=== PATIENT | female | born 1960 | race Caucasian/White ===

== ENCOUNTER → 2017-09-12 09:01 | Outpatient (CLI) | payer BC, SELFPAY ==
[2017-09-12 12:02] LABS: Absolute Lymphocyte Count 1.54 X10^3/ul (0.83-4.51); Absolute Neutrophil Count 4.2 X10^3/uL (2.0-7.7); Basophil# 0.03 X10^3/uL; Basophil% 0.5 % (0-1); Eosinophil# 0.15 X10^3/uL; Eosinophils% 2.3 % (0-5); Hematocrit 45.3 % (37-47); Hemoglobin 15.3 g/dl (12.0-15.0); Lymphocyte # 1.54 X10^3/ul (4.0); Mean Corp Hgb Conc 33.8 g/gl (32-36); Mean Corpuscular Hgb 32.8 pg (27.0-32.0); Mean Corpuscular Volume 97.2 fL (81-99); Mean Platelet Vol. 11.9 fl (6.2-12.0); Monocyte# 0.52 X10^3/uL; Monocyte% 8.1 % (0-10); Neutrophil # 4.17 X10^3/uL (2.7-7.7); Neutrophil % 64.8 % (47-70); Platelet Count 281 K/mm3 (150-450); RBC Distribution Width CV 12.7 % (11.6-14.6); RBC Distribution Width SD 44.4 fl (35.1-43.9); Red Blood Count 4.66 M/mm3 (4.2-5.4); White Blood Count 6.4 K/mm3 (4.4-11.0)
[2017-09-12 12:04] LABS: POSITIVE COUNT NO; POSITIVE DIFFERENTIAL NO; POSITIVE MORPHOLOGY NO
[2017-09-12 12:15] LABS: Color, Urine Yellow (Yellow); Glucose, Dipstick Normal (Normal); Ketone-Dipstick Negative (Negative); Leukocyte Esterase-Dipstick Negative /ul (Negative); Nitrite-Dipstick Negative (Negative); Occult Blood-Urine Negative /ul (Negative); Protein-Dipstick Negative (Negative); Urine Bilirubin Dipstick Negative (Negative); Urine Clarity Clear (Clear); Urine Urobilinogen Normal (Normal)
[2017-09-12 12:23] LABS: ALB/GLOB Ratio 0.8 RATIO (0.9-2.4); AST(SGOT) 33 U/L (15-37); Alanine Aminotransfer ALT/SGPT 41 U/L (13-56); Albumin, Serum 3.5 g/dL (3.2-5.0); Alkaline Phosphatase 117 U/L (45-117); Anion Gap 8 (5-15); BUN 10 mg/dL (7-18); BUN/Creat Ratio 13.5 RATIO (10-20); Calcium,Total 9.5 mg/dL (8.5-10.1); Chloride 105 mmol/L (98-107); Cholesterol 202 mg/dL (200); Creatinine, Serum 0.74 mg/dL (0.55-1.02); EST Glomerular Filtration Rate 86 mL/min (>60); Est Glom Filt Rate - Afr Amer 105 mL/min (>60); Globulin 4.3 g/dL (2.2-4.2); Glucose 97 mg/dL (74-106); High Density Lipoprotein 74 mg/dL; Potassium 3.9 mmol/L (3.5-5.1); Protein, Total 7.8 g/dL (6.4-8.2); Sodium Level 141 mmol/L (136-145); Triglycerides 101 mg/dL; Very Low Density Lipoprotein 20 mg/dL (5-40)
[2017-09-14 09:06] LABS: Insulin Like Growth Factor 78 ng/mL (53-190)
== END ==
PROVIDERS: Family Provider Family Medicine; PCP Family Medicine; Visit Provider Family Medicine
DX: Z00.00 Encounter for general adult medical examination without abnormal findings (principal); E16.2 Hypoglycemia, unspecified
CPT/HCPCS: 36415; 80053; 80061; 81002; 84305; 85025

== ENCOUNTER → 2017-09-26 14:54 | Outpatient (CLI) | payer BC, SELFPAY ==
--- NOTE | 2017-09-26 14:56 | BI_ITS ---
MAMMOGRAPHY - BILATERAL SCREENING REASON FOR EXAM: Female, 57 years old. Routine annual screening examination. PERTINENT HISTORY: Sister with breast cancer. TECHNIQUE: Digital bilateral breast joey (3D mammographic acquisition) in the CC and MLO projections. 2-D mediolateral oblique (MLO) and craniocaudad (CC) views of both breasts were obtained. CAD: Full Field Digital Mammography with Computer Added Detection was performed. COMPARISON: Comparison is made with prior study dated August 09, 2016 and August 05, 2015. FINDINGS: Breast Composition: The breasts are almost entirely fatty. There are no dominant masses or suspicious calcifications. No other significant abnormalities are identified. There has been no significant change since the prior study. BI/SCREENING MAMM (CAD), BILAT IMPRESSION: Stable bilateral screening mammogram. Yearly follow-up mammogram recommended. (A) ASSESSMENT CATEGORY: BIRADS Category 1: Negative. A letter regarding these results will be sent to the patient by the facility within 30 days. Approximately 10% of breast cancers are not detected by mammography. A normal mammogram should not delay biopsy of a clinically suspicious abnormality. [id number] Electronically Signed: Vidal Ruff MD at 16:04 EDT Tel [phone], Service support ,
== END ==
PROVIDERS: Family Provider Family Medicine; PCP Family Medicine; Visit Provider Family Medicine
DX: Z12.31 Encounter for screening mammogram for malignant neoplasm of breast (principal)
CPT/HCPCS: 77063; 77067

== ENCOUNTER → 2018-06-07 12:40 | Outpatient (CLI) | payer OTHER, SELFPAY ==
--- NOTE | 2018-06-07 12:45 | RAD_ITS ---
STUDY: X-RAY - RIGHT KNEE REASON FOR EXAM: Female, 58 years old. Pt. states she was dancing and then woke up the next morning with medial pain and swelling TECHNIQUE: 3 view(s) of the knee. COMPARISON: None. FINDINGS: Normal visualized distal femur. Normal visualized proximal tibia and fibula. Normal proximal tibiofibular articulation. There is moderate degenerative arthrosis of the medial femorotibial compartment with moderate joint space narrowing. There is mild degenerative arthrosis of the lateral femorotibial compartment. There is severe degenerative arthrosis of the patellofemoral articulation. There is a moderate volume joint effusion. The soft tissue structures are unremarkable. RAD/Knee 3 Views IMPRESSION: Degenerative arthrosis. Electronically Signed: Genny Joseph, at 13:02 EDT Tel , Service support ,
== END ==
PROVIDERS: Family Provider Family Medicine; PCP Family Medicine; Referring Provider Nurse Practitioner Family; Visit Provider Nurse Practitioner Family
DX: M25.561 Pain in right knee (principal)
CPT/HCPCS: 73562

== ENCOUNTER → 2018-07-22 07:14 | Outpatient (CLI) | payer OTHER, SELFPAY ==
[2018-06-07 12:41] VITALS: BMI 29.1
--- NOTE | 2018-07-22 14:13 | EEG ---
- Electroencephalogram Date of service 07/22/2018 History EEG is being done in this 58 yr F to rule out seizures EEG Description: This is an 18 channel EEG with 10-20 lead placement system. Bipolar montages, and Referential montages were reviewed. Photic stimulation and Hyperventilation were performed. The posterior dominant rhythm is 10 HZ synchronous, symmetric, reacting to eye opening and closing. Photo stimulation elicited normal driving response but no abnormal photoparoxysmal response, Hyperventilation did not elicit any abnormal photoparoxysmal response. Sleep was identified. There is no abnormal background slowing noted. EKG artefact noted during the record. There was no epileptiform discharges or electrographic seizures noted during this recording. EEG Interpretation This is a normal awake and asleep EEG. There is no epileptiform discharges or electrographic seizures noted during the record.
== END ==
PROVIDERS: Family Provider Family Medicine; PCP Family Medicine; Referring Provider Family Medicine; Visit Provider Family Medicine
DX: R55 Syncope and collapse (principal)
CPT/HCPCS: 95819

== ENCOUNTER → 2018-08-08 07:54 | Outpatient (CLI) | payer OTHER, SELFPAY ==
[2018-06-07 12:41] VITALS: BMI 29.1
--- NOTE | 2018-08-08 08:00 | CT_ITS ---
STUDY: CT BRAIN WITHOUT CONTRAST REASON FOR EXAM: Female, 58 years old. Confusion. RADIATION DOSAGE (If Supplied By Facility): CTDIvol = ( 44.99 ) mGy, DLP = ( 745.49 ) mGycm TECHNIQUE: Transaxial CT imaging of the brain was performed without administration of intravenous contrast material. Individualized dose optimization techniques were used for this CT. COMPARISON: No relevant priors. FINDINGS: Normal soft tissue structures. Normal calvarium. Normal size ventricles and extra-axial spaces for the patient's age. Normal white matter tracts of the cerebral hemispheres. Normal basal ganglia and thalami. Normal brainstem. Normal cerebellum. There is no intracranial hemorrhage. There are no findings of an acute ischemic infarction. Normal visualized paranasal sinuses. CT/Brain/Head without Contrast IMPRESSION: Normal unenhanced CT scan of the brain. Electronically Signed: Vidal Ruff, at 13:31 EDT , Service support ,
== END ==
PROVIDERS: Family Provider Family Medicine; PCP Family Medicine; Referring Provider Family Medicine; Visit Provider Family Medicine
DX: R55 Syncope and collapse (principal)
CPT/HCPCS: 70450

== ENCOUNTER → 2018-10-16 07:36 | Outpatient (CLI) | payer OTHER, SELFPAY ==
[2018-06-07 12:41] VITALS: BMI 29.1
[2018-10-16 08:32] LABS: Erythrocyte Sedimentation Rate 20 mm/hr (0-30)
[2018-10-16 09:06] LABS: Glucose GTT- Fasting 91 mg/dL (74-106)
[2018-10-16 09:10] LABS: Glucose GTT-30 minutes 110 mg/dL (110-170)
[2018-10-16 09:22] LABS: Vitamin B12 614 pg/mL (211-911)
[2018-10-16 10:08] LABS: Glucose GTT- 1 Hour 98 mg/dL (120-170)
[2018-10-16 10:18] LABS: ALB/GLOB Ratio 0.8 RATIO (0.9-2.4); AST(SGOT) 22 U/L (15-37); Alanine Aminotransfer ALT/SGPT 33 U/L (13-56); Albumin, Serum 3.4 g/dL (3.2-5.0); Alkaline Phosphatase 126 U/L (45-117); Anion Gap 4 (5-15); BUN 9 mg/dL (7-18); BUN/Creat Ratio 13.4 RATIO (10-20); Calcium,Total 8.9 mg/dL (8.5-10.1); Chloride 108 mmol/L (98-107); Creatinine, Serum 0.67 mg/dL (0.55-1.02); Globulin 4.1 g/dL (2.2-4.2); Glucose 89 mg/dL (74-106); Potassium 4.1 mmol/L (3.5-5.1); Protein, Total 7.5 g/dL (6.4-8.2); Sodium Level 140 mmol/L (136-145)
[2018-10-16 10:19] LABS: Thyroid Stim Hormone (TSH) 3.63 uIU/mL (0.358-3.74)
[2018-10-16 10:20] LABS: T4 Free Direct 0.93 ng/dL (0.76-1.46); T4 Total, Thyroxin 8.7 ug/dL (4.8-13.9)
[2018-10-16 10:44] LABS: EST Glomerular Filtration Rate 96 mL/min (>60); Est Glom Filt Rate - Afr Amer 116 mL/min (>60); T3 Uptake 34 % (30-39)
[2018-10-16 10:58] LABS: Glucose GTT- 2 Hour 76 mg/dL (70-120)
[2018-10-16 12:44] LABS: Glucose GTT- 4 Hour 84 mg/dL (74-106)
[2018-10-16 12:44] LABS: Glucose GTT- 3 Hour 53 mg/dL (74-106)
[2018-10-17 15:48] LABS: ANTINUCLEAR ANTIBODIES DIRECT Negative (Negative)
[2018-10-17 16:07] LABS: PROEL- Albumin 3.4 g/dL (2.9-4.4); PROEL- Alpha-1 Globulin 0.2 g/dL (0.0-0.4); PROEL- Alpha-2 Globulin 0.8 g/dL (0.4-1.0); PROEL- Beta Globulin 1.1 g/dL (0.7-1.3); PROEL- Gamma Globulin 1.1 g/dL (0.4-1.8); PROEL- Globulin, Total 3.3 g/dL (2.2-3.9); PROEL- TOTAL PROTEIN 6.7 g/dL (6.0-8.5)
== END ==
PROVIDERS: Family Provider Family Medicine; PCP Family Medicine; Referring Provider Psychiatry & Neurology Neurology; Visit Provider Psychiatry & Neurology Neurology
DX: E16.2 Hypoglycemia, unspecified (principal); R41.0 Disorientation, unspecified; R55 Syncope and collapse
CPT/HCPCS: 36415; 80053; 82607; 82746; 82951; 82952; 84165; 84436; 84439; 84443; 84479; 85652; 86038

== ENCOUNTER → 2018-11-22 07:43 | Outpatient (CLI) | payer OTHER, SELFPAY ==
[2018-06-07 12:41] VITALS: BMI 29.1
[2018-11-26 09:53] LABS: KEPPRA (LEVETIRACETAM) 9.4 ug/mL (10.0-40.0)
== END ==
PROVIDERS: Family Provider Family Medicine; PCP Family Medicine; Referring Provider Psychiatry & Neurology Neurology; Visit Provider Psychiatry & Neurology Neurology
DX: G40.209 Localization-related (focal) (partial) symptomatic epilepsy and epileptic syndromes with complex partial seizures, not intractable, without status epilepticus (principal)
CPT/HCPCS: 36415; 80177

== ENCOUNTER → 2019-01-13 07:45 | Outpatient (CLI) | payer OTHER, SELFPAY ==
[2019-01-04 12:34] VITALS: BMI 29.1
[2019-01-15 12:23] LABS: KEPPRA (LEVETIRACETAM) 32.2 ug/mL (10.0-40.0)
== END ==
PROVIDERS: Family Provider Family Medicine; PCP Family Medicine; Referring Provider Psychiatry & Neurology Neurology; Visit Provider Psychiatry & Neurology Neurology
DX: G40.209 Localization-related (focal) (partial) symptomatic epilepsy and epileptic syndromes with complex partial seizures, not intractable, without status epilepticus (principal)
CPT/HCPCS: 36415; 80177

== ENCOUNTER → 2019-02-22 09:10 | Outpatient (CLI) | payer OTHER, SELFPAY ==
[2019-01-04 12:34] VITALS: BMI 29.1
[2019-02-22 10:09] LABS: Absolute Lymphocyte Count 1.88 X10^3/uL (0.83-4.51); Basophil# 0.04 X10^3/uL; Basophil% 0.6 % (0-1); Eosinophil# 0.19 X10^3/uL; Eosinophils% 2.9 % (0-5); Hemoglobin 14.3 g/dL (12.0-15.0); Lymphocyte # 1.88 X10^3/ul (4.0); Lymphocyte % 28.2 % (19-41); Mean Corp Hgb Conc 33.3 g/dL (32-36); Mean Corpuscular Hgb 32.5 pg (27.0-32.0); Mean Corpuscular Volume 97.7 fL (81-99); Mean Platelet Vol. 11.3 fl (6.2-12.0); Monocyte# 0.57 X10^3/uL; Monocyte% 8.6 % (0-10); NRBC Flagged by Analyzer 0 % (0-5); Neutrophil # 3.96 X10^3/uL (2.7-7.7); Neutrophil % 59.4 % (47-70); Platelet Count 268 K/mm3 (150-450); RBC Distribution Width CV 12.2 % (11.6-14.6); RBC Distribution Width SD 44.1 fl (35.1-43.9); White Blood Count 6.7 K/mm3 (4.4-11.0)
[2019-02-22 10:13] LABS: Color, Urine Straw (Yellow); Glucose, Dipstick Normal (Normal); Ketone-Dipstick Negative (Negative); Leukocyte Esterase-Dipstick Negative /ul (Negative); Nitrite-Dipstick Negative (Negative); Occult Blood-Urine Negative /ul (Negative); Protein-Dipstick Negative (Negative); Urine Bilirubin Dipstick Negative (Negative); Urine Clarity Sl. Cloudy (Clear); Urine Urobilinogen Normal (Normal)
[2019-02-22 10:35] LABS: BUN 12 mg/dL (7-18); Creatinine, Serum 0.71 mg/dL (0.55-1.02); Glucose 81 mg/dL (74-106)
[2019-02-22 10:36] LABS: ALB/GLOB Ratio 0.9 RATIO (0.9-2.4); AST(SGOT) 29 U/L (15-37); Alanine Aminotransfer ALT/SGPT 39 U/L (13-56); Albumin, Serum 3.6 g/dL (3.2-5.0); Alkaline Phosphatase 130 U/L (45-117); Anion Gap 5 (5-15); BUN/Creat Ratio 16.8 RATIO (10-20); Calcium,Total 9.2 mg/dL (8.5-10.1); Chloride 106 mmol/L (98-107); Cholesterol 193 mg/dL (200); EST Glomerular Filtration Rate 90 mL/min (>60); Est Glom Filt Rate - Afr Amer 109 mL/min (>60); High Density Lipoprotein 75 mg/dL; Potassium 4.3 mmol/L (3.5-5.1); Protein, Total 7.6 g/dL (6.4-8.2); Sodium Level 140 mmol/L (136-145); Triglycerides 221 mg/dL; Very Low Density Lipoprotein 44 mg/dL (5-40)
== END ==
PROVIDERS: Family Provider Family Medicine; PCP Family Medicine; Referring Provider Family Medicine; Visit Provider Family Medicine
DX: Z00.00 Encounter for general adult medical examination without abnormal findings (principal); Z12.31 Encounter for screening mammogram for malignant neoplasm of breast
CPT/HCPCS: 36415; 80053; 80061; 81002; 85025

== ENCOUNTER → 2019-03-11 07:46 | Outpatient (CLI) | payer OTHER, SELFPAY ==
[2019-01-04 12:34] VITALS: BMI 29.1
--- NOTE | 2019-03-11 07:48 | BI_ITS ---
MAMMOGRAPHY - BILATERAL SCREENING 3-D TOMOSYNTHESIS REASON FOR EXAM: Female, 58 years old. FAM HX SISTER AGE 30 -- NO SX PERTINENT HISTORY: Positive family history as described above. TECHNIQUE: 2-D mammograms and 3-D Tomosynthesis of the breast (s) were performed. CAD was performed. COMPARISON: 09/26/2017, 08/09/2016 FINDINGS: The breast composition is almost entirely fat. A focal prominence is visualized on the right along the upper-outer quadrant. Further evaluation of this focus with spot compression mammogram and if persistent with sonography is recommended as follow-up. Scattered benign calcifications are seen. No dense spiculated masses or suspicious microcalcifications are identified. No architectural distortion is identified. There is no skin thickening or retraction. There has been no other focus of significant change since the prior study. BI/SCREEN MAMM (CAD) W/TEA BILAT IMPRESSION: A focal prominence is visualized on the right along the upper-outer quadrant. Further evaluation of this focus with spot compression mammogram and if persistent with sonography is recommended as follow-up. ASSESSMENT CATEGORY: BIRADS Category 0: Incomplete. Need additional imaging evaluation as above. A letter regarding these results will be sent to the patient by the facility within 30 days. FOLLOW UP RECOMMENDATION: Additional imaging recommended as above. (E) Approximately 10% of breast cancers are not detected by mammography. A normal mammogram should not delay biopsy of a clinically suspicious abnormality. Electronically Signed: Stuart Siddiqi MD at 14:55 EST Tel [phone], Service support ,
== END ==
PROVIDERS: Family Provider Family Medicine; PCP Family Medicine; Referring Provider Family Medicine; Visit Provider Family Medicine
DX: Z12.31 Encounter for screening mammogram for malignant neoplasm of breast (principal)
CPT/HCPCS: 77063; 77067

== ENCOUNTER → 2019-03-20 09:19 | Outpatient (CLI) | payer BC, SELFPAY ==
[2019-01-04 12:34] VITALS: BMI 29.1
--- NOTE | 2019-03-20 09:23 | BI_ITS ---
MAMMOGRAPHY - UNILATERAL DIAGNOSTIC: RIGHT BREAST REASON FOR EXAM: Female, 58 years old. FAM HX SISTER AGE 30 -- RT AVS FOR DENSITY UPPER OUTER RT BREAST -- NO SX PERTINENT HISTORY: Non-contributory. TECHNIQUE: Digital examination. Right lateral view and focal compression of the right upper outer breast. CAD: CAD was performed on this study. COMPARISON: March 11, 2019. FINDINGS: Breast Composition: The breasts are almost entirely fatty. There is no border-forming nodule or mass. The previously identified density is felt to have represented superimposition of fibroglandular tissues. There are no suspicious clustered calcifications. No other significant abnormalities are identified. BI/DIAG MAMM W/CAD, UNILAT IMPRESSION: Stable unilateral diagnostic mammogram. ASSESSMENT CATEGORY: BIRADS Category 1: Negative. A letter regarding these results will be sent to the patient by the facility within 30 days. FOLLOW-UP RECOMMENDATION: Yearly follow-up mammogram recommended. (A) Approximately 10% of breast cancers are not detected by mammography. A normal mammogram should not delay biopsy of a clinically suspicious abnormality. Electronically Signed: Alen Kothari MD at 10:38 EST , Service support ,
== END ==
PROVIDERS: Family Provider Family Medicine; PCP Family Medicine; Referring Provider Family Medicine; Visit Provider Family Medicine
DX: R92.8 Other abnormal and inconclusive findings on diagnostic imaging of breast (principal)
CPT/HCPCS: 77065

== ENCOUNTER → 2019-04-17 07:30 | Outpatient (CLI) | payer BC, SELFPAY ==
[2019-01-04 12:34] VITALS: BMI 29.1
[2019-04-17 09:10] LABS: AST(SGOT) 22 U/L (15-37); Alanine Aminotransfer ALT/SGPT 29 U/L (13-56); Albumin, Serum 3.6 g/dL (3.2-5.0); Alkaline Phosphatase 130 U/L (45-117); Bilirubin, Direct 0.13 mg/dL (0.00-0.30); Globulin 4.2 g/dL (2.2-4.2); Protein, Total 7.8 g/dL (6.4-8.2)
[2019-04-21 16:40] LABS: KEPPRA (LEVETIRACETAM) 11.6 ug/mL (10.0-40.0); Lamotrigine (Lamictal) Level 4.1 ug/mL (2.0-20.0)
== END ==
PROVIDERS: PCP Family Medicine; Referring Provider Psychiatry & Neurology Neurology; Visit Provider Psychiatry & Neurology Neurology
DX: G40.209 Localization-related (focal) (partial) symptomatic epilepsy and epileptic syndromes with complex partial seizures, not intractable, without status epilepticus (principal)
CPT/HCPCS: 36415; 80076; 80177; 82542

== ENCOUNTER → 2020-10-18 08:13 | Outpatient (CLI) | payer BC, SELFPAY ==
[2019-01-04 12:34] VITALS: BMI 29.1
--- NOTE | 2020-10-18 08:16 | BI_ITS ---
MAMMOGRAPHY - BILATERAL SCREENING REASON FOR EXAM: Female, 60 years old. Routine annual screening examination. PERTINENT HISTORY: Screening TECHNIQUE: Digital bilateral breast tea (3D mammographic acquisition) in the CC and MLO projections. 2-D mediolateral oblique (MLO) and craniocaudad (CC) views of both breasts were obtained. CAD: Full Field Digital Mammography with Computer Added Detection was performed. COMPARISON: Previous mammogram obtained on 03/11/2019 FINDINGS: Breast Composition: Fatty There are no dominant masses or suspicious calcifications. No other significant abnormalities are identified. BI/SCRN MAMM (CAD)W/TEA BILAT IMPRESSION: Stable bilateral screening mammogram. Yearly follow-up mammogram recommended. (A) ASSESSMENT CATEGORY: BIRADS Category 1: Negative. A letter regarding these results will be sent to the patient by the facility within 30 days. Approximately 10% of breast cancers are not detected by mammography. A normal mammogram should not delay biopsy of a clinically suspicious abnormality. [id number] Electronically Signed: Flavio Jerez DO at 11:58 EDT Tel , Service support ,
[2020-10-18 08:51] LABS: Absolute Lymphocyte Count 1.31 X10^3/uL (0.83-4.51); Absolute Neutrophil Count 3.4 X10^3/uL (2.0-7.7); Basophil# 0.04 X10^3/uL; Basophil% 0.7 % (0-1); Eosinophil# 0.29 X10^3/uL; Eosinophils% 5.3 % (0-5); Hematocrit 45.4 % (37-47); Lymphocyte # 1.31 X10^3/ul (0.83-4.51); Lymphocyte % 23.9 % (19-41); Mean Corpuscular Hgb 32.5 pg (27.0-32.0); Mean Corpuscular Volume 98.3 fL (81-99); Monocyte# 0.43 X10^3/uL; Monocyte% 7.9 % (0-10); NRBC Flagged by Analyzer 0 % (0-5); Neutrophil # 3.38 X10^3/uL (2.7-7.7); Neutrophil % 61.8 % (47-70); Platelet Count 264 K/mm3 (150-450); RBC Distribution Width CV 12.1 % (11.6-14.6); RBC Distribution Width SD 44.1 fl (35.1-43.9); Red Blood Count 4.62 M/mm3 (4.2-5.4); White Blood Count 5.5 K/mm3 (4.4-11.0)
[2020-10-18 09:19] LABS: ALB/GLOB Ratio 0.9 RATIO (0.9-2.4); AST(SGOT) 49 U/L (15-37); Alanine Aminotransfer ALT/SGPT 74 U/L (13-56); Albumin, Serum 3.6 g/dL (3.2-5.0); Alkaline Phosphatase 142 U/L (45-117); Anion Gap 3 (5-15); BUN 11 mg/dL (7-18); BUN/Creat Ratio 14.7 RATIO (10-20); Calcium,Total 9.1 mg/dL (8.5-10.1); Chloride 106 mmol/L (98-107); Cholesterol 193 mg/dL (200); Creatinine, Serum 0.75 mg/dL (0.55-1.02); EST Glomerular Filtration Rate 85 mL/min (>60); Est Glom Filt Rate - Afr Amer 102 mL/min (>60); Globulin 4.2 g/dL (2.2-4.2); Glucose 106 mg/dL (74-106); High Density Lipoprotein 69 mg/dL; Potassium 4.1 mmol/L (3.5-5.1); Protein, Total 7.8 g/dL (6.4-8.2); Sodium Level 137 mmol/L (136-145); Triglycerides 103 mg/dL; Very Low Density Lipoprotein 21 mg/dL (5-40)
== END ==
PROVIDERS: PCP Family Medicine; Referring Provider Family Medicine; Visit Provider Family Medicine
DX: Z12.31 Encounter for screening mammogram for malignant neoplasm of breast (principal); Z13.6 Encounter for screening for cardiovascular disorders
CPT/HCPCS: 36415; 77063; 77067; 80053; 80061; 85025

== ENCOUNTER 2020-12-02 10:08 | Emergency (ER) | payer BC, SELFPAY ==
[2020-12-02 10:08] VITALS: BP 203/117; PULSE 83; RESP 17; TEMP 36.1; O2SAT 97; BMI 31.1
--- NOTE | 2020-12-02 10:17 | EKG12_ITS ---
Test Reason : LUMBAR Blood Pressure : / mmHG Vent. Rate : 083 BPM Atrial Rate : 083 BPM P-R Int : 148 ms QRS Dur : 072 ms QT Int : 366 ms P-R-T Axes : 024 000 019 degrees QTc Int : 430 ms Normal sinus rhythm Normal ECG Confirmed by ALAN MADRID, LISHA ([id number]), map editor JOSE MARTIN BARRAGAN ([id number]) on 12/03/2020 1:07:22 PM Referred By: SHARI/JOHN Confirmed By:LISHA PHILLIPS MD
--- NOTE | 2020-12-02 10:18 | EDS_ITS ---
HPI History of Present Illness Chief Complaint: Upper Extremity Injury Informant: patient Narrative Narrative: [id number] female presents with sudden pain left elbow radiating up and down ulnar aspect half hour prior to arrival. No chest pains. 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 Denies trauma. Denies history of similar. Presents with concerns for potential heart attack. History of seizures on medications. Patient did have an elevated blood pressure in triage, denies history of hypertension. Denies headaches nausea vomiting. States increasing stress due to payroll at this time. Prior similar symptoms: No PFSH PFSH Medical History (Updated 12/02/20 @ 10:[address] Yaron Aranda DO) GERD (gastroesophageal reflux disease) History of seizures Knee pain Home Medications acetaminophen 325 mg capsule 325 mg PO Q6H 01/04/19 [History Last Taken Unknown] azithromycin 250 mg tablet See Rx Instructions PO .COMPLEX #6 tab 01/04/19 [Rx Last Taken Unknown] levetiracetam 500 mg tablet 500 mg PO TID tab 01/04/19 [History Last Taken Unknown] prednisone 10 mg tablet 10 mg PO .COMPLEX #30 tab 01/04/19 [Rx Last Taken Unknown] Allergy/AdvReac Type Severity Reaction Status Date / Time No Known Allergies Allergy Unverified 12/02/20 10:10 Family History Other CVA (cerebral vascular accident) Cancer Myocardial infarction Social History Smoking Status: Current every day smoker tobacco type: cigarettes alcohol intake: current alcohol intake frequency: 0-2 drinks per day Alcohol type: wine ROS ROS ED Constitutional Constitutional ED: Denies chills, fever(s) or sweats Eyes Eyes: Denies change in vision ENT ENT ED: Denies dysphagia or sore throat Cardiovascular Cardiovascular: Denies chest pain, leg edema, palpitations or racing heartbeat Respiratory/Chest Respiratory/Chest: Denies cough, dyspnea or dyspnea on exertion Gastrointestinal Gastrointestinal: Denies abdominal pain, diarrhea, nausea or vomiting Genitourinary Genitourinary ED: Denies dysuria, hematuria or urinary frequency Musculoskeletal Musculoskeletal: Reports other Details: Left elbow pain with radiation ; Denies back pain, extremity pain or neck pain Integumentary Denies rash or wounds Neurologic Neurologic: Denies headache(s), paresthesias or weakness EXAM Physical Exam Const Vital Signs: 12/02/20 10:08 Temperature 97 F L Temperature Source Temporal Pulse Rate 83 Respiratory Rate 17 Blood Pressure 203/117 H Blood Pressure Mean 145 Pulse Ox 97 Oxygen Delivery Method Room Air Positive well nourished and well developed General Appearance ED: well developed and NAD HEENT Reports moist mucous membranes normocephalic and atraumatic Eyes PERRL, EOMs intact bilaterally and conjunctivae normal General Eye ED: Yes normal appearance of both eyes Neck no lymphadenopathy and supple General: Negative for tenderness Chest Wall Chest: Negative for tenderness Resp normal respiratory effort and normal air movement Effort and Inspection: symmetric chest movement; Negative for respiratory distress Cardio regular rate, regular rhythm and no murmurs Peripheral Pulses: pulses 2+ throughout GI normal to inspection, nondistended, normoactive bowel sounds and non-tender Palpation: Negative for guarding or rebound tenderness present Back/Spine no CVA tenderness and no thoracic nor lumbar tenderness Extremity Extremity Narrative: Left upper extremity: No shoulder tenderness. Full range of motion of the elbow positive Tinel's at the cubital tunnel with radicular symptoms down the ulnar aspect. Positive pain with pronation against resistance at the elbow also. Skin intact. Neurovascular intact. General Extremety ED: Negative for edema or tenderness General Extremity: Negative for edema Neuro oriented x3 and no sensory deficits noted Sensorium / Orientation: awake and alert Skin no rashes or lesions noted and no wounds MDM MDM MDM Narrative Medical decision making narrative: Patient exam concerns for cubital tunnel syndrome along with golfers elbow. She leans on her elbows at work. She is concerns for cardiac in nature, EKG showed nonspecific changes. She has no chest pains. Elevated blood pressure on arrival rechecked 185/102. No history of hypertension she is asymptomatic. Discussed picking up blood pressure cuff checking it daily with follow-up with her PCP. She will be continued on Tylenol due to blood pressure and NSAIDs will be avoided at this time. Is given orthopedics as an outpatient for reevaluation of symptoms. Signs and symptoms discussed return. All questions were answered. Patient is being discharged under pandemic conditions under declared global, national and state disaster activation, with limited medical resources. Patient and community understands this. Results discussed in layman's terms to the patient satisfaction. All questions answered in layman's terms. Patient understands importance of follow-up care as directed. Patient has been instructed to return to the ED immediately if new symptoms, problems, or questions occur. We mutually agree with the plan of disposition. The patient understand that they may call or return with any questions or concerns at any time. Radiography Diagnostic Testing: Three-view left elbow x-ray: No fracture or dislocation. EKG Initial EKG: Attestation: I personally reviewed and interpreted this EKG as follows: Comments: Sinus rate of 83, no ST changes, isolated T wave inversion in leads III. Nonspecific. Discharge Plan Triage Chief Complaint: Upper Extremity Injury ED Provider: Yaron Aranda Dx/Rx/DC Orders Clinical Impression: Cubital tunnel syndrome on left, Golfers elbow of left upper extremity, Elevated blood pressure reading Instructions: What is Cubital Tunnel Syndrome?, Understanding Medial Epicondylitis Prescriptions: No Action acetaminophen [Tylenol] 325 mg capsule 325 mg PO Q6H RF: 0 azithromycin [Zithromax Z-Bhargav] 250 mg tablet See Rx Instructions PO .COMPLEX Qty: 6 RF: 0 prednisone 10 mg tablet 10 mg PO .COMPLEX Qty: 30 RF: 0 levetiracetam [Keppra] 500 mg tablet 500 mg PO TID RF: 0 Primary Care Provider: Wero Garvey Referrals: Chad Toledo DO [STAFF PHYSICIAN] - 1 Week Wero Garvey MD [Primary Care Provider] - 1 Week Activity Restrictions/Additional Instructions: Elevated blood pressure on arrival. 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 Maintain Fady wrap f or your elbow. Continue Tylenol 1 g every 6 hours as needed. Follow-up with orthopedics as needed. Disposition Disposition: Home, Self Care Discharge Date/Time: 12/02/20 11:20
[2020-12-02] MEDS: Acetaminophen 500 MG Tablet 1000 MG PO (10:21)
--- NOTE | 2020-12-02 10:30 | RAD_ITS ---
STUDY: X-RAY - LEFT ELBOW REASON FOR EXAM: Female, 60 years old. Left elbow pain. No history of injury. TECHNIQUE: 3 view(s) of the elbow. COMPARISON: None. FINDINGS: Normal visualized humerus, radius and ulna. Normal radiocapitellar and ulnotrochlear articulations. The soft tissue structures are unremarkable. RAD/Elbow min 3 Views IMPRESSION: Normal x-ray examination of the elbow. Electronically Signed: Vidal Ruff MD at 10:49 EDT , Service support ,
== END 2020-12-02 11:20 | disposition home or self-care (01) ==
LOC: ED 11:19
PROVIDERS: Emergency Provider Emergency Medicine; PCP Family Medicine
DX: G56.02 Carpal tunnel syndrome, left upper limb (principal); M77.02 Medial epicondylitis, left elbow; R03.0 Elevated blood-pressure reading, without diagnosis of hypertension; F17.210 Nicotine dependence, cigarettes, uncomplicated
CPT/HCPCS: 73080; 93005; 99282

== ENCOUNTER → 2020-12-06 07:40 | Outpatient (CLI) | payer BC, SELFPAY ==
[2020-12-08 20:41] LABS: KEPPRA (LEVETIRACETAM) 9.9 ug/mL (10.0-40.0); Lamotrigine (Lamictal) Level 2.8 ug/mL (2.0-20.0)
== END ==
PROVIDERS: PCP Family Medicine; Referring Provider Psychiatry & Neurology Neurology; Visit Provider Psychiatry & Neurology Neurology
DX: G40.009 Localization-related (focal) (partial) idiopathic epilepsy and epileptic syndromes with seizures of localized onset, not intractable, without status epilepticus (principal)
CPT/HCPCS: 36415; 80177; 82542

== ENCOUNTER → 2021-07-08 | Outpatient (CLI) | payer BC, SELFPAY ==
[2021-07-08 08:15] LABS: Absolute Neutrophil Count 3.5 X10^3/uL (2.0-7.7); Basophil# 0.05 X10^3/uL; Basophil% 0.8 % (0-1); Eosinophil# 0.23 X10^3/uL; Eosinophils% 3.9 % (0-5); Hematocrit 45.4 % (37-47); Hemoglobin 15.3 g/dL (12.0-15.0); Lymphocyte % 28.7 % (19-41); Mean Corp Hgb Conc 33.7 g/dL (32-36); Mean Corpuscular Hgb 32.9 pg (27.0-32.0); Mean Corpuscular Volume 97.6 fL (81-99); Monocyte# 0.42 X10^3/uL; Monocyte% 7.1 % (0-10); NRBC Flagged by Analyzer 0 % (0-5); Neutrophil % 59.2 % (47-70); Platelet Count 253 K/mm3 (150-450); RBC Distribution Width CV 12.1 % (11.6-14.6); RBC Distribution Width SD 43.4 fl (35.1-43.9); Red Blood Count 4.65 M/mm3 (4.2-5.4); White Blood Count 5.9 K/mm3 (4.4-11.0)
[2021-07-08 08:45] LABS: ALB/GLOB Ratio 0.8 RATIO (0.9-2.4); AST(SGOT) 67 U/L (15-37); Alanine Aminotransfer ALT/SGPT 93 U/L (13-56); Albumin, Serum 3.4 g/dL (3.2-5.0); Alkaline Phosphatase 139 U/L (45-117); Anion Gap 3 (5-15); BUN 13 mg/dL (7-18); BUN/Creat Ratio 14.7 RATIO (10-20); Calcium,Total 9.1 mg/dL (8.5-10.1); Chloride 108 mmol/L (98-107); Cholesterol 191 mg/dL (200); Creatinine, Serum 0.88 mg/dL (0.55-1.02); EST Glomerular Filtration Rate 70 mL/min (>60); Est Glom Filt Rate - Afr Amer 84 mL/min (>60); Globulin 4.2 g/dL (2.2-4.2); Glucose 104 mg/dL (74-106); High Density Lipoprotein 79 mg/dL; Potassium 4.5 mmol/L (3.5-5.1); Protein, Total 7.6 g/dL (6.4-8.2); Sodium Level 139 mmol/L (136-145); Triglycerides 88 mg/dL; Very Low Density Lipoprotein 18 mg/dL (5-40)
== END | disposition home or self-care (01) ==
PROVIDERS: PCP Family Medicine; Referring Provider Family Medicine; Visit Provider Family Medicine
DX: Z00.00 Encounter for general adult medical examination without abnormal findings (principal); Z13.9 Encounter for screening, unspecified
CPT/HCPCS: 36415; 80053; 80061; 85025

== ENCOUNTER → 2021-10-26 | Outpatient (CLI) | payer OTHER, SELFPAY ==
--- NOTE | 2021-10-26 08:15 | BI_ITS ---
MAMMOGRAPHY - BILATERAL SCREENING REASON FOR EXAM: Female, 61 years old. Routine annual screening examination. PERTINENT HISTORY: Non-contributory. TECHNIQUE: Digital bilateral breast tea (3D mammographic acquisition) in the CC and MLO projections. 2-D mediolateral oblique (MLO) and craniocaudad (CC) views of both breasts were obtained. CAD: Full Field Digital Mammography with Computer Added Detection was performed. COMPARISON: Comparison is made with prior study dated 10/18/2020 and 03/20/2019. FINDINGS: Breast Composition: The breasts are almost entirely fatty. There are no dominant masses or suspicious calcifications. Stable benign-appearing bilateral axillary lymph nodes. No other significant abnormalities are identified. There has been no significant change since the prior study. BI/SCRN MAMM (CAD)W/TEA BILAT IMPRESSION: Stable bilateral screening mammogram. Yearly follow-up mammogram recommended. (A) ASSESSMENT CATEGORY: BIRADS Category 2: Benign. A letter regarding these results will be sent to the patient by the facility within 30 days. Approximately 10% of breast cancers are not detected by mammography. A normal mammogram should not delay biopsy of a clinically suspicious abnormality. [id number] Electronically Signed: Vidal Ruff MD at 9:18 EDT ,
== END | disposition home or self-care (01) ==
LOC: OPBI 08:14
PROVIDERS: PCP Family Medicine; Referring Provider Family Medicine; Visit Provider Family Medicine
DX: Z12.31 Encounter for screening mammogram for malignant neoplasm of breast (principal)
CPT/HCPCS: 77063; 77067

== ENCOUNTER → 2022-03-07 | Outpatient (CLI) | payer OTHER, SELFPAY ==
[2022-03-09 17:13] LABS: KEPPRA (LEVETIRACETAM) 26.6 ug/mL (10.0-40.0)
== END | disposition home or self-care (01) ==
LOC: PAVLAB 08:06
PROVIDERS: PCP Family Medicine; Referring Provider Physician Assistant; Visit Provider Physician Assistant
DX: G40.009 Localization-related (focal) (partial) idiopathic epilepsy and epileptic syndromes with seizures of localized onset, not intractable, without status epilepticus (principal)
CPT/HCPCS: 36415; 80177

== ENCOUNTER → 2022-08-23 | Outpatient (CLI) | payer OTHER, SELFPAY ==
[2022-08-26 14:08] LABS: KEPPRA (LEVETIRACETAM) 12.7 ug/mL (10.0-40.0); Lamotrigine (Lamictal) Level 7.8 ug/mL (2.0-20.0)
== END | disposition home or self-care (01) ==
LOC: PAVLAB 08:14
PROVIDERS: Psychiatry & Neurology Neurology; PCP Family Medicine; Referring Provider Physician Assistant; Visit Provider Physician Assistant
DX: G40.009 Localization-related (focal) (partial) idiopathic epilepsy and epileptic syndromes with seizures of localized onset, not intractable, without status epilepticus (principal)
CPT/HCPCS: 36415; 80177; 82542

== ENCOUNTER 2023-02-11 11:23 | Emergency (ER) | payer OTHER, SELFPAY ==
[2023-02-11 11:24] VITALS: BP 209/102; PULSE 86; RESP 16; TEMP 36.3; O2SAT 98; BMI 26.8
--- NOTE | 2023-02-11 11:56 | CT_ITS ---
HISTORY: head injury. TECHNIQUE: Multiple axial images were obtained of the head without intravenous contrast. A radiation dose optimization technique was used for this scan. 235 images. COMPARISON: 08/08/2018. FINDINGS: BRAIN PARENCHYMA: Multiple foci and zones of low attenuation in the bilateral cerebral white matter compatible with chronic small vessel ischemic gliosis. No acute intra-axial hemorrhage identified. CSF SPACES: Generalized volume loss. No midline shift or other significant mass effect. No acute extra-axial hemorrhage seen. OTHER: Intact calvarium. No significant air fluid levels in the paranasal sinuses or mastoid air cells. Unremarkable orbits. CT/Brain/Head without Contrast IMPRESSION: No acute intracranial process identified. Mild chronic involutional and white matter changes. Electronically Signed: Aissatou Plascencia MD at 12:41 EST ,
--- NOTE | 2023-02-11 11:57 | EDS_ITS ---
HPI <RODOLFO Shelton - Last Filed: 02/11/23 14:49> HPI - Fall History of Present Illness Chief Complaint: Fall Narrative Narrative: 62-year-old female tripped when getting up from a stool in her kitchen last night landing on the carpet. She struck her forehead on the ground and her left shoulder and ribs. No loss of consciousness. No blood thinners. She states she feels dizzy but denies headache, visual changes, nausea or vomiting. She has left shoulder pain and left anterior rib cage pain. No difficulty breathing. No abdominal pain. Denies pain in her back or lower extremities. PFSH <RODOLFO Shelton - Last Filed: 02/11/23 14:49> PFS Medical History (Updated 02/11/23 @ 13:08 by RODLOFO Shelton) GERD (gastroesophageal reflux disease) History of seizures Knee pain Home Medications acetaminophen 325 mg capsule (Tylenol) 325 mg PO Q6H 01/04/19 [History Last Taken Unknown] azithromycin 250 mg tablet (Zithromax Z-Bhargav) See Rx Instructions PO .COMPLEX #6 tabs 01/04/19 [Rx Last Taken Unknown] levetiracetam 500 mg tablet (Keppra) 500 mg PO TID 01/04/19 [History Last Taken Unknown] prednisone 10 mg tablet 10 mg PO .COMPLEX #30 tabs 01/04/19 [Rx Last Taken Unknown] Allergy/AdvReac Type Severity Reaction Status Date / Time No Known Allergies Allergy Verified 02/11/23 11:27 Family History Other CVA (cerebral vascular accident) Cancer Myocardial infarction Social History Smoking Status: Current every day smoker tobacco type: cigarettes alcohol intake: current alcohol intake frequency: 0-2 drinks per day Alcohol type: wine ROS <RODOLFO Shelton - Last Filed: 02/11/23 14:49> ROS ED ROS Narrative Eyes: Negative for visual change. CVS: Negative for chest pain. Respiratory: Negative for shortness of breath. GI: Negative for abdominal pain, nausea, vomiting. Neuro: Negative for headache, motor/sensory dysfunction. Skin: Negative for wound. EXAM <RODOLFO Shelton Last Filed: 02/11/23 14:49> Physical Exam Narrative Exam Narrative: CONST: Patient sitting in no acute distress. EYES: Normal inspection. PERRL, EOMI. ENT: No external evidence of trauma, no raccoon eyes or Hsieh sign, no nasal septal hematoma or hemotympanum, no CSF otorrhea or rhinorrhea. Normal inspection of neck. No midline spinal tenderness, no step off or crepitus. RESP: No respiratory distress, CTAB. Tender to palpation left anterior lower rib cage in the midclavicular line, no deformity or crepitus, no bruising. CVS: Regular rate and rhythm, no murmur, no gallop. ABD: Soft and nontender, no guarding or rebound, nondistended. Back: Normal inspection. SKIN: Color normal, no rash, warm, dry, intact. EXTREMITIES: Normal appearance, full ROM of all extremities. Slight tenderness left proximal humerus but full range of motion of the shoulder. Normal strength and sensation, 2+ radial and PT pulses. NEURO: Oriented x4. PSYCH: Normal affect. Const Vital Signs: 02/11/23 11:24 02/11/23 12:31 02/11/23 12:33 Temperature 97.4 F L Temperature Source Temporal Pulse Rate 86 Respiratory Rate 16 Respiratory Effort Normal Non-Labored Respiratory Depth Normal Respiratory Pattern Normal Blood Pressure 209/102 H 186/88 H Blood Pressure Mean 137 120 Pulse Ox 98 Oxygen Delivery Method Room Air Room Air <Dr. Jb Delaney DO - Last Filed: 02/11/23 15:18> Physical Exam Const Vital Signs: 02/11/23 11:24 02/11/23 12:31 02/11/23 12:33 Temperature 97.4 F L Temperature Source Temporal Pulse Rate 86 Respiratory Rate 16 Respiratory Effort Normal Non-Labored Respiratory Depth Normal Respiratory Pattern Normal Blood Pressure 209/102 H 186/88 H Blood Pressure Mean 137 120 Pulse Ox 98 Oxygen Delivery Method Room Air Room Air MDM <RODOLFO Shelton - Last Filed: 02/11/23 14:49> MDM MDM Narrative Medical decision making narrative: Patient had a mechanical fall with head injury and injured her left shoulder and rib cage last night. She states she feels foggy and complains of rib cage pain. She is not on blood thinners. She is awake alert with stable vital signs. GCS 15. No evidence of head injury and she is neurologically intact. She has mild left proximal humerus tenderness and more tenderness over the left anterior ribs. No deformity or crepitus. Normal heart and lung sounds. No abdominal tenderness. CT brain is negative. X-rays of the left shoulder and left ribs show no acute findings. She had already taken Aleve and Tylenol prior to arrival so I medicated with a lidocaine patch. I recommended [id number] pain relievers for contusions and she was discharged in stable condition. Differential: Rib contusion, rib fracture, pneumothorax Radiography Diagnostic Testing: Clinical Impression(s) from Imaging Studies Brain CT 02/11/23 11:56 IMPRESSION: No acute intracranial process identified. Mild chronic involutional and white matter changes. Electronically Signed: Aissatou Plascencia MD at 12:41 EST , Ribs w/Chest X-Ray 02/11/23 12:10 IMPRESSION: No acute abnormality identified. Electronically Signed: Aissatou Plascencia MD at 12:39 EST , Shoulder X-Ray 02/11/23 12:10 IMPRESSION: No acute fracture or dislocation identified in the left shoulder. Electronically Signed: Aissatou Plascencia MD at 12:38 EST , ED attending interpretation of left shoulder shows no fracture dislocation. ED attending interpretation of left rib series shows normal heart size, no pneumothorax, no evidence of displaced rib fracture. <Dr. Jb Delaney, DO - Last Filed: 02/11/23 15:18> [facility] Narrative Medical decision making narrative: Patient had a mechanical fall with head injury and injured her left shoulder and rib cage last night. She states she feels foggy and complains of rib cage pain. She is not on blood thinners. She is awake alert with stable vital signs. GCS 15. No evidence of head injury and she is neurologically intact. She has mild left proximal humerus tenderness and more tenderness over the left anterior ribs. No deformity or crepitus. Normal heart and lung sounds. No abdominal tenderness. CT brain is negative. X-rays of the left shoulder and left ribs show no acute findings. She had already taken Aleve and Tylenol prior to arrival so I medicated with a lidocaine patch. I recommended [id number] pain relievers for contusions and she was discharged in stable condition. Differential: Rib contusion, rib fracture, pneumothorax Insert ED attestation. Patient presenting after mechanical fall with head injury and left shoulder pain with left rib pain. Physical exam significant for mild tenderness of the left proximal humerus. There is also tenderness over the left anterior ribs. No evidence of pneumothorax, bruising, crepitance. X-rays of the left ribs and left shoulder were obtained on my interpretation negative for acute fracture subluxation. No evidence of pneumothorax or pneumonia. CT brain is negative. Patient states she is ready for her discharge paperwork. She is feeling better. Lidoderm patch helped her rib pain. Continues to continue Tylenol and ibuprofen at home. Impression: 1. Mechanical fall 2. Left shoulder contusion 3. Left rib cage Lab Data Attestation: I reviewed the patient's lab results. Radiography Diagnostic Testing: Clinical Impression(s) from Imaging Studies Brain CT 02/11/23 11:56 IMPRESSION: No acute intracranial process identified. Mild chronic involutional and white matter changes. Electronically Signed: Aissatou Plascencia MD at 12:41 EST , Ribs w/Chest X-Ray 02/11/23 12:10 IMPRESSION: No acute abnormality identified. Electronically Signed: Aissatou Plascencia MD at 12:39 EST , Shoulder X-Ray 02/11/23 12:10 IMPRESSION: No acute fracture or dislocation identified in the left shoulder. Electronically Signed: Aissatou Plascencia MD at 12:38 EST Reading Location ID and State: [facility] / [place] Tel , Service support , Discharge Plan Triage Chief Complaint: Fall ED Midlevel Provider: Kim Sheldon ED Provider: Jb Delaney Dx/Rx/DC Orders Clinical Impression: Closed head injury, Contusion of rib on left side, Contusion of left shoulder Instructions: Bruises (Contusions) Prescriptions: No Action acetaminophen [Tylenol] 325 mg capsule 325 mg PO Q6H azithromycin [Zithromax Z-Bhargav] 250 mg tablet See Rx Instructions PO .COMPLEX Qty: 6 0RF Rx Instructions: take 500 mg today (day 1), then 250 mg for 4 days (days 2-5) PO prednisone 10 mg tablet 10 mg PO .COMPLEX Qty: 30 0RF Rx Instructions: 10 mg PO 4 pills for 3 days, 3 pills for 3 days, 2 pillsfor 3 days, 1 pills for 3 days; levetiracetam [Keppra] 500 mg tablet 500 mg PO TID Primary Care Provider: Wero Garvey Referrals: Wero Garvey MD [Primary Care Provider] - Activity Restrictions/Additional Instructions: Ice and take Tylenol or Motrin as needed. Disposition Disposition: Home, Self Care Discharge Date/Time: 02/11/23 14:53
--- NOTE | 2023-02-11 12:10 | RAD_ITS ---
HISTORY: pain. TECHNIQUE: XR Ribs Unilateral W/ PA Chest Min 3 Views. COMPARISON: None. FINDINGS: CARDIOMEDIASTINAL BORDERS: Cardiac silhouette within normal limits in size. Mediastinal contour unremarkable. LUNGS: Mild linear atelectasis or scarring in the lung bases. PLEURA: No pleural effusion or pneumothorax seen. OSSEOUS STRUCTURES: No acute displaced rib fracture identified. RAD/Ribs Uni Min 3V w/PA Chest IMPRESSION: No acute abnormality identified. Electronically Signed: Aissatou Plascencia MD at 12:39 EST ,
--- NOTE | 2023-02-11 12:10 | RAD_ITS ---
HISTORY: pain. TECHNIQUE: XR Shoulder Min 2 Views. COMPARISON: None. FINDINGS: BONES : No acute fracture identified. Mineralization unremarkable. JOINTS: No dislocation. Mild degenerative change. SOFT TISSUES: Left lung apex clear. RAD/Shoulder min 2 Views IMPRESSION: No acute fracture or dislocation identified in the left shoulder. Electronically Signed: Aissatou Plascencia MD at 12:38 EST ,
[2023-02-11 12:31] VITALS: BP 186/88
[2023-02-11] MEDS: Lidocaine 5% Patch 1 PATCH TOPICAL (13:13)
== END 2023-02-11 14:53 | disposition home or self-care (01) ==
PROVIDERS: Emergency Provider Student in an Organized Health Care Education/Training Program; PCP Family Medicine; Visit Provider Student in an Organized Health Care Education/Training Program
DX: S09.90XA Unspecified injury of head, initial encounter (principal); S40.012A Contusion of left shoulder, initial encounter; S20.212A Contusion of left front wall of thorax, initial encounter; F17.210 Nicotine dependence, cigarettes, uncomplicated; X58.XXXA Exposure to other specified factors, initial encounter
CPT/HCPCS: 70450; 71101; 73030; 99282

== ENCOUNTER → 2024-02-05 | Outpatient (CLI) | payer OTHER, SELFPAY ==
[2024-02-08 00:07] LABS: HCV Quant. RNA PCR HCV Not Detected IU/mL (.)
== END | disposition home or self-care (01) ==
LOC: LAB 16:29
PROVIDERS: PCP Family Medicine
DX: B18.2 Chronic viral hepatitis C (principal)
CPT/HCPCS: 36415; 87522

== ENCOUNTER 2024-07-08 08:29 | Inpatient (IN) | payer OTHER, SELFPAY ==
[2024-07-08] VITALS (10 sets, daily range): BP systolic 111–173; BP diastolic 56–88; PULSE 64–103; RESP 16–18; TEMP 36.1–37.2; O2SAT 94–99; BMI 27.5; BMI 28.0
--- NOTE | 2024-07-08 08:45 | EDS_ITS ---
HPI History of Present Illness Chief Complaint: Chest Pain Informant: patient Narrative Narrative: Presents ED persistent worsening chest pain since last evening 9:30 PM. States at dinner mild throat symptoms she had a large dinner. She went to bed and lay down symptoms worsen go tonight. No dyspnea. Pain does not go to her back denies nausea or vomiting. Denies pain down the arms. No history of similar. Tobacco and alcohol history. mother with [place] at age of 60. No stress test. Denies hypertension diabetes hyperlipidemia. She is on reflux medications along with seizure medicine for absence seizure's. No history of similar. No recent travel or surgeries. No history of PE or DVT. Prior Similar Symptoms: No CVD Risk Factors: Positive for Smoking; Negative for Hypertension, Diabetes, Hypercholesterolemia or Family History 1' </=55 PE Risk Factors: Negative for Recent Travel/Surgery, Recent Immobilization or Prior DVT or PE [facility] Medical History Seizures GERD (gastroesophageal reflux disease) History of seizures Knee pain Home Medications ?Medication ?Instructions ?Recorded ?Last Taken ?Type acyclovir 400 mg tablet 400 mg PO DAILY 04/18/23 History lamotrigine 300 mg tablet,extended 300 mg PO DAILY 07/08/24 History release 24 hr omeprazole 20 mg capsule,delayed 20 mg PO DAILY 07/08/24 History release levetiracetam 500 mg 1,500 mg PO DAILY 07/08/24 0 07/08/24 History tablet,extended release 24 hr Allergy/AdvReac Type Severity Reaction Status Date / Time No Known Allergies Allergy Verified 07/08/24 08:30 Family History Mother Arthritis Cancer Sister Arthritis Father Arthritis CVA (cerebral vascular accident) Other Myocardial infarction Surgical History No history of previous surgery Social History Smoking Status: Current every day smoker tobacco type: cigarettes how long ago did patient quit smoking: pack a day alcohol intake: current alcohol intake frequency: 0-2 drinks per day Alcohol type: wine details: daily substance use type: does not use additional social history: pt denies vaping, denies marijuana use, denies edibles, denies aspirin use Uses ibuprofen as needed smokes a pack a day, daily consumption alcohol ROS ROS ED Constitutional Constitutional ED: Denies chills, fever(s) or sweats ENT ENT ED: Denies sore throat Cardiovascular Cardiovascular: Reports chest pain; Denies leg edema, palpitations or racing heartbeat Respiratory/Chest Respiratory/Chest: Denies cough, dyspnea or dyspnea on exertion Gastrointestinal Gastrointestinal: Denies abdominal pain, diarrhea, nausea or vomiting Genitourinary Genitourinary ED: Denies dysuria, hematuria or urinary frequency Musculoskeletal Musculoskeletal: Denies back pain, extremity pain or neck pain Integumentary Denies rash or wounds Neurologic Neurologic: Denies headache(s), paresthesias or weakness EXAM Physical Exam Const Vital Signs: 07/08/24 08:29 07/08/24 08:30 07/08/24 08:46 Temperature 97.9 F Temperature Source Oral Pulse Rate 88 Respiratory Rate 18 Respiratory Effort Short of Breath Blood Pressure 173/88 H Blood Pressure Mean 116 Pulse Ox 99 Oxygen Delivery Method Room Air Room Air Oxygen Flow Rate (L/min) 07/08/24 09:29 07/08/24 10:00 07/08/24 11:00 Temperature 98.9 F Temperature Source Oral Pulse Rate 78 79 91 Respiratory Rate 16 18 16 Respiratory Effort Blood Pressure 144/82 H 111/79 149/82 H Blood Pressure Mean 102 89 104 Pulse Ox 98 98 95 Oxygen Delivery Method Room Air Room Air Room Air Oxygen Flow Rate (L/min) 07/08/24 12:00 Temperature Temperature Source Pulse Rate 87 Respiratory Rate 16 Respiratory Effort Blood Pressure 156/87 H Blood Pressure Mean 110 Pulse Ox 96 Oxygen Delivery Method Nasal Cannula Oxygen Flow Rate (L/min) 2 Positive well nourished and well developed Constitutional Narrative: Uncomfortable nontoxic General Appearance ED: well developed HEENT Reports moist mucous membranes normocephalic and atraumatic Eyes General Eye ED: Yes normal appearance of both eyes Neck full ROM Chest Wall Chest: Negative for tenderness Resp normal respiratory effort and normal air movement Resp Narrative: Symmetric breath sounds. Effort and Inspection: symmetric chest movement; Negative for respiratory distress Cardio regular rate, regular rhythm and no murmurs Peripheral Pulses: pulses 2+ throughout GI normal to inspection, nondistended, normoactive bowel sounds and non-tender Palpation: Negative for guarding or rebound tenderness present Extremity normal to inspection General Extremety ED: Negative for edema or tenderness General Extremity: Negative for edema Neuro oriented x3 and no sensory deficits noted Sensorium / Orientation: awake and alert Skin no rashes or lesions noted and no wounds Heart Score History: Slightly/Non-Suspicious ECG: Normal Age: >45 - <65 years Risk Factors: 1 or 2 Risk Factors Troponin: </= Normal Limit Score: 2 MDM MDM MDM Narrative Medical decision making narrative: Interventions / MDM: Differential diagnosis: Chest pain Diagnosis considered but do not suspect: pulmonary embolism, pneumothorax, however CT imaging negative. My EKG interpretation: Sinus rhythm 91, no ST changes. EKG #2 at 1043: Sinus rhythm rate of 69, no ST or T wave changes. EKG #3 at 1151: Sinus rate of 85, no ST changes. QTc 432. Imaging independently reviewed and interpreted by myself: 1 view chest x-ray no acute process also read by radiology. CTA chest: No pulmonary embolism, no dissection also read by radiology. External documents reviewed: N/A Test considered but not ordered:N/A ED course: Patient worsening chest discomfort since yesterday evening. EKG sinus rhythm [address] changes. Cardiac workup initiated added lipase and liver enzymes as she ate prior to symptoms occurring. Zofran morphine Pepcid ordered. 0955: Abdominal labs normal lipase normal. Initial troponin negative. 1 view chest x-ray negative. Reevaluation. More comfortable she states she still feels some discomfort. Discussed with negative troponin with symptoms throughout the night less likely cardiac in nature. However will repeat troponin at 2 hours from the first draw. I will try GI cocktail and will reevaluate. 1040: Sober nurse patient's pain returning requesting pain medicines. Evaluate the patient states transiently for the GI cocktail pain on left side goes to her back. Delta troponins in the lab. Will dose with morphine again, recheck EKG, will send over for CT of the chest for further evaluation. Repeat EKG no acute findings. 1138: Reportedly pain is returning. Reevaluate the patient patient had transient relief with morphine. Will repeat EKG additional morphine. I reviewed her chest CT did not appreciate any gross abnormalities. Will await final read. Delta troponin did return negative. 1155: EKG unchanged sinus rhythm. CT chest negative for aortic pathology and no central PE no lung disease noted. Per nursing after morphine is became hypoxic 86% she is put on oxygen. 0008: Patient oxygen stable, however symptoms only controlled transiently. No aortic pathology cardiac workup negative thus far. She did have more changes relief with GI cocktail. I will order for IV Protonix, with her continued symptoms, I will speak with hospitalist for admission. 0025: I spoke with Dr. Davenport discussed patient's workup. Will admit to PCU. Agrees with holding aspirin at this time. She does have risk factors. Re-evaluation: stable Disposition discussed with patient/family/significant other: Patient Case discussed with consulting clinician: Hospitalist This note was generated with [email or web address] dictation software. It may contain incorrect words, spelling, and punctuation that were not noted in checking the note before signing. Lab Data Attestation: I reviewed the patient's lab results. Labs: Laboratory Results - last 24 hr 07/08/24 07/08/24 08:34 10:36 WBC 11.0 RBC 4.51 Hgb 15.3 H Hct 43.7 MCV 96.9 MCH 33.9 H MCHC 35.0 RDW Std Deviation 42.4 RDW Coeff of [place] 11.9 Plt Count 281 MPV 11.0 Immature Gran % (Auto) 0.400 Neut % (Auto) 71.9 H Lymph % (Auto) 17.0 L [place] % (Auto) 7.9 Eos % (Auto) 2.4 Baso % (Auto) 0.4 Absolute Neuts (auto) 7.9 H Absolute Lymphs (auto) 1.86 Nucleated RBC % 0 Sodium 138 Potassium 3.6 Chloride 100 Carbon Dioxide 26.3 Anion Gap 12 BUN 13 Creatinine 0.77 Estim Creat Clear Calc 74.07 Est GFR (MDRD) Non-Af 87 BUN/Creatinine Ratio 17.4 Glucose 118 H Calcium 9.6 Total Bilirubin 0.64 Direct Bilirubin 0.29 AST 24 ALT 13 Alkaline Phosphatase 111 H Troponin T High Sens < 6 Troponin T Hi Sens 2 Hr < 6 Total Protein 7.7 Albumin 4.4 Globulin 3.3 Lipase 22 Radiography Diagnostic Testing: Clinical Impression(s) from Imaging Studies Chest X-Ray 07/08/24 09:00 IMPRESSION: No acute cardiopulmonary process. Reading Location: [facility] Chest CTA 07/08/24 11:05 IMPRESSION: 1. No pulmonary embolism is identified. Some of the distal pulmonary arteries cannot be evaluated due to suboptimal opacification. 2. Lung emphysema/COPD with dependent atelectasis/scarring. Reading Location: [facility] Discharge Plan Dx/Rx/DC Orders Clinical Impression: Chest pain, Tobacco dependence, Family history of coronary artery disease Disposition Disposition: Acute Care Hospital [facility] Discharge Date/Time: 07/08/24 12:40
[2024-07-08] MEDS: Morphine 4 MG/ML Syringe IV ×3 (08:50→11:51)
[2024-07-08] MEDS: Ondansetron 4 MG/2 ML Vial IV (08:50)
[2024-07-08] MEDS: Famotidine 200 MG/20 ML MDV 20 MG in 0.9% Normal Saline (Pres. free 8 ML 300 MG IV (08:52)
[2024-07-08 08:58] LABS: Absolute Lymphocyte Count 1.86 X10^3/uL (0.83-4.51); Absolute Neutrophil Count 7.9 X10^3/uL (2.0-7.7); Basophil# 0.04 X10^3/uL; Basophil% 0.4 % (0-1); Eosinophil# 0.26 X10^3/uL; Eosinophils% 2.4 % (0-5); Hematocrit 43.7 % (37-47); Hemoglobin 15.3 g/dL (12.0-15.0); Lymphocyte # 1.86 X10^3/ul (0.83-4.51); Mean Corpuscular Hgb 33.9 pg (27.0-32.0); Mean Corpuscular Volume 96.9 fL (81-99); Monocyte# 0.87 X10^3/uL; Monocyte% 7.9 % (0-10); NRBC Flagged by Analyzer 0 % (0-5); Neutrophil # 7.88 X10^3/uL (2.7-7.7); Neutrophil % 71.9 % (47-70); Platelet Count 281 K/mm3 (150-450); RBC Distribution Width CV 11.9 % (11.6-14.6); RBC Distribution Width SD 42.4 fl (35.1-43.9); Red Blood Count 4.51 M/mm3 (4.2-5.4)
--- NOTE | 2024-07-08 09:00 | RAD_ITS ---
EXAM: XR Chest, 1 View CLINICAL INDICATION: CHEST PAIN TECHNIQUE: Frontal view of the chest. COMPARISON: No relevant prior studies available. FINDINGS: LUNGS AND PLEURAL SPACES: Unremarkable. No consolidation. No pneumothorax. HEART: Unremarkable. No cardiomegaly. MEDIASTINUM: Unremarkable. Normal mediastinal contour. BONES/JOINTS: Unremarkable. No acute fracture. RAD/Chest 1 View (Portable) IMPRESSION: No acute cardiopulmonary process. Reading [facility]
[2024-07-08 09:19] LABS: AST(SGOT) 24 U/L (<=31); Alanine Aminotransfer ALT/SGPT 13 U/L (<=34); Albumin, Serum 4.4 g/dL (3.4-4.8); Alkaline Phosphatase 111 U/L (35-104); Anion Gap 12 (5-15); BUN 13 mg/dL (4-19); BUN/Creat Ratio 17.4 RATIO (10-20); Bilirubin, Direct 0.29 mg/dL (0.00-0.30); Calcium,Total 9.6 mg/dL (7.6-11.0); Carbon Dioxide 26.3 mmol/L (21.0-32.0); Chloride 100 mmol/L (98-108); Creatinine, Serum 0.77 mg/dL (0.70-1.20); EST Glomerular Filtration Rate 87 (>60); Estimated Creatinine Clearance 74.07 ml/min (50-250); Globulin 3.3 g/dL (2.2-4.2); Glucose 118 mg/dL (70-99); Lipase 22 U/L (13-75); Potassium 3.6 mmol/L (3.3-5.1); Protein, Total 7.7 g/dL (5.9-8.4); Sodium Level 138 mmol/L (133-145); Total Bilirubin 0.64 mg/dL (0.00-1.30)
[2024-07-08 09:41] LABS: Troponin T High Sensitivity < 6 ng/L (<=14)
[2024-07-08] MEDS: Lidocaine 2% Viscous15 ML UDC 15 ML PO (09:57)
[2024-07-08] MEDS: Mag Hydrox/Al Hydrox/Simeth 30 ML UDC PO (09:57)
--- NOTE | 2024-07-08 11:05 | CT_ITS ---
EXAM: CT Angiography Chest Without and With Intravenous Contrast CLINICAL INDICATION: PAIN TECHNIQUE: Axial computed tomographic angiography images of the chest without and with intravenous contrast. This CT exam was performed using one or more of the following dose reduction techniques: automated exposure control, adjustment of the mA and/or kV according to patient size, and/or use of iterative reconstruction technique. MIP reconstructed images were created and reviewed. COMPARISON: No relevant prior studies available. FINDINGS: LIMITATIONS: Suboptimal opacification of the pulmonary arteries. PULMONARY ARTERIES: No pulmonary embolism is identified. Some of the distal pulmonary arteries cannot be evaluated due to suboptimal opacification. AORTA: No acute findings. No thoracic aortic aneurysm. LUNGS AND PLEURAL SPACES: Lung emphysema/COPD with dependent atelectasis/scarring. No mass. No significant effusion. No pneumothorax. HEART: Unremarkable. No cardiomegaly. No significant pericardial effusion. No evidence of RV dysfunction. BONES/JOINTS: No acute fracture. No dislocation. SOFT TISSUES: Unremarkable. LYMPH NODES: Unremarkable. No enlarged lymph nodes. CT/CTA Chest W/WO Contrast IMPRESSION: 1. No pulmonary embolism is identified. Some of the distal pulmonary arteries cannot be evaluated due to suboptimal opacification. 2. Lung emphysema/COPD with dependent atelectasis/scarring. Reading Location[facility]
[2024-07-08 11:20] LABS: Troponin T High Sens 2 HR < 6 ng/L (<=14)
--- NOTE | 2024-07-08 11:59 | ED.RN ---
PT PLACED ON 2 LITERS OF O2 D/T PULSE OX OF 86
[2024-07-08] MEDS: Pantoprazole Sodium 40 MG in 0.9% Normal Saline (100mL MB+) 100 ML 330 MG IV (12:19)
--- NOTE | 2024-07-08 12:33 | ECHOD_ITS ---
Reason For Study Reason For Study: CHEST PAIN Procedure This was a 2D Doppler, Color Flow transthoracic echocardiogram. Exam performed portable in patient room. Left Ventricle Normal LV size. Mild concentric left ventricular hypertrophy. Left ventricular systolic function is normal. The left ventricular ejection fraction is 60 %. No regional wall motion abnormalities noted. Right Ventricle Normal RV size. Normal systolic function. Atria Normal left atrium. Normal right atrium. Mitral Valve Normal mitral valve. Tricuspid Valve Normal tricuspid valve. Mild to moderate (1-2+) tricuspid valve insufficiency. Pulmonary artery systolic pressure is 51 mmHg. Aortic Valve Trisinus/trileaflet aortic valve. Pulmonic Valve Normal pulmonic valve. Great Vessels Normal aortic root. The pulmonary artery is normal size. Inferior vena cava collapse with respiration. Pericardium/Pleural No pericardial effusion. MMode/2D Measurements & Calculations LVIDd: 4.1 cm IVSd: 1.2 cm Ao root diam: 3.0 cm LVIDs: 2.7 cm LVPWd: 1.3 cm RVDd: 3.1 cm FS: 34.2 % LAV(MOD-bp): 43.1 ml LVAd ap4: 21.1 cm2 SV(MOD-sp4): 33.3 ml LAV(MOD-bp) Indexed: 24.2 ml/m2 LVLd ap4: 6.6 cm SI(MOD-sp4): 18.7 ml/m2 LAV(MOD-sp2): 43.8 ml EDV(MOD-sp4): 56.2 ml LAV(MOD-sp4): 41.7 ml EDV(sp4-el): 57.4 ml LVAs ap4: 12.4 cm2 LVLs ap4: 5.7 cm ESV(MOD-sp4): 22.9 ml ESV(sp4-el): 22.9 ml EF(MOD-sp4): 59.3 % EF(sp4-el): 60.1 % SV(sp4-el): 34.5 ml LA A4 area: 16.5 cm2 LA dimension(2D): 3.6 cm RA A4 area: 12.9 cm2 TAPSE: 2.1 cm Time Measurements MV dec time: 0.20 sec Doppler Measurements & Calculations MV E max erasmo: 94.3 cm/sec Lat Peak E' Erasmo: 9.8 cm/sec Med Peak E' Erasmo: 9.4 cm/sec MV A max erasmo: 89.6 cm/sec E/E' lat: 9.7 E/E' med: 10.0 MV E/A: 1.1 Ao V2 max: 131.2 cm/sec LV V1 max: 115.5 cm/sec PA V2 max: 84.0 cm/sec Ao max P.9 mmHg LV V1 max P.3 mmHg TR max erasmo: 348.0 cm/sec TR max P.4 mmHg ECHO/Echo Complete Interpretation Summary Normal LV size. Mild concentric left ventricular hypertrophy. Left ventricular systolic function is normal. The left ventricular ejection fraction is 60 %. Pulmonary artery systolic pressure is 51 mmHg. Ordering Physician: Nilesh Davenport Referring Physician: CHITRA MCKEE Performed By: Caryl Siegel RDCS
--- NOTE | 2024-07-08 13:16 | EKG12_ITS ---
Test Reason : PCI Blood Pressure : */* mmHG Vent. Rate : 88 BPM Atrial Rate : 88 BPM P-R Int : 154 ms QRS Dur : 76 ms QT Int : 380 ms P-R-T Axes : 36 7 52 degrees QTcB Int : 459 ms Normal sinus rhythm Normal ECG When compared with ECG of 08-Jul-2024 11:51, MANUAL COMPARISON REQUIRED DATA IS UNCONFIRMED Confirmed by SILVER MADRID, JIM ([id number]), editor in chief newspaper JOSE MARTIN BARRAGAN ([id number]) on 07/09/2024 8:59:17 AM Referred By: SILVER Confirmed By: JIM SHEPPARD MD
[2024-07-08] MEDS: oxyCODONE 5 MG Tablet 10 MG PO ×2 (14:00→19:52)
[2024-07-08] MEDS: CLARIFY ORDER NOTE (17:37)
[2024-07-08 18:10] LABS: Troponin T High Sensitivity < 6 ng/L (<=14)
--- NOTE | 2024-07-08 18:32 | HP.PCM.HOS_ITS ---
HPI - General General Date of Admission: 07/08/24 Date of Service: 07/08/24 Chief Complaint: Chest pain HPI Narrative FAROOQ FUENTES, is a 64 F who presents to the emergency room at [facility] with complaints of pain on the right side of her neck near her jaw radiating into her upper chest and across her entire chest. She also had complained to nursing that she had left shoulder pain with this. Patient was at rest at approximately 9:30 PM on 07/07/24 when the discomfort began. She is only able to tell me that her chest hurt and was not able to describe the type of pain she was having. Patient denied any cough, fever, chills, or shortness of breath. Patient has no history of coronary disease and takes seizure medications and medicine for GERD. Her father had a heart attack at age 60-he was a smoker. Patient's risk factors include smoking and family history at this time Workup in the emergency room included EKGs which showed normal sinus rhythm without evidence of ischemia, CBC was unremarkable, and 2 sets of troponins were less than 6. Chest x-ray was unremarkable, CTA of the chest revealed no pulmonary embolism, there is evidence of emphysema with dependent atelectasis and scarring. Patient was not hypoxic on room air. Patient was placed in observation status on PCU, echocardiogram will be obtained and patient will undergo an exercise nuclear stress test on 07/09/2024. [facility] Medical History Seizures GERD (gastroesophageal reflux disease) History of seizures Knee pain Home Medications ?Medication ?Instructions ?Recorded ?Last Taken ?Type acyclovir 400 mg tablet 400 mg PO DAILY 04/18/23 History lamotrigine 300 mg tablet,extended 300 mg PO DAILY 07/08/24 History release 24 hr omeprazole 20 mg capsule,delayed 20 mg PO DAILY 07/08/24 History release levetiracetam 500 mg 1,500 mg PO DAILY 07/08/24 0 07/08/24 History tablet,extended release 24 hr Allergy/AdvReac Type Severity Reaction Status Date / Time No Known Allergies Allergy Verified 07/08/24 08:30 Family History Mother Arthritis Cancer Sister Arthritis Father Arthritis CVA (cerebral vascular accident) Other Myocardial infarction Surgical History No history of previous surgery Social History Smoking Status: Current every day smoker tobacco type: cigarettes how long ago did patient quit smoking: pack a day alcohol intake: current alcohol intake frequency: 0-2 drinks per day Alcohol type: wine details: daily substance use type: does not use additional social history: pt denies vaping, denies marijuana use, denies edibles, denies aspirin use Uses ibuprofen as needed smokes a pack a day, daily consumption alcohol ROS Constitutional Constitutional: Denies anorexia, change in weight, chills, fatigue, fever(s), night sweats or weakness Eyes Eyes: Denies blurry vision, change in vision, discharge from eye(s) or eye pain Cardiovascular Cardiovascular: Reports chest pain; Denies claudication, edema, palpitations or rapid heart rate Respiratory/Chest Respiratory/Chest: Denies cough, dyspnea, hemoptysis, shortness of breath at rest or shortness of breath with exertion Gastrointestinal Gastrointestinal: Denies abdominal pain, constipation, diarrhea, hematemesis, hematochezia, melena, nausea or vomiting Genitourinary Genitourinary: Denies dysuria, hematuria, urinary frequency, urinary hesitancy, urinary incontinence or urinary urgency Musculoskeletal Musculoskeletal: Denies back pain, joint pain, joint stiffness, joint swelling, myalgias or neck pain Neurologic Neurologic: Denies abnormal gait, abnormal speech, dizziness, focal weakness, headache(s), loss of vision, numbness, other visual disturbances, paresthesias, syncope or tingling Psychiatric Psychiatric: Denies anxiety, cognitive impairment, depression, irritability, mood swings or suicidal ideation Endocrine Endocrinology: Denies change in body appearance, cold intolerance, excessive sweating, heat intolerance, polydipsia or polyuria Hematologic/Lymphatic Hematologic/Lymphatic: Denies none, anemia, easy bleeding, easy bruising or lymphadenopathy Allergic/Immunologic Allergic/Immunologic: Denies rhinitis, urticaria, eczemia or asthma Vital Signs Vital Signs Vital Signs: 07/08/24 08:29 07/08/24 08:30 07/08/24 08:46 Temperature 97.9 F Temperature Source Oral Pulse Rate 88 Pulse Strength Respiratory Rate 18 Respiratory Effort Short of Breath Respiratory Depth Respiratory Pattern Blood Pressure 173/88 H Blood Pressure Mean 116 Blood Pressure Source Blood Pressure Position Blood Pressure Location Pulse Ox 99 Oxygen Delivery Method Room Air Room Air Oxygen Flow Rate (L/min) 07/08/24 09:29 07/08/24 10:00 07/08/24 11:00 Temperature 98.9 F Temperature Source Oral Pulse Rate 78 79 91 Pulse Strength Respiratory Rate 16 18 16 Respiratory Effort Respiratory Depth Respiratory Pattern Blood Pressure 144/82 H 111/79 149/82 H Blood Pressure Mean 102 89 104 Blood Pressure Source Blood Pressure Position Blood Pressure Location Pulse Ox 98 98 95 Oxygen Delivery Method Room Air Room Air Room Air Oxygen Flow Rate (L/min) 07/08/24 12:00 07/08/24 12:39 07/08/24 13:02 Temperature 97 F L Temperature Source Pulse Rate 87 64 Pulse Strength Respiratory Rate 16 18 Respiratory Effort Respiratory Depth Respiratory Pattern Blood Pressure 156/87 H 147/56 H Blood Pressure Mean 110 86 Blood Pressure Source Blood Pressure Position Blood Pressure Location Pulse Ox 96 99 96 Oxygen Delivery Method Nasal Cannula Room Air Oxygen Flow Rate (L/min) 2 07/08/24 13:30 07/08/24 13:50 07/08/24 14:00 Temperature 98.0 F Temperature Source Oral Pulse Rate 89 Pulse Strength Normal (2+) Respiratory Rate 16 Respiratory Effort Normal Non-Labored Respiratory Depth Normal Respiratory Pattern Normal Blood Pressure 156/86 H Blood Pressure Mean 109 Blood Pressure Source Monitor Blood Pressure Position Semi-Fowlers Blood Pressure Location Left Arm Pulse Ox 94 Oxygen Delivery Method Room Air Room Air Oxygen Flow Rate (L/min) Weight Weight: 74.049 kg Body Mass Index (BMI) 28.0 Physical Exam Const alert, oriented x3, no apparent distress, average body habitus and healthy appearing General Appearance: cooperative, well kempt and well developed Orientation / Consciousness: awake, oriented to person, oriented to place and oriented to time HEENT normocephalic, head/scalp atraumatic, hearing grossly normal bilaterally and moist oral mucous membranes Eyes PERRL, EOMs intact bilaterally and conjunctivae normal Neck supple, no JVD, thyroid normal and no carotid bruits General: trachea midline Resp normal respiratory effort, no retractions, no use of accessory muscles and clear to auscultation bilaterally Auscultation: Negative for rales, rhonchi or wheezes Cardio regular rate, regular rhythm, S1 normal heart sound, S2 normal heart sound, no murmurs, no rub and no gallops GI normal to inspection, nondistended, normoactive bowel sounds, soft to palpation, non-tender and non-distended Extremity no clubbing, cyanosis or edema Skin no rashes or lesions noted General Skin Exam: no breakdown Neuro oriented x3, CN's II-XII intact bilaterally, moves all extremities, no focal motor deficits and no sensory deficits noted Sensorium / Orientation: awake and alert Speech: speech normal Psych affect normal Results Lab / Micro Data 07/08/24 08:34 07/08/24 08:34 Labs: Laboratory Results - last 24 hr 07/08/24 08:34: WBC 11.0, RBC 4.51, Hgb 15.3 H, Hct 43.7, MCV 96.9, MCH 33.9 H, MCHC 35.0, RDW Std Deviation 42.4, RDW Coeff of [place] 11.9, Plt Count 281, MPV 11.0, Immature Gran % (Auto) 0.400, Neut % (Auto) 71.9 H, Lymph % (Auto) 17.0 L, [place] % (Auto) 7.9, Eos % (Auto) 2.4, Baso % (Auto) 0.4, Absolute Neuts (auto) 7.9 H, Absolute Lymphs (auto) 1.86, Nucleated RBC % 0, Sodium 138, Potassium 3.6, Chloride 100, Carbon Dioxide 26.3, Anion Gap 12, BUN 13, Creatinine 0.77, Estim Creat Clear Calc 74.07, Est GFR (MDRD) Non-Af 87, BUN/Creatinine Ratio 17.4, Glucose 118 H, Calcium 9.6, Total Bilirubin 0.64, Direct Bilirubin 0.29, AST 24, ALT 13, Alkaline Phosphatase 111 H, Troponin T High Sens < 6, Total Protein 7.7, Albumin 4.4, Globulin 3.3, Lipase 22 07/08/24 10:36: Troponin T Hi Sens 2 Hr < 6 07/08/24 17:10: Troponin T High Sens < 6 Imaging Radiology Impression Chest X-Ray 07/08/24 09:00 IMPRESSION: No acute cardiopulmonary process. Reading [facility] Chest CTA 07/08/24 11:05 IMPRESSION: 1. No pulmonary embolism is identified. Some of the distal pulmonary arteries cannot be evaluated due to suboptimal opacification. 2. Lung emphysema/COPD with dependent atelectasis/scarring. Reading Location: [facility]-- Echocardiogram 07/08/24 12:33 Interpretation Summary Normal LV size. Mild concentric left ventricular hypertrophy. Left ventricular systolic function is normal. The left ventricular ejection fraction is 60 %. Pulmonary artery systolic pressure is 51 mmHg. Ordering Physician: Nilesh Davenport Referring Physician: CHITRA MCKEE Performed By: Caryl Siegel RDCS Assessment & Plan Assessment/Plan (1) Chest pain: PLAN: Plan 1. Chest pain-etiology unclear, again risk factors include family history of heart disease and smoking-patient will be placed in observation status on PCU, echocardiogram will be obtained and the patient will have a lipid profile ordered. Patient will undergo a treadmill nuclear exercise stress test tomorrow. She will be monitored on telemetry in the meantime. #2 seizure disorder-patient will remain on her home medications for seizures #3 GERD-patient will remain on a PPI Total clinical time spent by myself addressing the patient's medical issues, reviewing all of her data, and collaborating with patient's care team: 55 minutes Charges/Coding Visit Charges Inpatient E&M: 54075 Init Hosp L2
[2024-07-08 20:36] LABS: Cholesterol 185 mg/dL (<=200); High Density Lipoprotein 79 mg/dL; Low Density Lipoprotein Calc. 85 mg/dL; Triglycerides 103 mg/dL; Very Low Density Lipoprotein 21 mg/dL (5-40); cholesterol:hdl ratio screen 2.33
--- NOTE | 2024-07-08 22:35 | NURSING ---
This RN taking over care at this time.
[2024-07-09] VITALS (36 sets, daily range): BP systolic 114–227; BP diastolic 64–124; PULSE 71–99; RESP 15–25; TEMP 36.3–37.2; O2SAT 93–100; BMI 28.0
[2024-07-09] MEDS: Acetaminophen 325 MG Tablet 650 MG PO (05:26)
--- NOTE | 2024-07-09 05:55 | EKG12_ITS ---
Test Reason : AM EKG Blood Pressure : */* mmHG Vent. Rate : 83 BPM Atrial Rate : 83 BPM P-R Int : 146 ms QRS Dur : 88 ms QT Int : 364 ms P-R-T Axes : 34 -5 30 degrees QTcB Int : 427 ms Normal sinus rhythm Moderate voltage criteria for LVH, may be normal variant ( R in aVL , Meridian product ) Borderline ECG When compared with ECG of 08-Jul-2024 13:04, MANUAL COMPARISON REQUIRED DATA IS UNCONFIRMED Confirmed by SILVER MADRID, JIM ([id number]), multimedia editor MARJAN JOHNSON ([id number]) on 07/09/2024 2:06:48 PM Referred By: Confirmed By: JIM SHEPPARD MD
[2024-07-09 06:16] LABS: Absolute Lymphocyte Count 1.42 X10^3/uL (0.83-4.51); Absolute Neutrophil Count 8.4 X10^3/uL (2.0-7.7); Basophil# 0.03 X10^3/uL; Basophil% 0.3 % (0-1); Eosinophil# 0.06 X10^3/uL; Eosinophils% 0.6 % (0-5); Hematocrit 38.6 % (37-47); Lymphocyte # 1.42 X10^3/ul (0.83-4.51); Lymphocyte % 13.1 % (19-41); Mean Corp Hgb Conc 33.7 g/dL (32-36); Mean Corpuscular Hgb 33.3 pg (27.0-32.0); Mean Platelet Vol. 11.5 fl (6.2-12.0); Monocyte# 0.89 X10^3/uL; Monocyte% 8.2 % (0-10); NRBC Flagged by Analyzer 0 % (0-5); Neutrophil # 8.35 X10^3/uL (2.7-7.7); Neutrophil % 77.3 % (47-70); Platelet Count 232 K/mm3 (150-450); RBC Distribution Width CV 12.1 % (11.6-14.6); RBC Distribution Width SD 43.8 fl (35.1-43.9); White Blood Count 10.8 K/mm3 (4.4-11.0)
[2024-07-09 06:47] LABS: Anion Gap 11 (5-15); BUN 9 mg/dL (4-19); BUN/Creat Ratio 13.4 RATIO (10-20); Calcium,Total 9.3 mg/dL (7.6-11.0); Carbon Dioxide 25.5 mmol/L (21.0-32.0); Chloride 102 mmol/L (98-108); Creatinine, Serum 0.65 mg/dL (0.70-1.20); EST Glomerular Filtration Rate 100 (>60); Estimated Creatinine Clearance 88.46 ml/min (50-250); Glucose 110 mg/dL (70-99); Potassium 3.5 mmol/L (3.3-5.1); Sodium Level 138 mmol/L (133-145)
[2024-07-09] MEDS: LEVETIRACETAM 500 MG 1500 MG PO (09:57)
[2024-07-09] MEDS: Pantoprazole Sodium 20 MG Tablet PO (09:58)
[2024-07-09] MEDS: Acyclovir 200 MG Capsule 400 MG PO (09:58)
[2024-07-09] MEDS: oxyCODONE 5 MG Tablet 10 MG PO (10:59)
--- NOTE | 2024-07-09 14:02 | CT_ITS ---
PROCEDURE: STROKE CTA HEAD AND NECK W/CON 07/09/2024 REASON FOR EXAM: NEURO SYMPTOMSS TECHNIQUE: CTA imaging of the head and neck from the aortic arch to the skull vertex with out constrast and with intravenous contrast. Coronal and Sagittal reconstruction series were provided. 3D post processing with reformations, Maximum intensity projection (MIPs) Volume rendering and Shaded surface rendering was provided. CONTRAST: Isovue 3 7 VOLUME: 100 mL One or more dose reduction techniques were used (e.g., Automated exposure control, adjustment of the mA and/or kV according to patient size, use of iterative reconstruction technique). RADIATION DOSE SUMMARY: CTDlvol: 19 mGy DLP: 648 mGycm COMPARISON: Prior CT scan of the brain done earlier in the day. FINDINGS: Aortic Arch: Normal size and branching pattern. Mild atherosclerotic plaque. Brachiocephalic and Subclavians: Unremarkable RIGHT Carotid: Right CCA: Unremarkable. Right ICA: Unremarkable. Right ECA: Unremarkable. LEFT Carotid: Left CCA: Unremarkable. Left ICA: Unremarkable. Left ECA: Unremarkable. Vertebrals: Codominant. Arise from the subclavians. Both vertebrals form the basilar. RIGHT Vertebral: Unremarkable. LEFT Vertebral: Unremarkable. Anatomy: [place] anatomy is normal. Aneurysm or avm: No intracranial aneurysms or large vascular malformations are identified. Anterior cerebral arteries: Unremarkable: Middle cerebral arteries: Unremarkable. Basilar artery: Unremarkable. Posterior cerebral arteries: Unremarkable. Other major branches of the posterior circulation: Unremarkable. Major venous structures: Unremarkable. Other findings: Neck: No lymphadenopathy. Lungs: Bones: CT/STROKE CTA Head AND Neck W/Con IMPRESSION: Unremarkable examination. Reading Location: [facility]
--- NOTE | 2024-07-09 14:02 | CT_ITS ---
PROCEDURE: STROKE BRAIN/HEAD WITHOUT CONT 07/09/2024 REASON FOR EXAM: NEURO SYMPTOMS TECHNIQUE: Head CT without intravenous contrast. Coronal and Sagittal reconstruction series were provided. One or more dose reduction techniques were used (e.g., Automated exposure control, adjustment of the mA and/or kV according to patient size, use of iterative reconstruction technique. RADIATION DOSE SUMMARY: CTDlvol: 44.99 mGy DLP: 745.49 mGycm COMPARISON: No prior study. FINDINGS: Brain: Within normal limits for age CSF Spaces: Mild generalized cerebral atrophy Sinuses/Mastoids: Clear at visualized levels Bones: Unremarkable CT/STROKE Brain/Head without Cont IMPRESSION: NO ACUTE INTRACRANIAL HEMORRHAGE Red Alert: No Bleed The critical information above was relayed directly by me by telephone to Nilesh Toscano on 07/09/2024 at 2:22 pm with readback verification. Reading Location: [place] [address]
[2024-07-09 14:13] LABS: Bedside Glucose 154 mg/dL (74-106)
[2024-07-09] MEDS: 0.9% Saline Lock 10 ML Syringe IV ×4 (14:15→15:25)
[2024-07-09] MEDS: Nicardipine HCl-0.9% Sod Chlor 20 MG/200 ML IV.SOLN 50 MG CONT INF (14:50)
[2024-07-09] MEDS: TENECTEPLASE 2664 MG IV (15:01)
--- NOTE | 2024-07-09 15:20 | PCM.PN.HOSP ---
Reason for Visit Reason for Visit: Diagnoses Chest pain, unspecified (07/08/24) Subjective Subjective Patient was seen and examined today, she underwent a treadmill stress test which was negative for reversible ischemia, patient's echocardiogram showed a normal EF with mild pulmonary hypertension. Approximately 12:30 PM this afternoon, patient started having visual disturbances in her right eye-her lateral field of vision declined but she did not tell nursing right away. Patient's blood pressure elevated to a systolic reading of 190, I elected not to give her any blood pressure medications-I had nursing confirm that in the past she was diagnosed with essential hypertension but she was not put on any medication. My plan was to place the patient on oral blood pressure medications at the time of discharge, the patient at approximately 138 this afternoon, the patient told nursing that she had the visual disturbance and NIH scores were obtained which were 1, a stroke team was called by nursing and the patient was taken down for a CT of the head and neck and a CT of the brain. These imaging studies were unremarkable, she was seen by teleneurology and after obtaining a history and doing an exam recommended the patient received tenecteplase, patient agreed to this and was aware of the risks of this medication. Patient was given labetalol to lower her blood pressure which delayed the administration of the tenecteplase, patient was transferred to ICU and received tenecteplase and there were no untoward events. Objective Data Objective Data Vital Signs: Vital Signs Temp Pulse Resp BP Pulse Ox O2 Del Method O2 Flow Rate 98.7 F 92 25 H 162/89 H 95 Nasal Cannula 2 07/09/24 13:43 07/09/24 14:50 07/09/24 14:50 07/09/24 15:01 07/09/24 14:50 07/09/24 14:50 07/09/24 14:50 Oxygen Flow Rate (L/min) 2 Oxygen Delivery Method Nasal Cannula Weight: 74.049 kg Body Mass Index (BMI) 28.0 Intake & Output: Intake and Output for Last 24 Hours 07/07/24 07/08/24 07/09/24 23:59 23:59 23:59 Intake Total 120 / 120 Balance 120 / 120 Lab / Micro Data 07/09/24 05:10 07/09/24 05:10 Labs: Laboratory Results - last 24 hr 07/08/24 08:34: Triglycerides 103, Cholesterol 185, LDL Cholesterol, Calc 85, VLDL Cholesterol 21, HDL Cholesterol 79, Cholesterol/HDL Ratio 2.33 07/08/24 17:10: Troponin T High Sens < 6 07/09/24 05:10: WBC 10.8, RBC 3.90 L, Hgb 13.0, Hct 38.6, MCV 99.0, MCH 33.3 H, MCHC 33.7, RDW Std Deviation 43.8, RDW Coeff of [place] 12.1, Plt Count 232, MPV 11.5, Immature Gran % (Auto) 0.500, Neut % (Auto) 77.3 H, Lymph % (Auto) 13.1 L, [place] % (Auto) 8.2, Eos % (Auto) 0.6, Baso % (Auto) 0.3, Absolute Neuts (auto) 8.4 H, Absolute Lymphs (auto) 1.42, Nucleated RBC % 0, Sodium 138, Potassium 3.5, Chloride 102, Carbon Dioxide 25.5, Anion Gap 11, BUN 9, Creatinine 0.65 L, Estim Creat Clear Calc 88.46, Est GFR (MDRD) Non-Af 100, BUN/Creatinine Ratio 13.4, Glucose 110 H, Calcium 9.3 07/09/24 13:54: POC Glucose 154 H Radiography Diagnostic Testing: Radiology Impression Echocardiogram 07/08/24 12:33 Interpretation Summary Normal LV size. Mild concentric left ventricular hypertrophy. Left ventricular systolic function is normal. The left ventricular ejection fraction is 60 %. Pulmonary artery systolic pressure is 51 mmHg. Ordering Physician: Nilesh Davenport Referring Physician: CHITRA MCKEE Performed By: Caryl Siegel RDCS Brain CT 07/09/24 14:02 IMPRESSION: NO ACUTE INTRACRANIAL HEMORRHAGE Red Alert: No Bleed The critical information above was relayed directly by me by telephone to Nilesh Davenport on 07/09/2024 at 2:22 pm with readback verification. Reading Location: [facility] Head/Neck CTA 07/09/24 14:02 IMPRESSION: Unremarkable examination. Reading Location: [facility] Physical Exam Const alert, oriented x3 and no apparent distress General Appearance: cooperative, well kempt and well developed Orientation / Consciousness: awake, oriented to person, oriented to place and oriented to time HEENT normocephalic, head/scalp atraumatic and moist oral mucous membranes Eyes PERRL, EOMs intact bilaterally and conjunctivae normal Neck supple, no JVD, thyroid normal and no carotid bruits General: trachea midline Resp normal respiratory effort, no retractions, no use of accessory muscles and clear to auscultation bilaterally Auscultation: Negative for rales, rhonchi or wheezes Cardio regular rate, regular rhythm, no murmurs, no rub and no gallops GI normal to inspection, nondistended, normoactive bowel sounds, soft to palpation, non-tender and non-distended Extremity no clubbing, cyanosis or edema Skin no rashes or lesions noted General Skin Exam: no breakdown Neuro oriented x3, CN's II-XII intact bilaterally, no focal motor deficits and no sensory deficits noted Neuro Narrative: Patient's visual field exam is abnormal with deficits in the lateral visual field of both eyes. Sensorium / Orientation: awake and alert Speech: speech normal Psych affect normal Assessment & Plan Assessment/Plan (1) Chest pain: PLAN: Plan 1. Presumed acute ischemic stroke probably in the occipital area-again patient received tenecteplase, she will be observed in the ICU and undergo an MRI tomorrow, she was placed on a statin #2 musculoskeletal chest pain-again the patient's stress test was unremarkable #3 mild pulmonary hypertension-patient will need follow-up concerning this as an outpatient. #4 seizure disorder-patient will remain on her home medications #5 GERD-patient will remain on a PPI Total clinical time spent by myself addressing the patient's medical issues, reviewing all of her data, and collaborating with patient's care team: 50 minutes Charges/Coding Visit Charges Inpatient E&M: 00866 Subs Hosp L3
[2024-07-09] MEDS: Morphine 2 MG/ML Syringe IV (15:24)
[2024-07-09] MEDS: oxyCODONE 5 MG Tablet PO ×2 (16:23→21:40)
--- NOTE | 2024-07-09 17:17 | STRESSREP_ITS ---
Stress Test Report Exercise myocardial perfusion stress test. 64-year-old lady with a history of chest pain Stress protocol: Resting EKG demonstrates normal sinus rhythm with a rate of 78 bpm resting blood pressure is 128/90 mmHg. The patient exercised according to the regular Leonard protocol for a total duration of 4 minutes 40 seconds attaining a maximum heart rate of 141 bpm which was 89% of maximum predicted heart rate; the maximum workload was 7 METS metabolic equivalents. At rest there were no ST or T wave changes noted to suggest ischemia and at peak exercise upsloping ST changes only were noted which did not meet the criteria for ischemia. No clinical angina was noted the test was terminated due to the target heart rate being achieved/fatigu e. The peak blood pressure was 220/94 mmHg. Rate-pressure product was 31,000. Myocardial perfusion protocol. 11.7 mCi of technetium 99m sestamibi was injected at rest. The patient exercised according to regular Leonard protocol for total duration of 4 minutes and 40 and at peak exercise 33.4 mCi of technetium 99m sestamibi was injected stress images were obtained stress and rest images were reconstructed in comparing the short axis vertical long and horizontal long axis. Gated images were also obtained. Perfusion SPECT analysis: Review of the stress images demonstrate normal uptake of tracer noted in all areas of the myocardium. The resting images similarly demonstrate normal uptake of tracer noted in all areas of the myocardium. No areas of reversibility are noted to suggest ischemia no previous infarct was noted. Gated SPECT analysis: The gated ejection fraction is 65%. Conclusion: Normal exercise myocardial perfusion stress test at a moderate workload Preserved ejection fraction.
[2024-07-09] MEDS: MENTHOL 226.8 GM JAR 1 APPLIC TOPICAL ×2 (18:59→21:41)
[2024-07-09] MEDS: Atorvastatin Calcium 80 MG Tablet PO (21:37)
[2024-07-09] MEDS: Pantoprazole Sodium 40 MG Tablet PO (21:37)
[2024-07-10] VITALS (40 sets, daily range): BP systolic 112–188; BP diastolic 60–102; PULSE 72–101; RESP 15–25; TEMP 36.6–37; O2SAT 93–98; BMI 28.0
[2024-07-10 03:47] LABS: Cholesterol 151 mg/dL (<=200); High Density Lipoprotein 75 mg/dL; Low Density Lipoprotein Calc. 62 mg/dL; Triglycerides 69 mg/dL; Very Low Density Lipoprotein 14 mg/dL (5-40); cholesterol:hdl ratio screen 2.01
[2024-07-10] MEDS: oxyCODONE 5 MG Tablet PO (05:38)
[2024-07-10] MEDS: Morphine 2 MG/ML Syringe IV (07:00)
[2024-07-10] MEDS: 0.9% Saline Lock 10 ML Syringe IV (07:02)
--- NOTE | 2024-07-10 07:14 | ECHOL_ITS ---
Reason For Study Reason For Study: TIA/CVA Procedure This was a limited 2D transthoracic echocardiogram. Exam performed portable in patient room. Full echocardiogram performed 07/08/2024 for chest pain. Bubble study only 07/10/24. Left Ventricle Normal LV size. Left ventricular systolic function is normal. The left ventricular ejection fraction is 55 %. Right Ventricle Normal RV size. Normal systolic function. Atria Normal left atrium. Normal right atrium. Bubble contrast study negative for right to left interatrial shunt. Pericardium/Pleural No pericardial effusion. Medication Performed a rapid injection of agitated mix of 9 cc saline and 1cc air to assess for atrial septal defect. ECHO/Echo, Limited Study Interpretation Summary Normal LV size. Bubble contrast study negative for right to left interatrial shunt. Left ventricular systolic function is normal. The left ventricular ejection fraction is 55 %. Ordering Physician: Nilesh Davenport Referring Physician: Alysa Staples Performed By: Esther Mendoza, ADAMA, RVT
[2024-07-10] MEDS: oxyCODONE 5 MG Tablet 10 MG PO ×4 (09:20→22:00)
[2024-07-10] MEDS: Pantoprazole Sodium 40 MG Tablet PO ×2 (09:21→22:00)
[2024-07-10] MEDS: levETIRAcetam 750 MG Tablet PO ×2 (09:42→22:00)
--- NOTE | 2024-07-10 10:07 | CASEMGMT ---
DORI SALMON Assessment Face to Face with patient for initial transition planning/care coordination assessment. DORI SALMON introduced self and role at [facility], pt voices understanding. Pt is A&Ox4 and is resting comfortably in bed and is calm. Care providers, pharmacy, and demographics verified. Admitting dx: Chest Pain. Pt was initially on PCU and a stroke alert was called due to new onset vision changes. LACE Strata: 1 PCP: Alysa Staples Specialists: Dr. Barnes (Neuro) Preferred Pharmacy: [facility] Insurance: [facility] Prescription Benefit: Yes LNOK: Douglas Chaparro (H) Living Arrangements: Pt lives with her in a single story home with 2 steps to enter ADLs/IADLs: Ind Transportation: Self, . DME: Shower grab bar. Pt is currently on additional oxygen and may qualify for home oxygen use. However, at this time, the pt states that she would refuse additional oxygen, even if she were to qualify. CM to follow. HHC/SNF: Denies hx Pt?s goal: Return to PLOF Plan: Anticipate eventual DC home with pt once medically ready, follow for OP Tx or HHC. Pt states that it is too early to tell what she will need or want at the time of DC. Pt has an MRI scheduled for around 1500 today and PT to evaluate subsequently. ST also consulted. Pt denies further questions or concerns at this time. CM to follow. Kishore Blue RN, CM
--- NOTE | 2024-07-10 14:16 | CASEMGMT ---
Social Work- SW met with pt to complete PHQ9. Pt reports that she had babysat her grandkids (ages 10 & 15) for two weeks prior to admittance. Pt reports that she is independent and active at baseline. Pt scored 0/9 on PHQ-9. Pt having knee pain; bedside nurse aware and actively assisting pt with pain management. Pt denies any needs or concerns at this time. BROOKE Pearson
[2024-07-10] MEDS: Lisinopril 20 MG Tablet PO (14:25)
--- NOTE | 2024-07-10 14:55 | MRI_ITS ---
PROCEDURE: BRAIN WITHOUT CONTRAST 07/10/2024 REASON FOR EXAM: CVA TECHNIQUE: Noncontrast brain MRI. Multiplanar and multisequence images were obtained. COMPARISON: Yesterday FINDINGS: Confluent area of diffusion restriction in the medial left occipital lobe consistent with acute/subacute ischemia measuring 4.2 x 2.1 x 2.8 cm (AP, TV and CC dimensions). No other diffusion restriction. No evidence of acute intracranial hemorrhage, midline shift or mass effect. No hydrocephalus. Cerebral volume is maintained. Mild scattered periventricular, subcortical, pontine and deep white matter hyperintense FLAIR signal foci most likely related to chronic small-vessel ischemic disease. Globes are intact. Paranasal sinuses and mastoid air cells are clear. MRI/Brain without Contrast IMPRESSION: Acute/subacute ischemia involving the medial left occipital lobe. Reading Location: [facility]
--- NOTE | 2024-07-10 15:52 | CON.PCM.NE_ITS ---
Assessment and Plan: Stroke Assessment/Plan FAROOQ FUENTES is a 64 F with a history of HTN, tobacco use, seizure disorder, who presented at the time of admission for chest pain. During her admission, her hospital course was complicated by acute onset R visual field cut for which she was emergently telestroked and given TNK. She continues to have visual field deficit and imaging reveals acute L occipital lobe stroke. Neurological examination shows NIHSS 2 for R complete hemianopia. Neuroimaging shows MRI with acute diffusion restriction in L occipital lobe consistent with acute ischemia. No microhemorrhages appreciated on SWI sequence. CTA Brain and neck without high grade flow limiting critical stenosis or proximal large vessel occlusion. LDL 94. A1C Pending. TTE on arrival initially with LVH, EF 60%. Bubble study added today without PFO. Stroke Etiology: Cryptogenic ? MRI brain, vessel imaging (CTA head/neck),Transthoracic echocardiogram,fasting lipid panel have been complete. Follow up A1C. Recommend color television console monitor at discharge. ? Occupational/Physical therapy consult. Additionally would recommend outpatient ophthalmology follow up and driving restrictions until follow up given concern for ongoing visual field deficit. ? Post TNK checks and protocol to complete this afternoon, then okay for q4h NIHSS. SBP Goal to remain < 180, with goal normotension. ? Anti-platelet medication: Given no hemorrhage on this afternoons MRI, OK to start Aspirin 81mg daily starting tomorrow am (07/11/24), and continue ASA 81 mg daily at discharge ? Stroke education ? Vascular risk factor modification: ? Hyperlipidemia: LDL Goal < 70 mg/dL, start high intensity statin ? Smoking Cessation counseling ? Diabetes management if A1C within diabetic range Follow up with Neurology in 4-6 weeks, Ophthalmology in 1-2 weeks, PCP in 1-2 weeks of discharge. HPI Consult Data Date of Consult: 07/10/24 HPI Narrative HPI Narrative: FAROOQ FUENTES is a 64 F with a history of HTN, tobacco use, seizure disorder, who presented at the time of admission for chest pain. During her admission, her hospital course was complicated by acute onset R visual field cut for which she was emergently telestroked and given TNK. She continues to have visual field deficit and imaging reveals acute L occipital lobe stroke. Neurological examination shows NIHSS 2 for R complete hemianopia. Neuroimaging shows MRI with acute diffusion restriction in L occipital lobe consistent with acute ischemia. No microhemorrhages appreciated on SWI sequence. CTA Brain and neck without high grade flow limiting critical stenosis or proximal large vessel occlusion. LDL 94. A1C Pending. TTE on arrival initially with LVH, EF 60%. Bubble study added today without PFO. [facility] Medical History Seizures GERD (gastroesophageal reflux disease) History of seizures Knee pain Home Medications ?Medication ?Instructions ?Recorded ?Last Taken ?Type acyclovir 400 mg tablet 400 mg PO DAILY 04/18/23 History lamotrigine 300 mg tablet,extended 300 mg PO DAILY 07/08/24 History release 24 hr omeprazole 20 mg capsule,delayed 20 mg PO DAILY 07/08/24 History release levetiracetam 500 mg 1,500 mg PO DAILY 07/08/24 0 07/08/24 History tablet,extended release 24 hr Allergy/AdvReac Type Severity Reaction Status Date / Time No Known Allergies Allergy Verified 07/08/24 08:30 Family History Mother Arthritis Cancer Sister Arthritis Father Arthritis CVA (cerebral vascular accident) Other Myocardial infarction Surgical History No history of previous surgery Social History Smoking Status: Current every day smoker tobacco type: cigarettes how long ago did patient quit smoking: pack a day alcohol intake: current alcohol intake frequency: 0-2 drinks per day Alcohol type: wine details: daily substance use type: does not use additional social history: pt denies vaping, denies marijuana use, denies edibles, denies aspirin use Uses ibuprofen as needed smokes a pack a day, daily consumption alcohol Vital Signs Vital Signs Vital Signs: 07/09/24 16:00 07/09/24 16:00 07/09/24 16:15 Temperature Temperature Source Pulse Rate 71 71 73 Pulse Strength Respiratory Rate 16 18 Respiratory Effort Respiratory Depth Respiratory Pattern Blood Pressure 122/83 H 122/83 H 131/70 H Blood Pressure Mean 96 96 90 Blood Pressure Source Monitor Monitor Monitor Blood Pressure Position Semi-Fowlers Semi-Fowlers Blood Pressure Location Left Arm Left Arm Pulse Ox 94 95 Oxygen Delivery Method Nasal Cannula Nasal Cannula Oxygen Flow Rate (L/min) 6 6 07/09/24 16:30 07/09/24 16:30 07/09/24 16:45 Temperature Temperature Source Pulse Rate 72 72 74 Pulse Strength Respiratory Rate 24 H 15 Respiratory Effort Respiratory Depth Respiratory Pattern Blood Pressure 144/73 H 144/73 H 114/68 Blood Pressure Mean 96 96 83 Blood Pressure Source Monitor Monitor Monitor Blood Pressure Position Semi-Fowlers Semi-Fowlers Blood Pressure Location Left Arm Left Arm Pulse Ox 98 96 Oxygen Delivery Method Nasal Cannula Nasal Cannula Oxygen Flow Rate (L/min) 6 4 07/09/24 16:46 07/09/24 17:00 07/09/24 17:00 Temperature Temperature Source Pulse Rate 84 84 Pulse Strength Respiratory Rate 21 H Respiratory Effort Respiratory Depth Respiratory Pattern Blood Pressure 128/79 H 128/79 H Blood Pressure Mean 95 95 Blood Pressure Source Monitor Monitor Blood Pressure Position Semi-Fowlers Blood Pressure Location Left Arm Pulse Ox 94 96 Oxygen Delivery Method Nasal Cannula Nasal Cannula Oxygen Flow Rate (L/min) 4 4 07/09/24 17:30 07/09/24 17:30 07/09/24 17:45 Temperature Temperature Source Pulse Rate 80 80 84 Pulse Strength Respiratory Rate 15 Respiratory Effort Respiratory Depth Respiratory Pattern Blood Pressure 135/75 H 135/75 H 125/72 H Blood Pressure Mean 95 95 89 Blood Pressure Source Monitor Monitor Monitor Blood Pressure Position Semi-Fowlers Blood Pressure Location Left Arm Pulse Ox 96 Oxygen Delivery Method Nasal Cannula Oxygen Flow Rate (L/min) 4 07/09/24 18:00 07/09/24 18:00 07/09/24 18:00 Temperature Temperature Source Pulse Rate 78 74 Pulse Strength Respiratory Rate 16 Respiratory Effort Normal Respiratory Depth Normal Respiratory Pattern Normal Blood Pressure 122/73 H 122/73 H Blood Pressure Mean 89 89 Blood Pressure Source Monitor Monitor Blood Pressure Position Semi-Fowlers Blood Pressure Location Left Arm Pulse Ox 97 Oxygen Delivery Method Nasal Cannula Nasal Cannula Oxygen Flow Rate (L/min) 4 07/09/24 18:30 07/09/24 19:00 07/09/24 19:00 Temperature Temperature Source Pulse Rate 88 79 80 Pulse Strength Respiratory Rate 18 21 H Respiratory Effort Respiratory Depth Respiratory Pattern Blood Pressure 133/78 H 159/87 H Blood Pressure Mean 96 111 Blood Pressure Source Monitor Monitor Blood Pressure Position Semi-Fowlers Semi-Fowlers Blood Pressure Location Left Arm Left Arm Pulse Ox 100 97 Oxygen Delivery Method Nasal Cannula Nasal Cannula Oxygen Flow Rate (L/min) 4 4 07/09/24 19:30 07/09/24 20:00 07/09/24 20:00 Temperature Temperature Source Pulse Rate 75 78 Pulse Strength Respiratory Rate 19 H 18 Respiratory Effort Normal Respiratory Depth Normal Respiratory Pattern Normal Blood Pressure 149/64 H 128/93 H Blood Pressure Mean 92 104 Blood Pressure Source Monitor Monitor Blood Pressure Position Semi-Fowlers Semi-Fowlers Blood Pressure Location Left Arm Left Arm Pulse Ox 97 98 Oxygen Delivery Method Nasal Cannula Nasal Cannula Nasal Cannula Oxygen Flow Rate (L/min) 4 4 4 07/09/24 20:00 07/09/24 20:30 07/09/24 21:00 Temperature 99.0 F Temperature Source Temporal Pulse Rate 88 83 Pulse Strength Respiratory Rate 20 H 18 Respiratory Effort Normal Respiratory Depth Normal Respiratory Pattern Normal Blood Pressure 139/93 H 146/80 H Blood Pressure Mean 108 102 Blood Pressure Source Monitor Monitor Blood Pressure Position Semi-Fowlers Semi-Fowlers Blood Pressure Location Left Arm Left Arm Pulse Ox 97 98 96 Oxygen Delivery Method Nasal Cannula Nasal Cannula Nasal Cannula Oxygen Flow Rate (L/min) 4 2 2 07/09/24 21:30 07/09/24 22:00 07/09/24 22:00 Temperature 97.5 F L Temperature Source Oral Pulse Rate 75 74 Pulse Strength Normal (2+) Respiratory Rate 16 17 Respiratory Effort Respiratory Depth Respiratory Pattern Blood Pressure 150/74 H 148/79 H Blood Pressure Mean 99 102 Blood Pressure Source Monitor Monitor Blood Pressure Position Semi-Fowlers Semi-Fowlers Blood Pressure Location Left Arm Left Arm Pulse Ox 96 97 Oxygen Delivery Method Nasal Cannula Nasal Cannula Oxygen Flow Rate (L/min) 2 2 07/09/24 22:30 07/09/24 23:00 07/09/24 23:00 Temperature Temperature Source Pulse Rate 74 78 73 Pulse Strength Respiratory Rate 16 17 Respiratory Effort Respiratory Depth Respiratory Pattern Blood Pressure 140/76 H 140/75 H Blood Pressure Mean 97 96 Blood Pressure Source Monitor Monitor Blood Pressure Position Semi-Fowlers Semi-Fowlers Blood Pressure Location Left Arm Left Arm Pulse Ox 97 97 Oxygen Delivery Method Nasal Cannula Nasal Cannula Oxygen Flow Rate (L/min) 2 2 07/10/24 00:00 07/10/24 00:00 07/10/24 00:00 Temperature 97.9 F Temperature Source Oral Pulse Rate 78 Pulse Strength Respiratory Rate 16 Respiratory Effort Normal Normal Respiratory Depth Normal Normal Respiratory Pattern Normal Normal Blood Pressure 148/79 H Blood Pressure Mean 102 Blood Pressure Source Monitor Blood Pressure Position Semi-Fowlers Blood Pressure Location Left Arm Pulse Ox 95 Oxygen Delivery Method Nasal Cannula Nasal Cannula Nasal Cannula Oxygen Flow Rate (L/min) 1 1 1 07/10/24 01:00 07/10/24 02:00 07/10/24 03:00 Temperature Temperature Source Pulse Rate 91 82 85 Pulse Strength Respiratory Rate 17 21 H 17 Respiratory Effort Respiratory Depth Respiratory Pattern Blood Pressure 127/67 H 129/69 H 139/74 H Blood Pressure Mean 87 89 95 Blood Pressure Source Monitor Monitor Monitor Blood Pressure Position Semi-Fowlers Semi-Fowlers Semi-Fowlers Blood Pressure Location Left Arm Left Arm Left Arm Pulse Ox 97 97 97 Oxygen Delivery Method Nasal Cannula Nasal Cannula Nasal Cannula Oxygen Flow Rate (L/min) 2 2 2 07/10/24 03:00 07/10/24 04:00 07/10/24 04:00 Temperature Temperature Source Pulse Rate 72 84 Pulse Strength Respiratory Rate 16 Respiratory Effort Normal Respiratory Depth Normal Respiratory Pattern Normal Blood Pressure 132/75 H Blood Pressure Mean 94 Blood Pressure Source Monitor Blood Pressure Position Semi-Fowlers Blood Pressure Location Left Arm Pulse Ox 97 Oxygen Delivery Method Nasal Cannula Nasal Cannula Oxygen Flow Rate (L/min) 2 2 07/10/24 04:00 07/10/24 05:00 07/10/24 06:00 Temperature Temperature Source Pulse Rate 79 77 Pulse Strength Respiratory Rate 20 H 18 Respiratory Effort Normal Respiratory Depth Normal Respiratory Pattern Normal Blood Pressure 153/99 H 161/78 H Blood Pressure Mean 117 105 Blood Pressure Source Monitor Monitor Blood Pressure Position Semi-Fowlers Semi-Fowlers Blood Pressure Location Left Arm Left Arm Pulse Ox 97 96 Oxygen Delivery Method Nasal Cannula Nasal Cannula Nasal Cannula Oxygen Flow Rate (L/min) 2 2 2 07/10/24 07:00 07/10/24 07:12 07/10/24 08:00 Temperature Temperature Source Pulse Rate 76 72 Pulse Strength Respiratory Rate 16 15 Respiratory Effort Respiratory Depth Respiratory Pattern Blood Pressure 175/93 H 177/95 H Blood Pressure Mean 120 122 Blood Pressure Source Monitor Monitor Blood Pressure Position Semi-Fowlers Semi-Fowlers Blood Pressure Location Left Arm Left Arm Pulse Ox 95 95 97 Oxygen Delivery Method Nasal Cannula Nasal Cannula Nasal Cannula Oxygen Flow Rate (L/min) 2 2 2 07/10/24 09:00 07/10/24 09:36 07/10/24 10:00 Temperature 98.4 F Temperature Source Temporal Pulse Rate 75 82 Pulse Strength Normal (2+) Respiratory Rate 16 15 Respiratory Effort Respiratory Depth Respiratory Pattern Blood Pressure 168/84 H 174/81 H Blood Pressure Mean 112 112 Blood Pressure Source Monitor Monitor Blood Pressure Position Semi-Fowlers Semi-Fowlers Blood Pressure Location Left Arm Left Arm Pulse Ox 96 98 Oxygen Delivery Method Nasal Cannula Nasal Cannula Oxygen Flow Rate (L/min) 2 2 07/10/24 11:00 07/10/24 12:00 07/10/24 12:30 Temperature Temperature Source Pulse Rate 82 88 87 Pulse Strength Respiratory Rate 16 15 Respiratory Effort Respiratory Depth Respiratory Pattern Blood Pressure 170/81 H 188/87 H 172/87 H Blood Pressure Mean 110 120 115 Blood Pressure Source Monitor Monitor Blood Pressure Position Semi-Fowlers Semi-Fowlers Blood Pressure Location Left Arm Left Arm Pulse Ox 97 97 Oxygen Delivery Method Nasal Cannula Nasal Cannula Oxygen Flow Rate (L/min) 2 2 07/10/24 13:00 07/10/24 14:08 07/10/24 14:15 Temperature Temperature Source Pulse Rate 83 82 77 Pulse Strength Respiratory Rate 16 20 H Respiratory Effort Respiratory Depth Respiratory Pattern Blood Pressure 179/85 H 185/102 H 177/89 H Blood Pressure Mean 116 129 118 Blood Pressure Source Monitor Monitor Monitor Blood Pressure Position Semi-Fowlers Semi-Fowlers Blood Pressure Location Left Arm Left Arm Pulse Ox 98 97 Oxygen Delivery Method Nasal Cannula Nasal Cannula Oxygen Flow Rate (L/min) 2 2 07/10/24 14:30 07/10/24 14:45 07/10/24 15:04 Temperature Temperature Source Pulse Rate 91 88 79 Pulse Strength Respiratory Rate 16 Respiratory Effort Respiratory Depth Respiratory Pattern Blood Pressure 167/88 H 178/96 H 171/82 H Blood Pressure Mean 114 123 111 Blood Pressure Source Monitor Monitor Monitor Blood Pressure Position Supine Blood Pressure Location Left Arm Pulse Ox 94 Oxygen Delivery Method Nasal Cannula Oxygen Flow Rate (L/min) 3 07/10/24 15:14 07/10/24 15:24 Temperature Temperature Source Pulse Rate 82 84 Pulse Strength Respiratory Rate 16 16 Respiratory Effort Respiratory Depth Respiratory Pattern Blood Pressure 171/80 H 185/87 H Blood Pressure Mean 110 119 Blood Pressure Source Monitor Monitor Blood Pressure Position Supine Supine Blood Pressure Location Left Arm Left Arm Pulse Ox 95 96 Oxygen Delivery Method Nasal Cannula Room Air Oxygen Flow Rate (L/min) 3 Weight Weight: 74.1 kg Body Mass Index (BMI) 28.0 EEG Results Procedure Details EEG Procedure Details: FAROOQ FUENTES is a 64 year old F with a past medical history of , who presents for evaluation of Electroencephalogram on DATE at TIME Lab / Micro Data 07/09/24 05:10 07/09/24 05:10 Labs: Laboratory Results - last 24 hr 07/10/24 03:25: Triglycerides 69, Cholesterol 151, LDL Cholesterol, Calc 62, VLDL Cholesterol 14, HDL Cholesterol 75, Cholesterol/HDL Ratio 2.01 Imaging Radiology Impression Echocardiogram 07/10/24 07:14 Interpretation Summary Normal LV size. Bubble contrast study negative for right to left interatrial shunt. Left ventricular systolic function is normal. The left ventricular ejection fraction is 55 %. Ordering Physician: Nilesh Davenport Referring Physician: Alysa Staples Performed By: Esther Mendoza, ADAMA, RVT Active Medications Active Medications Active Medications: Current Medications Generic Name Dose Route Start Last Admin Trade Name Freq PRN Reason Stop Dose Admin Atorvastatin Calcium 80 mg 07/09/24 22:00 07/09/24 21:37 Atorvastatin Calcium 80 Mg Tablet PO 80 mg QHS OXANA Administration Diphenhydramine HCl 50 mg 07/09/24 14:55 Diphenhydramine 50 Mg/Ml Syringe IV X1 PRN Allergic Reaction Sodium Chloride 100 mls @ 15 mls/hr 07/08/24 14:10 IV .Q6H40M PRN Saline Flush Sodium Chloride 100 mls @ 15 mls/hr 07/08/24 14:10 IV .Q6H40M PRN Additional IVPB Infusion Nicardipine/Sodium Chloride 20 mg in 200 mls @ 50 mls/hr 07/09/24 14:55 07/10/24 14:45 Cardene-Eddie 20 Mg/200 Ml Soln CONT INF 0 mg/hr Q4H PRN 0 mls/hr See Instructions Titration Protocol 5 MG/HR Famotidine 20 mg/ Sodium 10 mls @ 300 mls/hr 07/09/24 14:55 Chloride IV X1 PRN Allergic Reaction Lamotrigine 150 mg 07/10/24 11:30 07/10/24 12:11 Lamotrigine 150 Mg Tablet PO Not Given BID OXANA Levetiracetam 750 mg 07/10/24 10:00 07/10/24 09:42 Levetiracetam 750 Mg Tablet PO 750 mg BID OXANA Administration Menthol 1 applic 07/09/24 16:04 07/09/24 21:41 Menthol 226.8 Gm Jar TOPICAL 1 applic 4X/DAY PRN PRN Administration Pain/Inflammation Methylprednisolone 125 mg 07/09/24 14:55 Methylprednisolone 125 Mg/2 Ml Vial IV X1 PRN Allergic Reaction Morphine Sulfate 2 - 4 mg 07/08/24 13:12 07/10/24 07:00 Morphine 2 Mg/Ml Syringe IV 4 mg Q3H PRN PRN Administration Pain Score 6-10 Oxycodone HCl 5 mg 07/09/24 16:04 07/10/24 05:38 Oxycodone 5 Mg Tablet PO 5 mg Q4H PRN PRN Administration Pain Score 6-10 Oxycodone HCl 10 mg 07/10/24 08:44 07/10/24 13:21 Oxycodone 5 Mg Tablet PO 10 mg Q4H PRN PRN Administration Pain Score 1-10 Pantoprazole Sodium 40 mg 07/09/24 22:00 07/10/24 09:21 Pantoprazole Sodium 40 Mg Tablet PO 40 mg BID OXANA Administration Sodium Chloride 10 - 40 ml 07/08/24 14:10 07/10/24 07:02 0.9% Saline Lock 10 Ml Syringe IV 20 ml UD PRN Administration SALINE FLUSH Sodium Chloride 10 ml 07/09/24 14:55 0.9% Saline Lock 10 Ml Syringe IV UD PRN Before/After Tenecteplase Administration NIHSS NIHSS Nursing Documentation NIHSS Nursing Documentation: NIHSS: Ischemic Stroke/TIA Start: 07/09/24 13:45 Freq: Q15M Status: Complete Protocol: Activity Type Activity Date Activity User E-sign Co-sign Detail Recorded Client Recorded Date Recorded By Document 07/09/24 14:47 AMW [id number] 07/09/24 16:08 AMW 07/09/24 14:47 NIH Stroke Scale [NIHSS] A score of 0 is normal or asymptomatic . Total possible score is 42. Inpatient: RN or Physician to activate a stroke alert for onset of new stroke symptoms or with NIHSS increase >/= 3 points. Following change in neurological status, NIHSS will be performed per physician order or more frequently PRN. -1a. Level of Consciousness 0 - Alert; keenly responsive -1b. LOC Questions 0 - Answers BOTH questions correctly -1c. LOC Commands 0 - Performs BOTH tasks correctly -2. Best Gaze 0 - Normal -3. Visual 3 - Bilateral hemianopia ( blind, including cortical blindness) -4. Facial Palsy 0 - Normal symmetrical movements -5a. Left Arm 0 - No drift; arm holds 90 ( or 45) degrees for full 10 seconds -5b. Right Arm 0 - No drift; arm holds 90 ( or 45) degrees for full 10 seconds -6a. Left Leg 0 - No drift; leg holds 30- degree position for full 5 seconds -6b. Right Leg 0 - No drift; leg holds 30- degree position for full 5 seconds -7. Limb Ataxia 0 - Absent -8. Sensory 0 - Normal; no sensory loss -9. Best Language 0 - No aphasia; normal -10. Dysarthria 0 - Normal -11. Extinction and Inattention 0 - No abnormality -Total 3 Query Text:A score of 0 is normal or asymptomatic. Total possible score is 42 . ED: Notify Physician for NIHSS increase by > / = 3 points. Inpatient: RN or Physician to activate a stroke alert for NIHSS increase of > / = 3 points. Thrombolytic: Vital Signs & NIHSS Start: 07/09/24 14:55 Text: Assess and document vital signs and NIHSS Status: Active within 15 minutes prior to Tenecteplase administration Freq: [id number] Protocol: Activity Type Activity Date Activity User E-sign Co-sign Detail Recorded Client Recorded Date Recorded By Document 07/10/24 14:08 [facility] [id number] 07/10/24 14:10 [facility] 07/10/24 14:08 Vital Signs [Pulse] -Pulse Rate (60-100) 82 -Pulse Location Monitor [Respirations] -Respiratory Rate (12-18) 20 H -Respiratory rate source Monitor -Pulse Oximetry 97 -Oxygen Delivery Method Nasal Cannula -O2 L/MIN 2 [Blood Pressure] -Blood Pressure (90/60-120/80) 185/102 H -Blood Pressure Mean 129 -Source Monitor -Position Semi-Fowlers -Blood Pressure Location Left Arm -Is the SBP > or = 180 Yes -Is the DBP > or = 105 No [Comments] -Comment Dr. Davenport notified of bp NIH Stroke Scale [NIHSS] A score of 0 is normal or asymptomatic . Total possible score is 42. Inpatient: RN or Physician to activate a stroke alert for onset of new stroke symptoms or with NIHSS increase >/= 3 points. Following change in neurological status, NIHSS will be performed per physician order or more frequently PRN. -1a. Level of Consciousness 0 - Alert; keenly responsive -1b. LOC Questions 0 - Answers BOTH questions correctly -1c. LOC Commands 0 - Performs BOTH tasks correctly -2. Best Gaze 0 - Normal -3. Visual 3 - Bilateral hemianopia ( blind, including cortical blindness) -4. Facial Palsy 0 - Normal symmetrical movements -5a. Left Arm 0 - No drift; arm holds 90 ( or 45) degrees for full 10 seconds -5b. Right Arm 0 - No drift; arm holds 90 ( or 45) degrees for full 10 seconds -6a. Left Leg 0 - No drift; leg holds 30- degree position for full 5 seconds -6b. Right Leg 0 - No drift; leg holds 30- degree position for full 5 seconds -7. Limb Ataxia 0 - Absent -8. Sensory 0 - Normal; no sensory loss -9. Best Language 0 - No aphasia; normal -10. Dysarthria 0 - Normal -11. Extinction and Inattention 0 - No abnormality -Total 3 Query Text:A score of 0 is normal or asymptomatic. Total possible score is 42 . ED: Notify Physician for NIHSS increase by > / = 3 points. Inpatient: RN or Physician to activate a stroke alert for NIHSS increase of > / = 3 points. NIHSS 1a. Level of Consciousness: 0 - Alert; keenly responsive 1b. LOC Questions: 0 - Answers BOTH questions correctly 2. Best Gaze: 0 - Normal 3. Visual: 2 - Complete hemianopia 4. Facial Palsy: 0 - Normal symmetrical movements 5a. Left Arm: 0 - No drift; arm holds 90 (or 45) degrees for full 10 seconds 5b. Right Arm: 0 - No drift; arm holds 90 (or 45) degrees for full 10 seconds 6a. Left Le - No drift; leg holds 30-degree position for full 5 seconds 6b. Right Le - No drift; leg holds 30-degree position for full 5 seconds 7. Limb Ataxia: 0 - Absent 8. Sensory: 0 - Normal; no sensory loss 9. Best Language: 0 - No aphasia; normal 10. Dysarthria: 0 - Normal 11. Extinction and Inattention: 0 - No abnormality Total: 2
[2024-07-10] MEDS: MENTHOL 226.8 GM JAR 1 APPLIC TOPICAL ×2 (15:59→18:49)
--- NOTE | 2024-07-10 16:34 | NURSING ---
1500 [facility] late d/t patient in MRI- NIH completed at 1600 when patient back in room
[2024-07-10] MEDS: Nicardipine HCl-0.9% Sod Chlor 20 MG/200 ML IV.SOLN 50 MG CONT INF (16:36)
--- NOTE | 2024-07-10 17:06 | PN.HOSP_ITS ---
Reason for Visit Reason for Visit: Diagnoses Chest pain, unspecified (07/09/24) Subjective Subjective Patient was seen and examined today, she has been complaining of knee pain due to osteoarthritis. Patient had an MRI of the brain today which showed a left medial occipital infarct. I talked with teleneurology about her care and they recommended placing the patient on aspirin starting tomorrow and placing the patient on a statin. Patient's echocardiogram showed no evidence of [id number] interatrial shunt. There is also no evidence of any thrombus. Objective Data Objective Data Vital Signs: Vital Signs Temp Pulse Resp BP Pulse Ox O2 Del Method O2 Flow Rate 98.3 F 94 17 164/66 H 97 Nasal Cannula 2 07/10/24 16:00 07/10/24 16:45 07/10/24 16:00 07/10/24 16:45 07/10/24 16:00 07/10/24 16:00 07/10/24 16:00 Oxygen Flow Rate (L/min) 2 Oxygen Delivery Method Nasal Cannula Weight: 74.1 kg Body Mass Index (BMI) 28.0 Intake & Output: Intake and Output for Last 24 Hours 07/08/24 07/09/24 07/10/24 23:59 23:59 23:59 Intake Total 120 / 120 145.83 / 145.83 301.67 / 301.67 Output Total 1650 / 1650 Balance 120 / 120 145.83 / -304.17 -1348.33 / -1348.33 Lab / Micro Data 07/09/24 05:10 07/09/24 05:10 Labs: Laboratory Results - last 24 hr 07/10/24 03:25: Triglycerides 69, Cholesterol 151, LDL Cholesterol, Calc 62, VLDL Cholesterol 14, HDL Cholesterol 75, Cholesterol/HDL Ratio 2.01 Radiography Diagnostic Testing: Radiology Impression Echocardiogram 07/10/24 07:14 Interpretation Summary Normal LV size. Bubble contrast study negative for right to left interatrial shunt. Left ventricular systolic function is normal. The left ventricular ejection fraction is 55 %. Ordering Physician: Nilesh Davenport Referring Physician: Alysa Staples Performed By: Esther Mendoza, RDCS, RVT Brain MRI 07/10/24 14:55 IMPRESSION: Acute/subacute ischemia involving the medial left occipital lobe. Reading Location: [facility] Physical Exam Const alert, oriented x3 and no apparent distress General Appearance: cooperative, well kempt and well developed Orientation / Consciousness: awake, oriented to person, oriented to place and oriented to time HEENT normocephalic, head/scalp atraumatic and moist oral mucous membranes Eyes PERRL, EOMs intact bilaterally and conjunctivae normal Eyes Narrative: Patient has a visual field defect on the lateral aspect of the right eye and the medial aspect of the left eye. Neck supple, no JVD, thyroid normal and no carotid bruits General: trachea midline Resp normal respiratory effort, no retractions, no use of accessory muscles and clear to auscultation bilaterally Auscultation: Negative for rales, rhonchi or wheezes Cardio regular rate, regular rhythm, S1 normal heart sound, S2 normal heart sound, no murmurs, no rub and no gallops GI normal to inspection, nondistended, normoactive bowel sounds, soft to palpation, non-tender and non-distended Extremity no clubbing, cyanosis or edema Skin no rashes or lesions noted General Skin Exam: no breakdown Neuro oriented x3, CN's II-XII intact bilaterally, no focal motor deficits and no sensory deficits noted Neuro Narrative: Patient has a visual defect over the lateral aspect of the right eye in the medial aspect of the left eye Sensorium / Orientation: awake and alert Speech: speech normal Psych affect normal Assessment & Plan Assessment/Plan (1) Occipital stroke: PLAN: Plan 1. Acute occipital stroke-patient will continue on a statin, she will be placed on 81 mg aspirin daily starting tomorrow. Patient will be seen by PT OT and speech therapy. #2 uncontrolled hypertension-I placed the patient on an LARS inhibitor and Norvasc today, she remains on a Cardene drip at this time which can probably be weaned off if her blood pressure response to oral meds. #3 seizure disorder-patient will remain on her present medications #4 right knee pain secondary to osteoarthritis-patient is receiving Oxy IR for pain Total clinical time spent by myself addressing the patient's medical issues, reviewing all of her data, and collaborating with patient's care team: 35 minutes Charges/Coding Visit Charges Inpatient E&M: 18254 Subs Hosp L2 NIHSS NIHSS Nursing Documentation NIHSS Nursing Documentation: NIHSS: Ischemic Stroke/TIA Start: 07/09/24 13:45 Freq: Q15M Status: Complete Protocol: Activity Type Activity Date Activity User E-sign Co-sign Detail Recorded Client Recorded Date Recorded By Document 07/09/24 14:47 AMW [id number] 07/09/24 16:08 AMW 07/09/24 14:47 NIH Stroke Scale [NIHSS] A score of 0 is normal or asymptomatic . Total possible score is 42. Inpatient: RN or Physician to activate a stroke alert for onset of new stroke symptoms or with NIHSS increase >/= 3 points. Following change in neurological status, NIHSS will be performed per physician order or more frequently PRN. -1a. Level of Consciousness 0 - Alert; keenly responsive -1b. LOC Questions 0 - Answers BOTH questions correctly -1c. LOC Commands 0 - Performs BOTH tasks correctly -2. Best Gaze 0 - Normal -3. Visual 3 - Bilateral hemianopia ( blind, including cortical blindness) -4. Facial Palsy 0 - Normal symmetrical movements -5a. Left Arm 0 - No drift; arm holds 90 ( or 45) degrees for full 10 seconds -5b. Right Arm 0 - No drift; arm holds 90 ( or 45) degrees for full 10 seconds -6a. Left Leg 0 - No drift; leg holds 30- degree position for full 5 seconds -6b. Right Leg 0 - No drift; leg holds 30- degree position for full 5 seconds -7. Limb Ataxia 0 - Absent -8. Sensory 0 - Normal; no sensory loss -9. Best Language 0 - No aphasia; normal -10. Dysarthria 0 - Normal -11. Extinction and Inattention 0 - No abnormality -Total 3 Query Text:A score of 0 is normal or asymptomatic. Total possible score is 42 . ED: Notify Physician for NIHSS increase by > / = 3 points. Inpatient: RN or Physician to activate a stroke alert for NIHSS increase of > / = 3 points. Thrombolytic: Vital Signs & NIHSS Start: 07/09/24 14:55 Text: Assess and document vital signs and NIHSS Status: Active within 15 minutes prior to Tenecteplase administration Freq: [id number],Q1HX16,Q2H Protocol: Activity Type Activity Date Activity User E-sign Co-sign Detail Recorded Client Recorded Date Recorded By Document 07/10/24 16:00 [email or web address] [id number] 07/10/24 16:35 [facility] 07/10/24 16:00 Vital Signs [Blood Pressure] -Is the SBP > or = 180 Yes -Is the DBP > or = 105 No [Comments] -Comment see jeronimo tuttle NIH Stroke Scale [NIHSS] A score of 0 is normal or asymptomatic . Total possible score is 42. Inpatient: RN or Physician to activate a stroke alert for onset of new stroke symptoms or with NIHSS increase >/= 3 points. Following change in neurological status, NIHSS will be performed per physician order or more frequently PRN. -1a. Level of Consciousness 0 - Alert; keenly responsive -1b. LOC Questions 0 - Answers BOTH questions correctly -1c. LOC Commands 0 - Performs BOTH tasks correctly -2. Best Gaze 0 - Normal -3. Visual 2 - Complete hemianopia -4. Facial Palsy 0 - Normal symmetrical movements -5a. Left Arm 0 - No drift; arm holds 90 ( or 45) degrees for full 10 seconds -5b. Right Arm 0 - No drift; arm holds 90 ( or 45) degrees for full 10 seconds -6a. Left Leg 0 - No drift; leg holds 30- degree position for full 5 seconds -6b. Right Leg UN - Amputation or joint fusion, explain : -'UN' explanation very painful knee-does not want to move leg -7. Limb Ataxia 0 - Absent -9. Best Language 0 - No aphasia; normal -10. Dysarthria 0 - Normal -11. Extinction and Inattention 0 - No abnormality -Total 2 Query Text:A score of 0 is normal or asymptomatic. Total possible score is 42 . ED: Notify Physician for NIHSS increase by > / = 3 points. Inpatient: RN or Physician to activate a stroke alert for NIHSS increase of > / = 3 points. 07/10/24 16:34 Nursing Note by Karley Fraser [address] [facility] late d/t patient in MRI- NIH completed at 1600 when patient back in room Initialized on 07/10/24 16:34 - END OF NOTE
[2024-07-10] MEDS: amLODIPine 5 MG Tablet PO (17:12)
[2024-07-10] MEDS: Atorvastatin Calcium 40 MG Tablet PO (22:00)
[2024-07-10] MEDS: lamoTRIgine 150 MG Tablet PO (22:01)
[2024-07-11] VITALS (20 sets, daily range): BP systolic 107–151; BP diastolic 62–92; PULSE 81–108; RESP 13–22; TEMP 36.8–36.9; O2SAT 88–97; BMI 31.1
[2024-07-11] MEDS: oxyCODONE 5 MG Tablet 10 MG PO (06:01)
--- NOTE | 2024-07-11 07:00 | RAD_ITS ---
PROCEDURE: KNEE 3 VIEWS N/A REASON FOR EXAM: PAIN AND SWELLING TO RT KNEE TECHNIQUE: 3 view(s) of the left knee COMPARISON: None. FINDINGS: Moderate tricompartmental changes of degenerative joint disease. No fracture or dislocation is seen. No lytic or blastic aggressive bone lesion is identified. RAD/Knee 3 Views IMPRESSION: 1. Degenerative joint disease. 2. No radiographic evidence of an acute bone abnormality. Reading [facility]
--- NOTE | 2024-07-11 07:00 | RAD_ITS ---
PROCEDURE: KNEE 3 VIEWS 07/11/2024 REASON FOR EXAM: PAIN AND SWELLING TO RIGHT KNEE TECHNIQUE: 3 view(s) of the right knee COMPARISON: Left knee x-ray performed on 07/11/2024. FINDINGS: There is moderate narrowing within the medial, lateral and patellofemoral compartments of the right knee. This is worse on the right when compared to the left side. There is calcification seen within the medial and lateral meniscus. No fracture or dislocation. No suprapatellar joint effusion is seen. RAD/Knee 3 Views IMPRESSION: Moderate to advanced right knee osteoarthritis, somewhat advanced for patient's age. Reading Location: [id number]
[2024-07-11] MEDS: Aspirin E.C. 81 MG Tablet PO (08:16)
--- NOTE | 2024-07-11 09:59 | CASEMGMT ---
Addendum entered by aitainment Blue 07/11/24 15:47: Another TC to [employer] who states that the pt has a copay for the DME. Shower chair is 28$ and the FWW is 45$ after insurance. Requested that [employer] deliver the DME KO as the pt has an order for DC. The [employer] company states that they should be able to deliver the equipment within an hour to ICU04. DORI SALMON to pt room at this time. Pt and pt SO are agreeable and deny further DC needs. Pt RN updated. Finalized Plan: Home with FWW, Shower chair, OP PT/OT, and to f/u with the Dental Floss Packer. Addendum entered by aitainment Blue 07/11/24 12:19: [email or web address] that [facility] the [facility] and are processing the order now. Addendum entered by aitainment Blue 07/11/24 12:05: Per the pt RN and Dr. Rebollar, pt does not require home oxygen as she does not qualify. Rx for OP PT and OT signed by Dr. Dinh. Copy and placed in the chart and physical Rx given to the pt at this time. The pt and the pt SO are requesting a shower chair now. Rx for a FWW and shower chair signed by Dr. Dinh and [email or web address] [employer]. [email or web address] who states that they will deliver the FWW to the bedside as well as the shower chair, unless they do not have it in stock. If not, the DME company will ship the shower chair to the pt's home. Pt states that she is agreeable. Dr. Dinh states that the pt can benefit from OP Vision Therapy. TC to and the OT and PT at state that they do not offer this service. TC to [facility] who state that they also do not offer this service. Collaborated with the pt and Dr. Dinh and the pt states that she sees an Dental Floss Packer. Dr. Dinh has contacted the pts eye specialists and the pt now has a f/u appt on July 21 for this. Pt states that she is agreeable to this plan and denies further questions, concerns, or DC needs. Pt RN updated. Original Note: PT/OT is recommending a FWW for the pt. DORI SALMON to pt room at this time to discuss DC planning. Pt SO at bedside. Pt is currently requiring additional oxygen. During the initial RN CM assessment, pt was refusing oxygen home needs even if she were to qualify. Pt was encouraged at this time to attempt using the home oxygen if she were to qualify. Pt states that she is agreeable but does not want to go through [employer] d/t her SO's poor history with the DME company. This RN CM provided the pt with a list of other local in-network DME companies. Pt prefers [employer] for the FWW and potential new oxygen equipment. Moving forward, the pt states that she would like to DC home with her SO once she medically ready. Pt states that she feels good today after working with therapy. Pt states that she would be interested in attending OP therapy and denies transportation issues. Pt states that she plans to attend [facility] as that is her preference. Pt denies wanting this RN CM to set up the appt for her as she plans to do this herself. Dr. Dinh notified and reports that the pt will likely DC today. Pt RN updated and to test the pt for home oxygen needs. CM to follow.
--- NOTE | 2024-07-11 10:45 | RAD_ITS ---
PROCEDURE: CHEST 1 VIEW (PORTABLE) 07/11/2024 REASON FOR EXAM: HYPOXIA TECHNIQUE: Frontal view of the chest. COMPARISON: 07/08/2024. FINDINGS: Lungs: Lungs clear of pneumonia and congestion. Elevation of the left hemidiaphragm. Old healed granulomatous changes. Pleura: Can not exclude a small amount of pleural fluid at the left lung base. Heart: Normal in size and configuration. Mediastinum/[place]: Unremarkable. Great vessels: Unremarkable. Bones/soft tissues: Unremarkable. RAD/Chest 1 View (Portable) IMPRESSION: Interval development of elevation of the left hemidiaphragm. Reading Location: [facility]
[2024-07-11] MEDS: lamoTRIgine 150 MG Tablet PO (10:49)
[2024-07-11] MEDS: Lisinopril 20 MG Tablet PO (10:49)
[2024-07-11] MEDS: levETIRAcetam 750 MG Tablet PO (10:49)
[2024-07-11] MEDS: amLODIPine 5 MG Tablet PO (10:49)
[2024-07-11] MEDS: Pantoprazole Sodium 40 MG Tablet PO (10:49)
[2024-07-11] MEDS: oxyCODONE 5 MG Tablet PO (11:12)
--- NOTE | 2024-07-11 15:15 | DCINST_ITS ---
Discharge Instructions Diet Discharge Diet: No restrictions DC O2, CPAP, BIPAP needs Home O2 Discharge instructions: No Dressing / Incision Discharge Activity: Return to Normal Activity and May Not Drive (Until cleared by your bullion weigher) Return to work on:: 07/21/24 Weight Bearing Status: Full weight bearing Follow Up Care Test Results: Test results from this visit will be discussed in further detail at your follow- up appointment, if applicable. Discharge Plan Admission Admit Date/Time: 07/09/24 16:11 Primary Reason for Your Visit: Left-sided occipital stroke Attending Provider: Nilesh Davenport Primary Care Provider: Alysa Staples Consulting Providers: Jaswinder Osorio; Cony Silva; Shannon Jhaveir; Jocelyne Flores; Pamella La; Jonah Abbott; Debbie Carlin; Maximino Beckman; Hal Zapien; Antonino Pfeiffer; Mari Cartagena; Henry Pan; Suri Aburto; Eden Pedro; Sanford Jeter; Tutu Mayberry; Edilberto Hannah; Sander Hendrix; Josee Hernandez; Atif Scales Instructions Additional Instructions / Restrictions: Do not smoke Discharge Orders/Prescriptions Prescriptions: New atorvastatin 40 mg Tablet 40 mg PO QHS Qty: 30 0RF lisinopril 20 mg Tablet 20 mg PO DAILY Qty: 30 0RF amlodipine 5 mg Tablet 5 mg PO DAILY Qty: 30 0RF aspirin 81 mg Tablet,Delayed Release (Dr/Ec) 81 mg PO BREAKFAST Qty: 0 0RF prednisone 20 mg tablet 40 mg PO DAILY Qty: 13 0RF Rx Instructions: 1 twice a day for 3 days, then 1 daily for 7 days Continued acyclovir 400 mg tablet 400 mg PO DAILY omeprazole 20 mg capsule,delayed release(DR/EC) 20 mg PO DAILY lamotrigine 300 mg tablet extended release 24hr 300 mg PO DAILY levetiracetam 500 mg tablet extended release 24 hr 1,500 mg PO DAILY Other Ambulatory Orders: 30 Day Event Recorder [employer]i (Urgent) Timeframe: 1 Day Facility: [facility] - Location: Cardiovascular Services Ordered By: Dr. Nilesh Davenport Referrals / Follow Up: Isidro Richter MD [Med Staff - Active Staff] - See Referral Note (On July 21 at 2:10 PM) Alysa Staples MD [Primary Care Provider] - In 1 Week (You will need follow-up con cerning your blood pressure) Disposition Disposition (needs filled in before D/C Order can be placed): Home, Self Care
--- NOTE | 2024-07-11 15:25 | PCM.DC.SUM ---
Providers Date of Admission: 07/09/24 Date of Discharge: 07/11/24 Primary Care Physician: Alysa Staples MD Consultations 07/09/24 14:55 Consult: Metalsmith / Pulmonary Medicine Routine Consulting Provider: [facility] Reason for Consult: Acute Ischemic Stroke/TIA EMERGENT Consult: Yes Notified: Yes Date Notified: 07/09/24 Time Notified: 14:35 Method of Notification: Verbal Consult: Tele-Neurology Routine Consulting Provider: [facility] Reason for Consult: Acute Ischemic Stroke/TIA EMERGENT Consult: Yes Notified: Yes Date Notified: 07/09/24 Time Notified: 14:35 Method of Notification: Verbal Nursing Unit Staff Notify [facility] of Tele-Neurology Consult: Yes Reason For Visit: CHEST PAIN Diagnosis Discharge Diagnosis (1) Occipital stroke: Status: Acute Code(s): I63.9 - Cerebral infarction, unspecified Plan 1. Acute occipital stroke-patient will continue on a statin, she will be placed on 81 mg aspirin daily starting tomorrow. Patient will be seen by PT OT and speech therapy. #2 uncontrolled hypertension-I placed the patient on an LARS inhibitor and Norvasc today, she remains on a Cardene drip at this time which can probably be weaned off if her blood pressure response to oral meds. #3 seizure disorder-patient will remain on her present medications #4 right knee pain secondary to osteoarthritis-patient is receiving Oxy IR for pain #5 musculoskeletal chest pain Total clinical time spent by myself addressing the patient's medical issues, reviewing all of her data, and collaborating with patient's care team: 35 minutes Medications at Discharge Home Medications acyclovir 400 mg tablet 400 mg PO DAILY 04/18/23 lamotrigine 300 mg tablet,extended release 24 hr 300 mg PO DAILY 04/18/23 omeprazole 20 mg capsule,delayed release 20 mg PO DAILY 04/18/23 levetiracetam 500 mg tablet,extended release 24 hr 1,500 mg PO DAILY 07/08/24 amlodipine 5 mg tablet 5 mg PO DAILY #30 tabs 07/11/24 aspirin 81 mg tablet,delayed release 81 mg PO BREAKFAST #0 tabs 07/11/24 atorvastatin 40 mg tablet 40 mg PO QHS #30 tabs 07/11/24 lisinopril 20 mg tablet 20 mg PO DAILY #30 tabs 07/11/24 prednisone 20 mg tablet 40 mg (2 x 20 mg) PO DAILY #13 tabs 07/11/24 Hospital Course Operations None Procedures 2-D Echocardiogram and Stress test Summary of Care Provided Minutes Spent on Discharge: 32 Hospital Course: This 64-year-old white female was seen in the emergency room at [facility] with complaints of pain which started in the right neck area and radiated to the upper chest and across the upper chest. Patient denied any shortness of breath. Workup in the emergency room including an EKG and cardiac enzymes were unremarkable. Chest x-ray did not show any abnormality. Patient had a CTA of the chest that showed no pulmonary embolism, there was evidence of lung emphysema with dependent atelectasis and scarring. Patient was admitted to PCU, she underwent an echocardiogram which showed normal EF and no significant valvular heart disease, she also underwent a nuclear stress test that did not show any evidence of reversible ischemia. At approximately 12:30 PM on 07/09/2024, patient started to have problems with her vision in her right eye, she stated she could not see laterally from her right eye. A stroke team was called and teleneurology examined the patient and tenecteplase was given to the patient and she was transferred to ICU. Patient's blood pressure elevated and this was a problem, she was given as needed labetalol. MRI was obtained that showed an acute/subacute infarct to the left medial occipital area. Patient was placed on blood pressure medication and her pressure improved. On 07/11/2024, patient was seen and examined: On examination she appeared in good health and spirits, she does not appear to be in any distress. Vital signs as documented. Skin warm and dry and without overt rashes. Neck without JVD, thyroid appears normal, trachea is midline, neck is supple. Lungs clear, normal air movement was noted. Heart exam notable for regular rhythm, normal sounds and absence of murmurs, rubs or gallops. Abdomen unremarkable and without evidence of organomegaly, masses, or abdominal aortic enlargement, bowel sounds are present in all 4 quadrants, no abdominal tenderness was noted. Extremities nonedematous, no cyanosis was noted, no clubbing was noted. Neuro: Cranial nerves II through XII are grossly intact, no focal motor deficits were noted, sensation to light touch and pinprick is intact, motor exam 5/5 throughout. Psych: Patient is alert and oriented x3, she does not appear anxious or depressed, she does not appear agitated. I had a discussion with her print production coordinator office by phone, there was no type of physical therapy or occupational therapy for visual loss, patient's visual loss consisted of visual loss in the medial aspect of the left eye and the lateral aspect of the right eye. An appointment was made for follow-up with her print production coordinator. Patient was discharged home in stable condition on 07/11/2024. Weight / BMI Weight Weight: 82.2 kg Body Mass Index (BMI) 31.1 ABG / Lab / Microbiology Data 07/09/24 05:10 07/09/24 05:10 Radiography Diagnostic Testing: Radiology Impression Brain MRI 07/10/24 14:55 IMPRESSION: Acute/subacute ischemia involving the medial left occipital lobe. Reading [facility] Knee X-Ray 07/11/24 07:00 IMPRESSION: Moderate to advanced right knee osteoarthritis, somewhat advanced for patient's age. Reading Location: [id number] Knee X-Ray 07/11/24 07:00 IMPRESSION: 1. Degenerative joint disease. 2. No radiographic evidence of an acute bone abnormality. Reading [facility] Chest X-Ray 07/11/24 10:45 IMPRESSION: Interval development of elevation of the left hemidiaphragm. Reading Location[facility] D/C Instructions Discharge Diet: No restrictions Return to work on: 07/21/24 Weight Bearing Status: Full weight bearing DC O2, CPAP, BIPAP Needs Home O2 Discharge instructions: No Meaningful Use Info Meaningful Use Meaningful Use Diagnoses (Choose all that apply): Ischemic CVA CVA Therapy Assessed for PT,OT and/or ST?: Yes Ischemic Stroke Antithrombotic order at d/c?: Yes Dx of Atrial fib/flutter?: No Anticoagulant at discharge?: No Reason anticoagulant not ordered: Treatment not Indicated Statin Dosing Therapy Reference: STATIN DOSE THERAPY REFERENCE: * Patients > 75 years receive moderate or high dose statin therapy. * Patients 75 years or YOUNGER should receive HIGH intensity statin dose unless contraindicated. You will be required to document reason for non-treatment if statin daily dose does not meet guidelines. HIGH DOSE STATIN THERAPY DAILY Atorvastatin > than or = to 40 mg Rosuvastatin > than or = to 20 mg Amlodipine + Atorvastatin > than or = to 2.5/40 mg Ezetimibe + Simvastatin 10/80 mg Simvastatin 80mg Statins at discharge?: Yes If patient is 75 or younger, pt will be discharged on HIGH intensity statin.: Yes Primary Dx Acute Ischemic CVA?: Yes IV thrombolytic ordered during stay?: Yes Discharge Plan Admission Admit Date/Time: 07/09/24 16:11 Primary Reason for Your Visit: Left-sided occipital stroke Attending Provider: Nilesh Davenport Primary Care Provider: Alysa Staples Consulting Providers: Jaswinder Osorio; Cony Silva; Shannon Jhaveri; Jcoelyne Flores; Pamella La; Jonah Abbott; Debbie Carlin; Maximino Beckman; Hal Zapien; Antonino Pfeiffer; Mari Cartagena; Henry Pan; Suri Aburto; Eden Pedro; Sanford Jeter; Tutu Mayberry; Edilberto Hannah; Sander Hendrix; Josee Hernandez; Atif Scales Instructions Additional Instructions / Restrictions: Do not smoke Discharge Orders/Prescriptions Prescriptions: New atorvastatin 40 mg Tablet 40 mg PO QHS Qty: 30 0RF lisinopril 20 mg Tablet 20 mg PO DAILY Qty: 30 0RF amlodipine 5 mg Tablet 5 mg PO DAILY Qty: 30 0RF aspirin 81 mg Tablet,Delayed Release (Dr/Ec) 81 mg PO BREAKFAST Qty: 0 0RF prednisone 20 mg tablet 40 mg PO DAILY Qty: 13 0RF Rx Instructions: 1 twice a day for 3 days, then 1 daily for 7 days Continued acyclovir 400 mg tablet 400 mg PO DAILY omeprazole 20 mg capsule,delayed release(DR/EC) 20 mg PO DAILY lamotrigine 300 mg tablet extended release 24hr 300 mg PO DAILY levetiracetam 500 mg tablet extended release 24 hr 1,500 mg PO DAILY Other Ambulatory Orders: 30 Day Event Recorder Preventi (Urgent) Timeframe: 1 Day Facility: [facility] - Location: Cardiovascular Services Ordered By: Dr. Nilesh Davenport Referrals / Follow Up: Isidro Richter MD [Med Staff - Active Staff] - See Referral Note (On July 21 at 2:10 PM) Alysa Staples MD [Primary Care Provider] - In 1 Week (You will need follow-up concerning your blood pressure) Disposition Disposition (needs filled in before D/C Order can be placed): Home, Self Care Charges/Coding Visit Charges Inpatient E&M: 25998 Disch Hosp >30min
== END 2024-07-11 17:15 | disposition home or self-care (01) | DRG 62 ==
LOC: ED 12:26 → PCU 12:39 → ICU 07-09 14:57
PROVIDERS: Internal Medicine; Admitting Provider Internal Medicine; Emergency Provider Emergency Medicine; PCP Family Medicine; Visit Provider Internal Medicine
DX: I63.89 Other cerebral infarction (principal); J98.11 Atelectasis; I27.20 Pulmonary hypertension, unspecified; G40.909 Epilepsy, unspecified, not intractable, without status epilepticus; E11.9 Type 2 diabetes mellitus without complications; J43.9 Emphysema, unspecified; I10 Essential (primary) hypertension; F17.210 Nicotine dependence, cigarettes, uncomplicated; K21.9 Gastro-esophageal reflux disease without esophagitis; M17.11 Unilateral primary osteoarthritis, right knee; E78.5 Hyperlipidemia, unspecified; H53.461 Homonymous bilateral field defects, right side; Z82.49 Family history of ischemic heart disease and other diseases of the circulatory system; R07.9 Chest pain, unspecified; Z79.82 Long term (current) use of aspirin; R29.702 NIHSS score 2; Z79.899 Other long term (current) drug therapy; Z79.02 Long term (current) use of antithrombotics/antiplatelets; Z79.52 Long term (current) use of systemic steroids
CPT/HCPCS: 36415; 70450; 70496; 70498; 70551; 71045; 71275; 73562; 78452; 80048; 80061; 80076; 82962; 83690; 84484; 85025; 92610; 93005; 93017; 93306; 93308; 94762; 97162; 97166; 97802; 99285; A9500; J3101; Q9967; A4216; J2405

== ENCOUNTER → 2024-08-06 | Outpatient (CLI) | payer OTHER, SELFPAY ==
[2024-08-06 11:13] LABS: Magnesium 1.9 mg/dL (1.5-2.2); Vitamin D,25 Hydroxy 31.2 ng/mL (30-100)
[2024-08-06 11:55] LABS: Hemoglobin A1c 5.3 % (<=5.6)
== END | disposition home or self-care (01) ==
LOC: MFPLAB 08:17
PROVIDERS: PCP Family Medicine; Referring Provider Family Medicine; Visit Provider Family Medicine
DX: Z13.1 Encounter for screening for diabetes mellitus (principal); R53.83 Other fatigue
CPT/HCPCS: 36415; 82306; 83036; 83735; 84443

== ENCOUNTER → 2024-08-13 | Outpatient (CLI) | payer OTHER, SELFPAY ==
[2024-08-18 10:08] LABS: HPV APTIMA, High Risk Negative (Negative)
== END | disposition home or self-care (01) ==
PROVIDERS: PCP Family Medicine
DX: Z12.4 Encounter for screening for malignant neoplasm of cervix (principal)
CPT/HCPCS: 88175; G0145

== ENCOUNTER → 2024-08-20 | Outpatient (CLI) | payer OTHER, SELFPAY ==
--- NOTE | 2024-08-20 15:43 | BI_ITS ---
EXAM: SCRN MAMM (CAD)W/TEA BILAT DATE: 08/20/2024 CLINICAL HISTORY: F, Age 64 y/o , SCREENING BREAST CANCER RISK ASSESSMENT: Na TECHNIQUE: Bilateral screening digital breast tomosynthesis with 2D and 3D images. Computer aided detection. COMPARISON: Prior exam(s) were compared FINDINGS: TISSUE DENSITY: The breast tissue is almost entirely fatty. Bilateral Breast Mammographic Findings: No suspicious masses, calcifications or other abnormalities are identified. BI/SCRN MAMM (CAD)W/TEA BILAT IMPRESSION: OVERALL FINAL ASSESSMENT: BIRADS 1 NEGATIVE RECOMMENDATION: Routine annual follow-up in 1 Year A letter with findings and recommendations will be mailed to the patient. Reading Location: [id number]
== END | disposition home or self-care (01) ==
LOC: OPBI 15:42
PROVIDERS: PCP Family Medicine; Referring Provider Family Medicine; Visit Provider Family Medicine
DX: Z12.31 Encounter for screening mammogram for malignant neoplasm of breast (principal)
CPT/HCPCS: 77063; 77067

== ENCOUNTER → 2024-09-03 | Outpatient (CLI) | payer OTHER, SELFPAY ==
[2024-09-06 02:08] LABS: Protein C, Functional 127 % (73-180); Protein S, Funtional 105 % (63-140)
== END | disposition home or self-care (01) ==
PROVIDERS: PCP Family Medicine; Referring Provider Physician Assistant; Visit Provider Physician Assistant
DX: I69.30 Unspecified sequelae of cerebral infarction (principal)
CPT/HCPCS: 36415; 85303; 85306

== ENCOUNTER 2024-11-12 06:18 | Day surgery (SDC) | payer OTHER, SELFPAY ==
--- NOTE | 2024-11-10 14:24 | PAT.ANE_ITS ---
Pre-Assessment Diagnosis/Proposed Procedure Planned Operative Procedure(s): COLONOSCOPY, EGD Anesthesia History Anesthesia History - cytogenetic technician: Anesthesia History - cytogenetic technician Hx Hospitalization Yes: 07-09-24 STROKE 11/10/24 14:00 Any Problems With Anesthesia No 11/10/24 14:00 Cholinesterase deficiency No 11/10/24 14:00 You/Your Family Experience No 11/10/24 14:00 fever (hyperthermia) with Relationship Recent Exposure to Contagious Disease Does patient have nerve No 11/10/24 14:00 stimulator Patient instructed to have device shut off --Does patient have Pacemaker or ICD? When Was Last Pacemaker Check QUESTION #4 FULL TEXT: You/Your Family Experience fever (hyperthermia) with Anesthesia Last Oral Intake Last Oral intake: Last Oral Intake NPO since Meds taken in AM with sips of water? Meds patient instructed to take am of surgery PONV PONV - cytogenetic technician: PONV - cytogenetic technician Female Yes 11/10/24 14:00 HX of Motion Sickness No 11/10/24 14:00 HX of N/V After Surgery No 11/10/24 14:00 Non-Smoker No 11/10/24 14:00 Duration of Surgery greater No 11/10/24 14:00 than 60 minutes Number of Risk Factors 1 11/10/24 14:00 PONV Score Low Risk 11/10/24 14:00 Height & Weight Height & Weight: Anesthesia: Height & Weight Height 5 ft 4 in 09/03/24 14:20 Respiratory Assessment Respiratory Assessment - cytogenetic technician: Respiratory Tract Infection Hx - cytogenetic technician Hx Respiratory Tract Infection No 11/10/24 14:00 STOP Sleep Apnea STOP Sleep Apnea - cytogenetic technician: STOP Sleep Apnea - cytogenetic technician Hx Hypertension Yes: ON MEDS 11/10/24 14:00 Hx Sleep Apnea No 11/10/24 14:00 CPAP BIPAP Do you snore loudly (louder No 11/10/24 14:00 than talking or can be heard Do you often feel tired/ No 11/10/24 14:00 fatigued/ sleepy during daytime? Has anyone observed you stop No 11/10/24 14:00 breathing during sleep? STOP Results Negative 11/10/24 14:00 QUESTION #5 FULL TEXT : Do you snore loudly (louder than talking or can be heard through closed doors)? Tobacco Use History Tobacco Use History - cytogenetic technician: Tobacco Use History - cytogenetic technician Tobacco Use Smoking Status Current every day smoker 11/10/24 14:00 Hx Tobacco Use Yes 11/10/24 14:00 Years Smoking 40 11/10/24 14:00 Packs Smoked per Day 1 11/10/24 14:00 Smoking Cessation Date was within the last 15 years Hx Smoking Cessation Date Hx Smoking Cessation Yes 11/10/24 14:00 Counseling Hematologic Medial History Hematologic Hx - cytogenetic technician: Hematologic Medical Hx - rn clinical documentation Hx of Blood Transfusion No 11/10/24 14:00 Hx of Transfusion in last 3 No 11/10/24 14:00 Months Date of Last Transfusion (if within last 3 months) Ever experience any problems No 11/10/24 14:00 with transfusion(s)? Specify any problems Hx of Preganancy in last 3 No 11/10/24 14:00 Months Nurse Filling Out Transfusion JZOLLINGE 11/10/24 14:00 & Questions: Date: 11/10/24 11/10/24 14:00 Time: 14:02 11/10/24 14:00 Patient unable to answer at this time (ie. confused, unrespo /Reproduction History /Reproductive History - cytogenetic technician: /Reproductive Hx- cytogenetic technician Hx Now Gestational Age (in weeks): EDC: Hx Hx Para Hx Section SAB No 11/10/24 14:00 [facility] Medical History (Updated 11/10/24 @ 14:00 by Michelle Medina) Wears glasses Alcohol use Smoker HTN (hypertension) Occipital stroke Family history of coronary artery disease Tobacco dependence Chest pain Seizures GERD (gastroesophageal reflux disease) History of seizures Knee pain Home Medications ?Medication ?Instructions ?Recorded ?Last Taken ?Type acyclovir 400 mg tablet 400 mg PO DAILY 04/18/23 History lamotrigine 300 mg tablet,extended 300 mg PO DAILY 07/08/24 History release 24 hr omeprazole 20 mg capsule,delayed 20 mg PO DAILY 07/08/24 History release levetiracetam 500 mg 1,500 mg PO DAILY 07/08/24 0 07/08/24 History tablet,extended release 24 hr amlodipine 5 mg tablet 5 mg PO DAILY #30 tabs 07/11 Unknown Rx aspirin 81 mg tablet,delayed 81 mg PO BREAKFAST #0 tab s 07/11/24 Unknown Rx release atorvastatin 40 mg tablet 40 mg PO QHS #30 tabs Unknown Rx lisinopril 20 mg tablet 20 mg PO DAILY #30 tabs 06/18 08/10 Unknown Rx multivitamin with minerals (Daily 1 tab PO QDAY Unknown History Multivitamin-Minerals tablet) Allergy/AdvReac Type Severity Reaction Status Date / Time No Known Allergies Allergy Verified 11/10/24 13:49 Family History (Updated 09/03/24 @ 14:19 by Darcy Marshall) Mother Arthritis Cancer Hypertension Sister Arthritis Diabetes Breast cancer Father Arthritis CVA (cerebral vascular accident) Hypertension Surgical History No history of previous surgery Social History (Updated 09/03/24 @ 14:19 by Darcy Marshall) Smoking Status: Current every day smoker tobacco type: cigarettes how long ago did patient quit smoking: pack a day quit status: considering quitting alcohol intake: current alcohol intake frequency: 0-2 drinks per day Alcohol type: wine details: daily substance use type: does not use additional social history: pt denies vaping, denies marijuana use, denies edibles, denies aspirin use Uses ibuprofen as needed smokes a pack a day, daily consumption alcohol Audit: Pertinent Findings Pertinent Findings EKG Perinent findings: EKG dated 07/09/2024. Normal sinus rhythm minimal voltage criteria for LVH, may be normal variant, borderline EKG. Recommendation Anesthesia Recommendation Anesthesia recommendation: OPTIMIZED for anesthesia (Low risk procedure. EKG normal. Patient has had other testing which appears within normal limits.)
[2024-11-12] VITALS (8 sets, daily range): BP systolic 118–135; BP diastolic 72–82; PULSE 63–80; RESP 16; TEMP 36.4–36.9; O2SAT 97–100; BMI 26.1
--- OUTSIDE RECORDS SUMMARY | 2024-11-12 06:22 | XMS RPT_ITS | CCD ---
Author Organization [facility] ion Partnership [facility] Care Team Providers Care Chief Chemist Name Role Phone Fabiana Reed LPN Unavailable Unavailable Guru MADRID, Jose Medel Primary Care Provider Guru MADRID, Jose Medel Primary Care Provider Guru MADRID, Jose Medel Primary Care Provider Enrique Barnes MD Unavailable Jose Michael MD Primary Care Provider Unavailable Primary Care Provider Unavailabl Jose Pineda MD Primary Care Provider SIGNS, DUSTIN Attending Unavailable SIGNS, DUSTIN Attending Unavailable JOSE MICHAEL Referring Unavailab vannessa MICHAEL, JOSE MEDEL Primary Care Unavailab JOSE Street Referring Unavailab JOSE Street Primary Care Unavailab Alysa Navas MD Primary Care Provider Alysa Mckee MD Referring Provider Sage Brown Attending Provider Dr. Yaron Aranda DO Emergency Provider [phone] Dr. Nilesh Davenport DO Admit Provider Dr. Nilesh Davenport DO Attending Provider Dr. Fan Bains MD Attending Provider Dr. Yaron Aranda DO Emergency Provider Issac BAJWA, Dr. Galloway Admit Provider Dr. Nilesh Davenport DO Attending Provider Dr. Nilesh Davenport DO Other Provider Devon MADRID, Jaswinder Other Provider Unavailable Shira MADRID, Dr. Donnelly Other Provider Shannon Jhaveri MD Other Provider Unavailable Dr. Jocelyne Flores DO Other Provider Abhinav MADRID, Dr. Can Other Provider Scar MADRID, Dr. Mckenzie Other Provider Raegan MADRID, Dr. Lewis Other Provider Karuna MADRID, Dr. Stanton Other Provider Curry MADRID, Dr. Hong Other Provider Kentrell MADRID, Dr. Muñiz Other Provider Mitzi MADRID, Mari Other Provider Maxim MADRID, Dr. Figueroa Other Provider Lamonte MADRID, Dr. Mccord Other Provider Mayela MADRID, Dr. Harmon Other Provider Corona MADRID, Dr. Sanford Pantoja Other Provider Jefe MADRID, Dr. Cam Other Provider Camden MADRID, Dr. Casanova Other Provider Simeon MADRID, Dr. Boucher Other Provider David MADRID, Dr. Tripp Other Provider Unavailable Loyda MADRID, Atif Other Provider Unavailable Aisha MADRID, Dr. Leary Other Provider Cesia MADRID, Dr. Peters Other Provider Dr. Leonard Dickerson MD Other Provider Dr. Derik Ruiz DO Other Provider Radha MADRID, Dr. Eduar Da Silva Other Provider Ginny MADRID, Dr. Garrido Other Provider Isaura MADRID, Dr. Lopez Other Provider Trevor MADRID, Dr. Tolentino Other Provider Mariella MADRID, Dr. Dick Other Provider Brad MADRID, Dr. Cole Other Provider Rambo MADRID, Dr. Mcconnell Other Provider Karey MADRID, Dr. Nguyễn Other Provider Charlie MADRID, Dr. Wilson Other Provider [facility] emma Griffin MD, Dr. Lewis Other Provider [phone] Bg MADRID, Dr. Samano Other Provider Jeanna MADRID, Dr. Mercado Other Provider [phone] Annie MADRID, Dr. Pérez Other Provider Jennifer BAJWA, Dr. Hernandez Other Provider [phone] Josefina MADRID, Dr. Mcclain Other Provider [phone] Norberto MADRID, Dr. Bhandari Other Provider [phone] Rah BAJWA, Dr. Garcia Other Provider Kuldeep MADRID, Dr. Yanez Other Provider Roberta Palma MD, Dr. Bedolla Other Provider Murphy MADRID, Dr. Godinez Other Provider Vicki PILE DRIVER-C, Shruthi Other Provider Le BRAVO-CDiana Other Provider Dr. Nilesh Davenport DO Referring Provider Alysa Mckee MD Attending Provider McMorrow PILE DRIVER-CAdolfo Attending Provider Sammorrow PILE DRIVER-CAdolfo Referring Provider Dr. Aristides Morrell MD Attending Provider Dr. Nilesh Davenport DO Referring Provider Gómez MADRID, Dr. Mora Attending Provider McMorrow PILE DRIVER, Adolfo Attending Unavailable Bel, Chalon Primary Care Unavailable McMorrow PILE DRIVER, Adolfo Referring Unavailable Bel, Chalon Primary Care Unavailable Herson, Fan Attending Unavailable Herson, Fan Attending Unavailable Bel, Chalon Primary Care Unavailable Bel, Chalon Referring Unavailable Bel, Chalon Primary Care Unavailable Sage Brown Attending Unavailable Bel, Chalon Referring Unavailable Bel, Chalon Primary Care Unavailable Abby Magaña Attending Unavailable Nilesh Davenport Consulting Unavailable Issac, Nilesh Admitting Unavailable Tereletsky, Nilesh Attending Unavailable Bel, Chalon Primary Care Unavailable Tereletsky, Nilesh Admitting Unavailable Herson, [place] Attending Unavailable Bel, Chalon Primary Care Unavailable Gibran Leonard Consulting Unavailable Fran Callaway Consulting Unavailable Leonard Dickerson Consulting Unavailable Derik Ruiz Consulting Unavailable Eduar Garcia Consulting Unavailable Hema Gross Consulting Unavailable John Delarosa Consulting Unavailable Randa Murray Consulting UnavailKapil Jiang Consulting Unavailable Douglas Salinas Consulting Unavailable Jayesh Ricks Consulting Unavailable Delma Eden Consulting Unavailable Steve Guerra Consulting Unavailable Debbie Griffin Consulting Unavailable Selwyn Pederson Consulting Unavailable Rogelio Meeks Consulting Unavailable Beto Valencia Consulting Unavailable David Rodriguez Consulting Unavailable Johny Rocha Consulting Unavailable Thony Thornton Consulting Unavailable Jose Monreal Consulting Unavailable Beau Light Consulting Unavailable Graeme Palma Consulting Unavailable Herbert Arrington Consulting Unavailable Vicki BRAVO, Shruthi Consulting Unavailable Diana Lujan Consulting Unavailable Jaswinder Osorio Consulting Unavailable Cony Silva Consulting Unavailable Shakila Shannon Consulting Unavailable Jocelyne Flores Consulting Unavailable Pamella La Consulting Unavailable Jonah Abbott Consulting Unavailable Debbie Carlin Consulting Unavailable Maximino Beckman Consulting Unavailable Hal Zapien Consulting Unavailable Antonino Pfeiffer Consulting Unavailable Mari Cartagena Consulting Unavailable Henry Pan Consulting Unavailable Suri Aburto Consulting Unavailable Eden Pedro Consulting Unavailable Sanford Jeter Consulting UnavailTutu Wallcae Consulting Unavailable Edilberto Hannah Consulting Unavailable Sander Hendrix Consulting Unavailable Jsoee Hernandez Consulting Unavailable Atif Scales Consulting Unavailable Nilesh Davenport Consulting Unavailable Issac, Nilesh Attending Unavailable Tereletsky, Nilesh Referring Unavailable Bel, Chalon Primary Care Unavailable Aristides Morrell Attending Unavailable Bel, Chalon Primary Care Unavailable RJ VERONICA Attending Unavailable Bel, Chalon Attending Unavailable Bel, Chalon Referring Unavailable Bel, Chalon Primary Care Unavailable Waight, Minerva Referring Unavailable Bel, Chalon Primary Care Unavailable WaightTaliMinerva Attending Unavailable Abby Magaña Attending Unavailable Bel, Chalon Referring Unavailable Bel, Chalon Primary Care Unavailable Tereletsky, Nilesh Admitting Unavailable Tereletsky, Nilesh Attending Unavailable Bel, Chalon Primary Care Unavailable Jaswinder Osorio Consulting Unavailable Cony Silva Consulting Unavailable Hindnubia, Shannon Consulting Unavailable Mark, Jocelyne Consulting Unavailable Pamella La Consulting Unavailable Scar, Jonah Consulting Unavailable RaeganDebbie barney Consulting Unavailable Maximino Beckman Consulting Unavailable Hal Zapien Consulting Unavailable Antonino Pfeiffer Consulting Unavailable Mari Cartagena Consulting Unavailable Henry Pan Consulting Unavailable Suri Aburto Consulting Unavailable RidEden garcia Consulting Unavailable Corona, Sanford Pantoja Consulting UnavailTutu Wallace Consulting Unavailable Hannah, Ramcortez Consulting Unavailable Sander Hendrix Consulting Unavailable Josee Hernandez Consulting Unavailable Atif Scales Consulting Unavailable Nilesh Davenport Attending Unavailable EmieletsNilesh westbrook Referring Unavailable Bel, Chalon Primary Care Unavailable Bel, Chalon Attending Unavailable Bel, Chalon Referring Unavailable Bel, Chalon Primary Care Unavailable Medications Current Medications Medication Drug Class(es) Dates Sig (Normalized) Sig (Original) acyclovir 400 mg oral tablet (20 sources) Herpesvirus Nucleoside Analog DNA Polymerase Inhibitor, Herpes Simplex Virus Nucleoside Analog DNA Polymerase Inhibitor, Herpes Zoster Virus Nucleoside Analog DNA Polymerase Inhibitor Start: 10-28-2022 End: 11-21-2023 take 1 tablet by mouth once daily acyclovir (ZOVIRAX) 400 mg tablet take 1 tablet by mouth once daily. 90 tablet 3 11/21/2023 Active Start: 03-16-2019 End: 10-25-2021 take 1 tablet by mouth once daily acyclovir (ZOVIRAX) 400 mg tablet TAKE 1 TABLET BY MOUTH EVERY DAY 90 tablet 3 10/25/2021 Active Start: 06-07-2018 End: 01-04-2019 Acyclovir 400 mg tablet Disc ontinued PO 90 90 June 07, 2018 12:00am January 04, 2019 12:33pm Comment on above: TAKE 1 TABLET BY [place] TH EVERY DAY Take 400 mg by mouth once daily. Take 1 tablet by [place] once daily. amLODIPine 5 mg oral tablet (4 sources) Dihydropyridine Calcium Channel Magan Start: take 1 tablet by mouth once daily Amlodipine 5 mg Tablet Active 5 mg PO DAILY July 11, 2024 12:00am aspirin 81 mg delayed release oral tablet (4 sources) Platelet Aggregation Inhibitor, Nonsteroidal Anti-inflammatory Drug Start: take 1 tablet by mouth at breakfast Aspirin 81 mg Tablet,Delayed Release (Dr/Ec) Active 81 mg PO WITH BREAKFAST 0 July 11, 2024 12:00am atorvastatin 40 mg oral tablet (4 sources) HMG-CoA Reductase Inhibitor Start: take 1 tablet by mouth at bedtime Atorvastatin 40 mg Tablet Active 40 mg PO AT BEDTIME July 11, 2024 12:00am 24 hr lamoTRIgine 300 mg extended release oral tablet (20 sources) Mood Stabilizer, Anti-epileptic Agent Start: take 1 tablet by mouth every hour lamoTRIgine ER (LAMICTAL XR) 300 mg 24 hr tablet Take 1 tablet by mouth every afternoon. 11/27/2022 Active Start: 11-27-2022 take 1 tablet by [place] once daily Lamotrigine 300 mg tablet extended release 24hr Active 300 mg PO DAILY April 18, 2023 1:00am Start: 03-27-2019 take 1 tablet by [place] once daily lamoTRIgine ER (LAMICTAL XR) 200 mg 24 hr tablet Take 1 tablet by mouth once daily. 0 03/27/2019 Active Comment on above: Take 1 tablet by [place] once daily. Take 1 tablet by [place] every afternoon. 24 hr levETIRAcetam 500 mg extended release oral tablet (20 sources) Start: 07-08-2024 Levetiracetam 500 mg tablet extended release 24 hr Active 1500 mg PO DAILY July 08, 2024 12:00am Start: 04-18-2023 End: 07-08-2024 take 1 tablet by mouth once daily Levetiracetam 500 mg tablet Discontinued 500 mg PO DAILY April 18, 2023 1:00am July 08, 2024 10:07am Start: 03-14-2019 take 1 tablet by [place] once daily levETIRAcetam XR (KEPPRA XR) 500 mg 24 hr tablet Take 1,500 mg by mouth once daily. 03/14/2019 Active Start: 01-04-2019 End: 04-18-2023 take 1 tablet by mouth three times daily Levetiracetam (Keppra) 500 mg tablet Discontinued 500 mg PO THREE TIMES A DAY January 04, 2019 12:00am April 18, 2023 3:41pm Comment on above: Take 1,500 mg by [place] once daily. lisinopril 20 mg oral tablet (4 sources) Angiotensin Converting Enzyme Inhibitor Start: 5 take 1 tablet by mouth once daily Lisinopril 20 mg Tablet Active 20 mg PO DAILY July 11, 2024 12:00am Multivitamin With Minerals (Daily Multivitamin-Minerals ) tablet (1 source) Start: 5 Multivitamin With Minerals (Daily Multivitamin-Mineral s) tablet Active 1 {tbl} PO daily September 03, 2024 12:00am nystatin 100 unt/mg topical powder (20 sources) Polyene Antifungal Start: 4 NYAMYC powder Apply 1 Application to affected area two times a day. 05/08/2023 Active Start: 05-08-2023 nystatin (Myco statin) 229716 UNIT/GM powder Apply topically 3 times daily. 05/08/2023 Active Start: 11-27-2022 End: 12-27-2022 nystatin (MYCOSTATIN) powder Apply 1 application to affected area twice daily. 60 g 5 11/27/2022 12/27/2022 Active Comment on above: Apply 1 application to affected area twice daily. Apply 1 Application to affected area two times a day. omeprazole 20 mg delayed release oral capsule (20 sources) Proton Pump Inhibitor Start: 9 End: 4 take 1 capsule by mouth once daily omeprazole (PRILOSEC) 20 mg capsule take 1 capsule by mouth once daily. 90 capsule 3 11/21/2023 Active Start: 06-07-2018 End: 01-04-2019 Omeprazole 20 mg capsule,del ayed release(DR/EC) Discontinued PO 90 90 June 07, 2018 12:00am January 04, 2019 12:33pm Start: 06-07-2018 End: 01-04-2019 Omeprazole Discontinued PO 9 0 90 June 06, 2018 11:00pm January 04, 2019 11:33am OMEPRAZOLE 20 MG TBEC qd OMEPRAZOLE [id number] Fabiana Reed LPN Comment on above: Take 20 mg by mouth once daily. Take 1 capsule by mo [facility] once a day Take 1 capsule by mo [facility] once daily. Completed/Discontinued Medications Medication Drug Class(es) Dates Sig (Normalized) Sig (Original) acetaminophen 325 mg oral capsule (9 sources) Start: 01-04-2019 End: 04-18-2023 take 1 capsule by mouth every six hours Acetaminophen (Tylenol) 325 mg capsule Discontinued 325 mg PO EVERY 6 HOURS January 04, 2019 12:00am April 18, 2023 3:41pm azithromycin 250 mg oral tablet (9 sources) Macrolide Antimicrobial Start: 01-04-2019 End: 04-18-2023 take 2-5 tablets by mouth once daily Azithromycin (Zithromax Z-Bhargav) 250 mg tablet Discontinued 0 PO .COMPLEX 6 January 04, 2019 12:00am April 18, 2023 3:41pm take 500 mg today (day 1), then 250 mg for 4 days (days 2-5) PO cyclobenzaprine hydrochloride 5 mg oral tablet (7 sources) Muscle Relaxant Start: 04-03-2019 End: 11-27-2022 take 1 tablet by mouth three times daily as needed for muscle spasms cyclobenzaprine (FLEXERIL) 5 mg tablet Indications: Cervical paraspinal muscle spasm Take 1 tablet by mouth three times daily as needed for Muscle Spasm. 15 tablet 0 04/03/2019 11/27/2022 Discontinued Comment on above: Take 1 tablet by [facility] three times daily as needed for Muscle Spasm. polymyxin b 16495 unt/ml / trimethoprim 1 mg/ml ophthalmic solution (6 sources) Dihydrofolate Reductase Inhibitor Antibacterial, Polymyxin-class Antibacterial Start: 07-16-2022 End: 07-23-2022 Polymyxin B Sulf-Trimethoprim 10,000 unit- 1 mg/mL drops Discontinued 1 - 2 NMA OPHTHALMIC .Q3-6H 10 7 July 16, 2022 12:00am July 22, 2022 12:00am July 23, 2022 12:04am while awake; do not exceed 6 doses in 24 hours predniSONE 20 mg oral tablet (13 sources) Start: 07-11-2024 End: 09-03-2024 take 1 tablet by mouth twice daily, then take 1 tablet by mouth once daily Prednisone 20 mg tablet Discontinued 40 mg PO DAILY July 11, 2024 12:00am September 03, 2024 2:21pm 1 twice a day for 3 days, then 1 daily for 7 days Start: 01-04-2019 End: 04-18-2023 Prednisone 10 mg tablet Disc ontinued 10 mg PO .COMPLEX January 04, 2019 12:00am April 18, 2023 3:41pm 10 mg PO 4 pills for 3 days, 3 pills for 3 days, 2 pillsfor 3 days, 1 pills for 3 days; sofosbuvir 400 mg / velpatasvir 100 mg oral tablet (1 source) Hepatitis C Virus NS5A Inhibitor, Hepatitis C Virus Nucleotide Analog NS5B Polymerase Inhibitor Start: 08-20-2023 End: 11-15-2023 take 1 tablet by mouth once daily sofosbuvir-velpatasvir (Epclusa) 400-100 MG tablet Take 1 tablet by mouth daily. 08/20/2023 11/15/2023 Discontinued (Therapy completed) Problems Active Problems Problem Classification Problem Date Documented Date Episodic/Chronic Acute cerebrovascular disease (9 sources) Occipital cerebral infarction; Translations: [Cerebral infarction, unspecified] Onset: 07-13-2024 07-16-2024 Chronic Alcohol-related disorders (3 sources) Continuous chronic alcoholism; Translations: [Alcohol dependence, uncomplicated] Onset: 07-26-2023 07-26-2023 Chronic Epilepsy; convulsions (20 sources) Epilepsy; Translations: [Epilepsy, unspecified, not intractable, without status epilepticus] Onset: 02-06-2019 11-27-2022 Chronic Esophageal disorders (20 sources) Gastroesophageal reflux disease; Translations: [Gastro-esophageal reflux disease without esophagitis] Onset: 12-05-2016 11-27-2022 Chronic Hepatitis (7 sources) Chronic hepatitis C; Translations: [Chronic viral hepatitis C] Onset: 07-26-2023 Resolved: 11-15-2023 07-26-2023 Chronic Hepatitis (2 sources) Hepatitis; Translations: [Hepatitis C] Onset: 10-04-2023 Late effects of cerebrovascular disease (1 source) Unspecified sequelae of cerebral infarction; Translations: [Unspecified sequelae of cerebral infarction] Onset: 10-01-2024 Chronic Nutritional deficiencies (3 sources) Vitamin D deficiency; Translations: [Vitamin D deficiency, unspecified] Onset: 05-28-2023 05-28-2023 Chronic Other connective tissue disease (4 sources) Medial epicondylitis; Translations: [Medial epicondylitis, left elbow] 12-10-2020 Episodic Other connective tissue disease (5 sources) Medial epicondylitis of left humerus; Translations: [Medial epicondylitis, left elbow] 12-10-2020 Episodic Other eye disorders (6 sources) Complete obstruction of lacrimal canaliculus ; Translations: [Blocked tear duct] 07-16-2022 Episodic Other hereditary and degenerative nervous system conditions (20 sources) Essential tremor; Translations: [Essential tremor] Onset: 08-29-2022 11-27-2022 Chronic Other inflammatory condition of skin (1 source) Intertrigo; Translations: [Erythema intertrigo] 11-28-2022 Episodic Other injuries and conditions due to external causes (6 sources) Closed injury of head; Translations: [Unspecified injury of head, initial encounter] 02-11-2023 Episodic Other liver diseases (2 sources) Elevated liver enzymes level; Translations: [Abnormal levels of other serum enzymes] 06-10-2023 Episodic Other nervous system disorders (9 sources) Lesion of ulnar nerve, left upper limb; Translations: [Cubital tunnel syndrome on left] 12-10-2020 Chronic Other screening for suspected conditions (not mental disorders or infectious disease) (15 sources) Patient encounter status; Translations: [Encounter for screening for lipoid disorders] Onset: 08-18-2024 05-28-2023 Episodic Residual codes; unclassified (10 sources) Family history of coronary arteriosclerosis; Translations: [Family history of ischemic heart disease and other diseases of the circulatory system] 07-08-2024 Episodic Substance-related disorders (10 sources) Tobacco dependence syndrome; Translations: [Nicotine dependence, unspecified, uncomplicated] 07-08-2024 Chronic Superficial injury; contusion (12 sources) Contusion of rib; Translations: [Contusion of left front wall of thorax, initial encounter] 02-11-2023 Episodic Unclassified (1 source) No current problems or disability 11-13-2016 Unclassified (4 sources) On July 21 at 2:10 PM Unclassified (4 sources) You will need follow-up concerning your blood pressure Past or Other Problems Problem Classification Problem Date Documented Da te Episodic/Chronic Hepatitis (2 sources) Viral hepatitis C; Translations: [Unspecified viral hepatitis C without hepatic coma] Onset: 06-21-2023 06-21-2023 Episodic Nonspecific chest pain (12 sources) Chest pain; Translations: [Chest pain, unspecified] Onset: 07-25-2024 07-08-2024 Episodic Other circulatory disease (20 sources) Elevated blood pressure; Translations: [Elevated blood-pressure reading, without diagnosis of hypertension] Onset: 11-27-2022 11-27-2022 Episodic Other liver diseases (1 source) Abnormal levels of other serum enzymes; Translations: [Elevated liver enzymes] Onset: 06-28-2023 Episodic Other nutritional; endocrine; and metabolic disorders (3 sources) H/O: obesity; Translations: [Personal history of other endocrine, nutritional and metabolic disease] Onset: 07-26-2023 07-26-2023 Episodic Unclassified (1 source) Patient encounter status 07-29-2024 Results Test Name Value Interpretation Reference Range Facility MR/Supriya 11-10-2024 MR/[facility] Medical Records Department [address] [place] [address] PAT - Anesthesia 11/10/24 1424 MR#: [id number] Acct: [id number] Name: CIERRA FUENTES Rep #: [id number] : 1960 64 From: Naresh Robison MD PCP: Dr. 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 When Was Last Pacemaker Check QUESTION #4 FULL TEXT: You/Your Family Experience fever (hyperthermia) with Anesthesia Last Oral Intake Last Oral intake: Last Oral Intake NPO since Meds taken in AM with sips of water? 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 Female Yes 11/10/24 14:00 HX of Motion Sickness No 11/10/24 14:00 HX of N/V After Surgery No 11/10/24 14:00 Non-Smoker No 11/10/24 14:00 Duration of Surgery greater No 11/10/24 14:00 than 60 minutes Number of Risk Factors 1 11/10/24 14:00 PONV Score Low Risk 11/10/24 14:00 Height Weight Height Weight: Anesthesia: Height Weight Height 5 ft 4 in 09/03/24 14:20 Respiratory Assessment Respiratory Assessment - global expansion sales director: Respiratory Tract Infection Hx - 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 Has anyone observed you stop No 11/10/24 14:00 breathing during sleep? STOP Results Negative 11/10/24 14:00 QUESTION #5 FULL TEXT : Do you snore loudly (louder than talking or can be heard through closed doors)? 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 Specify any problems Hx of Preganancy in last 3 No 11/10/24 14:00 Months Nurse Filling Out Transfusion GABRIEL 11/10/24 14:00 Questions: Date: 11/10/24 11/10/24 14:00 Time: 14:02 11/10/24 14:00 Patient unable to answer at this time (ie. confused, unrespo /Reproduction History /Reproductive History - global expansion sales director: /Reproductive Hx- global expansion sales director Hx Now Gestational Age (in weeks): EDC: Hx Hx Para Hx Section SAB No 11/10/24 14:00 [facility] Medical History (Updated 11/10/24 @ 14:00 by Michelle Medina) Wears glasses Alcohol use Smoker HTN (hypertension) Occipital stroke Family history of coronary artery disease Tobacco dependence Chest pain Seizures GERD (gastroesophageal reflux disease) History of seizures Knee pain Home Medications ???Medication ???Instructions ???Recorded ???Last Taken ???Type acyclovir 400 mg tablet 400 mg PO DAILY 04/18/23 07/08/24 History lamotrigine 300 mg tablet,extended 300 mg PO DAILY 04/18/23 5 History release 24 hr omeprazole 20 mg capsule,delayed 20 mg PO DAILY 04/18/23 07/08/24 H istory release levetiracetam 500 mg 1,500 mg PO DAILY 07/08/24 5 History tablet,extended release 24 hr amlodipine 5 mg tablet 5 mg PO DAILY #30 tabs 07/11/24 Un known Rx aspirin 81 mg tablet,delayed 81 mg PO BREAKFAST #0 tabs 5 Unknown Rx release atorvastatin 40 mg ta (more content not included)... Normal [facility] [id number] 09-22-2024 [facility] Misc. COMMENT Normal . [facility] Comment on above: Order Comment: Order Date: 07/28/24 Order Info: 17393-6 - MG Order Info: 3016-3 - TSH Result Comment: Test Ordered: [id number] Venous Thromb. Patients on VKA Homocysteine 12.9 umol/L UY Reference Range: . Homocysteine levels in patients >60 years increase 1-2 umol/L. Reference Range: 5.0 - 15.0 Factor VIII Activity 57 % UY Reference Range: . Reference Range: 57 - 163 Antithrombin Activity, Plasma 111 % UY Reference Range: . Direct oral anticoagulants such as rivaroxaban, apixaban and edoxaban will lead to spuriously elevated antithrombin activity levels possibly masking a deficiency. Reference Range: 7 months and older: 75 - 135 Protein C Antigen 86 % UY Reference Range: . Reference Range: 17 years and older: 60 - 150 Protein S Antigen, Total 94 % UY Reference Range: . Reference Range: 7 months and older: 60 - 150 This test was developed and its performance characteristics determined by [employer]. It has not been cleared or approved by the Food and Drug Administration. Factor VII Antigen 93 % UY Reference Range: . Reference Range: 7 months and older: 60 - 175 Results of this test are for research purposes only per the assay cream dipper. The performance characteristics of this assay have not been established. The result should not be used as a diagnostic procedure without confirmation of the diagnosis by another medically established diagnostic product or procedure. Protein C Ag/FVII Ag Ratio 0.9 ratio UY Reference Range: . Reference Range: 0.5 - 2.2 Results of this test are for research purposes only per the assay cream dipper. The performance characteristics of this assay have not been established. The result should not be used as a diagnostic procedure without confirmation of the diagnosis by another medically established diagnostic product or procedure. Protein S Ag/FVII Ag Ratio 1.0 ratio UY Reference Range: . Reference Range: 0.5 - 2.2 Results of this test are for research purposes only per the assay cream dipper. The performance characteristics of this assay have not been established. The result should not be used as a diagnostic procedure without confirmation of the diagnosis by another medically established diagnostic product or procedure. Act. Prt C Resist w/FV Defic. 1.8 [L ] ratio UY Reference Range: . Verified by repeat analysis. A low activated protein C resistance (APCR) is a risk factor for venous thrombosis and is a screen for the Factor V Leiden mutation. Consider molecular analysis for this mutation. Other causes for abnormal APCR are uncommon and include other rare mutations in the Factor V molecule, and certain drug therapies, including thalidomide therapy, presence of a lupus anticoagulant, increased Factor VIII levels, and autoantibodies against activated protein C. Reference Range: 2.2 - 3.5 APTT 34.5 [H ] sec UY Reference Range: . This test has not been validated for monitoring unfractionated heparin therapy. aPTT-based therapeutic ranges for unfractionated heparin therapy have not been established. Consider ordering Heparin anti-Xa (unfractionated). Reference Range: 18 years and older: 22.9 - 30.2 APTT 1:1 PILE DRIVER 30.0 sec UY Reference Range: . This test was developed and its performance characteristics determined by [employer]. It has not been cleared or approved by the [place] Food and Drug Administration. Reference Range: 18 years and older: 22.9 - 30.2 APTT 1:1 Saline 37.6 Sec UY Reference Range: . This test was developed and its performance characteristics determined by [employer]. It has not been cleared or approved by the [place] Food and Drug Administration. LAC Interpretation Comment UY Reference Range: . The following interpretation for the presence of a lupus anticoagulant (LA) is not valid for patients receiving warfarin, direct Xa inhibitor (e.g., rivaroxaban, apixaban) or direct thrombin inhibitor (e.g., dabigatran) therapy. These drugs may cause false positive lupus anticoagulant (LA) results but will not interfere with aCL and B2GP1 antibody testing. A lupus anticoagulant is detected. This interpretation is made based on ISTH guidelines for LA diagnosis (J Thromb Haemost. 2009; 7: 1737-40). As only persistent LA meet laboratory diagnostic criteria for antiphospholipid syndrome, repeat testing in 12 or more weeks is recommended, ideally in the absence of anticoagulant therapy. All JAYA-based antiphospholipid antibodies evaluated are normal. Please contact [facility] if further clarification is needed. DRVVT Screen Seconds 38.4 sec UY Reference Range: . Reference Range: <= 47.0 DRVVT Confirm Seconds sec UY Reference Range: . Testing Not Indicated DRVVT Ratio ratio UY Reference Range: . Testing Not Indicated Hexagonal Phospholipid Neutral 18 [H ] sec UY Reference Range: . This value is POSITIVE. This is a qualitative assay and is therefore reported as positive for lupus anticoagulant or negative. Testi (more content not included)... Performed By: #### L 501.9520, L501.5200, L501.9985 #### [facility] [address] [place], [address] L3410.9992on 09-08-2024 [facility] Misc. COMMENT Normal . [facility] Comment on above: Order Comment: 3 SYLVIA SMA BLUE FRZ1 SERUM GEL [id number] Syndrome (APS Result Comment: Test Ordered: [id number] Antiphospholipid Syndrome aPTT 34.5 [H ] sec BN Reference Range: 22.9-30.2 aPTT 1:1 Normal Plasma 29.2 sec BN Reference Range: 22.9-30.2 PT 10.7 sec BN Reference Range: 9.1-12.0 INR 1.0 BN Reference Range: 0.9-1.2 Reference interval is for non-anticoagulated patients. Suggested INR therapeutic range for Vitamin K antagonist therapy: Standard Dose (moderate intensity therapeutic range): 2.0 - 3.0 Higher intensity therapeutic range 2.5 - 3.5 Thrombin Time 19.9 sec BN Reference Range: 0.0-23.0 dRVVT 35.3 sec BN Reference Range: 0.0-47.0 Hexagonal Phase Phospholipid 14 [H ] sec BN Reference Range: 0-11 Anticardiolipin Ab,IgG,Qn <9 GPL U/mL CB Reference Range: 0-14 Negative: <15 Indeterminate: 15 - 20 Low-Med Positive: >20 - 80 High Positive: >80 Anticardiolipin Ab,IgM,Qn 10 MPL U/mL CB Reference Range: 0-12 Negative: <13 Indeterminate: 13 - 20 Low-Med Positive: >20 - 80 High Positive: >80 Beta-2 Glycoprotein I Ab, IgG <9 CB Units of Measure: GPI IgG units Reference Range: 0-20 The reference interval reflects a 3SD or 99th percentile interval, which is thought to represent a potentially clinically significant result in accordance with the International Consensus Statement on the classification criteria for definitive antiphospholipid syndrome (APS). J Thromb Haem 2006;4:295-306. Beta-2 Glycoprotein I Ab, IgM <9 Units of Measure: GPI IgM units Reference Range: 0-32 The reference interval reflects a 3SD or 99th percentile interval, which is thought to represent a potentially clinically significant result in accordance with the International Consensus Statement on the classification criteria for definitive antiphospholipid syndrome (APS). J Thromb Haem 2006;4:295-306. APS Panel Interpretation Comment BN Reference Range: . Please refer to the Coag Studies Interp Report. Performed at: [facility] Clinical / Digital [address] [place] [id number] Meeting Manager: Myranda Bowman MD, Phone: [phone] Performed at: [address] [id number] Meeting Manager: Sterling Arguello MD, Phone: [phone] Performed at: [address] [id number] Meeting Manager: Martin Alejandre PhD, Phone: [phone] Performed By: #### L 100.0100, L501.4021 #### [facility] [address] [place], [address] Protein C, Functionalon 08-18 PROTEIN C,FUNC 127 Normal 73-180 [facility] Comment on above: Result Comment: Perf ormed at: [address] [id number] Meeting Manager: Sterling Arguello MD, Phone: [phone] Performed By: #### L 100.0100, L501.4021 #### [facility] [address] [place], [address] Protein S, Functionalon 06-2 PROTEIN S, FUNC 105 Normal 63-140 [facility] Comment on above: Result Comment: Prot ein S activity may be falsely increased (masking an abnormal, low result) in patients receiving direct Xa inhibitor (e.g., rivaroxaban, apixaban, edoxaban) or a direct thrombin inhibitor (e.g., dabigatran) anticoagulant treatment due to assay interference by these drugs. Performed By: #### L 3100.7325, L3410.9992, L3100.7250 #### [facility] [address] [place], [address] Surgery Visit Reporton 09-03 Surgery Visit Report [facility] [address] [place] [address] OFFICE VISIT Date of Service: 09/03/24 MR#: [id number] Acct: [id number] Name: CIERRA FUENTES Rep #: [id number] : 1960 Provider: Dr. Abby salgado MD Age/Sex: 64/F Location: [facility] Status: Signed Intake Vital Signs 07/09/24 16:34 09/03/24 14:20 Height 5 ft 4 in 5 ft 4 in Weight: 156 lb BMI 26.7 BP 138/80 H Blood Pressure Location Rt brachial Position Sitting Respiration 17 Pulse 91 Pulse Source Monitor Temp 97.4 F L Temp Source Temporal Pulse Oximetry (%) 98 Oxygen Delivery Method room air Intake Visit Reasons: COLONOSCOPY Chief Complaint: colonoscopy Is patient in pain?: No Allergies No Known Allergies Allergy (Verified 09/03/24 14:21) Medications ???Medication ???Instructions ???Recorded ???Confirmed ???Type acyclovir 400 mg tablet 400 mg PO DAILY 04/18/23 09/03/24 History lamotrigine 300 mg tablet,extended 300 mg PO DAILY 04/18/23 5 History release 24 hr omeprazole 20 mg capsule,delayed 20 mg PO DAILY 04/18/23 09/03/24 H istory release levetiracetam 500 mg 1,500 mg PO DAILY 07/08/24 5 History tablet,extended release 24 hr amlodipine 5 mg tablet 5 mg PO DAILY #30 tabs 07/11/24 Rx aspirin 81 mg tablet,delayed 81 mg PO BREAKFAST #0 tabs 5 09/03/24 Rx release atorvastatin 40 mg tablet 40 mg PO QHS #30 tabs 07/11/24 Rx lisinopril 20 mg tablet 20 mg PO DAILY #30 tabs 07/11/24 0 09/03/24 Rx multivitamin with minerals (Daily 1 tab PO QDAY 09/03/24 09/03/24 H istory Multivitamin-Minerals tablet) [facility] Medical History (Updated 09/05/24 @ 08:[address] Abby Magaña MD) Occipital stroke HTN (hypertension) Family history of coronary artery disease Tobacco dependence Chest pain Seizures GERD (gastroesophageal reflux disease) History of seizures Knee pain Surgical History No history of previous surgery Family History (Updated 09/03/24 @ 14:19 by Darcy Marshall) Mother Arthritis Cancer Hypertension Sister Arthritis Diabetes Breast cancer Father Arthritis CVA (cerebral vascular accident) Hypertension Social History (Updated 09/03/24 @ 14:19 by Darcy Marshall) Smoking Status: Current every day smoker tobacco type: cigarettes how long ago did patient quit smoking: pack a day quit status: considering quitting alcohol intake: current alcohol intake frequency: 0-2 drinks per day Alcohol type: wine details: daily substance use type: does not use additional social history: pt denies vaping, denies marijuana use, denies edibles, denies aspirin use Uses ibuprofen as needed smokes a pack a day, daily consumption alcohol HPI HPI HPI: 64-year-old female presents for screening colonoscopy. Patient last colonoscopy was greater than 11 years ago in [place] negative per patient. Patient denies any abdominal pain/nausea/vomiting. Patient has bowel movements daily denies any blood. Patient denies any family history of colon cancer. Patient states she has been on omeprazole for greater than 5 years does not have any symptoms of reflux with this. But never had an EGD. 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 Patient is on aspirin 81 mg. Patient does have a history of seizure disorder last seizure was about 2 years ago. Patient does see neurology in [place] Dr. Barnes. GERHARD General General: No weight change, appetite, fatigue, colon cancer or breast cancer HEENT HEENT: No difficulty swallowing, eye injury, eye surgery, swollen glands or hoarseness Endo Endocrine: No thyroid disease, diabetes mellitus, thyroid cancer, Hair loss, heat intolerance or cold intolerance Skin Skin: No rash or changing moles Musc Musculoskeletal: No back problems, arthritis, rheumatoid arthritis, gout or joint pain Cardio Cardiovascular: Yes high blood pressure; No murmur, pacemaker, heart disease, atrial fibrillation, heart attack, heart stent, palpitations, shortness of breath with exertion or chest pain Psych Psychiatric: No depression, anxiety or hearing voices Resp Respiratory: No shortness of breath, No sleep apnea, No cough, No COPD, No asthma, No emphysema and No wheezing Gastro Gastrointestinal: No abdominal pain, No nausea or vomiting, No diarrhea, No constipation, No blood in stool, Yes acid reflux, No hemorrhoids, No ulcers, No gallbladder problem and No black,tarry stools [place] Hematologic: No blood thinners, No blood disorders, No bleeding, No anemia and Yes blood clots Neuro Neurologic: Yes convulsions, No numbness, No tingling and Yes other (CVA in june of (more content not included)... Normal [facility] Breast imaging reportOrdered By: Kitty Coello on 08-20-2024 Study report [facility] Imaging Services [address] [place], [place] [address] SCRN MAMM (CAD)W/TEA BILAT MR#: [id number] Acct: [id number] Name: CIERRA FUENTES Rep #: [id number] : 1960 F 64 From: Joseph Daugherty MD PCP: Dr. Alysa Mckee MD Status: REG CL I Study:SCRN MAMM (CAD)W/TEA BILAT Date of Exa m: 08/20/24 Exam# [id number] Ordering Dr: Leah Mckee MD EXAM: SCRN MAMM (CAD)W/TEA BILAT DATE: 08/20/2024 CLINICAL HISTORY: F, Age 64 y/o , SCREENING BREAST CANCER RISK ASSESSMENT: Na TECHNIQUE: Bilateral screening digital breast tomosynthesis with 2D and 3D images. Computeraided detection. COMPARISON: Prior exam(s) were compared FINDINGS: TISSUE DENSITY: The breast tissue is almost entirely fatty. Bilateral Breast Mammographic Findings: No suspicious masses, calcifications or other abnormalities are identified. BI/SCRN MAMM (CAD)W/TEA BILAT IMPRESSION: OVERALL FINAL ASSESSMENT: BIRADS 1 NEGATIVE RECOMMENDATION: Routine annual follow-up in 1 Year A letter with findings and recommendations will be mailed to the patient. Reading Location: [id number] CC: Dr. Alysa Mckee MD ~ Director Of Hemophilia: Signed [facility] SCRN MAMM (CAD)W/TEA BILATo n 08-20-2024 SCRN MAMM (CAD)W/TEA BILAT [facility] Imaging Services [address] [place], [place] [address] SCRN MAMM (CAD)W/TEA BILAT MR#: [id number] Acct: [id number] Name: CIERRA FUENTES Rep #: [id number] : 1960 F 64 From: Kitty Perez i, MD PCP: Dr. Alysa Mckee MD Status: REG CLI Study: SCRN MAMM (CAD)W/TEA BILAT Date of Exam: 07/11 Exam# [id number] Ordering Dr: Alysa Mckee MD EXAM: SCRN MAMM (CAD)W/TEA BILAT DATE: 08/20/2024 CLINICAL HISTORY: F, Age 64 y/o , SCREENING BREAST CANCER RISK ASSESSMENT: Na TECHNIQUE: Bilateral screening digital breast tomosynthesis with 2D and 3D images. Computer aided detection. COMPARISON: Prior exam(s) were compared FINDINGS: TISSUE DENSITY: The breast tissue is almost entirely fatty. Bilateral Breast Mammographic Findings: No suspicious masses, calcifications or other abnormalities are identified. BI/SCRN MAMM (CAD)W/TEA BILAT IMPRESSION: OVERALL FINAL ASSESSMENT: BIRADS 1 NEGATIVE RECOMMENDATION: Routine annual follow-up in 1 Year A letter with findings and recommendations will be mailed to the patient. Reading Location: [id number] CC: Dr. Alysa Mckee MD Director Of Hemophilia: Signed Normal [facility] PAP IG HPV HR APTIMAon 08-18 ADEQ Comment Normal . [facility] Comment on above: Order Comment: Order Date: 07/28/24 Order Info: [id number] - MG Order Info: 3016-3 - TSH Result Comment: Sati sfactory for evaluation. No endocervical component is identified. Performed By: #### L 501.9520, L501.5200, L501.9985 #### [facility] [address] [place], [address] COMM . Normal . [facility] Comment on above: Order Comment: Order Date: 07/28/24 Order Info: [id number] - MG Order Info: 3016-3 - TSH Performed By: #### L 501.9520, L501.5200, L501.9985 #### [facility] [address] [place], [address] COMMENT Comment Normal . [facility] Comment on above: Order Comment: Order Date: 07/28/24 Order Info: [id number] - MG Order Info: 3016-3 - TSH Result Comment: This liquid based ThinPrep(R) pap test was screened with the use of an image guided system. Performed By: #### L 501.9520, L501.5200, L501.9985 #### [facility] [address] [place], [address] DIAG Comment Normal . [facility] Comment on above: Order Comment: Order Date: 07/28/24 Order Info: [id number] - MG Order Info: 3016-3 - TSH Result Comment: NEGA TIVE FOR INTRAEPITHELIAL LESION OR MALIGNANCY. Performed By: #### L 501.9520, L501.5200, L501.9985 #### [facility] [address] [place], [address] HPV APTIMA, HR Negative Normal Negative [facility] Comment on above: Order Comment: Order Date: 07/28/24 Order Info: [id number] - MG Order Info: 3016-3 - TSH Result Comment: This nucleic acid amplification test detects fourteen high- risk HPV types (16,18,31,33,35,39,45,51,52,56,58,59,66,68) without differentiation. Performed at: [address] [id number] Meeting Manager: Marilyn Hillman MD, Phone: [phone] Performed at: =[facility] [place], [place] [id number] Meeting Manager: Marilyn Hillman MD, Phone: [phone] Performed By: #### L 501.9520, L501.5200, L501.9985 #### [facility] [address] [place], [place], [address] PAPSMR Comment Normal . [facility] Comment on above: Order Comment: Order Date: 07/28/24 Order Info: [id number] - MG Order Info: 3016-3 - TSH Result Comment: The Pap smear is a screening test designed to aid in the detection of premalignant and malignant conditions of the uterine cervix. It is not a diagnostic procedure and should not be used as the sole means of detecting cervical cancer. Both false-positive and false-negative reports do occur. Performed By: #### L 501.9520, L501.5200, L501.9985 #### [facility] [address] [place], [place], [address] PERFORM Comment Normal . [facility] Comment on above: Order Comment: Order Date: 07/28/24 Order Info: [id number] - MG Order Info: 3016-3 - TSH Result Comment: Sneha King, Tar Roofer (ASCP) Performed By: #### L 501.9520, L501.5200, L501.9985 #### [facility] [address] [place], [address] Cervical or vagninal specime n microscopic examination by cytology stain (reported asOrdered By: Adolfo Ojeda on 08-13-2024 Cytology report Cyto stain Doc (Cvx/Vag) Comment . [facility] Comment on above: The Pap smear is a s creening test designed to aid in thedetection of premalignant and malignant conditions of theuterine cervix. It is not a diagnostic procedure andshould not be used as the sole means of detecting cervicalcancer. Both false-positive and false-negative reports dooccur. Detection in cervical specim en of any of human papilloma virus (HPV) 16, 18, 31, 33,Ordered By: Adolfo Ojeda on 08-13-2024 HPV 16+18+31+33+35+39+45+51 +52+56+58+59+66+68 DNA Probe+sig amp Ql (Cvx) Negative Negative [facility] Comment on above: This nucleic acid am plification test detects fourteen high-risk HPV types (16,18,31,33,35,39,45,51,52,56,58,59,66,68)without differentiation.Performed at: - [facility] [id number] Director: Marilyn Hillman MD, Phone: [phone] at: = - [facility] [id number] Director: Marilyn Hillman MD, Phone: [phone] Laboratory - CytologyOrdered By: Adolfo Ojeda on 08-13-2024 Tar Roofer Cyto stain Nom (Cvx/Vag) [ID] Comment . [facility] Comment on above: Donna King, Cytol ogist (ASCP) Laboratory - Miscellaneous t estsOrdered By: Adolfo Ojeda on 08-13-2024 Service comment (Unsp spec) [Interp] . . [facility] No Panel InformationOrdered By: Adolfo Ojeda on 08-13-2024 Pap Smear Specimen Adequacy Comment . [facility] Comment on above: Satisfactory for tutu luation. No endocervical component is identified. Hemoglobin A1con 08-06-2024 HbA1c (Bld) [Mass fraction] 5.3 % Normal <=5.6 [facility] Comment on above: Order Comment: Order Date: 07/28/24 Order Info: [id number] - A1C Result Comment: Norm al < 5.7 % Prediabetic 5.7 - 6.4 % Diabetic >or= 6.5 % Please note range changes. Performed By: #### L 501.9592, L501.5200, L501.9922 #### [facility] [employer] [address], [address] Hemoglobin A1c percentageOrd ered By: Alysa Mckee on 08-06-2024 HbA1c (Bld) [Mass fraction] 5.3 % <5.7 [facility] Comment on above: Normal < 5.7 % Predi abetic 5.7 - 6.4 % Diabetic >or= 6.5 % Please note range changes. Magnesiumon 08-06-2024 Magnesium [Mass/Vol] 1.9 mg/dL Normal 1.5-2.2 [facility] Comment on above: Order Comment: Order Date: 07/28/24 Order Info: [id number] - MG Order Info: 301-3 - TSH Performed By: #### L 501.9520, L501.5200, L501.9999 #### [facility] [address] [place], [place], [id number] Magnesium measurement (mass/ volume)Ordered By: Alsya Mckee on 08-06-2024 Magnesium (Unsp spec) [Mass/Vol] 1.9 mg/dL 1.5-2.2 [facility] TSH DL <= 0.005 mIU/L QnOrde red By: Alysa Mckee on 08-06-2024 TSH Qn 2.330 uIU/mL 0.300-4.200 [facility] Thyroid Stim Hormone (TSH)on 08-06-2024 TSH 2.330 uIU/mL Normal 0.300-4.200 [facility] Comment on above: Order Comment: Order Date: 07/28/24 Order Info: [id number] - MG Order Info: 3015-3 - TSH Performed By: #### L 501.9520, L501.5200, L501.9985 #### [facility] [address] [place], [place], [address] Vitamin D,25 Hydroxyon 08-06 Vitamin D 25-OH 31.2 ng/mL Normal 30-100 [facility] Comment on above: Order Comment: Order Date: 07/28/24Order Info: [id number] - MGOrder Info: 6-3 - TSH Result Comment: Jade min D Status Deficiency: <20 ng/mL (50nmol/L) Insufficiency: 20-30 ng/mL (50-75 nmol/L) Sufficiency: 30-100 ng/mL (75-250 nmol/L) Toxicity: >100 ng/mL (>250 nmol/L) Performed By: #### L 100.0100, L501.4021 #### [facility] [address] [place], [address] Chest 1 View (Portable)on Chest 1 View (Portable) [facility] Imaging Services [address] [place] [address] Chest 1 View (Portable) MR#: [id number] Acct: [id number] Name: CIERRA FUENTES Rep #: [id number] : 1960 F 64 From: Nahun Matute MD PCP: Dr. Alysa Mckee MD Status: ADM IN Study: Chest 1 View (Portable) Date of Exam: 07/11/24 Exam# [id number] Ordering Dr: Nilesh Davenport DO PROCEDURE: CHEST 1 VIEW (PORTABLE) 07/11/2024 REASON FOR EXAM: HYPOXIA TECHNIQUE: Frontal view of the chest. COMPARISON: 07/08/2024. FINDINGS: Lungs: Lungs clear of pneumonia and congestion. Elevation of the left hemidiaphragm. Old healed granulomatous changes. Pleura: Can not exclude a small amount of pleural fluid at the left lung base. Heart: Normal in size and configuration. Mediastinum/[place]: Unremarkable. Great vessels: Unremarkable. Bones/soft tissues: Unremarkable. RAD/Chest 1 View (Portable) IMPRESSION: Interval development of elevation of the left hemidiaphragm. Reading Location: [facility] CC: Dr. Alysa Mckee MD; Dr. Nilesh Davenport DO Director Of Hemophilia: Signed Normal [facility] Discharge Instructionon 06-18 Discharge Instruction [facility] Medical Records Department [address] [place] [address] Instructions for Home/Discharge Instructions 07/11/24 1515 MR#: [id number] Acct: [id number] Name: CIERRA FUENTES Rep #: [id number] : 1960 64 From: Nilesh Davenport DO PCP: Dr. Alysa Mckee MD Status:ADM IN Discharge Instructions Diet Discharge Diet: No restrictions DC O2, CPAP, BIPAP needs Home O2 Discharge instructions: No Dressing / Incision Discharge Activity: Return to Normal Activity and May Not Drive (Until cleared by your project accountant) Return to work on:: 07/21/24 Weight Bearing Status: Full weight bearing Follow Up Care Test Results: Test results from this visit will be discussed in further detail at your follow-up appointment, if applicable. Discharge Plan Admission Admit Date/Time: 07/09/24 16:11 Primary Reason for Your Visit: Left-sided occipital stroke Attending Provider: Nilesh Davenport Primary Care Provider: Alysa Mckee Consulting Providers: Jaswinder Osorio; Cony Silva; Shannon Jhaveri; Jocelyne Flores; Pamella La; Jonah Abbott; Debbie Carlin; Maximino Beckman; Hal Zapien; Antonino Pfeiffer; Mari Cartagena; Henry Pan; Suri Aburto; Eden Pedro; Sanford Jeter; Tutu Mayberry; Edilberto Hannah; Sander Hendrix; Josee Hernandez; Atif Scales Instructions Additional Instructions / Restrictions: Do not smoke Discharge Orders/Prescriptions Prescriptions: New atorvastatin 40 mg Tablet 40 mg PO QHS Qty: 30 0RF lisinopril 20 mg Tablet 20 mg PO DAILY Qty: 30 0RF amlodipine 5 mg Tablet 5 mg PO DAILY Qty: 30 0RF aspirin 81 mg Tablet,Delayed Release (Dr/Ec) 81 mg PO BREAKFAST Qty: 0 0RF prednisone 20 mg tablet 40 mg PO DAILY Qty: 13 0RF Rx Instructions: 1 twice a day for 3 days, then 1 daily for 7 days Continued acyclovir 400 mg tablet 400 mg PO DAILY omeprazole 20 mg capsule,delayed release(DR/EC) 20 mg PO DAILY lamotrigine 300 mg tablet extended release 24hr 300 mg PO DAILY levetiracetam 500 mg tablet extended release 24 hr 1,500 mg PO DAILY Other Ambulatory Orders: 30 Day Event Recorder Preventi (Urgent) Timeframe: 1 Day Facility: [facility] - Location: Cardiovascular Services Ordered By: Dr. Nilesh Davenport Referrals / Follow Up: Isidro Richter MD [Med Staff - Active Staff] - See Referral Note (On July 21 at 2:10 PM) Alysa Mckee MD [Primary Care Provider] - In 1 Week (You will need follow-up concerning your blood pressure) Disposition Disposition (needs filled in before D/C Order can be placed): Home, Self Care 07/11/24 1525 Nilesh Davenport DO CC: Jocelyne Flores; Suri Aburto; Tutu Mayberry; Pamella La MD; Shannon Jhaveri MD; Jaswinder Osorio MD; Dr. Cony Silva MD; Dr. Alysa Mckee MD; Dr. Jonah Abbott MD; Dr. Debbie Carlin MD; Dr. Hal Zapien MD; Dr. Maximino Beckman MD; Dr. Antonino Pfeiffer MD; Dr. Henry Pan DO; Dr. Sanford Jeter MD; Dr. Eden Pedro MD; Dr. Edilberto Hannah MD; Dr. Sander Hendrix MD; Dr. Josee Hernandez MD; Mari Cartagena DO; Atif Scales MD Signed Normal [facility] Knee 3 Viewson 07-11-2024 Knee 3 Views [facility] Imaging Services [address] [place], [place] [address] Knee 3 Views MR#: [id number] Acct: [id number] Name: CIERRA FUENTES Rep #: [id number] : 1960 F 64 From: Royce reyes MD PCP: Dr. Alysa Mckee MD Status: ADM IN Study: Knee 3 Views Date of Exam: 07/11/24 Exam# [id number] Ordering Dr: Nilesh Davenport DO PROCEDURE: KNEE 3 VIEWS N/A REASON FOR EXAM: PAIN AND SWELLING TO RT KNEE TECHNIQUE: 3 view(s) of the left knee COMPARISON: None. FINDINGS: Moderate tricompartmental changes of degenerative joint disease. No fracture or dislocation is seen. No lytic or blastic aggressive bone lesion is identified. RAD/Knee 3 Views IMPRESSION: 1. Degenerative joint disease. 2. No radiographic evidence of an acute bone abnormality. Reading Location: [place] [address] CC: Dr. Alysa Mckee MD; Dr. Nilesh Davenport DO Director Of Hemophilia: Signed Normal [facility] Knee 3 Views [facility] Services [address] [place] [address] Knee 3 Views MR#: [id number] Acct: [id number] Name: CIERRA FUENTES Rep #: [id number] : 1960 F 64 From: Aristides Edwards i, MD PCP: Dr. Alysa Mckee MD Status: ADM IN Study: Knee 3 Views Date of Exam: 07/11/24 Exam# [id number] Ordering Dr: Nilesh Davenport DO PROCEDURE: KNEE 3 VIEWS 07/11/2024 REASON FOR EXAM: PAIN AND SWELLING TO RIGHT KNEE TECHNIQUE: 3 view(s) of the right knee COMPARISON: Left knee x-ray performed on 07/11/2024. FINDINGS: There is moderate narrowing within the medial, lateral and patellofemoral compartments of the right knee. This is worse on the right when compared to the left side. There is calcification seen within the medial and lateral meniscus. No fracture or dislocation. No suprapatellar joint effusion is seen. RAD/Knee 3 Views IMPRESSION: Moderate to advanced right knee osteoarthritis, somewhat advanced for patient's age. Reading Location: [id number] CC: Dr. Alysa Mckee MD; Dr. Nilesh Davenport DO Director Of Hemophilia: Signed Normal [facility] Brain without Contraston Brain without Contrast [facility] Services [address] [place] [address] Brain without Contrast MR#: [id number] Acct: [id number] Name: CIERRA FUENTES Rep #: [id number] : 1960 F 64 From: Fede Spring PCP: Dr. Alysa Mckee MD Status: ADM IN Study: Brain without Contrast Date of Exam: 07/10/24 Exam# [id number] Ordering Dr: Nilesh Davenport DO PROCEDURE: BRAIN WITHOUT CONTRAST 07/10/2024 REASON FOR EXAM: CVA TECHNIQUE: Noncontrast brain MRI. Multiplanar and multisequence images were obtained. COMPARISON: Yesterday FINDINGS: Confluent area of diffusion restriction in the medial left occipital lobe consistent with acute/subacute ischemia measuring 4.2 x 2.1 x 2.8 cm (AP, TV and CC dimensions). No other diffusion restriction. No evidence of acute intracranial hemorrhage, midline shift or mass effect. No hydrocephalus. Cerebral volume is maintained. Mild scattered periventricular, subcortical, pontine and deep white matter hyperintense FLAIR signal foci most likely related to chronic small-vessel ischemic disease. Globes are intact. Paranasal sinuses and mastoid air cells are clear. MRI/Brain without Contrast IMPRESSION: Acute/subacute ischemia involving the medial left occipital lobe. [facility] CC: Dr. Alysa Mckee MD; Dr. Nilesh Davenport DO Director Of Hemophilia: Signed Normal [facility] Calculated very low density lipoprotein (VLDL) cholesterol measurementOrdered By: Nilesh Davenport on 07-10-2024 Calculated very low density lipoprotein (VLDL) cholesterol measurement 14 mg/dL 5-40 [facility] Echo, Limited Studyon 2024 Echo, Limited Study [facility] [address] [place] [address] Echo, Limited Study 07/10/24 0811 MR#: [id number] Acct: [id number] Name: CIERRA FUENTES Rep #: [id number] : 1960 64 From: Fan Bains MD Attending Dr: Dr. Nilesh Davenport DO Status: A DM IN Ordering : Nilesh Davenport DO Date: 07/10/24 Location: ICU Sex: F C Admitted: 07/09/24 Reason For Study Reason For Study: TIA/CVA Procedure This was a limited 2D transthoracic echocardiogram. Exam performed portable in patient room. Full echocardiogram performed 07/08/2024 for chest pain. Bubble study only 07/10/24. Left Ventricle Normal LV size. Left ventricular systolic function is normal. The left ventricular ejection fraction is 55 %. Right Ventricle Normal RV size. Normal systolic function. Atria Normal left atrium. Normal right atrium. Bubble contrast study negative for right to left interatrial shunt. Pericardium/Pleural No pericardial effusion. Medication Performed a rapid injection of agitated mix of 9 cc saline and 1cc air to assess for atrial septal defect. ECHO/Echo, Limited Study Interpretation Summary Normal LV size. Bubble contrast study negative for right to left interatrial shunt. Left ventricular systolic function is normal. The left ventricular ejection fraction is 55 %. Ordering Physician: Nilesh Davenport Referring Physician: Alysa Mckee Performed By: Esther Mendoza, ADAMA, RVT 07/10/24 1336 Date Fan Bains MD CC: Dr. Alysa Mckee MD; Dr. Nilesh Davenport DO Date Dictated: 07/10/24 08 Date Transcribed: 07/10/24 1336 Director Of Hemophilia: Signed Normal [facility] LDL calc ser/plasOrdered By: Nilesh Davenport on 07-10-2024 Cholesterol in LDL [Mass/Vol] 62 mg/dL [facility] Comment on above: Toblahvxij=202-391 m g/dL & Higher Wgrk=834 mg/dL or greater Lipid Profileon 07-10-2024 CHOL:HDL 2.01 Normal [facility] Comment on above: Order Comment: Marielena nts: NPO at [place] for fasting lipid panel Performed By: #### L 100.0100, L501.4021 #### [facility] Laboratory [address] [place], [address] Cholesterol [Mass/Vol] 151 mg/dL Normal <=200 [facility] Comment on above: Order Comment: Comme nts: NPO at [place] for fasting lipid panel Result Comment: Chol esterol level, Desirable <200 mg/dL Borderline high cholesterol 200-239 mg/dL High cholesterol >=240 mg/dL Recommendations of the NCEP Adult Treatment Panel for the following risk-cutoff thresholds for the [place] population. Performed By: #### L 100.0100, L501.4021 #### [facility] [address] [place], [address] Cholesterol in HDL [Mass/Vol] 75 mg/dL Normal [facility] Comment on above: Order Comment: Comme nts: NPO at [place] for fasting lipid panel Result Comment: Colleen onal Cholesterol Education Program (NCEP) guidelines: <40 mg/dL: Low HDL-cholesterol (major risk factor for CHD) >= 60 mg/dL: High HDL-cholesterol (negative risk factor for CHD) HDL-cholesterol is affected by a number of factors, e.g. smoking, exercise, hormones, sex and age. Performed By: #### L 100.0100, L501.4021 #### [facility] Laboratory [address] [facility] [address] Cholesterol in LDL [Mass/Vol] 62 mg/dL Normal [facility] Comment on above: Order Comment: Comme nts: NPO at [place] for fasting lipid panel Result Comment: Bord hqwwie=792-578 mg/dL Higher Vdht=539 mg/dL or greater Performed By: #### L 100.0100, L501.4021 #### [facility] [address] [place], [address] Cholesterol in VLDL [Mass/Vol] 14 mg/dL Normal 5-40 [facility] Comment on above: Order Comment: Comme nts: NPO at [place] for fasting lipid panel Performed By: #### L 100.0100, L501.4021 #### [facility] [address] [place], [address] Triglyceride [Mass/Vol] 69 mg/dL Normal [facility] Comment on above: Order Comment: Comme nts: NPO at [place] for fasting lipid panel Result Comment: The drugs N-Acetylcysteine and Metamizole may falsely depress this assay. Normal range: <150 mg/dL Borderline High: 150-199 mg/dL High: 200-499 mg/dL Very High: >500 mg/dL Performed By: #### L 100.0100, L501.4021 #### [facility] Laboratory [address] [place], [address] MR/CON.PCM.NEon 07-10-2024 MR/CON.PCM.NE [facility] Medical Records Department [address] [place] [address] Consultation - Neurology 07/10/24 1552 MR#: [id number] Acct: [id number] Name: CIERRA FUENTES Rep #: [id number] : 1960 64 From: Debbie Carlin MD PCP: Dr. Alyas Mckee MD Status:ADM IN Location: ICU ICU04-1 Assessment and Plan: Stroke Assessment/Plan CIERRA FUENTES is a 64 F with a history of HTN, tobacco use, seizure disorder, who presented at the time of admission for chest pain. During her admission, her hospital course was complicated by acute onset R visual field cut for which she was emergently telestroked and given TNK. She continues to have visual field deficit and imaging reveals acute L occipital lobe stroke. Neurological examination shows NIHSS 2 for R complete hemianopia. Neuroimaging shows MRI with acute diffusion restriction in L occipital lobe consistent with acute ischemia. No microhemorrhages appreciated on SWI sequence. CTA Brain and neck without high grade flow limiting critical stenosis or proximal large vessel occlusion. LDL 94. A1C Pending. TTE on arrival initially with LVH, EF 60%. Bubble study added today without PFO. Stroke Etiology: Cryptogenic ??? MRI brain, vessel imaging (CTA head/neck),Transthoraci c echocardiogram,fasting lipid panel have been complete. Follow up A1C. Recommend naval architect specialist at discharge. ??? Occupational/Physical therapy consult. Additionally would recommend outpatient ophthalmology follow up and driving restrictions until follow up given concern for ongoing visual field deficit. ??? Post TNK checks and protocol to complete this afternoon, then okay for q4h NIHSS. SBP Goal to remain < 180, with goal normotension. ??? Anti-platelet medication: Given no hemorrhage on this afternoons MRI, OK to start Aspirin 81mg daily starting tomorrow am (07/11/24), and continue ASA 81 mg daily at discharge ??? Stroke education ??? Vascular risk factor modification: ??? Hyperlipidemia: LDL Goal < 70 mg/dL, start high intensity statin ??? Smoking Cessation counseling ??? Diabetes management if A1C within diabetic range Follow up with Neurology in 4-6 weeks, Ophthalmology in 1-2 weeks, PCP in 1-2 weeks of discharge. HPI Consult Data Date of Consult: 07/10/24 HPI Narrative HPI Narrative: CIERRA FUENTES is a 64 F with a history of HTN, tobacco use, seizure disorder, who presented at the time of admission for chest pain. During her admission, her hospital course was complicated by acute onset R visual field cut for which she was emergently telestroked and given TNK. She continues to have visual field deficit and imaging reveals acute L occipital lobe stroke. Neurological examination shows NIHSS 2 for R complete hemianopia. Neuroimaging shows MRI with acute diffusion restriction in L occipital lobe consistent with acute ischemia. No microhemorrhages appreciated on SWI sequence. CTA Brain and neck without high grade flow limiting critical stenosis or proximal large vessel occlusion. LDL 94. A1C Pending. TTE on arrival initially with LVH, EF 60%. Bubble study added today without PFO. [facility] Medical History Seizures GERD (gastroesophageal reflux disease) History of seizures Knee pain Home Medications ???Medication ???Instructions ???Recorded ???Last Taken ???Type acyclovir 400 mg tablet 400 mg PO DAILY 04/18/23 07/08/24 History lamotrigine 300 mg tablet,extended 300 mg PO DAILY 04/18/23 5 History release 24 hr omeprazole 20 mg capsule,delayed 20 mg PO DAILY 04/18/23 07/08/24 H istory release levetiracetam 500 mg 1,500 mg PO DAILY 07/08/24 5 History tablet,extended release 24 hr Allergy/AdvReac Type Severity Reaction Status Date / Time No Known Allergies Allergy Verified 07/08/24 08:30 Family History Mother Arthritis Cancer Sister Arthritis Father Arthritis CVA (cerebral vascular accident) Other Myocardial infarction Surgical History No history of previous surgery Social History Smoking Status: Current every day smoker tobacco type: cigarettes how long ago did patient quit smoking: pack a day alcohol intake: current alcohol intake frequency: 0-2 drinks per day Alcohol type: wine details: daily substance use type: does not use additional social history: pt denies vaping, denies marijuana use, denies edibles, denies aspirin use Uses ibuprofen as needed smokes a pack a day, daily consumption alcohol Vital Signs Vital Signs Vital Signs: 07/09/24 16:00 07/09/24 16:00 07/09/24 16:15 Temperature Temperature Source Pulse Rate 71 71 73 Pulse Strength Respiratory Rate 16 (more content not included)... Normal [facility] Screening total cholesterol/ high density lipoprotein (HDL) cholesterol ratioOrdered By: Nilesh Davenport on 07-10-2024 Cholesterol.total/Yael sterol in HDL [Mass ratio] 2.01 {ratio} [facility] Serum or plasma cholesterol in HDL measurement (mass/volume)Ordered By: Nilesh Davenport on 07-10-2024 Cholesterol in HDL [Mass/Vol] 75 mg/dL >40 [facility] Comment on above: National Cholesterol Education Program (NCEP) guidelines:<40 mg/dL: Low HDL-cholesterol (major risk factor for CHD)>= 60 mg/dL: High HDL-cholesterol (negative risk factor for CHD)HDL-cholesterol is affected by a number of factors, e.g. smoking, exercise, hormones, sex and age. Serum or plasma cholesterol measurement (mass/volume)Ordered By: Nilesh Davenport on 07-10-2024 Cholesterol [Mass/Vol] 151 mg/dL <201 [facility] Comment on above: Cholesterol level, D esirable <200 mg/dLBorderline high cholesterol 200-239 mg/dLHigh cholesterol >=240 mg/dLRecommendations of the NCEP Adult Treatment Panel for the following risk-cutoff thresholds for the [place] population. Triglycerides measurementOrd ered By: Nilesh Davenport on 07-10-2024 Triglyceride [Mass/Vol] 69 mg/dL <199 [facility] Comment on above: The drugs N-Acetylcy steine and Metamizole may falsely depress this assay. Normal range: <150 mg/dLBorderline High: 150-199 mg/dLHigh: 200-499 mg/dLVery High: >500 mg/dL 12 Lead EKGon 07-09-2024 12 Lead EKG [facility] Cardiovascular Services [address] [place] [address] 12 Lead EKG 07/09/24 0558 MR#: [id number] Acct: [id number] Name: CIERRA FUENTES Rep #: [id number] : 1960 64 From: Fan Bains MD Attending Dr: Dr. Nilesh Davenport, Status: A DM JACIEL Ordering Dr: Nilesh Davenport DO Date: 07/09/24 Location: [facility] Sex: F C Admitted: 07/08/24 Test Reason : AM EKG Blood Pressure : */* mmHG Vent. Rate : 83 BPM Atrial Rate : 83 BPM P-R Int : 146 ms QRS Dur : 88 ms QT Int : 364 ms P-R-T Axes : 34 -5 30 degrees QTcB Int : 427 ms Normal sinus rhythm Moderate voltage criteria for LVH, may be normal variant ( R in aVL , [employer] product ) Borderline ECG When compared with ECG of 08-Jul-2024 13:04, MANUAL COMPARISON REQUIRED DATA IS UNCONFIRMED Confirmed by FAN BAINS MD ([id number]), video effects editor MARJAN JOHNSON ([id number]) on 07/09/2024 2:06:48 PM Referred By: Confirmed By: FAN BAINS MD 07/09/24 1406 Date Fan Bains MD CC: Dr. Alysa Mckee MD; Dr. Nilesh Davenport DO Signed Normal [facility] Absolute lymphocyte countOrd ered By: Eduar Lopez on 07-09-2024 Lymphocytes Auto (Unsp spec) [#/Vol] 1.42 10*3/uL 0.83-4.51 [facility] Absolute neutrophil countOrd ered By: Eduar Lopez on 07-09-2024 Neutrophils (Bld) [#/Vol] 8.4 10*3/uL High 2.0-7.7 [facility] Anion gap in Serum or Plasma Ordered By: Eduar Lopez on 07-09-2024 Anion gap [Moles/Vol] 11 mmol/L 5- [facility] Automated lymphocyte count a s percentage of total leukocytesOrdered By: Eduar Lopez on 07-09-2024 Lymphocytes/100 WBC Auto (Unsp spec) 13.1 % Low 19-41 [facility] BUN/creatinine ratioOrdered By: Eduar Lopez on 07-09-2024 Urea nitrogen/Creatinine [Mass ratio] 13.4 mg/mg 10- [facility] Basic Metabolic Profile (BMP )on 07-09-2024 BUN/CRE 13.4 RATIO Normal - [facility] Comment on above: Performed By: #### L 100.0100, L501.4021 #### [facility] Laboratory [address] [place], [address] Calcium [Mass/Vol] 9.3 mg/dL Normal 7.6-11.0 [facility] Comment on above: Performed By: #### L 100.0100, L501.4021 #### [facility] Laboratory [address] [place], [address] Chloride [Moles/Vol] 102 mmol/L Normal 98-108 [facility] Comment on above: Performed By: #### L 100.0100, L501.4021 #### [facility] [address] [place], [address] CO2 [Moles/Vol] 25.5 mmol/L Normal 21.0-32.0 [facility] Comment on above: Performed By: #### L 100.0100, L501.4021 #### [facility] [address] [place], [address] Creatinine [Mass/Vol] 0.65 mg/dL Low 0.70-1.20 [facility] Comment on above: Performed By: #### L 100.0100, L501.4021 #### [facility] [address] [place], [address] ECRCL 88.46 ml/min Normal 50-250 [facility] Comment on above: Performed By: #### L 100.0100, L501.4021 #### [facility] [address] [place], [address] GAP 11 Normal 5-15 [facility] Comment on above: Performed By: #### L 100.0100, L501.4021 #### [facility] [address] [place], [address] GFR/1.73 sq M.predicted among non-blacks MDRD (S/P/Bld) [Vol rate/Area] 100 mL/min/{1.73_m2} Normal >60 [facility] Comment on above: Result Comment: mL/m in/1.73m2 CKD-EPI Creatinine Equation (2020) Performed By: #### L 100.0100, L501.4021 #### [facility] [address] [place], [address] Glucose [Mass/Vol] 110 mg/dL High 70-99 [facility] Comment on above: Performed By: #### L 100.0100, L501.4021 #### [facility] [address] [place], [address] Potassium [Moles/Vol] 3.5 mmol/L Normal 3.3-5.1 [facility] Comment on above: Performed By: #### L 100.0100, L501.4021 #### [facility] [address] [place], [address] Sodium [Moles/Vol] 138 mmol/L Normal 133-145 [facility] Comment on above: Performed By: #### L 100.0100, L501.4021 #### [facility] [address] [place], [address] Urea nitrogen [Mass/Vol] 9 mg/dL Normal 4-19 [facility] Comment on above: Performed By: #### L 100.0100, L501.4021 #### [facility] [address] [place], [address] Basophil percentageOrdered B y: Eduar Lopez on 07-09-2024 Basophils/100 WBC (Bld) 0.3 % 0-1 [facility] Bedside Glucoseon 07-09-2024 FINGERSTICK GLU 154 mg/dL High 74-106 [facility] Comment on above: Result Comment: NETTIE MORROW OF PATIENT CARE PER NURSING PROTOCOL Performed By: #### L 501.080 #### [facility] [address] [place], [address] CBC W/Diff, Automatedon 06-18 Absolute Lymph 1.42 X10 3/uL Normal 0.83-4.51 [facility] Comment on above: Performed By: #### L 100.0100, L501.4021 #### [facility] [address] [place], [address] Absolute Neut 8.4 X10 3/uL High 2.0-7.7 [facility] Comment on above: Performed By: #### L 100.0100, L501.4021 #### [facility] [address] [place], [address] Basophils/100 WBC (Bld) 0.3 % Normal 0-1 [facility] Comment on above: Performed By: #### L 100.0100, L501.4021 #### [facility] [address] [place], [address] Eosinophils/100 WBC (Bld) 0.6 % Normal 0-5 [facility] Comment on above: Performed By: #### L 100.0100, L501.4021 #### [facility] [address] [place], [address] Erythrocyte distribution width (RBC) [Ratio] 12.1 % Normal 11.6-14.6 [facility] Comment on above: Performed By: #### L 100.0100, L501.4021 #### [facility] [address] [place], [address] Hematocrit (Bld) [Volume fraction] 38.6 % Normal 37-47 [facility] Comment on above: Performed By: #### L 100.0100, L501.4021 #### [facility] [address] [place], [address] Hemoglobin (Bld) [Mass/Vol] 13.0 g/dL Normal 12.0-15.0 [facility] Comment on above: Performed By: #### L 100.0100, L501.4021 #### [facility] [address] [place], [address] IG% 0.500 Normal 0.0-0.9 [facility] Comment on above: Result Comment: IG% - Immature Granulocytes (promyelocytes, myelocytes and metamyelocytes) > 1% indicates that a LEFT SHIFT is Present. Performed By: #### L 100.0100, L501.4021 #### [facility] [address] [place], [address] Lymphocytes/100 WBC (Bld) 13.1 % Low 19-41 [facility] Comment on above: Performed By: #### L 100.0100, L501.4021 #### [facility] [address] [place], [address] MCH (RBC) [Entitic mass] 33.3 pg High 27.0-32.0 [facility] Comment on above: Performed By: #### L 100.0100, L501.4021 #### [facility] [address] [place], [address] MCHC (RBC) [Mass/Vol] 33.7 g/dL Normal 32-36 [facility] Comment on above: Performed By: #### L 100.0100, L501.4021 #### [facility] [address] [place], [address] MCV (RBC) [Entitic vol] 99.0 fL Normal 81-99 [facility] Comment on above: Performed By: #### L 100.0100, L501.4021 #### [facility] [address] [place], [address] Monocytes/100 WBC (Bld) 8.2 % Normal 0-10 [facility] Comment on above: Performed By: #### L 100.0100, L501.4021 #### [facility] [address] [place], [address] Neutrophils/100 WBC (Bld) 77.3 % High 47-70 [facility] Comment on above: Performed By: #### L 100.0100, L501.4021 #### [facility] [address] [place], [address] Nucleated RBC (Bld) [#/Vol] 0 10*3/uL Normal 0-5 [facility] Comment on above: Performed By: #### L 100.0100, L501.4021 #### [facility] [address] [place], [address] Platelet mean volume (Bld) [Entitic vol] 11.5 fL Normal 6.2-12.0 [facility] Comment on above: Performed By: #### L 100.0100, L501.4021 #### [facility] [address] [place], [address] Platelets (Bld) [#/Vol] 232 10*3/uL Normal 150-450 [facility] Comment on above: Performed By: #### L 100.0100, L501.4021 #### [facility] [address] [place], [address] RBC (Bld) [#/Vol] 3.90 10*6/uL Low 4.2-5.4 [facility] Comment on above: Performed By: #### L 100.0100, L501.4021 #### [facility] [address] [place], [address] RDW SD 43.8 fl Normal 35.1-43.9 [facility] Comment on above: Performed By: #### L 100.0100, L501.4021 #### [facility] [address] [place], [address] WBC (Bld) [#/Vol] 10.8 10*3/uL Normal 4.4-11.0 [facility] Comment on above: Performed By: #### L 100.0100, L501.4021 #### [facility] [address] [place], [address] Carbon dioxide, total [Moles /volume] in Central venous bloodOrdered By: Eduar Lopze on 07-09-2024 CO2 [Moles/Vol] 25.5 mmol/L 21.0-32.0 [facility] Chloride assayOrdered By: Mike Lopez on 07-09-2024 Chloride [Moles/Vol] 102 mmol/L 98-108 [facility] Eosinophil percentageOrdered By: Eduar Lopez on 07-09-2024 Eosinophils/100 WBC (Bld) 0.6 % 0-5 [facility] Erythrocyte distribution wid th ratioOrdered By: Eduar Lopez on 07-09-2024 Erythrocyte distribution width (RBC) [Ratio] 12.1 % 11.6-14.6 [facility] Erythrocyte distribution wid th standard deviationOrdered By: Eduar Loepz on 07-09-2024 Erythrocyte distribution width (RBC) [Ratio] 43.8 fl 35.1-43.9 [facility] Glomerular filtration rate ( GFR) estimation/1.73 sq m using serum, plasma, or whole bOrdered By: Eduar Lopez on 07-09-2024 GFR/1.73 sq M.predicted among non-blacks MDRD (S/P/Bld) [Vol rate/Area] 100 mL/min/{1.73_m2} >60 [facility] Comment on above: mL/min/1.73m2 CKD-EP I Creatinine Equation (2020) [facility] deOrdered By: Nilesh Davenport on 07-09-2024 Glucose [Mass/Vol] 154 mg/dL High 74-106 [facility] Comment on above: MANAGEMENT OF PATIEN T CARE PER NURSING PROTOCOL Hematocrit Auto (Bld) [Volum e fraction]Ordered By: Eduar Lopez on 07-09-2024 Hematocrit (Bld) [Volume fraction] 38.6 % 37-47 [facility] Hemoglobin measurementOrdere d By: Eduar Lopez on 07-09-2024 Hemoglobin (Bld) [Mass/Vol] 13.0 g/dL 12.0-15.0 [facility] Immature granulocytes/100 WB C Auto (Bld)Ordered By: Eduar Lopez on 07-09-2024 Immature granulocytes/100 WBC (Bld) 0.500 % 0.0-0.9 [facility] Comment on above: IG% - Immature Granu locytes (promyelocytes, myelocytes and metamyelocytes) > 1% indicates that a LEFT SHIFT is Present. MCV (mean corpuscular volume ) determinationOrdered By: Eduar Lopez on 07-09-2024 MCV (RBC) [Entitic vol] 99.0 fL 81-99 [facility] Mean corpuscular hemoglobin (MCH) determinationOrdered By: Eduar Lopez on 07-09-2024 MCH (RBC) [Entitic mass] 33.3 pg High 27.0-32.0 [facility] Mean corpuscular hemoglobin concentration (MCHC) determinationOrdered By: Eduar Lopez on 07-09-2024 MCHC (RBC) [Mass/Vol] 33.7 g/dL 32-36 [facility] Mean platelet volume determi nationOrdered By: Eduar Lopez on 07-09-2024 Platelet mean volume (Bld) [Entitic vol] 11.5 fL 6.2-12.0 [facility] Monocyte percentageOrdered B y: Eduar Lopez on 07-09-2024 Monocytes/100 WBC (Bld) 8.2 % 0-10 [facility] Neutrophil percentageOrdered By: Eduar Lopez on 07-09-2024 Neutrophils/100 WBC (Bld) 77.3 % High 47-70 [facility] Nucleated red blood cell per centageOrdered By: Eduar Lopez on 07-09-2024 Nucleated RBC/100 WBC (Bld) [Ratio] 0 % 0-5 [facility] Platelet countOrdered By: Mike Lopez on 07-09-2024 Platelets (Bld) [#/Vol] 232 10*3/uL 150-450 [facility] Potassium measurement (mass/ volume)Ordered By: Eduar Lopez on 07-09-2024 Potassium (Unsp spec) [Mass/Vol] 3.5 mmol/L 3.3-5.1 [facility] RBC Auto (Bld) [#/Vol]Ordere d By: Eduar Lopez on 07-09-2024 RBC (Bld) [#/Vol] 3.90 10*6/uL Low 4.2-5.4 [facility] STROKE Brain/Head without Co nton 07-09-2024 STROKE Brain/Head without Cont [facility] Imaging Services [address] [address] STROKE Brain/Head without Cont MR#: [id number] Acct: [id number] Name: CIERRA FUENTES Rep #: [id number] : 1960 F 64 From: Vidal moreno MD PCP: Dr. Alysa Mckee MD Status: ADM JACIEL Study: STROKE Brain/Head without Cont Date of Exam: 0 07/09/24 Exam# [id number] Ordering Dr: Nilesh Davenport DO PROCEDURE: STROKE BRAIN/HEAD WITHOUT CONT 07/09/2024 REASON FOR EXAM: NEURO SYMPTOMS TECHNIQUE: Head CT without intravenous contrast. Coronal and Sagittal reconstruction series were provided. One or more dose reduction techniques were used (e.g., Automated exposure control, adjustment of the mA and/or kV according to patient size, use of iterative reconstruction technique. RADIATION DOSE SUMMARY: CTDlvol: 44.99 mGy DLP: 745.49 mGycm COMPARISON: No prior study. FINDINGS: Brain: Within normal limits for age CSF Spaces: Mild generalized cerebral atrophy Sinuses/Mastoids: Clear at visualized levels Bones: Unremarkable CT/STROKE Brain/Head without Cont IMPRESSION: NO ACUTE INTRACRANIAL HEMORRHAGE Red Alert: No Bleed The critical information above was relayed directly by me by telephone to Nilesh Davenport on 07/09/2024 at 2:22 pm with readback verification. Reading Location: [place] [address] CC: Dr. Alysa Mckee MD; Dr. Nilesh Davenport DO Director Of Hemophilia: Signed Normal [facility] STROKE CTA Head AND Neck W/C onon 07-09-2024 STROKE CTA Head AND Neck W/Con [facility] Imaging Services [address] [place] [address] STROKE CTA Head AND Neck W/Con MR#: [id number] Acct: [id number] Name: CIERRA FUENTES Rep #: [id number] : 1960 F 64 From: Vidal moreno MD PCP: Dr. Alysa Mckee MD Status: ADM JACIEL Study: STROKE CTA Head AND Neck W/Con Date of Exam: 0 07/09/24 Exam# [id number] Ordering Dr: Nilesh Davenport DO PROCEDURE: STROKE CTA HEAD AND NECK W/CON 07/09/2024 REASON FOR EXAM: NEURO SYMPTOMSS TECHNIQUE: CTA imaging of the head and neck from the aortic arch to the skull vertex with out constrast and with intravenous contrast. Coronal and Sagittal reconstruction series were provided. 3D post processing with reformations, Maximum intensity projection (MIPs) Volume rendering and Shaded surface rendering was provided. CONTRAST: Isovue 3 7 VOLUME: 100 mL One or more dose reduction techniques were used (e.g., Automated exposure control, adjustment of the mA and/or kV according to patient size, use of iterative reconstruction technique). RADIATION DOSE SUMMARY: CTDlvol: 19 mGy DLP: 648 mGycm COMPARISON: Prior CT scan of the brain done earlier in the day. FINDINGS: Aortic Arch: Normal size and branching pattern. Mild atherosclerotic plaque. Brachiocephalic and Subclavians: Unremarkable RIGHT Carotid: Right CCA: Unremarkable. Right ICA: Unremarkable. Right ECA: Unremarkable. LEFT Carotid: Left CCA: Unremarkable. Left ICA: Unremarkable. Left ECA: Unremarkable. Vertebrals: Codominant. Arise from the subclavians. Both vertebrals form the basilar. RIGHT Vertebral: Unremarkable. LEFT Vertebral: Unremarkable. Anatomy: [place] anatomy is normal. Aneurysm or avm: No intracranial aneurysms or large vascular malformations are identified. Anterior cerebral arteries: Unremarkable: Middle cerebral arteries: Unremarkable. Basilar artery: Unremarkable. Posterior cerebral arteries: Unremarkable. Other major branches of the posterior circulation: Unremarkable. Major venous structures: Unremarkable. Other findings: Neck: No lymphadenopathy. Lungs: Bones: CT/STROKE CTA Head AND Neck W/Con IMPRESSION: Unremarkable examination. Reading Location: [place] [address] CC: Dr. Alysa Mckee MD; Dr. Nilesh Davenport DO Director Of Hemophilia: Signed Normal [facility] Serum creatinine measurement (mass/volume)Ordered By: Eduar Lopez on 07-09-2024 Creatinine [Mass/Vol] 0.65 mg/dL Low 0.70-1.20 [facility] Serum glucose measurement (m ass/volume)Ordered By: Eduar Lopez on 07-09-2024 Glucose [Mass/Vol] 110 mg/dL High 70-99 [facility] Serum or plasma calcium cecy urement (mass/volume)Ordered By: Eduar Lopez on 07-09-2024 Calcium [Mass/Vol] 9.3 mg/dL 7.6-11.0 [facility] Serum or plasma urea nitroge n measurement (mass/volume)Ordered By: Eduar Lopez on 07-09-2024 Urea nitrogen [Mass/Vol] 9 mg/dL 4-19 [facility] Sodium levelOrdered By: eRhan Lopez on 07-09-2024 Sodium [Moles/Vol] 138 mmol/L 133-145 [facility] Stress Reporton 07-09-2024 Stress Report [facility] Cardiovascular Services [address] [place] [address] MR#: [id number] Acct: [id number] Name: CIERRA FUENTES Rep #: [id number] : 1960 64 From: Fan Bains MD Primary Care: Dr. Alysa Mckee MD Status: ADM IN Referring Dr: Sex: F C Stress Test Report Exercise myocardial perfusion stress test. 64-year-old lady with a history of chest pain Stress protocol: Resting EKG demonstrates normal sinus rhythm with a rate of 78 bpm resting blood pressure is 128/90 mmHg. The patient exercised according to the regular Leonard protocol for a total duration of 4 minutes 40 seconds attaining a maximum heart rate of 141 bpm which was 89% of maximum predicted heart rate; the maximum workload was 7 METS metabolic equivalents. At rest there were no ST or T wave changes noted to suggest ischemia and at peak exercise upsloping ST changes only were noted which did not meet the criteria for ischemia. No clinical angina was noted the test was terminated due to the target heart rate being achieved/fatigue. The peak blood pressure was 220/94 mmHg. Rate-pressure product was 31,000. Myocardial perfusion protocol. 11.7 mCi of technetium 99m sestamibi was injected at rest. The patient exercised according to regular Leonard protocol for total duration of 4 minutes and 40 and at peak exercise 33.4 mCi of technetium 99m sestamibi was injected stress images were obtained stress and rest images were reconstructed in comparing the short axis vertical long and horizontal long axis. Gated images were also obtained. Perfusion SPECT analysis: Review of the stress images demonstrate normal uptake of tracer noted in all areas of the myocardium. The resting images similarly demonstrate normal uptake of tracer noted in all areas of the myocardium. No areas of reversibility are noted to suggest ischemia no previous infarct was noted. Gated SPECT analysis: The gated ejection fraction is 65%. Conclusion: Normal exercise myocardial perfusion stress test at a moderate workload Preserved ejection fraction. 07/09/24 1718 Date Fan Bains MD CC: Jocelyne Flores; Suri Aburto; WILLIAM Cohen; Tutu Mayberry; Pamella La MD; Shannon Jhaveri MD; Jaswinder Osorio MD; Dr. Fran Callaway MD; Dr. Cony Silva MD; Dr. Gibran Leonard MD; Dr. Leonard Dickerson MD; Dr. Alysa Mckee MD; Dr. Eduar Garcia MD; Dr. Jonah Abbott MD; Dr. Derik Ruiz DO; Dr. Hema Gross MD; Dr. John Delarosa MD; Dr. Kapil Wolff MD; Dr. Debbie Carlin MD; Dr. Hal Zapien MD; Dr. Maximino Beckman MD; Dr. Antonino Pfeiffer MD; Dr. Douglas Salinas MD; Dr. Jayesh Ricks MD; Dr. Delma Eden MD; Dr. Steve Guerra MD; Dr. Debbie Griffin MD; Dr. Nilesh Davenport DO; Dr. Henry Pan DO; Dr. Sanford Jeter MD; Dr. Eden Pedro MD; Dr. Rogelio Meeks MD; Dr. Selwyn Pederson MD; Dr. Edilberto Hannah MD; Dr. Beto Valencia MD; Dr. Thony Thornton MD; Dr. Johny Rocha MD; Dr. David Rodriguez DO; Dr. Sander Hendrix MD; Dr. Beau Light MD; Dr. Jose Monreal DO; Dr. Yaron Aranda DO; Dr. Graeme Palma MD; Dr. Josee Hernandez MD; Dr. Herbert Arrington MD; Dr. Randa Murray MD; Diana Lujan NP; Mari Cartagena DO; Atif Scales MD Date Dictated: 07/09/241716 Date Transcribed: 07/09/241716 Director Of Hemophilia: [place] Signed Normal [facility] White blood cell (WBC) count Ordered By: Eduar Lopez on 07-09-2024 WBC (Bld) [#/Vol] 10.8 10*3/uL 4.4-11.0 [facility] 12 Lead EKGon 07-08-2024 12 Lead EKG [facility] [address] [place] [address] 12 Lead EKG 07/08/24 1304 MR#: [id number] Acct: [id number] Name: CIERRA FUENTES Rep #: [id number] : 1960 64 From: Fan Bains MD Attending Dr: Dr. Nilesh Davenport DO Status: A DM JACIEL Ordering Dr: Nilesh Davenport DO Date: 07/08/24 Location: U Sex: F C Admitted: 07/08/24 Test Reason : PCI Blood Pressure : */* mmHG Vent. Rate : 88 BPM Atrial Rate : 88 BPM P-R Int : 154 ms QRS Dur : 76 ms QT Int : 380 ms P-R-T Axes : 36 7 52 degrees QTcB Int : 459 ms Normal sinus rhythm Normal ECG When compared with ECG of 08-Jul-2024 11:51, MANUAL COMPARISON REQUIRED DATA IS UNCONFIRMED Confirmed by HERSON MADRID, FAN ([id number]), video effects editor JOSE MARTIN BARRAGAN ([id number]) on 07/09/2024 8:59:17 AM Referred By: HERSON Confirmed By: FAN BAINS MD 07/09/24 0859 Date Fan Bains MD CC: Dr. Alysa Mckee MD; Dr. Nilesh Davenport DO Signed [facility] Absolute neutrophil countOrd ered By: Yaron Aranda on 07-08-2024 Neutrophils (Bld) [#/Vol] 7.9 10*3/uL High 2.0-7.7 [facility] Anion gap in Serum or Plasma Ordered By: Yaron Aranda on 07-08-2024 Anion gap [Moles/Vol] 12 mmol/L - [facility] BUN/creatinine ratioOrdered By: Yaron Aranda on 07-08-2024 Urea nitrogen/Creatinine [Mass ratio] 17.4 mg/mg - [facility] Basic Metabolic Profile (BMP )on 07-08-2024 BUN/CRE 17.4 RATIO Normal - [facility] Comment on above: Performed By: #### L 100.0100, L501.4021 #### [facility] [address] [place], [address] Calcium [Mass/Vol] 9.6 mg/dL Normal 7.6-11.0 [facility] Comment on above: Performed By: #### L 100.0100, L501.4021 #### [facility] [address] [place], [address] Chloride [Moles/Vol] 100 mmol/L Normal 98-108 [facility] Comment on above: Performed By: #### L 100.0100, L501.4021 #### [facility] [address] [place], [address] CO2 [Moles/Vol] 26.3 mmol/L Normal 21.0-32.0 [facility] Comment on above: Performed By: #### L 100.0100, L501.4021 #### [facility] [address] [place], [address] Creatinine [Mass/Vol] 0.77 mg/dL Normal 0.70-1.20 [facility] Comment on above: Performed By: #### L 100.0100, L501.4021 #### [facility] [address] [place], [address] ECRCL 74.07 ml/min Normal 50-250 [facility] Comment on above: Performed By: #### L 100.0100, L501.4021 #### [facility] [address] [place], [address] GAP 12 Normal 5-15 [facility] Comment on above: Performed By: #### L 100.0100, L501.4021 #### [facility] [address] [place], [address] GFR/1.73 sq M.predicted among non-blacks MDRD (S/P/Bld) [Vol rate/Area] 87 mL/min/{1.73_m2} Normal >60 [facility] Comment on above: Result Comment: mL/m in/1.73m2 CKD-EPI Creatinine Equation (2020) Performed By: #### L 100.0100, L501.4021 #### [facility] [address] [place], [address] Glucose [Mass/Vol] 118 mg/dL High 70-99 [facility] Comment on above: Performed By: #### L 100.0100, L501.4021 #### [facility] [address] [place], [address] Potassium [Moles/Vol] 3.6 mmol/L Normal 3.3-5.1 [facility] Comment on above: Performed By: #### L 100.0100, L501.4021 #### [facility] [address] [place], [address] Sodium [Moles/Vol] 138 mmol/L Normal 133-145 [facility] Comment on above: Performed By: #### L 100.0100, L501.4021 #### [facility] [address] [place], [address] Urea nitrogen [Mass/Vol] 13 mg/dL Normal 4-19 [facility] Comment on above: Performed By: #### L 100.0100, L501.4021 #### [facility] [address] [place], [address] Basophil percentageOrdered B y: Yaron Aranda on 07-08-2024 Basophils/100 WBC (Bld) 0.4 % 0-1 [facility] Bilirubin directOrdered By: Yaron Le on 07-08-2024 Bilirubin.direct [Mass/Vol] 0.29 mg/dL 0.00-0.30 [facility] Bilirubin, totalOrdered By: Yaron Le on 07-08-2024 Bilirubin [Mass/Vol] 0.64 mg/dL 0.00-1.30 [facility] CBC W/Diff, Automatedon 06-18 Absolute Lymph 1.86 X10 3/uL Normal 0.83-4.51 [facility] Comment on above: Performed By: #### L 100.0100, L501.4021 #### [facility] [address] [place], [address] Absolute Neut 7.9 X10 3/uL High 2.0-7.7 [facility] Comment on above: Performed By: #### L 100.0100, L501.4021 #### [facility] [address] [place], [address] Basophils/100 WBC (Bld) 0.4 % Normal 0-1 [facility] Comment on above: Performed By: #### L 100.0100, L501.4021 #### [facility] [address] [place], [address] Eosinophils/100 WBC (Bld) 2.4 % Normal 0-5 [facility] Comment on above: Performed By: #### L 100.0100, L501.4021 #### [facility] [address] [place], [address] Erythrocyte distribution width (RBC) [Ratio] 11.9 % Normal 11.6-14.6 [facility] Comment on above: Performed By: #### L 100.0100, L501.4021 #### [facility] [address] [place], [address] Hematocrit (Bld) [Volume fraction] 43.7 % Normal 37-47 [facility] Comment on above: Performed By: #### L 100.0100, L501.4021 #### [facility] [address] [place], [address] Hemoglobin (Bld) [Mass/Vol] 15.3 g/dL High 12.0-15.0 [facility] Comment on above: Performed By: #### L 100.0100, L501.4021 #### [facility] [address] [place], [address] IG% 0.400 Normal 0.0-0.9 [facility] Comment on above: Result Comment: IG% - Immature Granulocytes (promyelocytes, myelocytes and metamyelocytes) > 1% indicates that a LEFT SHIFT is Present. Performed By: #### L 100.0100, L501.4021 #### [facility] [address] [place], [address] Lymphocytes/100 WBC (Bld) 17.0 % Low 19-41 [facility] Comment on above: Performed By: #### L 100.0100, L501.4021 #### [facility] [address] [place], [address] MCH (RBC) [Entitic mass] 33.9 pg High 27.0-32.0 [facility] Comment on above: Performed By: #### L 100.0100, L501.4021 #### [facility] [address] [place], [address] MCHC (RBC) [Mass/Vol] 35.0 g/dL Normal 32-36 [facility] Comment on above: Performed By: #### L 100.0100, L501.4021 #### [facility] [address] [place], [address] MCV (RBC) [Entitic vol] 96.9 fL Normal 81-99 [facility] Comment on above: Performed By: #### L 100.0100, L501.4021 #### [facility] [address] [place], [address] Monocytes/100 WBC (Bld) 7.9 % Normal 0-10 [facility] Comment on above: Performed By: #### L 100.0100, L501.4021 #### [facility] [address] [place], [address] Neutrophils/100 WBC (Bld) 71.9 % High 47-70 [facility] Comment on above: Performed By: #### L 100.0100, L501.4021 #### [facility] [address] [place], [address] Nucleated RBC (Bld) [#/Vol] 0 10*3/uL Normal 0-5 [facility] Comment on above: Performed By: #### L 100.0100, L501.4021 #### [facility] [address] [place], [address] Platelet mean volume (Bld) [Entitic vol] 11.0 fL Normal 6.2-12.0 [facility] Comment on above: Performed By: #### L 100.0100, L501.4021 #### [facility] [address] [place], [address] Platelets (Bld) [#/Vol] 281 10*3/uL Normal 150-450 [facility] Comment on above: Performed By: #### L 100.0100, L501.4021 #### [facility] [address] [place], [address] RBC (Bld) [#/Vol] 4.51 10*6/uL Normal 4.2-5.4 [facility] Comment on above: Performed By: #### L 100.0100, L501.4021 #### [facility] [address] [place], [address] RDW SD 42.4 fl Normal 35.1-43.9 [facility] Comment on above: Performed By: #### L 100.0100, L501.4021 #### [facility] [address] [place], [address] WBC (Bld) [#/Vol] 11.0 10*3/uL Normal 4.4-11.0 [facility] Comment on above: Performed By: #### L 100.0100, L501.4021 #### [facility] [address] [place], [address] CTA Chest W/WO Contraston CTA Chest W/WO Contrast [facility] Imaging Services [address] [address] CTA Chest W/WO Contrast MR#: [id number] Acct: [id number] Name: CIERRA FUENTES Rep #: [id number] : 1960 F 64 From: Nilesh Aranda MD PCP: Dr. Alysa Mckee MD Status: [facility] ER Study: CTA Chest W/WO Contrast Date of Exam: 07/08/24 Exam# [id number] Ordering Dr: Yaron Aranda DO EXAM: CT Angiography Chest Without and With Intravenous Contrast CLINICAL INDICATION: PAIN TECHNIQUE: Axial computed tomographic angiography images of the chest without and with intravenous contrast. This CT exam was performed using one or more of the following dose reduction techniques: automated exposure control, adjustment of the mA and/or kV according to patient size, and/or use of iterative reconstruction technique. MIP reconstructed images were created and reviewed. COMPARISON: No relevant prior studies available. FINDINGS: LIMITATIONS: Suboptimal opacification of the pulmonary arteries. PULMONARY ARTERIES: No pulmonary embolism is identified. Some of the distal pulmonary arteries cannot be evaluated due to suboptimal opacification. AORTA: No acute findings. No thoracic aortic aneurysm. LUNGS AND PLEURAL SPACES: Lung emphysema/COPD with dependent atelectasis/scarring. No mass. No significant effusion. No pneumothorax. HEART: Unremarkable. No cardiomegaly. No significant pericardial effusion. No evidence of RV dysfunction. BONES/JOINTS: No acute fracture. No dislocation. SOFT TISSUES: Unremarkable. LYMPH NODES: Unremarkable. No enlarged lymph nodes. CT/CTA Chest W/WO Contrast IMPRESSION: 1. No pulmonary embolism is identified. Some of the distal pulmonary arteries cannot be evaluated due to suboptimal opacification. 2. Lung emphysema/COPD with dependent atelectasis/scarring. Reading [facility] CC: Dr. Alysa Mckee MD; Dr. Yaron Aranda DO Director Of Hemophilia: Signed Normal [facility] Carbon dioxide, total [Moles /volume] in Central venous bloodOrdered By: Yaron Aranda on 07-08-2024 CO2 [Moles/Vol] 26.3 mmol/L 21.0-32.0 [facility] Chest 1 View (Portable)on Chest 1 View (Portable) [facility] Imaging Services [address] [place] [address] [id number] Chest 1 View (Portable) MR#: [id number] Acct: [id number] Name: CIERRA FUENTES Rep #: [id number] : 1960 F 64 From: Nilesh Aranda MD PCP: Dr. Alysa Mckee MD Status: PRE ER Study: Chest 1 View (Portable) Date of Exam: 07/08/24 Exam# [id number] Ordering Dr: Yaron Aranda DO EXAM: XR Chest, 1 View CLINICAL INDICATION: CHEST PAIN TECHNIQUE: Frontal view of the chest. COMPARISON: No relevant prior studies available. FINDINGS: LUNGS AND PLEURAL SPACES: Unremarkable. No consolidation. No pneumothorax. HEART: Unremarkable. No cardiomegaly. MEDIASTINUM: Unremarkable. Normal mediastinal contour. BONES/JOINTS: Unremarkable. No acute fracture. RAD/Chest 1 View (Portable) IMPRESSION: No acute cardiopulmonary process. Reading Location: [facility] CC: Dr. Alysa Mckee MD; Dr. Yaron Aranda DO Director Of Hemophilia: Signed Normal [facility] Chloride assayOrdered By: Yogesh Aranda on 07-08-2024 Chloride [Moles/Vol] 100 mmol/L 98-108 [facility] Echo Completeon 07-08-2024 Echo Complete [facility] Cardiovascular Services [address] [place] [address] Echo Complete 07/08/24 1507 MR#: [id number] Acct: [id number] Name: CIERRA FUENTES Rep #: [id number] : 1960 64 From: Fan Bains MD Attending Dr: Dr. Nilesh Davenport DO Status: A DM JACIEL Ordering Dr: Nilesh Davenport DO Date: 07/08/24 Location: U Sex: F C Admitted: 07/08/24 Reason For Study Reason For Study: CHEST PAIN Procedure This was a 2D Doppler, Color Flow transthoracic echocardiogram. Exam performed portable in patient room. Left Ventricle Normal LV size. Mild concentric left ventricular hypertrophy. Left ventricular systolic function is normal. The left ventricular ejection fraction is 60 %. No regional wall motion abnormalities noted. Right Ventricle Normal RV size. Normal systolic function. Atria Normal left atrium. Normal right atrium. Mitral Valve Normal mitral valve. Tricuspid Valve Normal tricuspid valve. Mild to moderate (1-2+) tricuspid valve insufficiency. Pulmonary artery systolic pressure is 51 mmHg. Aortic Valve Trisinus/trileaflet aortic valve. Pulmonic Valve Normal pulmonic valve. Great Vessels Normal aortic root. The pulmonary artery is normal size. Inferior vena cava collapse with respiration. Pericardium/Pleural No pericardial effusion. MMode/2D Measurements Calculations LVIDd: 4.1 cm IVSd: 1.2 cm Ao root diam: 3.0 cm LVIDs: 2.7 cm LVPWd: 1.3 cm RVDd: 3.1 cm FS: 34.2 % LAV(MOD-bp): 43.1 ml LVAd ap4: 21.1 cm2 SV(MOD-sp4): 33.3 ml LAV(MOD-bp) Indexed: 24.2 ml/m2 LVLd ap4: 6.6 cm SI(MOD-sp4): 18.7 ml/m2 LAV(MOD-sp2): 43.8 ml EDV(MOD-sp4): 56.2 ml LAV(MOD-sp4): 41.7 ml EDV(sp4-el): 57.4 ml LVAs ap4: 12.4 cm2 LVLs ap4: 5.7 cm ESV(MOD-sp4): 22.9 ml ESV(sp4-el): 22.9 ml EF(MOD-sp4): 59.3 % EF(sp4-el): 60.1 % SV(sp4-el): 34.5 ml LA A4 area: 16.5 cm2 LA dimension(2D): 3.6 cm RA A4 area: 12.9 cm2 TAPSE: 2.1 cm Time Measurements MV dec time: 0.20 sec Doppler Measurements Calculations MV E max yuniel: 94.3 cm/sec Lat Peak E' Yuniel: 9.8 cm/sec Med Peak E' Yuniel: 9.4 cm/sec MV A max yuniel: 89.6 cm/sec E/E' lat: 9.7 E/E' med: 10.0 MV E/A: 1.1 Ao V2 max: 131.2 cm/sec LV V1 max: 115.5 cm/sec PA V2 max: 84.0 cm/sec Ao max P.9 mmHg LV V1 max P.3 mmHg TR max yuniel: 348.0 cm/sec TR max P.4 mmHg ECHO/Echo Complete Interpretation Summary Normal LV size. Mild concentric left ventricular hypertrophy. Left ventricular systolic function is normal. The left ventricular ejection fraction is 60 %. Pulmonary artery systolic pressure is 51 mmHg. Ordering Physician: Nilesh Davenport Referring Physician: ALYSA MCKEE Performed By: Caryl Siegel RDCS 07/08/24 1744 Date Fan Bains MD CC: Dr. Alysa Mckee MD; Dr. Nilesh Davenport DO Date Dictated: 07/08/24 1507 Date Transcribed: 07/08/24 1744 Director Of Hemophilia: Signed Normal [facility] Emergency Department Summary on 07-08-2024 Emergency Department Summary [facility] Medical Records Department [address] [place] [address] Emergency Department Summary 07/08/24 MR#: [id number] Acct: [id number] Name: CIERRA FUENTES Rep #: [id number] : 1960 64 From: Yaron Adam PCP: Dr. Alysa Mckee MD Status:ADM JACIEL Location: [address] History of Present Illness Chief Complaint: Chest Pain Informant: patient Narrative Narrative: Presents ED persistent worsening chest pain since last evening 9:30 PM. States at dinner mild throat symptoms she had a large dinner. She went to bed and lay down symptoms worsen go tonight. No dyspnea. Pain does not go to her back denies nausea or vomiting. Denies pain down the arms. No history of similar. Tobacco and alcohol history. mother with SC at age of 60. No stress test. Denies hypertension diabetes hyperlipidemia. She is on reflux medications along with seizure medicine for absence seizure's. No history of similar. No recent travel or surgeries. No history of PE or DVT. Prior Similar Symptoms: No CVD Risk Factors: Positive for Smoking; Negative for Hypertension, Diabetes, Hypercholesterolemia or Family History 1' PE Risk Factors: Negative for Recent Travel/Surgery, Recent Immobilization or Prior DVT or PE [facility] Medical History Seizures GERD (gastroesophageal reflux disease) History of seizures Knee pain Home Medications ???Medication ???Instructions ???Recorded ???Last Taken ???Type acyclovir 400 mg tablet 400 mg PO DAILY 04/18/23 07/08/24 History lamotrigine 300 mg tablet,extended 300 mg PO DAILY 04/18/23 5 History release 24 hr omeprazole 20 mg capsule,delayed 20 mg PO DAILY 04/18/23 07/08/24 H istory release levetiracetam 500 mg 1,500 mg PO DAILY 07/08/24 5 History tablet,extended release 24 hr Allergy/AdvReac Type Severity Reaction Status Date / Time No Known Allergies Allergy Verified 07/08/24 08:30 Family History Mother Arthritis Cancer Sister Arthritis Father Arthritis CVA (cerebral vascular accident) Other Myocardial infarction Surgical History No history of previous surgery Social History Smoking Status: Current every day smoker tobacco type: cigarettes how long ago did patient quit smoking: pack a day alcohol intake: current alcohol intake frequency: 0-2 drinks per day Alcohol type: wine details: daily substance use type: does not use additional social history: pt denies vaping, denies marijuana use, denies edibles, denies aspirin use Uses ibuprofen as needed smokes a pack a day, daily consumption alcohol ROS ROS ED Constitutional Constitutional ED: Denies chills, fever(s) or sweats ENT ENT ED: Denies sore throat Cardiovascular Cardiovascular: Reports chest pain; Denies leg edema, palpitations or racing heartbeat Respiratory/Chest Respiratory/Chest: Denies cough, dyspnea or dyspnea on exertion Gastrointestinal Gastrointestinal: Denies abdominal pain, diarrhea, nausea or vomiting Genitourinary Genitourinary ED: Denies dysuria, hematuria or urinary frequency Musculoskeletal Musculoskeletal: Denies back pain, extremity pain or neck pain Integumentary Denies rash or wounds Neurologic Neurologic: Denies headache(s), paresthesias or weakness EXAM Physical Exam Const Vital Signs: 07/08/24 08:29 07/08/24 08:30 07/08/24 08:46 Temperature 97.9 F Temperature Source Oral Pulse Rate 88 Respiratory Rate 18 Respiratory Effort Short of Breath Blood Pressure 173/88 H Blood Pressure Mean 116 Pulse Ox 99 Oxygen Delivery Method Room Air Room Air Oxygen Flow Rate (L/min) 07/08/24 09:29 07/08/24 10:00 07/08/24 11:00 Temperature 98.9 F Temperature Source Oral Pulse Rate 78 79 91 Respiratory Rate 16 18 16 Respiratory Effort Blood Pressure 144/82 H 111/79 149/82 H Blood Pressure Mean 102 89 104 Pulse Ox 98 98 95 Oxygen Delivery Method Room Air Room Air Room Air Oxygen Flow Rate (L/min) 07/08/24 12:00 Temperature Temperature Source Pulse Rate 87 Respiratory Rate 16 Respiratory Effort Blood Pressure 156/87 H Blood Pressure Mean 110 Pulse Ox 96 Oxygen Delivery Method Nasal Cannula Oxygen Flow Rate (L/min) 2 Positive well nourished and well developed Constitutional Narrative: Uncomfortable nontoxic General Appearance ED: well developed HEENT Reports moist mucous membranes normocephalic and atraumatic Eyes General Eye ED: Yes normal appearance of both eyes Neck full ROM Chest Wall Chest: Negative for tenderness Resp normal respiratory effort and no (more content not included)... Normal [facility] Eosinophil percentageOrdered By: Yaron Aranda on 07-08-2024 Eosinophils/100 WBC (Bld) 2.4 % 0-5 [facility] Erythrocyte distribution wid th (RBC) [Ratio]Ordered By: Yaron Aranda on 07-08-2024 Erythrocyte distribution width (RBC) [Entitic vol] 42.4 fL 35.1-43.9 [facility] Erythrocyte distribution wid th ratioOrdered By: Yaron Aranda on 07-08-2024 Erythrocyte distribution width (RBC) [Ratio] 11.9 % 11.6-14.6 [facility] Estimation of creatinine concepcion aranceOrdered By: Yaron Aranda on 07-08-2024 Estimated Creatinine Clearance Calc 74.07 ml/min 50-250 [facility] GFR/1.73 sq M.predicted talon g non-blacks MDRD (S/P/Bld) [Vol rate/Area]Ordered By: Yaron Aranda on 07-08-2024 Estimated GFR (MDRD) Non-Af Amer 87 >60 [facility] Comment on above: mL/min/1.73m2 CKD-EP I Creatinine Equation (2020) H AND P Exam - [facility] 07-08-2024 H&P Exam - Hospitalist [facility] Medical Records Department [address] [facility] [place] [address] H P Exam - Hospitalist 07/08/24 1832 MR#: [id number] Acct: [id number] Name: CIERRA FUENTES Rep #: [id number] : 1960 64 From: Nilesh Davenport DO PCP: Dr. Alysa Mckee MD Status:ADM JACIEL Location: [place] [address] HPI - General General Date of Admission: 07/08/24 Date of Service: 07/08/24 Chief Complaint: Chest pain HPI Narrative CIERRA FUENTES, is a 64 F who presents to the emergency room at [facility] with complaints of pain on the right side of her neck near her jaw radiating into her upper chest and across her entire chest. She also had complained to nursing that she had left shoulder pain with this. Patient was at rest at approximately 9:30 PM on 07/07/24 when the discomfort began. She is only able to tell me that her chest hurt and was not able to describe the type of pain she was having. Patient denied any cough, fever, chills, or shortness of breath. Patient has no history of coronary disease and takes seizure medications and medicine for GERD. Her father had a heart attack at age 60-he was a smoker. Patient's risk factors include smoking and family history at this time Workup in the emergency room included EKGs which showed normal sinus rhythm without evidence of ischemia, CBC was unremarkable, and 2 sets of troponins were less than 6. Chest x-ray was unremarkable, CTA of the chest revealed no pulmonary embolism, there is evidence of emphysema with dependent atelectasis and scarring. Patient was not hypoxic on room air. Patient was placed in observation status on PCU, echocardiogram will be obtained and patient will undergo an exercise nuclear stress test on 07/09/2024. [facility] Medical History Seizures GERD (gastroesophageal reflux disease) History of seizures Knee pain Home Medications ???Medication ???Instructions ???Recorded ???Last Taken ???Type acyclovir 400 mg tablet 400 mg PO DAILY 04/18/23 07/08/24 History lamotrigine 300 mg tablet,extended 300 mg PO DAILY 04/18/23 5 History release 24 hr omeprazole 20 mg capsule,delayed 20 mg PO DAILY 04/18/23 07/08/24 H istory release levetiracetam 500 mg 1,500 mg PO DAILY 07/08/24 5 History tablet,extended release 24 hr Allergy/AdvReac Type Severity Reaction Status Date / Time No Known Allergies Allergy Verified 07/08/24 08:30 Family History Mother Arthritis Cancer Sister Arthritis Father Arthritis CVA (cerebral vascular accident) Other Myocardial infarction Surgical History No history of previous surgery Social History Smoking Status: Current every day smoker tobacco type: cigarettes how long ago did patient quit smoking: pack a day alcohol intake: current alcohol intake frequency: 0-2 drinks per day Alcohol type: wine details: daily substance use type: does not use additional social history: pt denies vaping, denies marijuana use, denies edibles, denies aspirin use Uses ibuprofen as needed smokes a pack a day, daily consumption alcohol ROS Constitutional Constitutional: Denies anorexia, change in weight, chills, fatigue, fever(s), night sweats or weakness Eyes Eyes: Denies blurry vision, change in vision, discharge from eye(s) or eye pain Cardiovascular Cardiovascular: Reports chest pain; Denies claudication, edema, palpitations or rapid heart rate Respiratory/Chest Respiratory/Chest: Denies cough, dyspnea, hemoptysis, shortness of breath at rest or shortness of breath with exertion Gastrointestinal Gastrointestinal: Denies abdominal pain, constipation, diarrhea, hematemesis, hematochezia, melena, nausea or vomiting Genitourinary Genitourinary: Denies dysuria, hematuria, urinary frequency, urinary hesitancy, urinary incontinence or urinary urgency Musculoskeletal Musculoskeletal: Denies back pain, joint pain, joint stiffness, joint swelling, myalgias or neck pain Neurologic Neurologic: Denies abnormal gait, abnormal speech, dizziness, focal weakness, headache(s), loss of vision, numbness, other visual disturbances, paresthesias, syncope or tingling Psychiatric Psychiatric: Denies anxiety, cognitive impairment, depression, irritability, mood swings or suicidal ideation Endocrine Endocrinology: Denies change in body appearance, cold intolerance, excessive sweating, heat intolerance, polydipsia or polyuria Hematologic/Lymphatic Hematologic/Lymphatic: Denies none, anemia, easy bleeding, easy bruising or lymphadenopathy Allergic/Immunologic Allergic/Immunologic: Denies rhinitis, urticaria, eczemia or asthma Vital Signs Vital Signs Vital Signs: (more content not included)... Normal [facility] Hematocrit Auto (Bld) [Volum e fraction]Ordered By: Yaron Aranda on 07-08-2024 Hematocrit (Bld) [Volume fraction] 43.7 % 37-47 [facility] Hemoglobin measurementOrdere d By: Yaron Aranda on 07-08-2024 Hemoglobin (Bld) [Mass/Vol] 15.3 g/dL High 12.0-15.0 [facility] Immature granulocytes/100 WB C Auto (Bld)Ordered By: Yaron Aranda on 07-08-2024 Immature granulocytes/100 WBC (Bld) 0.400 % 0.0-0.9 [facility] Comment on above: IG% - Immature Granu locytes (promyelocytes, myelocytes and metamyelocytes) > 1% indicates that a LEFT SHIFT is Present. L499.0042on 07-08-2024 Trop T High Sen < 6 Normal <=14 [facility] Comment on above: Performed By: #### L 501.9520, L501.5200, L501.9985 #### [facility] Laboratory [address] [place], [address] L499.0043on 07-08-2024 Trop T High Sen Normal <=14 [facility] Comment on above: Order Comment: ER SC SSED THE 4 HR. TROP Result Comment: reordered test because of missed 4 hr. trop that er didn't collect Performed By: #### L 499.0043 #### [facility] Laboratory [address] [place], [address] L501.4021on 07-08-2024 Trop T High Sen < 6 Normal <=14 [facility] Comment on above: Performed By: #### L 501.4021 #### [facility] Laboratory [address] [place], [address] Trop T High Sen < 6 Normal <=14 [facility] Comment on above: Performed By: #### L 100.0100, L501.4021 #### [facility] Laboratory [address] [place], [address] Laboratory - Chemistry and C hemistry - challengeOrdered By: Yaron Aranda on 07-08-2024 AST [Catalytic activity/Vol] 24 U/L <32 [facility] Lipaseon 07-08-2024 Lipase [Catalytic activity/Vol] 22 U/L Normal 13-75 [facility] Comment on above: Result Comment: Plea note: LIPASE revised reference range effective 22. New Lipase methodology. Expected to produce lower values than the previous assay method. NEW Reference Range: 13 - 75 U/L Performed By: #### L 7000.7000 #### [facility] Laboratory [address] [place], [address] Lipase measurementOrdered By : Yaron Aranda on 07-08-2024 Lipase [Catalytic activity/Vol] 22 U/L 13-75 [facility] Comment on above: Please note:LIPASE r evised reference range effective 22. New Lipase methodology. Expected to produce lower values than the previous assay method. NEW Reference Range: 13 - 75 U/L Lipid Profileon 07-08-2024 CHOL:HDL 2.33 Normal [facility] Comment on above: Performed By: #### L 100.0100, L501.4021 #### [facility] Laboratory [address] [place], [address] Cholesterol [Mass/Vol] 185 mg/dL Normal <=200 [facility] Comment on above: Result Comment: Chol esterol level, Desirable <200 mg/dL Borderline high cholesterol 200-239 mg/dL High cholesterol >=240 mg/dL Recommendations of the NCEP Adult Treatment Panel for the following risk-cutoff thresholds for the [place] population. Performed By: #### L 100.0100, L501.4021 #### [facility] Laboratory [address] [place], [address] Cholesterol in HDL [Mass/Vol] 79 mg/dL Normal [facility] Comment on above: Result Comment: Colleen onal Cholesterol Education Program (NCEP) guidelines: <40 mg/dL: Low HDL-cholesterol (major risk factor for CHD) >= 60 mg/dL: High HDL-cholesterol (negative risk factor for CHD) HDL-cholesterol is affected by a number of factors, e.g. smoking, exercise, hormones, sex and age. Performed By: #### L 100.0100, L501.4021 #### [facility] Laboratory [address] [place], [address] Cholesterol in LDL [Mass/Vol] 85 mg/dL Normal [facility] Comment on above: Result Comment: Bord tgfwgg=064-346 mg/dL Higher Upqw=687 mg/dL or greater Performed By: #### L 100.0100, L501.4021 #### [facility] Laboratory [address] [place], [address] Cholesterol in VLDL [Mass/Vol] 21 mg/dL Normal 5-40 [facility] Comment on above: Performed By: #### L 100.0100, L501.4021 #### [facility] Laboratory [address] [place], [address] Triglyceride [Mass/Vol] 103 mg/dL Normal [facility] Comment on above: Result Comment: The drugs N-Acetylcysteine and Metamizole may falsely depress this assay. Normal range: <150 mg/dL Borderline High: 150-199 mg/dL High: 200-499 mg/dL Very High: >500 mg/dL Performed By: #### L 100.0100, L501.4021 #### [facility] Laboratory [address] [place], [address] Liver Profileon 07-08-2024 Albumin [Mass/Vol] 4.4 g/dL Normal 3.4-4.8 [facility] Comment on above: Performed By: #### L 7000.7000 #### [facility] Laboratory [address] [place], [address] ALK PHOS 111 U/L High 35-104 [facility] Comment on above: Performed By: #### L 6999.700 #### [facility] Laboratory [address] [place], [address] ALT [Catalytic activity/Vol] 13 U/L Normal <=34 [facility] Comment on above: Performed By: #### L 6999.700 #### [facility] Laboratory [address] [place], [address] AST [Catalytic activity/Vol] 24 U/L Normal <=31 [facility] Comment on above: Performed By: #### L 6999.6999 #### [facility] Laboratory [address] [place], [address] Bilirubin [Mass/Vol] 0.64 mg/dL Normal 0.00-1.30 [facility] Comment on above: Performed By: #### L 6999.6999 #### [facility] Laboratory [address] [place], [address] Bilirubin.direct [Mass/Vol] 0.29 mg/dL Normal 0.00-0.30 [facility] Comment on above: Performed By: #### L 6999.6999 #### [facility] Laboratory [address] [place], [address] Globulin (S) [Mass/Vol] 3.3 g/dL Normal 2.2-4.2 [facility] Comment on above: Performed By: #### L 6999.700 #### [facility] Laboratory [address] [place], [address] T PROT 7.7 g/dL Normal 5.9-8.4 [facility] Comment on above: Performed By: #### L 6999.700 #### [facility] Laboratory [address] [place], [address] Lymphocytes Auto (Unsp spec) [#/Vol]Ordered By: Yaron Aranda on 07-08-2024 Lymphocytes (Bld) [#/Vol] 1.86 10*3/uL 0.83-4.51 [facility] Lymphocytes/100 WBC Auto (Un sp spec)Ordered By: Yaron Aranda on 07-08-2024 Lymphocytes/100 WBC (Bld) 17.0 % Low 19-41 [facility] MCV (mean corpuscular volume ) determinationOrdered By: Yaron Aranda on 07-08-2024 MCV (RBC) [Entitic vol] 96.9 fL 81-99 [facility] Mean corpuscular hemoglobin (MCH) determinationOrdered By: Yaron Aranda on 07-08-2024 MCH (RBC) [Entitic mass] 33.9 pg High 27.0-32.0 [facility] Mean corpuscular hemoglobin concentration (MCHC) determinationOrdered By: Yaron Aranda on 07-08-2024 MCHC (RBC) [Mass/Vol] 35.0 g/dL 32-36 [facility] Mean platelet volume determi nationOrdered By: Yaron Aranda on 07-08-2024 Platelet mean volume (Bld) [Entitic vol] 11.0 fL 6.2-12.0 [facility] Monocyte percentageOrdered B y: Yaron Aranda on 07-08-2024 Monocytes/100 WBC (Bld) 7.9 % 0-10 [facility] Neutrophil percentageOrdered By: Yaron Aranda on 07-08-2024 Neutrophils/100 WBC (Bld) 71.9 % High 47-70 [facility] Nucleated red blood cell per centageOrdered By: Yaron Aranda on 07-08-2024 Nucleated RBC/100 WBC (Bld) [Ratio] 0 % 0-5 [facility] Platelet countOrdered By: Yogesh Aranda on 07-08-2024 Platelets (Bld) [#/Vol] 281 10*3/uL 150-450 [facility] Potassium (Unsp spec) [Mass/ Vol]Ordered By: Yaron Aranda on 07-08-2024 Potassium [Moles/Vol] 3.6 mmol/L 3.3-5.1 [facility] RBC Auto (Bld) [#/Vol]Ordere d By: Yaron Aranda on 07-08-2024 RBC (Bld) [#/Vol] 4.51 10*6/uL 4.2-5.4 [facility] Serum creatinine measurement (mass/volume)Ordered By: Yaron Aranda on 07-08-2024 Creatinine [Mass/Vol] 0.77 mg/dL 0.70-1.20 [facility] Serum globulin measurementOr dered By: Yaron Aranda on 07-08-2024 Globulin (S) [Mass/Vol] 3.3 g/dL 2.2-4.2 [facility] Serum glucose measurement (m ass/volume)Ordered By: Yaron Aranda on 07-08-2024 Glucose [Mass/Vol] 118 mg/dL High 70-99 [facility] Serum or plasma alanine blackburn otransferase (ALT) measurementOrdered By: Yaron Aranda on 07-08-2024 ALT [Catalytic activity/Vol] 13 U/L <35 [facility] Serum or plasma albumin cecy urement (mass/volume)Ordered By: Yaron Aranda on 07-08-2024 Albumin [Mass/Vol] 4.4 g/dL 3.4-4.8 [facility] Serum or plasma alkaline yakelin sphatase measurementOrdered By: Yaron Aranda on 07-08-2024 ALP [Catalytic activity/Vol] 111 U/L High 35-104 [facility] Serum or plasma calcium cecy urement (mass/volume)Ordered By: Yaron Aranda on 07-08-2024 Calcium [Mass/Vol] 9.6 mg/dL 7.6-11.0 [facility] Serum or plasma urea nitroge n measurement (mass/volume)Ordered By: Yaron Aranda on 07-08-2024 Urea nitrogen [Mass/Vol] 13 mg/dL 4-19 [facility] Sodium levelOrdered By: Yaron Aranda on 07-08-2024 Sodium [Moles/Vol] 138 mmol/L 133-145 [facility] Total proteinOrdered By: Eric Aranda on 07-08-2024 Protein [Mass/Vol] 7.7 g/dL 5.9-8.4 [facility] Troponin T.cardiac High sens itivity method [Mass/Vol]Ordered By: Yaron Aranda on 07-08-2024 Troponin T High Sensitivity 2 Hour < 6 ng/L <14 [facility] Troponin T High Sensitivity < 6 ng/L <14 [facility] Troponin T.cardiac [Mass/vol ume] in Serum or Plasma by High sensitivity methodOrdered By: Nilesh Davenport on 07-08-2024 Troponin T.cardiac High sensitivity method [Mass/Vol] < 6 ng/L <14 [facility] Troponin T.cardiac [Mass/vol ume] in Serum or Plasma by High sensitivity methodOrdered By: Yaron Aranda on 07-08-2024 Troponin T.cardiac High sensitivity method [Mass/Vol] < 6 ng/L <14 [facility] Urgent Care Visit Reporton 0 07-08-2024 Urgent Care Visit Report [facility] [address], [address] [place] [address] OFFICE VISIT Date of Service: 07/08/24 MR#: [id number] Acct: [id number] Name: CIERRA FUENTES Rep #: [id number] : 1960 Provider: RODOLFO Collins Age/Sex: 64/F Location: [facility] Status: Signed Intake Vital Signs 04/18/23 14:39 07/08/24 08:30 Height 5 ft 4 in 5 ft 4 in Intake Visit Reasons: CHEST CONGESTION Chief Complaint: consult breast lift, chin area, arms Allergies No Known Allergies Allergy (Verified 07/08/24 08:30) [facility] Medical History Seizures GERD (gastroesophageal reflux disease) History of seizures Knee pain Surgical History No history of previous surgery Family History Mother Arthritis Cancer Sister Arthritis Father Arthritis CVA (cerebral vascular accident) Other Myocardial infarction Social History Smoking Status: Current every day smoker tobacco type: cigarettes how long ago did patient quit smoking: pack a day alcohol intake: current alcohol intake frequency: 0-2 drinks per day Alcohol type: wine details: daily substance use type: does not use additional social history: pt denies vaping, denies marijuana use, denies edibles, denies aspirin use Uses ibuprofen as needed smokes a pack a day, daily consumption alcohol HPI HPI Chief Complaint: consult breast lift, chin area, arms Details: CIERRA FUENTES, is a 64 F who presents to the office today for NO SHOW Coding Level of Care Code No Charge 07/08/24 1010 Date Sage Hernandez Signature: Date (if applicable) CC: Normal [facility] White blood cell (WBC) count Ordered By: Yaron Aranda on 07-08-2024 WBC (Bld) [#/Vol] 11.0 10*3/uL 4.4-11.0 [facility] 36on 02-13-2024 36 Call to pt, informed Post Treatment VL remained Not Detected, therefore has achieved SVR and is CURED! Results mailed to home as discussed. Verbalized understanding and gratitude [facility] 36 Call back to [facility], spoke with Julianna, confirmed VL was drawn 02/05/2024 and resulted, will fax today [facility] 36on 02-12-2024 36 Call from pt, asking about post treatment VL results. Informed have not yet receive. Stated she had drawn last week at [facility] Main Lab Call to [facility], spoke with Tiffany, requested results, will fax to office [facility] Hepatitis C,RNA PCR Viral Lo hand wood sander 02-08-2024 HCV log 10 TNP Normal . [facility] Comment on above: Performed By: #### L 7000.7000 #### [facility] [address] [place], [place], [address] HCV QT RNA PCR Not detected Normal . [facility] Comment on above: Performed By: #### L 7000.7000 #### [facility] [address] [place], [place], [id number] TEST INFO: Comment Normal . [facility] Comment on above: Result Comment: The quantitative range of this assay is 15 IU/mL to 100 million IU/mL. Performed at: [address] [id number] Meeting Manager: Sterling Arguello MD, Phone: [phone] Performed By: #### L 7000.7000 #### [facility] [address] [place], [place], [address] 36on 01-25-2024 36 Call to pt, informed it is time for the Post Treatment VL since completing HCV treatment about 12 weeks ago. Had agreed to mail order so she can have drawn at lab closer to home. Verbalized understanding and agreement, order placed and mailed [facility] 36on 11-21-2023 36 Call to pt, victoriano newsome, john VM regarding 12 week lab results. Requested call back with questions [facility] CBC W Auto Differential pane l (Bld)on 11-15-2023 Basophils (Bld) [#/Vol] 0.1 10*3/uL 0.0 - 0.2 10*3/uL [facility] Basophils/100 WBC (Bld) 0.7 % 0.0 - 2.0 % [facility] Eosinophils (Bld) [#/Vol] 0.2 10*3/uL 0.0 - 0.5 10*3/uL [facility] Eosinophils/100 WBC (Bld) 2.7 % 0.0 - 6.0 % [facility] Erythrocyte distribution width (RBC) [Ratio] 11.5 % 11.5 - 15.0 % [facility] Hematocrit (Bld) [Volume fraction] 41.4 % 35.0 - 47.0 % [facility] Hemoglobin (Bld) [Mass/Vol] 14.3 g/dL 11.7 - 16.0 g/dL [facility] Immature granulocytes (Bld) [#/Vol] 0.0 10*3/uL NINF - 0.1 10*3/uL [facility] Immature granulocytes/100 WBC (Bld) 0.1 % 0.0 - 2.0 % [facility] Interpretation and review of laboratory results Abnormal [facility] Lymphocytes (Bld) [#/Vol] 2.6 10*3/uL 1.0 - 4.3 10*3/uL [facility] Lymphocytes/100 WBC (Bld) 31.3 % 15.0 - 45.0 % [facility] MCH (RBC) [Entitic mass] 32.9 pg 26.0 - 34.0 pg [facility] MCHC (RBC) [Mass/Vol] 34.5 % 30.5 - 36.0 % [facility] MCV (RBC) [Entitic vol] 95.2 fL 77.0 - 99.0 fL [facility] Monocytes (Bld) [#/Vol] 0.4 10*3/uL 0.0 - 0.9 10*3/uL [facility] Monocytes/100 WBC (Bld) 4.7 % Low 5.0 - 13.0 % [facility] Neutrophils (Bld) [#/Vol] 5.1 10*3/uL 1.8 - 7.5 10*3/uL [facility] Neutrophils/100 WBC (Bld) 60.5 % 38.0 - 82.0 % [facility] Nucleated RBC/100 WBC (Bld) [Ratio] 0.0 % [facility] Platelet mean volume (Bld) [Entitic vol] 11.8 fL 9.0 - 12.7 fL [facility] Platelets (Bld) [#/Vol] 310 10*3/uL 140 - 440 10*3/uL [facility] RBC (Bld) [#/Vol] 4.35 10*6/uL 3.80 - 5.2 0 10*6/uL [facility] WBC (Bld) [#/Vol] 8.4 10*3/uL 3.6 - 10.7 10*3/uL [facility] CBC WITH AUTO DIFFERENTIALon 11-15-2023 Basophils (Bld) [#/Vol] 0.1 10*3/uL Normal 0.0-0.2 [facility] Comment on above: Performed By: #### L [id number] #### Commodities Requirements Analyst: AMBER BAEZA ([id number]) [facility] ([facility]) [address] [place] [address] Basophils/100 WBC (Bld) 0.7 % Normal 0.0-2.0 [facility] Comment on above: Performed By: #### L [id number] #### Commodities Requirements Analyst: AMBER BAEZA ([id number]) [facility] ([facility]) [address] [place] [address] Eosinophils (Bld) [#/Vol] 0.2 10*3/uL Normal 0.0-0.5 [facility] Comment on above: Performed By: #### L [id number] #### Commodities Requirements Analyst: AMBER BAEZA ([id number]) [facility] ([facility]) [address] [place] [address] Eosinophils/100 WBC (Bld) 2.7 % Normal 0.0-6.0 [facility] Comment on above: Performed By: #### L [id number] #### Commodities Requirements Analyst: AMBER BAEZA ([id number]) [facility] ([facility]) [address] [place] [address] Erythrocyte distribution width (RBC) [Ratio] 11.5 % Normal 11.5-15.0 [facility] Comment on above: Performed By: #### L [id number] #### Commodities Requirements Analyst: AMBER BAEZA ([id number]) [facility]) [address] [place] [address] Hematocrit (Bld) [Volume fraction] 41.4 % Normal 35.0-47.0 [facility] Comment on above: Performed By: #### L [id number] #### Commodities Requirements Analyst: AMBER BAEZA ([id number]) [facility]) [address] [place] [address] Hemoglobin (Bld) [Mass/Vol] 14.3 g/dL Normal 11.7-16.0 [facility] Comment on above: Performed By: #### L [id number] #### Commodities Requirements Analyst: AMBER [id number]) [facility] ([facility]) [address] [place] [address] IMMATURE GRANS % 0.1 % Normal 0.0-2.0 [facility] Comment on above: Performed By: #### L [id number] #### Commodities Requirements Analyst: AMBER BAEZA ([id number]) [facility] ([facility]) [address] [place] [address] IMMATURE GRANS ABSOLUTE 0.0 10*3/uL Normal <0.1 [facility] Comment on above: Performed By: #### L [id number] #### Commodities Requirements Analyst: AMBER BAEZA ([id number]) [facility] ([facility]) [address] [place] [address] Lymphocytes (Bld) [#/Vol] 2.6 10*3/uL Normal 1.0-4.3 [facility] Comment on above: Performed By: #### L [id number] #### Commodities Requirements Analyst: AMBER BAEZA ([id number]) [facility] ([facility]) [address] [place] [address] Lymphocytes/100 WBC (Bld) 31.3 % Normal 15.0-45.0 [facility] Comment on above: Performed By: #### L [id number] #### Commodities Requirements Analyst: AMBER BAEZA ([id number]) [facility] ([facility]) [address] [place] [address] MCH (RBC) [Entitic mass] 32.9 pg Normal 26.0-34.0 [facility] Comment on above: Performed By: #### L [id number] #### Commodities Requirements Analyst: AMBER BAEZA ([id number]) [facility]) [address] [place] [address] MCHC 34.5 % Normal 30.5-36.0 [facility] Comment on above: Performed By: #### L [id number] #### Commodities Requirements Analyst: AMBER BAEZA ([id number]) [facility] ([facility]) [address] [place] [address] MCV (RBC) [Entitic vol] 95.2 fL Normal 77.0-99.0 [facility] Comment on above: Performed By: #### L [id number] #### Commodities Requirements Analyst: AMBER BAEZA ([id number]) [facility] ([facility]) [address] [place] [address] Monocytes (Bld) [#/Vol] 0.4 10*3/uL Normal 0.0-0.9 [facility] Comment on above: Performed By: #### L [id number] #### Commodities Requirements Analyst: AMBER BAEZA ([id number]) [facility] ([facility]) [address] [place] [address] Monocytes/100 WBC (Bld) 4.7 % Low 5.0-13.0 [facility] Comment on above: Performed By: #### L [id number] #### Commodities Requirements Analyst: AMBER BAEZA ([id number]) [facility] ([facility]) [address] [place] [address] NEUTROPHILS ABSOLUTE 5.1 10*3/uL Normal 1.8-7.5 [facility] Comment on above: Performed By: #### L [id number] #### Commodities Requirements Analyst: AMBER BAEZA ([id number]) [facility] ([facility]) [address] [place] [address] Neutrophils/100 WBC (Bld) 60.5 % Normal 38.0-82.0 [facility] Comment on above: Performed By: #### L [id number] #### Commodities Requirements Analyst: AMBER BAEZA ([id number]) [facility] ([facility]) [address] [place] [address] NRBC 0.0 /100 WBCs Normal 0.0-2.0 [facility] Comment on above: Performed By: #### L [id number] #### Commodities Requirements Analyst: AMBER BAEZA ([id number]) [facility] ([facility]) [address] [place] [address] Platelet mean volume (Bld) [Entitic vol] 11.8 fL Normal 9.0-12.7 [facility] Comment on above: Performed By: #### L [id number] #### Commodities Requirements Analyst: AMBER BAEZA ([id number]) [facility] ([facility]) [address] [place] [address] Platelets (Bld) [#/Vol] 310 10*3/uL Normal 140-440 [facility] Comment on above: Performed By: #### L [id number] #### Commodities Requirements Analyst: AMBER BAEZA ([id number]) [facility] ([facility]) [address] [place] [address] RBC (Bld) [#/Vol] 4.35 10*6/uL Normal 3.80-5.20 [facility] Comment on above: Performed By: #### L [id number] #### Commodities Requirements Analyst: AMBER BAEZA ([id number]) [facility] ([facility]) [address] [place] [address] WBC (Bld) [#/Vol] 8.4 10*3/uL Normal 3.6-10.7 [facility] Comment on above: Performed By: #### L [id number] #### Commodities Requirements Analyst: AMBER BAEZA ([id number]) [facility] ([facility]) [address] [place] [address] COMPREHENSIVE METABOLIC PANE Manuel 11-15-2023 Albumin [Mass/Vol] 4.1 g/dL Normal 3.5-5.0 [facility] Comment on above: Performed By: #### L [id number] ####Commodities Requirements Analyst: AMBER BAEZA ([id number])[facility] ([facility])[address] [place] [address] ALP [Catalytic activity/Vol] 113 U/L Normal 38-126 [facility] Comment on above: Performed By: #### L [id number] ####Commodities Requirements Analyst: AMBER BAEZA ([id number])[facility])[address] [place] [address] ALT [Catalytic activity/Vol] 14 U/L Normal 0-34 [facility] Comment on above: Performed By: #### L [id number] ####Commodities Requirements Analyst: AMBER BAEZA ([id number])[facility] ([facility])[address] [place] [address] Anion gap [Moles/Vol] 6 mmol/L Normal 3-13 [facility] Comment on above: Performed By: #### L [id number] ####Commodities Requirements Analyst: AMBER BAEZA ([id number])[facility] [place] [address] AST [Catalytic activity/Vol] 23 U/L Normal 15-46 [facility] Comment on above: Performed By: #### L [id number] ####Commodities Requirements Analyst: AMBER BAEZA ([id number])[facility] [place] [address] Bilirubin [Mass/Vol] 0.5 mg/dL Normal 0.2-1.3 [facility] Comment on above: Performed By: #### L [id number] ####Commodities Requirements Analyst: AMBER BAEZA ([id number])[facility] [place] [address] Calcium [Mass/Vol] 10.2 mg/dL Normal 8.4-10.4 [facility] Comment on above: Performed By: #### L [id number] ####Commodities Requirements Analyst: AMBER BAEZA ([id number])[facility] [place] [address] [place] Chloride [Moles/Vol] 104 mmol/L Normal 98-107 [facility] Comment on above: Performed By: #### L [id number] ####Commodities Requirements Analyst: AMBER BAEZA ([id number])[facility] ([facility])[address] [place] [address] [place] CO2 [Moles/Vol] 25 mmol/L Normal 22-30 [facility] Comment on above: Performed By: #### L [id number] ####Commodities Requirements Analyst: AMBER BAEZA ([id number])[facility] [place] [address] [place] Creatinine [Mass/Vol] 0.64 mg/dL Normal 0.52-1.04 [facility] Comment on above: Performed By: #### L [id number] ####Commodities Requirements Analyst: AMBER BAEZA ([id number])[facility])[address] [place] [address] GLOMERULAR FILTRATION RATE ML/MIN/1.73 SQ M.PREDICTED >90.0 Normal >60.0 [facility] Comment on above: Result Comment: Calc ulation based on the Chronic Kidney Disease Epidemiology Collaboration (CKD-EPI) equation refit without adjustment for race Performed By: #### L [id number] ####Commodities Requirements Analyst: AMBER BAEZA ([id number])[facility] ([facility])[address] [place] [address] Glucose [Mass/Vol] 141 mg/dL High 70-100 [facility] Comment on above: Performed By: #### L [id number] ####Commodities Requirements Analyst: AMBER BAEZA ([id number])[facility])[address] [place] [address] Potassium [Moles/Vol] 3.7 mmol/L Normal 3.5-5.1 [facility] Comment on above: Performed By: #### L [id number] ####Commodities Requirements Analyst: AMBER BAEZA ([id number])[facility])[address] [place] [address] Protein [Mass/Vol] 7.1 g/dL Normal 6.3-8.2 [facility] Comment on above: Performed By: #### L [id number] ####Commodities Requirements Analyst: AMBER BAEZA ([id number])[facility])[address] [place] [address] Sodium [Moles/Vol] 135 mmol/L Normal 135-145 [facility] Comment on above: Performed By: #### L [id number] ####Commodities Requirements Analyst: AMBER BAEZA ([id number])[facility])[address] [place] [address] [place] Urea nitrogen [Mass/Vol] 12 mg/dL Normal 7-17 [facility] Comment on above: Performed By: #### L [id number] ####Commodities Requirements Analyst: AMBER BAEZA ([id number])[facility] ([facility])[address] [place] [address] Comprehensive metabolic 1998 panelon 11-15-2023 Albumin [Mass/Vol] 4.1 g/dL 3.5 - 5.0 g/dL [facility] ALP [Catalytic activity/Vol] 113 U/L 38 - 126 U/L [facility] ALT [Catalytic activity/Vol] 14 U/L 0 - 34 U/L [facility] Anion gap [Moles/Vol] 6 mmol/L 3 - 13 mmol/L [facility] AST [Catalytic activity/Vol] 23 U/L 15 - 46 U/L [facility] Bilirubin [Mass/Vol] 0.5 mg/dL 0.2 - 1 .3 mg/dL [facility] Calcium [Mass/Vol] 10.2 mg/dL 8.4 - 10. 4 mg/dL [facility] Chloride [Moles/Vol] 104 mmol/L 98 - 10 7 mmol/L [facility] CO2 [Moles/Vol] 25 mmol/L 22 - 30 mmol/L [facility] Creatinine [Mass/Vol] 0.64 mg/dL 0.52 - 1.04 mg/dL [facility] GFR/1.73 sq M.predicted (S/P/Bld) [Vol rate/Area] - PINF [facility] Comment on above: Calculation based on the Chronic Kidney Disease Epidemiology Collaboration (CKD-EPI) equation refit without adjustment for race Glucose [Mass/Vol] 141 mg/dL High 70 - 100 mg/dL [facility] Interpretation and review of laboratory results Abnormal [facility] Potassium [Moles/Vol] 3.7 mmol/L 3.5 - 5.1 mmol/L [facility] Protein [Mass/Vol] 7.1 g/dL 6.3 - 8.2 g/dL [facility] Sodium [Moles/Vol] 135 mmol/L 135 - 145 mmol/L [facility] Urea nitrogen [Mass/Vol] 12 mg/dL 7 - 17 mg/dL [facility] HEPATITIS C VIRAL LOADon HCV RNA QUANT (ND) Not detected Normal <15 [facility] Comment on above: Performed By: #### L [id number] #### Commodities Requirements Analyst: AMBER BAEZA ([id number]) [facility] ([facility]) [address] [place] [address] HCV RNA QUANT LOG (ND) Not detected Normal <1.18 [facility] Comment on above: Result Comment: SHANNAN Newsome COMMENTS: The linear detection limit for this assay is 15 HCV IU/ml. A result of <15 IU (<1.18 log IU) indicates that HCV was detected, but at a level below the linear cutoff. A result of None Detected means that no HCV RNA was detected. This test is performed via rtPCR methodology. Performed By: #### L [id number] #### Commodities Requirements Analyst: AMBER BAEZA ([id number]) [facility] [address] [place] [address] Office Visiton 11-15-2023 Follow-up visit [id number] Cierra Fuentes 1960 F Date Provider Department Center 11/15/2023 56-SIGNS, DUSTIN J [facility] ID None Family History Problem Relation Age of Onset Arthritis Mother Cancer Mother Comments: brain Heart disease Father Family Status - Relation Status Age at Mother Father Level of Service:13357 [place] OFFICE/OUTPATIENT ESTABLISHED MOD MDM 30 MIN Reason for Visit and Comments: Hepatitis C [102] Follow-up [035833] - Completed 02/27 weeks treatment Normal [facility] Progress Noteon 11-15-2023 Progress Note [facility] Infectious Diseases Attending Outpatient Note Chief Complaint Patient presents with Hepatitis C Follow-up Completed 02/27 weeks treatment Subjective: Patient returns for end of treatment with 12 wks of Epclusa - Missed only one dose of 3 mos of Epclusa, took it properly with distance from her heartburn medicine. Side effects was very severe fatigue and brain fog for only a couple days about 5 d into medication. The rest of the time she felt normal energy and appetite and noted no GARCIA. She had documented UD VL at 6 wks of therapy, with normalized LFT.s that were >3 x nl pretreatment. 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 She acknowledges remote IDU but has not used in at least 3 decades. She assumed that at some point she was checked for Hepatitis viruses and did not specifically ask for testing. She has been well and very active, though admits to having severe obesity in the recent past but is now down to BMI of 25. Is in a [employer] wine club, and drinks about 2 glasses of wine per day- with diner after working extensive hours. She does not feel that she is addicted or dependent but is very reluctant to quit. She had routine screening for HCV by her PCP and it was discovered that she was Ab positive, so further viral load showed 1.2 mil copies, with genotype 1 virus. A US of the liver showed mild increased echogenicity but no masses. She denies any secondary extra-hepatic symptoms of Hep C such as arthritis, skin rashes or vasculitis. She has not had mental status changes such as problems with cognition or memory and has no tremors. Note that she does have epilepsy. Fibroscan showed F1/2 with no steatosis. Past Medical History: Diagnosis Date Alcohol dependence, daily use (HCC) 07/26/2023 Chronic hepatitis C without hepatic coma (CMS/HCC) (HCC) 07/26/2023 completed treatment History of morbid obesity 07/26/2023 Seizures (HCC) History reviewed. No pertinent surgical history. Current Outpatient Medications Medication Sig Dispense Refill acyclovir (Zovirax) 400 MG tablet Take 1 tablet by mouth daily. lamoTRIgine (LaMICtal XR) 300 mg tablet sustained-release 24 hour 24 hr tablet Take 1 tablet by mouth daily. levETIRAcetam XR (Keppra XR) 500 MG 24 hr tablet Take 3 tablets by mouth daily. nystatin (Mycostatin) 101517 UNIT/GM powder Apply topically 3 times daily. omeprazole (PriLOSEC) [address] capsule Take 20 mg by mouth in the morning. No current facility-administered medications for this visit. No Known Allergies Social History Socioeconomic History Marital status: Spouse name: Not on file Number of children: Not on file Years of education: Not on file Highest education level: Not on file Occupational History Not on file Tobacco Use Smoking status: Every Day Current packs/day: 1.00 Types: Cigarettes Smokeless tobacco: Never Substance and Sexual Activity Alcohol use: Yes Comment: 2 glasses/will not drink while on treatment Drug use: Not Currently Comment: IVDU/SRIRAM-cocaine mostly-none since 2004 Sexual activity: Yes Partners: Male Other Topics Concern Not on file Social History Narrative Not on file Social Determinants of Health Financial Resource Strain: Patient Unable To Answer (05/28/2023) Received from [facility] Overall Financial Resource Strain (CARDIA) Difficulty of Paying Living Expenses: Patient unable to answer Food Insecurity: No Food Insecurity (05/28/2023) Received from [facility] Hunger Vital Sign Worried About Running Out of Food in the Last Year: Never true Ran Out of Food in the Last Year: Never true Transportation Needs: No Transportation Needs (05/28/2023) Received from [facility] PRAPARE - Transportation Lack of Transportation (Medical): No Lack of Transportation (Non-Medical): No Physical Activity: Insufficiently Active (05/28/2023) Received from [facility] Exercise Vital Sign Days of Exercise per Week: 1 day Minutes of Exercise per Session: 30 min Stress: Stress Concern Present (05/28/2023) Received from [facility] [employer] [place] [facility] [employer] [facility] - Occupational Stress Questionnaire Feeling of Stress : To some extent Social Connections: Moderately Integrated (05/28/2023) Received from [facility], (more content not included)... Normal [facility] 36on 10-10-2023 36 Call to pt, informed of 6 week lab results, encouraged continued compliance with plan. Verbalized understanding and agreement Normal [facility] CBC WITH AUTO DIFFERENTIALon 10-04-2023 Basophils (Bld) [#/Vol] 0.0 10*3/uL Normal 0.0-0.2 [facility] Comment on above: Performed By: #### L [id number] #### Commodities Requirements Analyst: AMBER BAEZA ([id number]) [facility] ([facility]) [address] [place] [address] Basophils/100 WBC (Bld) 0.5 % Normal 0.0-2.0 [facility] Comment on above: Performed By: #### L [id number] #### Commodities Requirements Analyst: AMBER BAEZA ([id number]) [facility] ([facility]) [address] [place] [address] Eosinophils (Bld) [#/Vol] 0.2 10*3/uL Normal 0.0-0.5 [facility] Comment on above: Performed By: #### L [id number] #### Commodities Requirements Analyst: AMBER BAEZA ([id number]) [facility] ([facility]) [address] [place] [address] Eosinophils/100 WBC (Bld) 2.9 % Normal 0.0-6.0 [facility] Comment on above: Performed By: #### L [id number] #### Commodities Requirements Analyst: AMBER BAEZA ([id number]) [facility] ([facility]) [address] [place] [address] Erythrocyte distribution width (RBC) [Ratio] 11.3 % Low 11.5-15.0 [facility] Comment on above: Performed By: #### L [id number] #### Commodities Requirements Analyst: AMBER BAEZA ([id number]) [facility] ([facility]) [address] [place] [address] Hematocrit (Bld) [Volume fraction] 42.0 % Normal 35.0-47.0 [facility] Comment on above: Performed By: #### L [id number] #### Commodities Requirements Analyst: AMBER BAEZA ([id number]) [facility] ([facility]) [address] [place] [address] Hemoglobin (Bld) [Mass/Vol] 14.1 g/dL Normal 11.7-16.0 [facility] Comment on above: Performed By: #### L [id number] #### Commodities Requirements Analyst: AMBER BAEZA ([id number]) [facility]) [address] [place] [address] IMMATURE GRANS % 0.1 % Normal 0.0-2.0 [facility] Comment on above: Performed By: #### L [id number] #### Commodities Requirements Analyst: AMBER BAEZA ([id number]) [facility] ([facility]) [address] [place] [address] IMMATURE GRANS ABSOLUTE 0.0 10*3/uL Normal <0.1 [facility] Comment on above: Performed By: #### L [id number] #### Commodities Requirements Analyst: AMBER BAEZA ([id number]) [facility]) [address] [place] [address] Lymphocytes (Bld) [#/Vol] 2.3 10*3/uL Normal 1.0-4.3 [facility] Comment on above: Performed By: #### L [id number] #### Commodities Requirements Analyst: AMBER BAEZA ([id number]) [facility]) [address] [place] [address] Lymphocytes/100 WBC (Bld) 30.6 % Normal 15.0-45.0 [facility] Comment on above: Performed By: #### L [id number] #### Commodities Requirements Analyst: AMBER BAEZA ([id number]) [facility] ([facility]) [address] [place] [address] MCH (RBC) [Entitic mass] 32.6 pg Normal 26.0-34.0 [facility] Comment on above: Performed By: #### L [id number] #### Commodities Requirements Analyst: AMBER BAEZA ([id number]) [facility]) [address] [place] [address] MCHC 33.6 % Normal 30.5-36.0 [facility] Comment on above: Performed By: #### L [id number] #### Commodities Requirements Analyst: AMBER BAEZA ([id number]) [facility]) [address] [place] [address] MCV (RBC) [Entitic vol] 97.0 fL Normal 77.0-99.0 [facility] Comment on above: Performed By: #### L [id number] #### Commodities Requirements Analyst: AMBER BAEZA ([id number]) [facility]) [address] [place] [address] Monocytes (Bld) [#/Vol] 0.7 10*3/uL Normal 0.0-0.9 [facility] Comment on above: Performed By: #### L [id number] #### Commodities Requirements Analyst: AMBER BAEZA ([id number]) [facility] ([facility]) [address] [place] [address] Monocytes/100 WBC (Bld) 8.6 % Normal 5.0-13.0 [facility] Comment on above: Performed By: #### L [id number] #### Commodities Requirements Analyst: AMBER BAEZA ([id number]) [facility] ([facility]) [address] [place] [address] NEUTROPHILS ABSOLUTE 4.3 10*3/uL Normal 1.8-7.5 [facility] Comment on above: Performed By: #### L [id number] #### Commodities Requirements Analyst: AMBER BAEZA ([id number]) [facility] ([facility]) [address] [place] [address] Neutrophils/100 WBC (Bld) 57.3 % Normal 38.0-82.0 [facility] Comment on above: Performed By: #### L [id number] #### Commodities Requirements Analyst: AMBER BAEZA ([id number]) [facility] ([facility]) [address] [place] [address] NRBC 0.0 /100 WBCs Normal 0.0-2.0 [facility] Comment on above: Performed By: #### L [id number] #### Commodities Requirements Analyst: AMBER BAEZA ([id number]) [facility] ([facility]) [address] [place] [address] Platelet mean volume (Bld) [Entitic vol] 12.4 fL Normal 9.0-12.7 [facility] Comment on above: Performed By: #### L [id number] #### Commodities Requirements Analyst: AMBER BAEZA ([id number]) [facility] ([facility]) [address] [place] [address] [place] Platelets (Bld) [#/Vol] 293 10*3/uL Normal 140-440 [facility] Comment on above: Performed By: #### L [id number] #### Commodities Requirements Analyst: AMBER BAEZA ([id number]) [facility]) [address] [place] [address] RBC (Bld) [#/Vol] 4.33 10*6/uL Normal 3.80-5.20 [facility] Comment on above: Performed By: #### L [id number] #### Commodities Requirements Analyst: AMBER BAEZA ([id number]) [facility] ([facility]) [address] [place] [address] WBC (Bld) [#/Vol] 7.5 10*3/uL Normal 3.6-10.7 [facility] Comment on above: Performed By: #### L [id number] #### Commodities Requirements Analyst: AMBER BAEZA ([id number]) [facility] ([facility]) [address] [place] [address] COMPREHENSIVE METABOLIC PANE Manuel 10-04-2023 Albumin [Mass/Vol] 4.1 g/dL Normal 3.5-5.0 [facility] Comment on above: Performed By: #### L [id number] #### Commodities Requirements Analyst: AMBER BAEZA ([id number]) [facility] ([facility]) [address] [place] [address] ALP [Catalytic activity/Vol] 97 U/L Normal 38-126 [facility] Comment on above: Performed By: #### L [id number] #### Commodities Requirements Analyst: AMBER BAEZA ([id number]) [facility] ([facility]) [address] [place] [address] ALT [Catalytic activity/Vol] 14 U/L Normal 0-34 [facility] Comment on above: Performed By: #### L [id number] #### Commodities Requirements Analyst: AMBER BAEZA ([id number]) [facility] ([facility]) [address] [place] [address] Anion gap [Moles/Vol] 9 mmol/L Normal 3-13 [facility] Comment on above: Performed By: #### L [id number] #### Commodities Requirements Analyst: AMBER BAEZA ([id number]) [facility] ([facility]) [address] [place] [address] AST [Catalytic activity/Vol] 25 U/L Normal 15-46 [facility] Comment on above: Performed By: #### L [id number] #### Commodities Requirements Analyst: AMBER BAEZA ([id number]) [facility] ([facility]) [address] [place] [address] Bilirubin [Mass/Vol] 0.3 mg/dL Normal 0.2-1.[address] [facility] Comment on above: Performed By: #### L [id number] #### Commodities Requirements Analyst: AMBER BAEZA ([id number]) [facility] ([facility]) [address] [place] [address] Calcium [Mass/Vol] 9.9 mg/dL Normal 8.4-10.4 [facility] Comment on above: Performed By: #### L [id number] #### Commodities Requirements Analyst: AMBER BAEZA ([id number]) [facility] ([facility]) [address] [place] [address] [place] Chloride [Moles/Vol] 103 mmol/L Normal 98-107 [facility] Comment on above: Performed By: #### L [id number] #### Commodities Requirements Analyst: AMBER BAEZA ([id number]) [facility] ([facility]) [address] [place] [address] [place] CO2 [Moles/Vol] 28 mmol/L Normal 22-30 [facility] Comment on above: Performed By: #### L [id number] #### Commodities Requirements Analyst: AMBER BAEZA ([id number]) [facility] ([facility]) [address] [place] [address] [place] Creatinine [Mass/Vol] 0.66 mg/dL Normal 0.52-1.04 [facility] Comment on above: Performed By: #### L [id number] #### Commodities Requirements Analyst: AMBER BAEZA ([id number]) [facility] [address] GLOMERULAR FILTRATION RATE ML/MIN/1.73 SQ M.PREDICTED >90.0 Normal >60.0 [facility] Comment on above: Result Comment: Calc ulation based on the Chronic Kidney Disease Epidemiology Collaboration (CKD-EPI) equation refit without adjustment for race Performed By: #### L [id number] #### Commodities Requirements Analyst: AMBER BAEZA ([id number]) [facility]) [address] [place] [address] Glucose [Mass/Vol] 88 mg/dL Normal 70-100 [facility] Comment on above: Performed By: #### L [id number] #### Commodities Requirements Analyst: AMBER BAEZA ([id number]) [facility]) [address] [place] [address] Potassium [Moles/Vol] 3.7 mmol/L Normal 3.5-5.1 [facility] Comment on above: Performed By: #### L [id number] #### Commodities Requirements Analyst: AMBER BAEZA ([id number]) [facility] ([facility]) [address] [place] [address] Protein [Mass/Vol] 7.0 g/dL Normal 6.3-8.2 [facility] Comment on above: Performed By: #### L [id number] #### Commodities Requirements Analyst: AMBER BAEZA ([id number]) [facility]) [address] [place] [address] Sodium [Moles/Vol] 139 mmol/L Normal 135-145 [facility] Comment on above: Performed By: #### L [id number] #### Commodities Requirements Analyst: AMBER BAEZA ([id number]) [facility]) [address] [place] [address] Urea nitrogen [Mass/Vol] 14 mg/dL Normal 7-17 [facility] Comment on above: Performed By: #### L [id number] #### Commodities Requirements Analyst: AMBER BAEZA ([id number]) [facility]) [address] [place] [address] HEPATITIS C VIRAL LOADon HCV RNA QUANT (ND) Not detected Normal <15 [facility] Comment on above: Performed By: #### L [id number] #### Commodities Requirements Analyst: AMBER BAEZA ([id number]) [facility]) [address] [place] [address] HCV RNA QUANT LOG (ND) Not detected Normal <1.18 [facility] Comment on above: Result Comment: SHANNAN Newsome COMMENTS: The linear detection limit for this assay is 15 HCV IU/ml. A result of <15 IU (<1.18 log IU) indicates that HCV was detected, but at a level below the linear cutoff. A result of None Detected means that no HCV RNA was detected. This test is performed via rtPCR methodology. Performed By: #### L [id number] #### Commodities Requirements Analyst: AMBER BAEZA ([id number]) [facility] ([facility]) [address] [place] [address] Progress Noteon 10-04-2023 Progress Note Here today for week 6/12 assessment on HCV treatment with Epclusa. Reports one missed dose. Initially was tired/fatigued starting the second week, decided to keep dosing schedule the same, tiredness and fatigue resolved and no longer having any noticeable S/E. Confirmed spacing the omeprazole 4 hrs from Epclusa. Received second fill without problems. Has follow up scheduled in [address] Castellanos. Discussed lab monitoring, importance of compliance with treatment plan until achieves SVR and reminded to contact office with any problems, questions and/or new medications. Labs drawn first attempt right basilic and taken to Main [facility] lab per request. Normal [facility] 08-28-2023 36 Call from pt, she is on week 2 of Epclusa and has experienced sleepiness the last 4 days. Reports she is having a difficult time staying awake. Stated she is drinking plenty of liquids, no other S/E. Suggested she change the dosing time to am, take Omeprazole 4 hrs after the Epclusa. Start tomorrow morning, drink plenty of fluids/water. Call office with update and any problems or questions. Verbalized understanding and agreement Normal [facility] 08-21-2023 36 Call back to pt, confirmed she received meds and started last pm. Discussed Epclusa in detail; med regime, potential S/E, ADRs, DDIs, take omeprazole at least 4 hrs after Epclusa, needed follow up, labs, calendar, call office with any problems, questions and/or new medications. Scheduled follow up appt, and mailed calendar. Verbalized understanding of all information discussed and agreement with plan [facility] 3608-17-2023 36 All back from pt, reported she is on her way to the [employer] a few blocks from where she works. The package was delivered there by mistake, but an employee signed and notified her of the delivery. Stated she plans to start Sunday. Discussed Epclusa in detail, med regime, potential S/E, ADRs, DDIs, space omeprazole 4 hrs after Epclusa, needed lab monitoring, follow up and calendar. Will call on Sunday, reinforce teaching, discuss calendar and schedule appt. Instructed to call office if unable to pick meds up. 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 Contacted [facility], originally was set up for no signature required, was told by [employer] only [place] can change the shipping address. Informed will call [facility] to attempt to resolve the issue and get her meds. Call to [facility], spoke with Erika, informed of above. Given preferred shipping address of [facility]'s office; [address] [place] [address]. 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 They will contact pt with updated information. Call back to pt, informed of above, verbalized understanding and gratitude, will call back to office when meds received. Planning to start 08/20/2023 [facility] 3608-14-2023 36 Call to sean Holden with [facility], confirmed switchboard operator receptionist of information, had spoken with pt Sunday, Epclusa was shipped today with delivery on , 08/16/2023 Call to pt, no answer, left requesting call back to office on or Sunday to confirm switchboard operator receptionist of Epclusa and set up treatment calendar [address] 08-09-2023 36 Faxed intake form to [facility] [address] 08-07-2023 36 Thank You [address] 08-06-2023 36 Obtained Epclusa animal cop ay card to help reduce the copay to $5 per month. Information is listed below. BIN: [id number] PCN: [id number] ID: [id number] Group: [id number] [address] 08-03-2023 36 Per Test claim - patient is mandated to fill with [facility]. Test claim states that brand name Epclusa is covered. [address] 08-01-2023 36 Work up complete, intial request for name brand Epclusa, as mandated by [facility], sent to [facility] via CoverMyMeds for PA [place]: [id number] [facility] and dispense [facility] CBC W Auto Differential pane l (Bld)on 07-26-2023 Basophils (Bld) [#/Vol] 0.1 10*3/uL 0.0 - 0.2 10*3/uL [facility] Basophils/100 WBC (Bld) 0.9 % 0.0 - 2.0 % [facility] Eosinophils (Bld) [#/Vol] 0.1 10*3/uL 0.0 - 0.5 10*3/uL [facility] Eosinophils/100 WBC (Bld) 1.2 % 0.0 - 6.0 % [facility] Erythrocyte distribution width (RBC) [Ratio] 12.1 % 11.5 - 15.0 % [facility] Hematocrit (Bld) [Volume fraction] 42.7 % 35.0 - 47.0 % [facility] Hemoglobin (Bld) [Mass/Vol] 14.6 g/dL 11.7 - 16.0 g/dL [facility] Immature granulocytes (Bld) [#/Vol] 0.0 10*3/uL NINF - 0.1 10*3/uL [facility] Immature granulocytes/100 WBC (Bld) 0.2 % 0.0 - 2.0 % [facility] Interpretation and review of laboratory results Normal [facility] Lymphocytes (Bld) [#/Vol] 1.7 10*3/uL 1.0 - 4.3 10*3/uL [facility] Lymphocytes/100 WBC (Bld) 28.5 % 15.0 - 45.0 % [facility] MCH (RBC) [Entitic mass] 33.3 pg 26.0 - 34.0 pg [facility] MCHC (RBC) [Mass/Vol] 34.2 % 30.5 - 36.0 % [facility] MCV (RBC) [Entitic vol] 97.3 fL 77.0 - 99.0 fL [facility] Monocytes (Bld) [#/Vol] 0.5 10*3/uL 0.0 - 0.9 10*3/uL [facility] Monocytes/100 WBC (Bld) 9.3 % 5.0 - 13.0 % [facility] Neutrophils (Bld) [#/Vol] 3.5 10*3/uL 1.8 - 7.5 10*3/uL [facility] Neutrophils/100 WBC (Bld) 59.9 % 38.0 - 82.0 % [facility] [facility] Nucleated RBC/100 WBC (Bld) [Ratio] 0.0 % [facility] Platelet mean volume (Bld) [Entitic vol] 12.4 fL 9.0 - 12.7 fL [facility] Platelets (Bld) [#/Vol] 237 10*3/uL 140 - 440 10*3/uL [facility] RBC (Bld) [#/Vol] 4.39 10*6/uL 3.80 - 5.2 0 10*6/uL [facility] WBC (Bld) [#/Vol] 5.8 10*3/uL 3.6 - 10.7 10*3/uL [facility] CBC WITH AUTO DIFFERENTIALon 07-26-2023 Basophils (Bld) [#/Vol] 0.1 10*3/uL Normal 0.0-0.2 [facility] Comment on above: Performed By: #### L [id number] #### Commodities Requirements Analyst: AMBER BAEZA ([id number]) [facility] ([facility]) [address] [place] [address] [place] Basophils/100 WBC (Bld) 0.9 % Normal 0.0-2.0 [facility] Comment on above: Performed By: #### L [id number] #### Commodities Requirements Analyst: AMBER BAEZA ([id number]) [facility] ([facility]) [address] [place] [address] [place] Eosinophils (Bld) [#/Vol] 0.1 10*3/uL Normal 0.0-0.5 [facility] Comment on above: Performed By: #### L [id number] #### Commodities Requirements Analyst: AMBER BAEZA ([id number]) [facility]) [address] [place] [address] Eosinophils/100 WBC (Bld) 1.2 % Normal 0.0-6.0 [facility] Comment on above: Performed By: #### L [id number] #### Commodities Requirements Analyst: AMBER BAEZA ([id number]) [facility] ([facility]) [address] [place] [address] Erythrocyte distribution width (RBC) [Ratio] 12.1 % Normal 11.5-15.0 [facility] Comment on above: Performed By: #### L [id number] #### Commodities Requirements Analyst: AMBER BAEZA ([id number]) [facility]) [address] [place] [address] Hematocrit (Bld) [Volume fraction] 42.7 % Normal 35.0-47.0 [facility] Comment on above: Performed By: #### L [id number] #### Commodities Requirements Analyst: AMBER BAEZA ([id number]) [facility]) [address] [place] [address] Hemoglobin (Bld) [Mass/Vol] 14.6 g/dL Normal 11.7-16.0 [facility] Comment on above: Performed By: #### L [id number] #### Commodities Requirements Analyst: AMBER BAEZA ([id number]) [facility] ([facility]) [address] [place] [address] IMMATURE GRANS % 0.2 % Normal 0.0-2.0 [facility] Comment on above: Performed By: #### L [id number] #### Commodities Requirements Analyst: AMBER BAEZA ([id number]) [facility]) [address] [place] [address] IMMATURE GRANS ABSOLUTE 0.0 10*3/uL Normal <0.1 [facility] Comment on above: Performed By: #### L [id number] #### Commodities Requirements Analyst: AMBER BAEZA ([id number]) [facility]) [address] [place] [address] Lymphocytes (Bld) [#/Vol] 1.7 10*3/uL Normal 1.0-4.3 [facility] Comment on above: Performed By: #### L [id number] #### Commodities Requirements Analyst: AMBER BAEZA ([id number]) [facility]) [address] [place] [address] Lymphocytes/100 WBC (Bld) 28.5 % Normal 15.0-45.0 [facility] Comment on above: Performed By: #### L [id number] #### Commodities Requirements Analyst: AMBER BAEZA ([id number]) [facility]) [address] [place] [address] MCH (RBC) [Entitic mass] 33.3 pg Normal 26.0-34.0 [facility] Comment on above: Performed By: #### L [id number] #### Commodities Requirements Analyst: AMBER BAEZA ([id number]) [facility]) [address] [place] [address] MCHC 34.2 % Normal 30.5-36.0 [facility] Comment on above: Performed By: #### L [id number] #### Commodities Requirements Analyst: AMBER BAEZA ([id number]) [facility]) [address] [place] [address] MCV (RBC) [Entitic vol] 97.3 fL Normal 77.0-99.0 S [facility] Comment on above: Performed By: #### L [id number] #### Commodities Requirements Analyst: AMBER BAEZA ([id number]) [facility] ([facility]) [address] [place] [address] Monocytes (Bld) [#/Vol] 0.5 10*3/uL Normal 0.0-0.9 [facility] Comment on above: Performed By: #### L [id number] #### Commodities Requirements Analyst: AMBER BAEZA ([id number]) [facility] ([facility]) [address] [place] [address] Monocytes/100 WBC (Bld) 9.3 % Normal 5.0-13.0 [facility] Comment on above: Performed By: #### L [id number] #### Commodities Requirements Analyst: AMBER BAEZA ([id number]) [facility] ([facility]) [address] [place] [address] NEUTROPHILS ABSOLUTE 3.5 10*3/uL Normal 1.8-7.5 [facility] Comment on above: Performed By: #### L [id number] #### Commodities Requirements Analyst: AMBER BAEZA ([id number]) [facility] ([facility]) [address] [place] [address] Neutrophils/100 WBC (Bld) 59.9 % Normal 38.0-82.0 [facility] Comment on above: Performed By: #### L [id number] #### Commodities Requirements Analyst: AMBER BAEZA ([id number]) [facility] ([facility]) [address] [place] [address] NRBC 0.0 /100 WBCs Normal 0.0-2.0 [facility] Comment on above: Performed By: #### L [id number] #### Commodities Requirements Analyst: AMBER BAEZA ([id number]) [facility] ([facility]) [address] [place] [address] Platelet mean volume (Bld) [Entitic vol] 12.4 fL Normal 9.0-12.7 [facility] Comment on above: Performed By: #### L [id number] #### Commodities Requirements Analyst: AMBER BAEZA ([id number]) [facility] ([facility]) [address] [place] [address] Platelets (Bld) [#/Vol] 237 10*3/uL Normal 140-440 [facility] Comment on above: Performed By: #### L [id number] #### Commodities Requirements Analyst: AMBER BAEZA ([id number]) [facility] ([facility]) [address] [place] [address] RBC (Bld) [#/Vol] 4.39 10*6/uL Normal 3.80-5.20 [facility] Comment on above: Performed By: #### L [id number] #### Commodities Requirements Analyst: AMBER BAEZA ([id number]) [facility] ([facility]) [address] [place] [address] WBC (Bld) [#/Vol] 5.8 10*3/uL Normal 3.6-10.7 [facility] Comment on above: Performed By: #### L [id number] #### Commodities Requirements Analyst: AMBER BAEZA ([id number]) [facility] ([facility]) [address] [place] [address] COMPREHENSIVE METABOLIC PANE Manuel 07-26-2023 Albumin [Mass/Vol] 3.9 g/dL Normal 3.5-5.0 [facility] Comment on above: Performed By: #### L [id number] #### Commodities Requirements Analyst: AMBER BAEZA ([id number]) [facility] ([facility]) [address] [place] [address] ALP [Catalytic activity/Vol] 140 U/L High 38-126 [facility] Comment on above: Performed By: #### L [id number] #### Commodities Requirements Analyst: AMBER BAEZA ([id number]) [facility]) [address] [place] [address] ALT [Catalytic activity/Vol] 106 U/L High 0-34 [facility] Comment on above: Performed By: #### L [id number] #### Commodities Requirements Analyst: AMBER BAEZA ([id number]) [facility] ([facility]) [address] [place] [address] Anion gap [Moles/Vol] 8 mmol/L Normal 3-13 [facility] Comment on above: Performed By: #### L [id number] #### Commodities Requirements Analyst: AMBER BAEZA ([id number]) [facility] ([facility]) [address] [place] [address] AST [Catalytic activity/Vol] 78 U/L High 15-46 [facility] Comment on above: Performed By: #### L [id number] #### Commodities Requirements Analyst: AMBER BAEZA ([id number]) [facility] ([facility]) [address] [place] [address] Bilirubin [Mass/Vol] 0.6 mg/dL Normal 0.2-1.3 [facility] Comment on above: Performed By: #### L [id number] #### Commodities Requirements Analyst: AMBER BAEZA ([id number]) [facility]) [address] [place] [address] Calcium [Mass/Vol] 9.8 mg/dL Normal 8.4-10.4 [facility] Comment on above: Performed By: #### L [id number] #### Commodities Requirements Analyst: AMBER BAEZA ([id number]) [facility] ([facility]) [address] [place] [address] [place] Chloride [Moles/Vol] 103 mmol/L Normal 98-107 [facility] Comment on above: Performed By: #### L [id number] #### Commodities Requirements Analyst: AMBER BAEZA ([id number]) [facility] ([facility]) [address] [place] [address] [place] CO2 [Moles/Vol] 23 mmol/L Normal 22-30 [facility] Comment on above: Performed By: #### L [id number] #### Commodities Requirements Analyst: AMBER BAEZA ([id number]) [facility] ([facility]) [address] [place] [address] [place] Creatinine [Mass/Vol] 0.63 mg/dL Normal 0.52-1.04 [facility] Comment on above: Performed By: #### L [id number] #### Commodities Requirements Analyst: AMBER BAEZA ([id number]) [facility] ([facility]) [address] [place] [address] GLOMERULAR FILTRATION RATE ML/MIN/1.73 SQ M.PREDICTED >90.0 Normal >60.0 [facility] Comment on above: Result Comment: Calc ulation based on the Chronic Kidney Disease Epidemiology Collaboration (CKD-EPI) equation refit without adjustment for race Performed By: #### L [id number] #### Commodities Requirements Analyst: AMBER BAEZA ([id number]) [facility] ([facility]) [address] [place] [address] Glucose [Mass/Vol] 86 mg/dL Normal 70-100 [facility] Comment on above: Performed By: #### L [id number] #### Commodities Requirements Analyst: AMBER BAEZA ([id number]) [facility] ([facility]) [address] [place] [address] Potassium [Moles/Vol] 3.8 mmol/L Normal 3.5-5.1 [facility] Comment on above: Performed By: #### L [id number] #### Commodities Requirements Analyst: AMBER BAEZA ([id number]) [facility] ([facility]) [address] [place] [address] Protein [Mass/Vol] 7.2 g/dL Normal 6.3-8.2 [facility] Comment on above: Performed By: #### L [id number] #### Commodities Requirements Analyst: AMBER BAEZA ([id number]) [facility] ([facility]) [address] [place] [address] [place] Sodium [Moles/Vol] 134 mmol/L Low 135-145 [facility] Comment on above: Performed By: #### L [id number] #### Commodities Requirements Analyst: AMBER BAEZA ([id number]) [facility] ([facility]) [address] [place] [address] [place] Urea nitrogen [Mass/Vol] 16 mg/dL Normal 7-17 [facility] Comment on above: Performed By: #### L [id number] #### Commodities Requirements Analyst: AMBER BAEZA ([id number]) [facility] ([facility]) [address] [place] [address] Comprehensive metabolic 1998 panelon 07-26-2023 Albumin [Mass/Vol] 3.9 g/dL 3.5 - 5.0 g/dL [facility] ALP [Catalytic activity/Vol] 140 U/L High 38 - 126 U/L [facility] ALT [Catalytic activity/Vol] 106 U/L High 0 - 34 U/L [facility] Anion gap [Moles/Vol] 8 mmol/L 3 - 13 mmol/L [facility] AST [Catalytic activity/Vol] 78 U/L High 15 - 46 U/L [facility] Bilirubin [Mass/Vol] 0.6 mg/dL 0.2 - 1 .3 mg/dL [facility] Calcium [Mass/Vol] 9.8 mg/dL 8.4 - 10. 4 mg/dL [facility] Chloride [Moles/Vol] 103 mmol/L 98 - 10 7 mmol/L [facility] CO2 [Moles/Vol] 23 mmol/L 22 - 30 mmol/L [facility] Creatinine [Mass/Vol] 0.63 mg/dL 0.52 - 1.04 mg/dL [facility] GFR/1.73 sq M.predicted MDRD (S/P/Bld) [Vol rate/Area] - PINF [facility] Comment on above: Calculation based on the Chronic Kidney Disease Epidemiology Collaboration (CKD-EPI) equation refit without adjustment for race Glucose [Mass/Vol] 86 mg/dL 70 - 100 mg/dL [facility] Interpretation and review of laboratory results Abnormal [facility] Potassium [Moles/Vol] 3.8 mmol/L 3.5 - 5.1 mmol/L [facility] Protein [Mass/Vol] 7.2 g/dL 6.3 - 8.2 g/dL [facility] Sodium [Moles/Vol] 134 mmol/L Low 135 - 145 mmol/L [facility] Urea nitrogen [Mass/Vol] 16 mg/dL 7 - 17 mg/dL [facility] Fibroscanon 07-26-2023 Considering the patient's history and recent liver tests, this 1). Liver Stiffness Score of 7.2 kPa is consistent with: Liver Fibrosis Stage F 1/2 mild to moderate liver fibrosis 2). Liver Fat Estimation: Patient had median Controlled Attenuation Parameter of 229 decibels/m (dB/m) the CAP Score is consistent with Liver Steatosis Stage S 0- no fatty liver disease /steatosis Interpretation: The CAP score is measured in decibels per meter (Db/m). It ranges from 100 to 400 Db/m. The table below shows ranges of CAP scores and the matching steatosis grade and amount of fatty change. Cap Score Steatosis Grade Amount of Liver with Fatty Change 238-260 dB/m S1 11 to 33% 260 to 290 Db/m S2 34 to 66% Higher than 290 Db/M S3 67% or more Your fibrosis result is a measurement of the amount of scarring in your liver. FibroScan measures scarring by measuring the stiffness of your liver. The fibrosis result is measured in kilopascals (kPa) It's normally between 2 and 6 kPa. The highest possible result is 75 kPa. Many people with liver disease(s) have a result that's higher than the normal range. Your healthcare provider will use your FibroScan fibrosis result and your medical history to determine your fibrosis score. Fibrosis score F0 to F1: No liver scarring or mild liver scarring Fibrosis score F2: Moderate liver scarring Fibrosis score F3: Severe liver scarring Fibrosis score F4: Advanced liver scarring (cirrhosis) Using your FibroScan fibrosis result to estimate your fibrosis score The table below shows liver diseases, ranges of fibrosis results, and the matching fibrosis score. The ranges of fibrosis results in the table are estimates. This means that your actual fibrosis score (the score that your healthcare provider tells you) may not match the fibrosis score in the table. If you have more than one liver disease, you may not be able to use the table. To use the table, find the liver disease that you have on the left side of the table. Read across the row from left to right until you find the range that includes your fibrosis result. Then, look at the top of that column to see the fibrosis score. F0 to F1 F2 F3 F4 Hepatitis B 2 to 7 kPa 8 to 9 kPa 8 to 11kPa 18 kPa or higher Hepatitis C 2 to 7 kPa 8 to 9 kPa 9 to 14kPa 14 kPa or higher HIV/HCV Coinfection 2 to 7 kPa 7 to 11 kPa 11 to 14kPa 14 kPa or higher Non-alcoholic Fatty Liver 2 to 7 kPa 7.5 to 10 kPa 10 to 14kPa 14 kPa or higher Disease (NAFLD OR HARTLEY) Alcohol Related Disease 2 to 7 kPa 7.5 to 11 kPa 11 to 19kPa 19 kPa or higher Your fibrosis result may be over-estimated (your liver may have less scarring than what your fibrosis result says) if you have: Liver inflammation. This can be caused by a recent liver illness or drinking alcohol. Benign (not cancerous) or cancerous tumors in your liver. Liver congestion (when your liver is too full of blood or other fluids). This is usually caused by heart failure. Your FibroScan results may also be less accurate if you have: A body mass index (BMI) higher than 30 (obesity) A build-up of fluid in your abdomen (ascites) Too little bile flowing out of your liver (biliary obstruction) [employer] Table formatting fro m the original result was not included. Imaging Result: [facility] Infectious Disease Patient: Shankar Norton : 1960 Height: Ht Readings from Last 1 Encounters: 07/26/23 5' 4 (1.626 m) Weight: Wt Readings from Last 1 Encounters: 07/26/23 147 lb (66.7 kg) BMI: BMI Readings from Last 1 Encounters: 07/26/23 25.23 kg/m Procedure: Patient referred by Dr Theodore Castellanos for open-access FibroScan study for diagnosis of HCV Patient identified x 2 and verified the following: age 18 or older-yes Fasting >3 hours-yes FibroScan study completed using Medium probe and 13 consecutive valid measurements obtained. Patient tolerated procedure well. Results: Median=7.2 kPa IQR/med=8 % IKS=453 dB/m Ольга Cruz RN, 07/26/2023 3:20 PM Diagnosis/Problems: Diagnosis Plan 1. Chronic hepatitis C without hepatic coma (CMS/HCC) (HCC) Fibroscan 2. Gastroesophageal reflux disease without esophagitis Fibroscan 3. Focal epilepsy (CMS/HCC) (HCC) Fibroscan 4. Daily alcohol use [facility] doggyloot Codesion HBV surface Ab IA Qnon 07-25 Interpretation: <8.0 Non-Reactive 8.0-11.9 Equivocal >= 12.0 Ab Detected Note: If an equivocal result is interpreted, an antibody status is unable to be determined. Collect new specimen if clinically indicated. [facility] HEPATITIS A ANTIBODY, TOTALo n 07-26-2023 HEP A ANTIBODY, TOTAL Positive Abnormal Negative [facility] Comment on above: Result Comment: The positive anti-HAV is consistent with recent or remote Hepatitis A infection or antibody response to HAV vaccination. False positive anti-HAV can occur. Performed By: [employer] [address] [place] [address] Inspector Outside Production: Jae Nguyễn MD, PhD CLIA Number: [id number] Performed By: #### L [id number] #### Commodities Requirements Analyst: AMBER BAEZA ([id number]) [address] HEPATITIS B CORE ANTIBODY, T OTALon 07-26-2023 HEP B CORE AB,TOTAL Negative Normal Negative [facility] Comment on above: Result Comment: INTE RPRETIVE INFORMATION: Hepatitis B Core Ab (Total) This assay should not be used for blood donor screening, associated re-entry protocols, or for screening Human Cells, Tissues and Cellular and Tissue-Based Products (HCT/P). Performed By: [employer] [address] [place] [address] Inspector Outside Production: Jae Nguyễn MD, PhD CLIA Number: [id number] Performed By: #### L [id number] #### Commodities Requirements Analyst: AMBER BAEZA ([id number]) [address] HEPATITIS B SURFACE ANTIBODY on 07-26-2023 HEPATITIS B VIRUS SURFACE AB <8.0 Normal [facility] Comment on above: Result Comment: ORDE R COMMENTS: Interpretation: <8.0 Non-Reactive 8.0-11.9 Equivocal >= 12.0 Ab Detected Note: If an equivocal result is interpreted, an antibody status is unable to be determined. Collect new specimen if clinically indicated. Performed By: #### L [id number] #### Commodities Requirements Analyst: AMBER BAEZA ([id number]) [facility]) [address] [place] [address] Hepatitis B surface antibody on 07-26-2023 HBV surface Ab IA Qn mIU/mL [facility] Office Visiton 07-26-2023 Follow-up visit [id number] Cierra Fuentes Tessy 1960 F Date Provider Department Center 07/26/2023 56-SIGNS, DUSTIN J [facility] ID None Family History Problem Relation Age of Onset Arthritis Mother Cancer Mother Comments: brain Heart disease Father Family Status - Relation Status Age at Mother Father Level of Service:50740 [place] OFFICE/OUTPATIENT NEW HIGH [facility] 60 MINUTES Reason for Visit and Comments: Hepatitis C [102] New Patient [542] - HCV GT 1a/work up for treatment Normal [facility] PATINSon 07-26-2023 PATINS Discussed the liver and Hep C in detail, as well as transmission, prevention and how medications work. Instructed in detail the testing regarding the work up for Hep C, fibrosis scoring, U/S, Fibroscan, labs and immunizations. Also discussed abstinence from alcohol, illicit drugs and the untoward effects that can occur while on treatment. Instructed and signed agreement with treatment plan, understanding with the first fill will receive additional teaching specific to the medication, lab monitoring every 4 weeks and as needed, follow up appointments as scheduled and call office with any problems, questions and/or new medications. Given the opportunity for questions and verbalized understanding of all information discussed. There is no indication of life expectancy less than 12 months Normal [facility] PROTHROMBIN TIMEon INR Coag (PPP) [Relative time] 0.9 {INR} Normal 0.9-1.1 [facility] Comment on above: Result Comment: Kj mmended Anticoagulant Therapy: SEE BELOW ----- INR of 2.0 - 3.0 : - Prophylaxis of Venous Thrombosis (high-risk surgery) - Treatment of Venous Thrombosis - Treatment of Pulmonary Embolism (Includes tissue heart valves, Acute Myocardial Infarction to prevent systemic embolism, Valvular Heart Disease, and Atrial Fibrillation) ----- INR of 2.5 - 3.5 : - Mechanical Prosthetic Valves (high risk) - If oral anticoagulant therapy is used to prevent Myocardial Infarction Performed By: #### L [id number] #### Commodities Requirements Analyst: AMBER BAEZA ([id number]) [facility] ([facility]) [address] [place] [address] PT Coag (PPP) [Time] 10.3 s Normal 9.0-12.0 [facility] Comment on above: Performed By: #### L [id number] #### Commodities Requirements Analyst: AMBER BAEZA ([id number]) [facility] ([facility]) [address] PT Coag (Bld) [Time]on 07-25 INR Coag (PPP) [Relative time] 0.9 {INR} 0.9 - 1.1 [facility] Comment on above: Recommended Anticoag ulant Therapy: SEE BELOW ----- INR of 2.0 - 3.0 : - Prophylaxis of Venous Thrombosis (high-risk surgery) - Treatment of Venous Thrombosis - Treatment of Pulmonary Embolism (Includes tissue heart valves, Acute Myocardial Infarction to prevent systemic embolism, Valvular Heart Disease, and Atrial Fibrillation) ----- INR of 2.5 - 3.5 : - Mechanical Prosthetic Valves (high risk) - If oral anticoagulant therapy is used to prevent Myocardial Infarction Interpretation and review of laboratory results Normal [facility] Progress Noteon 07-26-2023 Progress Note [facility] Infectious Dise ase Patient: Shankar Nortno : 1960 Height: Ht Readings from Last 1 Encounters: 07/26/23 5' 4 (1.626 m) Weight: Wt Readings from Last 1 Encounters: 07/26/23 147 lb (66.7 kg) BMI: BMI Readings from Last 1 Encounters: 07/26/23 25.23 kg/m? Procedure: Patient referred by Dr Theodore Castellanos for open-access FibroScan study for diagnosis of HCV Patient identified x 2 and verified the following: age 18 or older-yes Fasting >3 hours-yes FibroScan study completed using Medium probe and 13 consecutive valid measurements obtained. Patient tolerated procedure well. Results: Median=7.2 kPa IQR/med=8 % LRL=511 dB/m Ольга Cruz RN, 07/26/2023 3:20 PM Diagnosis/Problems: Diagnosis Plan 1. Chronic hepatitis C without hepatic coma (CMS/HCC) (HCC) Fibroscan 2. Gastroesophageal reflux disease without esophagitis Fibroscan 3. 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 She acknowledges remote IDU but has not used in at least 3 decades. She assumed that at some point she was checked for Hepatitis viruses and did not specifically ask for testing. She has been well and very active, though admits to having severe obesity in the recent past but is now down to BMI of 25. Is in a [employer] wine club, and drinks about 2 glasses of wine per day- with diner after working extensive hours. She does not feel that she is addicted or dependent but is very reluctant to quit. She had routine screening for HCV by her PCP and it was discovered that she was Ab positive, so further viral load showed 1.2 mil copies, with genotype 1 virus. A US of the liver showed mild increased echogenicity but no masses. She denies any secondary extra-hepatic symptoms of Hep C such as arthritis, skin rashes or vasculitis. She has not had mental status changes such as problems with cognition or memory and has no tremors. Note that she does have epilepsy. Discussion, in detail, addressed: Hep C disease and its effects not only on the liver but extra-hepatic manifestations, as well in promotion of other organ disease including heart disease, the modes of transmission and how to avoid spreading Hep C, medications used for treatment and their possible side effects, the treatment protocols, liver evaluation for tumors and size and shape by Ultrasound, and the staging of liver disease by Fibroscan. The patient is made aware of the critical importance of medication compliance as well as obtaining labs midway into treatment and at end of therapy as well as follow up for test of cure at 3 mos after the end of therapy, ad were agreeable with the plan I explained that after complete blood tests to update labs an obtain the US and Fibroscan, we will submit a prior authorization packet to their insurance company for medication approval. Questions were entertained and answered. Patient verbalized understanding. My findings and recommendations will be communicated back to the referring physician(s) by means of shared electronic medical records. Past Medical History: Diagnosis Date Alcohol dependence, daily use (HCC) 07/26/2023 Chronic hepatitis C without hepatic coma (CMS/HCC) (HCC) 07/26/2023 History of morbid obesity 07/26/2023 Seizures ([facility]) History reviewed. No pertinent surgical history. Current Outpatient Medications Medication Sig Dispense Refill acyclovir (Zovirax) 400 MG tablet Take 1 tablet by mouth daily. lamoTRIgine (LaMICtal XR) 300 mg tablet sustained-release 24 hour 24 hr tablet Take 1 tablet by mouth daily. levETIRAcetam XR (Keppra XR) 500 MG 24 hr tablet Take 3 tablets by mouth daily. nystatin (Mycostatin) 504727 UNIT/GM powder Apply topically 3 times daily. omeprazole (PriLOSEC) [address] capsule Take 20 mg by mouth in the morning. No current facility-administered medications for this visit. No Known Allergies Social History Socioeconomic History Marital status: Spouse name: Not on file Number of children: Not on file Years of education: Not on file Highest education level: Not on file Occupational History Not on file Tobacco Use Smoking status: Every Day Packs/day: 1 Types: Cigarettes Smokeless tobacco: Never Substance and Sexual Activity Alcohol use: Yes Comment: 2 glasses/will not drink while on treatment Drug use: Not Currently Comment: IVDU/SRIRAM-cocaine mostly-none since 2004 Sexual activity: Yes Partners: Male Other Topics Concern Not on file Social History Narrative Not on file Social Determinants of Health Financial Resource Strain: Not on file Food Insecurity: Not on file Transportation Needs: Not on file Physical Activity: Not on file Stress: Not on file Social Connections: Not on file Intimate Partner Violence: Not on file Housing Stability: Not on file Family History Problem Relation Name Age of Onset Arthritis Mother Cancer Mother brain Heart disease Father Review of Systems Constitutional: Negative. Negative for activity change, appetite change, chills, diaphoresis, fatigue, fever and unexpected weight change. HENT: Positive for congestion (seasonal). Negative for dental problem, drooling, ear discharge, ear pain, facial swelling, hearing loss, mouth sores, nosebleeds, postnasal drip, rhinorrhea, sinus pressure, sinus pain, sneezing, sore throat, tinnitus, trouble swallowing and voice change. Eyes: Positive for visual disturbance (corrected with glasses). Negative for photophobia, pain, discharge, redness and itching. Respiratory: Negative. Negative for apnea, cough, choking, c (more content not included)... Normal [facility] Progress Note Dx on routine screening Normal [facility] Protime-INRon 07-26-2023 PT Coag (Bld) [Time] 10.3 s 9.0 - 1 2.0 s [facility] US ABD RIGHT UPPER QUADRANTo n 06-28-2023 US ABD RIGHT UPPER QUADRANT * * *Final Report* * * DATE OF EXAM: Jun 28 2023 9:05AM WRU [id number] - US ABD RIGHT UPPER QUADRANT / PROCEDURE REASON: Elevated liver enzymes * * * * Physician Interpretation * * * * EXAMINATION: RIGHT UPPER QUADRANT ULTRASOUND HISTORY: Elevated liver enzymes TECHNIQUE: Sonography of the right upper quadrant was performed. Images were obtained and stored in a permanent archive. MQ: URUQ_2 COMPARISON: None. RESULT: Pancreas: Normal sonographic appearance. Portions obscured: tail Liver: Echotexture: Normal, homogeneous. Echogenicity: Mildly increased Surface contour: Smooth Lesions: none Biliary: No intrahepatic biliary duct dilation. CBD: 0.5 cm at the hilum. Gallbladder: Normal caliber -Contents: No cholelithiasis -Wall: Normal -Other: No pericholecystic fluid. Sonographic Mills sign was reported negative. Right Kidney: No hydronephrosis. Ascites: None. - IMPRESSION: Probable hepatic steatosis. No cholelithiasis. No biliary dilatation. Director Of Hemophilia: JOSSELYN Transcribe Date/Time: Jun 30 2023 10:01A Dictated by : REKHA BALES MD This examination was interpreted and the report reviewed and electronically signed by: REKHA BALES MD on Jun 30 2023 10:02AM EST [id number] Normal [facility] HCV Gentyp SerPl YUMIKO+probeon 06-21-2023 HCV genotype YUMIKO+probe Nom Genotype 1a Abnormal [facility] Comment on above: Order Comment: Speci men Type: BLOOD SPECIMEN Ordering Facility: [facility] Address: [address] [place] [address] Performed By: #### 3 [id number] #### [facility] CLIA [id number] [address] [place] [address] [place] [address] [place] No Panel Informationon 03-07 Levetiracetam (Keppra) Level 26.6 ug/mL 10.0-40.0 [facility] Work Phone: Comment on above: Performed at: [address] [id number] Director: Sterling Arguello MD, Phone: [phone] Absolute lymphocyte counton 07-08-2021 Lymphocytes Auto (Unsp spec) [#/Vol] 1.70 10*3/uL 0.83-4.51 [facility] Work Phone: Basophil percentageon 2021 Basophils/100 WBC (Bld) 0.8 % 0-1 [facility] Work Phone: Bilirubin [Mass/Vol] 0.40 mg/dL 0.20-1.00 [facility] Work Phone: Comment on above: For patients on eltr ombopag therapy, use of Dimension [place] TBIL is not recommended. Chloride [Moles/Vol] 108 mmol/L 98-107 [facility] Work Phone: Cholesterol [Mass/Vol] 191 mg/dL <200 [facility] Work Phone: Comment on above: <200 mg/dL Desirable 200-240 mg/dL Borderline >240 mg/dL High Risk Eosinophils/100 WBC (Bld) 3.9 % 0-5 [facility] Work Phone: Glucose [Mass/Vol] 104 mg/dL 74-106 [facility] Work Phone: Comment on above: Fasting Glucose resu lt from 100 to 125 mg/dL suggests IMPAIRED HOMEOSTASIS per A.D.A. criteria. Neutrophils (Bld) [#/Vol] 3.5 10*3/uL 2.0-7.7 [facility] Work Phone: Neutrophils/100 WBC (Bld) 59.2 % 47-70 [facility] Work Phone: Potassium [Moles/Vol] 4.5 mmol/L 3.5-5.1 [facility] Work Phone: Protein [Mass/Vol] 7.6 g/dL 6.4-8.2 [facility] Work Phone: [phone] Sodium [Moles/Vol] 139 mmol/L 136-145 [facility] Work Phone: [phone] Triglyceride [Mass/Vol] 88 mg/dL <199 [facility] Work Phone: [phone] Comment on above: The drugs N-Acetylcy steine and Metamizole may falsely depress this assay.Serum Triglycerides Reference Interval Normal <150 mg/dL Borderline high 150 - 199 mg/dL High 200 - 499 mg/dL Very High > or = 500 mg/dL WBC (Bld) [#/Vol] 5.9 10*3/uL 4.4-11.0 [facility] Work Phone: [phone] Blood erythrocytes count (nu mber/volume)on 07-08-2021 RBC (Bld) [#/Vol] 4.65 10*6/uL 4.2-5.4 [facility] Work Phone: [phone] Blood hemoglobin measurement (mass/volume)on 07-08-2021 Hemoglobin (Bld) [Mass/Vol] 15.3 g/dL 12.0-15.0 [facility] Work Phone: [phone] Blood lymphocytes/100 leukoc yteson 07-08-2021 Lymphocytes/100 WBC (Bld) 28.7 % 19-41 [facility] Work Phone: [phone] Blood monocytes/100 leukocyt eson 07-08-2021 Monocytes/100 WBC (Bld) 7.1 % 0-10 [facility] Work Phone: [phone] Blood platelet mean volumeon 07-08-2021 Platelet mean volume (Bld) [Entitic vol] 11.0 fL 6.2-12.0 [facility] Work Phone: [phone] Determination of erythrocyte mean corpuscular volume (MCV)on 07-08-2021 MCV (RBC) [Entitic vol] 97.6 fL 81-99 [facility] Work Phone: [phone] Hematocrit Auto (Bld) [Volum e fraction]on 07-08-2021 Hematocrit (Bld) [Volume fraction] 45.4 % 37-47 [facility] Work Phone: [phone] Laboratory - Chemistry and C hemistry - challengeon 07-08-2021 ALP [Catalytic activity/Vol] 139 U/L 45-117 [facility] Work Phone: [phone] ALT [Catalytic activity/Vol] 93 U/L 13-56 [facility] Work Phone: [phone] CO2 [Moles/Vol] 28.0 mmol/L 21.0-32.0 [facility] Work Phone: [phone] Globulin (S) [Mass/Vol] 4.2 g/dL 2.2-4.2 [facility] Work Phone: [phone] Urea nitrogen/Creatinine [Mass ratio] 14.7 mg/mg 10-20 [facility] Work Phone: [phone] Laboratory - Hematology and Cell countson 07-08-2021 Erythrocyte distribution width (RBC) [Entitic vol] 43.4 fL 35.1-43.9 [facility] Work Phone: [phone] Erythrocyte distribution width (RBC) [Ratio] 12.1 % 11.6-14.6 [facility] Work Phone: [phone] Immature granulocytes/100 WBC (Bld) 0.300 % 0.0-0.9 [facility] Work Phone: [phone] Comment on above: IG% - Immature Granu locytes (promyelocytes, myelocytes and metamyelocytes) > 1% indicates that a LEFT SHIFT is Present. MCH (RBC) [Entitic mass] 32.9 pg 27.0-32.0 [facility] Work Phone: [phone] Nucleated RBC/100 WBC (Bld) [Ratio] 0 % 0-5 [facility] Work Phone: [phone] MCHC Auto (RBC) [Mass/Vol]on 07-08-2021 MCHC (RBC) [Mass/Vol] 33.7 g/dL 32-36 [facility] Work [facility]: [phone] No Panel Informationon 07-08 Estimated GFR (MDRD) Amer 84 mL/min >60 [facility] Work Phone: Comment on above: GFR Calc Estimated GFR (MDRD) Non-Af Amer 70 mL/min >60 [facility] Work Phone: Comment on above: Non- GFR Calc Platelets bldon 07-08-2021 Platelets (Bld) [#/Vol] 253 10*3/uL 150-450 [facility] Work Phone: [phone] Serum or plasma albumin cecy urement (mass/volume)on 07-08-2021 Albumin [Mass/Vol] 3.4 g/dL 3.2-5.0 [facility] Work Phone: [phone] Serum or plasma albumin/glob ulin mass ratioon 07-08-2021 Albumin/Globulin [Mass ratio] 0.8 {ratio} 0.9-2.4 [facility] Work Phone: [phone] Serum or plasma calcium cecy urement (mass/volume)on 07-08-2021 Calcium [Mass/Vol] 9.1 mg/dL 8.5-10.1 [facility] Work Phone: [phone] Serum or plasma cholesterol in HDL measurement (mass/volume)on 07-08-2021 Cholesterol in HDL [Mass/Vol] 79 mg/dL >40 [facility] Work Phone: Comment on above: The drugs N-Acetylcy steine and Metamizole may falsely depress this assay. Reference Range HDL <40 mg/dL Low HDL Cholesterol HDL >or= 60 mg/dL High HDL Cholesterol Serum or plasma cholesterol in VLDL measurement (mass/volume)on 07-08-2021 Cholesterol in VLDL [Mass/Vol] 18 mg/dL 5-40 [facility] Work Phone: [phone] Serum or plasma creatinine m easurement (mass/volume)on 07-08-2021 Creatinine [Mass/Vol] 0.88 mg/dL 0.55-1.02 [facility] Work Phone: Comment on above: The validity of the calculated GFR & GFRAA in patients over 70 years has not been determined. Clinical correlation is essential. Serum or plasma low density lipoprotein (LDL) cholesterol measurement (mass/volume)on 07-08-2021 Cholesterol in LDL [Mass/Vol] 94 mg/dL 0-130 [facility] Work Phone: Serum or plasma urea nitroge n measurement (mass/volume)on 07-08-2021 Urea nitrogen [Mass/Vol] 13 mg/dL 7-18 [facility] Work Phone: Thin prep Papanicolaou smear with manual screeningon 07-08-2021 Thin prep Papanicolaou smear with manual screening 67 U/L 15-37 [facility] Work Phone: Thin prep Papanicolaou smear with manual screening 3 5-15 [facility] Work Phone: ALLIED HEALTHon 10-11-2018 [facility] HNO ID: [id number] Author: Brenna Herron (Tech) Service: Radiology Author Type: Credit Analyst Type: Allied Health Filed: 10/11/2018 4:35 PM Note Text: Radiology Service Progress Note DATE OF SERVICE: October 11, 2018 TIME: 4:35 PM PATIENT IDENTITY VERIFICATION COMPLETED USING TWO (2) METHODS: Patient confirmed name verbally and ID band matches.. PATIENT GENDER DATA: Female. status: : No status: NO. PATIENT RELEVANT IMPLANT DATA REVIEWED: Yes ALLERGIES: Reviewed and unchanged CONTRAST ALLERGY: NO. EXAM: MRI - CONTRAST TYPE: GROUP II PERIPHERAL IV DATA: Ambulatory: A peripheral IV was started in the Right antecubital site with a Butterfly: 23 gauge. RADIOLOGY DEPARTMENT: MR; Exam(s) Completed: Head: Routine Brain SIGNATURE: SELAM Herron PATIENT NAME: Cierra Fuentes DATE: October 11, 2018 TIME: 4:35 PM [facility] MRI BRAIN WO/W IVCONon 10-11 MRI BRAIN WO/W IVCON * * *Final Report* * * DATE OF EXAM: Oct 11 2018 4:50PM [facility] 0295 - MRI BRAIN WO/W IVCON / PROCEDURE REASON: R41.0 CONFUSION * * * * Physician Interpretation * * * * EXAMINATION: MRI BRAIN WO/W IVCON CLINICAL HISTORY: Confusion TECHNIQUE: Routine brain MRI protocol without and with contrast including diffusion images. MQ: [id number]_2 Contrast: 15 mL Dotarem IV COMPARISON: None. RESULT: Acute Change: There is no evidence of restricted diffusion to suggest an acute infarct. Hemorrhage: No evidence of prior parenchymal hemorrhage on the gradient echo images. Mass Lesion/ Mass Effect: No evidence of an intracranial mass or extra-axial fluid collection. No abnormal parenchymal or leptomeningeal enhancement is noted following contrast administration. No significant mass effect. Chronic Change: Minimal mass effect and white matter changes most likely chronic microvascular ischemia. Parenchyma: No significant volume loss for age. The brain parenchyma is otherwise within normal limits of signal intensity and morphology. Ventricles: Normal caliber and morphology. Skull Base: Hypothalamic and pituitary region are grossly normal. Craniocervical junction is normal. No significant marrow replacement process. Vasculature: Major intracranial arterial structures, and dural venous sinuses show typical flow void, suggesting patency by spin echo criteria. Other: The visualized paranasal sinuses and mastoid air cells are clear. The orbits and extracranial soft tissues are unremarkable. IMPRESSION: Minimal microvascular ischemic change. No acute infarct or any other acute intracranial abnormality. Brain parenchyma is otherwise within normal limits of morphology and signal intensity. 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 Tobacco use [facility] Current every day smoker Invalid Interpretation Code [facility] Work Phone: Vital Signs Date Time Vital Sign Value Performing Clinician Facility 09-03-2024 14:20-0400 Body height 162.56 cm Alysa Mckee MD Work Phone: [facility] 09-03-2024 14:20-0400 Body mass index (BMI) [Ratio] 26.7 kg/m2 Alysa Mckee MD Work Phone: [facility] 09-03-2024 14:20-0400 Body temperature 97.4 [degF] Alysa Mckee MD Work Phone: [facility] 09-03-2024 14:20-0400 Body weight 70.76 kg Alysa Mckee MD Work Phone: [facility] 09-03-2024 14:20-0400 Diastolic blood pressure 80 mm[Hg] Alysa Mckee MD Work Phone: [facility] 09-03-2024 14:20-0400 Heart rate 91 /min Alysa Mckee MD Work Phone: [facility] 09-03-2024 14:20-0400 Respiratory rate 17 /min Alysa Mckee MD Work Phone: [facility] 09-03-2024 14:20-0400 SaO2% (BldA) [Mass fraction] 98 % Alysa Mckee MD Work Phone: [facility] 09-03-2024 14:20-0400 Systolic blood pressure 138 mm[Hg] Alysa Mckee MD Work Phone: [facility] 07-11-2024 15:00-0400 Diastolic blood pressure 72 mm[Hg] Alysa Mckee MD Work Phone: [facility] 07-11-2024 15:00-0400 Heart rate 89 /min Alysa Mckee MD Work Phone: [facility] 07-11-2024 15:00-0400 Respiratory rate 17 /min Alysa Mckee MD Work Phone: [facility] 07-11-2024 15:00-0400 SaO2% (BldA) [Mass fraction] 93 % Alysa Mckee MD Work Phone: [facility] 07-11-2024 15:00-0400 Systolic blood pressure 134 mm[Hg] Alysa Mckee MD Work Phone: [facility] 07-11-2024 12:00-0400 Body temperature 98.2 [degF] Alysa Mckee MD Work Phone: [facility] 07-11-2024 10:22-0400 Inhaled oxygen flow rate 4 L/min Alysa Mckee MD Work Phone: [facility] 07-11-2024 04:02-0400 Body mass index (BMI) [Ratio] 31.1 kg/m2 Alysa Mckee MD Work Phone: [facility] 07-11-2024 04:02-0400 Body weight 82.2 kg Alysa Mckee MD Work Phone: [facility] 07-09-2024 16:34-0400 Body height 162.56 cm Alysa Mckee MD Work Phone: [facility] 07-08-2024 12:39-0400 Body temperature 97 [degF] Alysa Mckee MD Work Phone: [facility] 07-08-2024 12:39-0400 Diastolic blood pressure 56 mm[Hg] Alysa Mckee MD Work Phone: [facility] 07-08-2024 12:39-0400 Heart rate 64 /min Alysa Mckee MD Work Phone: [facility] 07-08-2024 12:39-0400 Respiratory rate 18 /min Alysa Mckee MD Work Phone: [facility] 07-08-2024 12:39-0400 SaO2% (BldA) [Mass fraction] 99 % Alysa Mckee MD Work Phone: [facility] 07-08-2024 12:39-0400 Systolic blood pressure 147 mm[Hg] Alysa Mckee MD Work Phone: [facility] 07-08-2024 12:00-0400 Inhaled oxygen flow rate 2 L/min Alysa Mckee MD Work Phone: [facility] 07-08-2024 08:30-0400 Body mass index (BMI) [Ratio] 27.5 kg/m2 Alysa Mckee MD Work Phone: [facility] 07-08-2024 08:30-0400 Body weight 72.8 kg Alysa Mckee MD Work Phone: [facility] 11-15-2023 14:33-0400 Body height 162.6 cm Dustin Signs MD Work Phone: [facility] 11-15-2023 14:33-0400 Body mass index (BMI) [Ratio] 24.55 kg/m2 Dustin Signs MD Work Phone: [facility] 11-15-2023 14:33-0400 Body temperature 96.8 [degF] Dustin Signs MD Work Phone: [facility] 11-15-2023 14:33-0400 Body weight 64.86 kg Dustin Signs MD Work Phone: [facility] 11-15-2023 14:33-0400 Diastolic blood pressure 76 mm[Hg] Dustin Signs MD Work Phone: [facility] 11-15-2023 14:33-0400 Heart rate 76 /min Dustin Signs MD Work Phone: [facility] 11-15-2023 14:33-0400 Systolic blood pressure 132 mm[Hg] Dustin Signs MD Work Phone: [facility] 07-26-2023 13:16-0400 Body height 162.6 cm Dustin Signs Work Phone: [facility] 07-26-2023 13:16-0400 Body mass index (BMI) [Ratio] 25.23 kg/m2 Dustin Signs Work Phone: [facility] 07-26-2023 13:16-0400 Body temperature 97.2 [degF] Dustin Signs MD Work Phone: [facility] 07-26-2023 13:16-0400 Body weight 66.68 kg Dustin Signs Work Phone: [facility] 07-26-2023 13:16-0400 Diastolic blood pressure 82 mm[Hg] Dustin Signs Work Phone: [facility] 07-26-2023 13:16-0400 Heart rate 84 /min Dustin Signs MD Work Phone: [facility] 07-26-2023 13:16-0400 Systolic blood pressure 148 mm[Hg] Dustin Castellanos MD Work Phone: [facility] 05-28-2023 16:25-0400 Body height 162.6 cm Jose Michael MD Work Phone: [facility] 05-28-2023 16:25-0400 Body temperature 97.81 [degF] Jose Michael MD Work Phone: [facility] 05-28-2023 16:25-0400 Body weight 69.85 kg Jose Michael MD Work Phone: [facility] 05-28-2023 16:25-0400 Diastolic blood pressure 70 mm[Hg] Jose Michael MD Work Phone: [facility] 05-28-2023 16:25-0400 Heart rate 70 /min Jose Michael MD Work Phone: [facility] 05-28-2023 16:25-0400 Respiratory rate 19 /min Jose Michael MD Work Phone: [facility] 05-28-2023 16:25-0400 SaO2% (BldA) [Mass fraction] 97 % Jose Michael MD Work Phone: [facility] 05-28-2023 16:25-0400 Systolic blood pressure 138 mm[Hg] Jose Michael MD Work Phone: [facility] 02-11-2023 12:31-0500 Diastolic blood pressure 88 mm[Hg] [facility] 02-11-2023 12:31-0500 Systolic blood pressure 186 mm[Hg] [facility] 02-11-2023 11:24-0500 Body height 162.56 cm [facility] 02-11-2023 11:24-0500 Body mass index (BMI) [Ratio] 26.8 kg/m2 [facility] 02-11-2023 11:24-0500 Body temperature 97.4 [degF] [facility] 02-11-2023 11:24-0500 Body weight 70.84 kg [facility] 02-11-2023 11:24-0500 Heart rate 86 /min [facility] 02-11-2023 11:24-0500 Respiratory rate 16 /min [facility] 02-11-2023 11:24-0500 SaO2% (BldA) [Mass fraction] 98 % [facility] 11-27-2022 17:06-0400 Body height 162.6 cm Jose Michael MD Work Phone: [facility] 11-27-2022 17:06-0400 Body temperature 97.59 [degF] Jose Michael MD Work Phone: [facility] 11-27-2022 17:06-0400 Body weight 73.21 kg Jose Michael MD Work Phone: [facility] 11-27-2022 17:06-0400 Diastolic blood pressure 88 mm[Hg] Jose Michael MD Work Phone: [facility] 11-27-2022 17:06-0400 Heart rate 78 /min Jose Michael MD Work Phone: [facility] 11-27-2022 17:06-0400 Respiratory rate 18 /min Jose Michael MD Work Phone: [facility] 11-27-2022 17:06-0400 SaO2% (BldA) [Mass fraction] 98 % Jose Michael MD Work Phone: [facility] 11-27-2022 17:06-0400 Systolic blood pressure 134 mm[Hg] Jose Michael MD Work Phone: [facility] Encounters Encounter Date Encounter Type Care Provider Facility Start: 11-12-2024 ambulatory [facility] Start: 09-11-2024 End: 09-12-2024 Refill Jose Michael MD Work Phone: [facility] Comment on above: Refill Request Start: 09-03-2024 ambulatory Minerva Caro Facility:[facility] Start: 09-03-2024 End: 09-03-[address] Abby Magaña MD -[facility] Work Phone: Start: 09-03-2024 End: 09-03-2024 ambulatory Alysa Mckee MD Work Phone: [facility] Work Phone: Start: 09-02-2024 End: 09-02-2024 Patient encounter procedure [facility] Provider [facility] Department Start: 08-20-2024 End: 08-20-2024 ambulatory Alysa Mckee MD Work Phone: [facility] Work Phone: Start: 08-20-2024 End: 08-20-[address] Alysa Mckee MD -Outpatient Breast Imaging Work Phone: Start: 08-20-2024 End: 08-20-2024 ambulatory Alysa Mckee Facility:[facility] Start: 08-13-2024 End: 08-13-2024 ambulatory Alysa Mckee MD Work Phone: [facility] Work Phone: Start: 08-13-2024 End: 08-13-2024 Patient encounter procedure Adolfo Ojeda PILE DRIVER-C -Laboratory Specimen Work Phone: Start: 08-13-2024 End: 08-13-2024 ambulatory Adolfo Ojeda PILE DRIVER Facility:[facility] Start: 08-06-2024 End: 08-06-2024 ambulatory Alysa Mckee MD Work Phone: [facility] Work Phone: Start: 08-06-2024 End: 08-06-[address] Alysa Mckee MD -Laboratory [facility] Start: 08-06-2024 End: 08-06-2024 ambulatory Alysa Mckee Facility:[facility] Start: 07-29-2024 End: 08-29-2024 ambulatory Jose Michael MD Work Phone: [facility] Start: 07-29-2024 End: 08-29-2024 Patient encounter procedure Jose Michael MD Work Phone: [facility] Start: 07-20-[address] Nilesh mejias DO -Cardiovascular Services Work Phone: Start: 07-20-2024 ambulatory Nilesh Davenport Facilit y:[facility] Start: 07-20-2024 Non-patient / Non-visit Dr. Aristides Morrell MD -[facility] Work Phone: Start: 07-11-2024 Non-patient / Non-visit Dr. Danielle Davenport [facility] Work Phone: Start: 07-10-2024 Non-patient / Non-visit Dr. Danielle Davenport [facility] Work Phone: Start: 07-10-2024 ambulatory Alysa Bel Facility:[facility] Start: 07-10-2024 Non-patient / Non-visit [facility] Chavira [facility] Start: 07-09-2024 Non-patient / Non-visit Dr. Chavira Of [facility] Start: 07-09-2024 ambulatory Nilesh Davenport Facilit y:[facility] Start: 07-09-2024 End: 07-11-2024 Evaluation and management of inpatient Dr. Nilesh Davenport DO -Intensive Care Unit Work Phone: Start: 07-08-2024 Non-patient / Non-visit Dr. Danielle Davenport [facility] Work Phone: Start: 07-08-2024 ambulatory Fan Bains Facility:[facility] Start: 07-08-2024 Non-patient / Non-visit [facility]. Chavira [facility] Start: 07-08-2024 ambulatory Nilesh Davenport Facilit y:[facility] Start: 07-08-2024 Evaluation and manag ement of inpatient Dr. Nilesh Davenport DO -Progressive Care Unit Work Phone: Start: 07-08-2024 observation encounter Alysa brannon MD Work Phone: [facility] Work Phone: Start: 07-08-2024 End: 07-08-2024 Patient encounter procedure [facility] August[place] -[facility] Work Phone: Start: 07-08-2024 End: 07-08-2024 ambulatory Alysa Bel Facility:[facility] Start: 06-11-2024 End: 06-11-2024 ambulatory Madeline [facility] Start: 06-11-2024 End: 06-11-2024 Follow-up encounter Madeline [facility] Comment on above: SPP Hepatology - Fol low-up (HCV+ note) Start: 02-05-2024 End: 02-05-2024 ambulatory [facility] Facility:[facility] Start: 11-20-2023 End: 11-21-2023 Refill Jose Michael MD Work Phone: [facility] Comment on above: Refill Request Start: 11-15-2023 End: 11-15-2023 Office outpatient visit 25 minutes Dustin Castellanos MD Work Phone: [facility] Comment on above: Chronic hepatitis C without hepatic coma (CMS/HCC) (HCC); Gastroesophageal reflux disease without esophagitis Start: 11-15-2023 End: 11-15-2023 ambulatory DUSTIN SIGNS [facility] Start: 10-18-2023 Patient encounter procedure [facility] Provider [facility] Start: 10-04-2023 End: 10-04-2023 ambulatory DUSTIN SIGNS [facility] Start: 07-26-2023 End: 07-26-2023 ambulatory DUSTIN SIGNS [facility] Start: 07-26-2023 End: 07-26-2023 ambulatory DUSTIN SIGNS [facility] Start: 07-26-2023 End: 07-26-2023 Office outpatient new 60 minutes Dustin Castellanos MD Work Phone: [facility] Infectious Disease Comment on above: Chronic hepatitis C without hepatic coma (CMS/HCC) (HCC) (Primary Dx); Gastroesophageal reflux disease without esophagitis; Focal epilepsy (CMS/HCC) (HCC); Alcohol dependence, daily use (HCC); History of morbid obesity Start: 06-28-2023 End: 06-28-2023 ambulatory JOSE MICHAEL Facility:[facility] Start: 06-28-2023 End: 06-28-2023 Subsequent hospital visit by physician [facility] Work Phone: Radiology Comment on above: Elevated liver enzym es [R74.8] Start: 06-27-2023 Telephone encounter Jose Michael MD Work Phone: [facility] Comment on above: Director Of Medical Staff Services - O ther Start: 06-26-2023 Telephone encounter Jose Michael MD Work Phone: [facility] Start: 06-21-2023 End: 06-21-2023 ambulatory JOSE MICHAEL Facility:[facility] Start: 06-21-2023 E-mail encounter fro m caregiver Jose Michael MD Work Phone: [facility] Start: 06-21-2023 Patient encounter procedure Jose Michael MD Work Phone: [facility] Comment on above: Infectious Didease R eferral Info Start: 06-20-2023 Patient encounter procedure [facility] Provider [facility] Start: 06-20-2023 Telephone encounter Jose Michael MD Work Phone: [facility] Comment on above: Infectious Diseases referral faxed to Dustin Castellanos MD Orders Start: 06-11-2023 ambulatory Jose Foster MD Work Phone: [facility] Comment on above: Scheduled tests Start: 06-11-2023 Telephone encounter Jose Michael MD Work Phone: [facility] Comment on above: Results Start: 06-10-2023 Telephone encounter Jose Michael MD Work Phone: [facility] Start: 06-07-2023 Documentation procedure Mammog gil Coordinator [facility] Start: 06-07-2023 Letter encounter Mammography Coordinator [facility] Start: 06-06-2023 End: 06-06-2023 Subsequent hospital visit by physician Screen Mammo [facility] Comment on above: Encounter for screen ing mammogram for malignant neoplasm of breast [Z12.31] Start: 05-28-2023 End: 05-28-2023 Patient encounter status Jose Michael MD Work Phone: [facility] Work Phone: Start: 05-28-2023 End: 05-28-2023 Periodic preventive med est patient 40-64yrs Jose Michael MD Work Phone: [facility] Comment on above: Encounter for screen ing for depression (Primary Dx); Wellness examination; Lipid screening; Screening for deficiency anemia; Vitamin D deficiency; Encounter for screening mammogram for malignant neoplasm of breast; Gastroesophageal reflux disease without esophagitis; Nonintractable epilepsy without status epilepticus, unspecified epilepsy type (HCC) Start: 02-11-2023 Patient encounter procedure [facility] Provider [facility] Start: 02-11-2023 End: 02-11-2023 Emergency department patient visit [facility]-Emergency Department Work Phone: Start: 11-27-2022 End: 11-27-2022 Office outpatient visit 15 minutes Jose Michael MD Work Phone: [facility] Comment on above: Gastroesophageal ref lux disease without esophagitis (Primary Dx); Nonintractable epilepsy without status epilepticus, unspecified epilepsy type (HCC); Intertrigo Start: 11-27-2022 Refill Jose Foster MD Work Phone: [facility] Comment on above: Refill Request Start: 10-30-2022 Refill Jose Foster MD Work Phone: [facility] Comment on above: Refill Request Start: 09-05-2022 Refill Jose Foster MD Work Phone: [facility] Comment on above: Refill Request Start: 07-16-2022 Patient encounter procedure [facility] Start: 03-07-2022 End: 03-07-2022 ambulatory [facility] Work Phone: Start: 03-07-2022 End: 03-07-2022 Patient encounter procedure [facility] Start: 11-23-2021 Patient encounter procedure [facility] Provider [facility] Start: 10-26-2021 End: 10-26-2021 Patient encounter procedure [facility]-Outpatient Breast Imaging Start: 10-24-2021 Refill Jose Foster MD Work Phone: [facility] Comment on above: Refill Request Start: 07-08-2021 End: 07-08-2021 Patient encounter procedure [facility] Procedures Date Procedure Procedure Detail Performing Clinician Start: 08-20-2024 Screening mammography C neri Mckee MD Work Phone: Start: 08-13-2024 Liquid based cervica l cytology screening Alysa Mckee MD Work Phone: Comment on above: NEGATIVE FOR INTRAEP ITHELIAL LESION OR MALIGNANCY. This liquid based Th inPrep(R) pap test was screened withthe use of an image guided system. Start: 08-06-2024 Vitamin D, 25-hydrox y measurement Alysa Mckee MD Work Phone: Comment on above: Vitamin D StatusDefi ciency: <20 ng/mL (50nmol/L)Insufficiency: 20-30 ng/mL (50-75 nmol/L)Sufficiency: 30-100 ng/mL (75-250 nmol/L)Toxicity: >100 ng/mL (>250 nmol/L) Start: 07-11-2024 Plain chest X-ray Dennis Mckee MD Work Phone: Start: 07-11-2024 XR knee, 3 views Alysa Mckee MD Work Phone: Start: 07-10-2024 MRI of brain without contrast Alysa Mckee MD Work Phone: Start: 07-09-2024 CT angiography of he ad and neck Alysa Mckee MD Work Phone: Start: 07-09-2024 CT of head without contrast Alysa Mckee MD Work Phone: Start: 07-09-2024 Radionuclide imaging of perfusion of myocardium under exercise stress Alysa Mckee MD Work Phone: Start: 07-09-2024 Estimated creatinine clearance Alysa Mckee MD Work Phone: Start: 07-08-2024 CT angiography of ch est with contrast Alysa Mckee MD Work Phone: Start: 07-08-2024 Plain chest X-ray Dennis Mckee MD Work Phone: Start: 11-15-2023 Comprehensive metabo lic panel Dustin Castellanos MD Work Phone: Start: 10-04-2023 Follow-up visit Follow-up DUSTIN CASTELLANOS Start: 07-26-2023 Comprehensive metabo lic panel Dusitn Castellanos MD Work Phone: Start: 07-26-2023 Hepatitis b surf ant elsa hbsab Dustin Castellanos MD Work Phone: Start: 06-05-2023 Lipid 1996 panel - S miguel ángel or Plasma Screen [facility] Start: 02-11-2023 Plain X-ray of shoulder Start: 02-11-2023 X-ray of chest posteroanterior view Start: 02-11-2023 CT of head without contrast Start: 10-26-2021 End: 10-26-2021 Screening mammography Plan of Treatment Date Care Activity Detail Author Start: 2037 RSV Vaccine (1 - 1-d ose 75+ series) RSV Vaccine (1 - 1-dose 75+ series) [facility] Start: 06-04-2028 Lipid panel Lipid Screening [facility] Start: 06-04-2026 Diabetes Screening Diabetes Screenin g [facility] Start: 11-17-2024 Influenza vaccination Influenz a Vaccine (Season Ended) [facility] Start: 08-13-2024 Liquid based cervica l cytology screening [facility] Start: 07-11-[address] [facility] Start: 07-10-2024 [facility] Start: 07-10-2024 Application of intermittent pneumatic compression device [facility] Start: 07-09-2024 Admission procedure [facility] Start: 07-09-2024 Bedrest [facility] Start: 07-09-2024 Consultation [facility] Start: 07-09-2024 Patient referral to dietitian [facility] Start: 07-09-2024 Referral to occupati onal therapist [facility] Start: 07-09-2024 Referral to service [facility] Start: 07-09-2024 Speech therapy assessment [facility] Start: 07-09-2024 Telemedicine consultation with patient [facility] Start: 07-09-2024 Bleeding precautions [facility] Start: 07-09-2024 End: 07-09-2024 [facility] Start: 07-09-2024 Oxygen therapy [facility] Start: 07-08-2024 [facility] Start: 07-08-2024 [facility] Start: 07-08-2024 Following clinical pathway protocol [facility] Start: 07-08-2024 Ambulation without limitation [facility] Start: 07-08-2024 Assessment of risk o f venous thromboembolism [facility] Start: 07-08-2024 Catheterization of vein [facility] Start: 07-08-2024 Insertion of cathete r into peripheral vein [facility] Start: 07-08-2024 Measuring intake and output [facility] Start: 07-08-2024 Providing care accor ding to standard [facility] Start: 07-08-2024 Tobacco use cessatio n education [facility] Start: 07-08-2024 [facility] Start: 07-08-2024 Verification routine [facility] Start: 07-08-2024 Admission procedure [facility] Start: 07-08-2024 Hospital admission, emergency, from emergency room, medical nature [facility] Start: 07-08-2024 [facility] Start: 07-08-2024 End: 07-08-2024 [facility] Start: 06-05-2024 Screening for malign ant neoplasm of breast Mammogram Screening [facility] Start: 12-05-2023 End: 12-05-2023 Patient encounter procedure 12/05/2023 4:40 PM EDT Office Visit [facility] [address] [place] [id number] Jose Michael MD [address] [place] [address] [facility] Comment on above: 6 Month Follow Up Start: 11-18-2023 Covid-19 Vaccine ( season) Covid-19 Vaccine () [facility] Start: 11-18-2023 Covid-19 Vaccine ( season) Covid-19 Vaccine () [facility] Start: 11-18-2023 Influenza vaccination [facility] Start: 06-21-2023 End: 09-20-2023 Hepatitis C virus genotype [Identifier] in Serum or Plasma by YUMIKO with probe detection [facility] Work Phone: Comment on above: Expected: 06/21/2023 , Expires: 09/20/2023 Start: 06-10-2023 End: 09-09-2023 Acute hepatitis 2000 panel - Serum HEP ACUTE PANEL BL Lab Routine Elevated liver enzymes Expected: 06/10/2023, Expires: 09/09/2023 [facility] Work Phone: Comment on above: Expected: 06/10/2023 , Expires: 09/09/2023 Start: 06-10-2023 End: 09-09-2023 Hepatic function 2000 panel - Serum or Plasma HEPATIC FUNCTION PNL Lab Routine Elevated liver enzymes Expected: 06/10/2023, Expires: 09/09/2023 [facility] Work Phone: Comment on above: Expected: 06/10/2023 , Expires: 09/09/2023 Start: 05-28-2023 End: 08-27-2023 25-hydroxyvitamin D3 [Mass/volume] in Serum or Plasma VITAMIN D 25 HYDROXY Lab Routine Vitamin D deficiency Expected: 05/28/2023, Expires: 08/27/2023 [facility] Work Phone: Comment on above: Expected: 05/28/2023 , Expires: 08/27/2023 Start: 05-28-2023 End: 08-27-2023 CBC W Auto Differential panel - Blood CBC + DIFF Lab Routine Screening for deficiency anemia Expected: 05/28/2023, Expires: 08/27/2023 [facility] Work Phone: Comment on above: Expected: 05/28/2023 , Expires: 08/27/2023 Start: 05-28-2023 End: 08-27-2023 Comprehensive metabolic 2000 panel - Serum or Plasma COMP METABOLIC PANEL Lab Routine Wellness examination Expected: 05/28/2023, Expires: 08/27/2023 [facility] Work Phone: Comment on above: Expected: 05/28/2023 , Expires: 08/27/2023 Start: 05-28-2023 End: 08-27-2023 Lipid 1996 panel - Serum or Plasma LIPID PANEL BASIC Lab Routine Lipid screening Expected: 05/28/2023, Expires: 08/27/2023 [facility] Work Phone: Comment on above: Expected: 05/28/2023 , Expires: 08/27/2023 Start: 03-19-2023 Behavioral Health Screening Behavioral Health Screening [facility] Start: 02-11-2023 [facility] Start: 11-17-2022 Covid-19 Vaccine () Covid-19 Vaccine () [facility] Start: 11-17-2022 Influenza vaccination [facility] Start: 10-26-2022 Mammography [facility] Start: 10-26-2022 Screening for malign ant neoplasm of breast [facility] Start: 2022 Hepatitis B Vaccines (1 of 3 - Risk 3-dose series) Hepatitis B Vaccines (1 of 3 - Risk 3-dose series) [facility] Start: 2022 RSV Immunization age d 60 or older (1 - 1-dose 60+ series) RSV Immunization aged 60 or older (1 - 1-dose 60+ series) [facility] Start: 2022 RSV Vaccine (1 - 1-d ose 60+ series) RSV Vaccine (1 - 1-dose 60+ series) [facility] Start: 03-19-2022 DEPRESSION ASSESSMENT DEPRESSION ASS ESSMENT [facility] Start: 11-17-2021 Influenza vaccination INFLUENZA (#1) [facility] Start: 12-12-2016 End: 12-12-2016 Appointment Appointment [facility] Work Phone: Start: 2012 SHINGRIX VACCINE (1 of 2) SHINGRIX VACCINE (1 of 2) [facility] Start: 2012 Zoster Vaccines (1 of 2) Zoster Vacc kasi (1 of 2) [facility] Start: 2007 COLOGUARD (FIT-DNA) COLOGUARD (FIT-D NA) [facility] Start: 2007 Colonoscopy COLONOSCOPY [facility] Start: 2007 COLORECTAL CANCER SCREENING COLORECTAL CANCER SCREENING [facility] Start: [address] COLONOGRAPHY [facility] Start: 2007 DIABETES SCREEN DIABETES SCREEN [facility] Start: 2007 Diabetes Screening Diabetes Screenin g [facility] Start: 2007 FECAL OCCULT BLOOD FECAL OCCULT BLOO D [facility] Start: 2007 Lipid 1996 panel - S miguel ángel or Plasma Lipid Screening [facility] Start: 2007 Lipid panel Lipid Screening [facility] Start: 2007 LIPID SCREEN LIPID SCREEN [facility] Start: 2007 Screening for malign ant neoplasm of colon [facility] Start: 2007 [facility]OSCOPY [facility] Start: 2002 Mammography MAMMOGRAM [facility] Start: 1992 HPV TESTING HPV TESTING [facility] Start: 1992 Screening for malign ant neoplasm of cervix [facility] Start: 1983 PAP TESTING PAP TESTING [facility] Start: 1983 Screening for malign ant neoplasm of cervix [facility] Start: 1981 DTaP/Tdap/Td Vaccine s (1 - Tdap) DTaP/Tdap/Td Vaccines (1 - Tdap) [facility] Start: 1981 Hepatitis A Vaccines (1 of 2 - Risk 2-dose series) Hepatitis A Vaccines (1 of 2 - Risk 2-dose series) [facility] Start: 1981 Pneumococcal Vaccine : 50+ (1 of 2 - PCV) Pneumococcal Vaccine: 50+ (1 of 2 - PCV) [facility] Start: 1981 Urine microalbumin profile [facility] Start: 1980 Anxiety Screening Anxiety Screening [facility] Start: 1980 Depression Screening Depression Scre ening [facility] Start: 1980 Diabetes mellitus screening Diabetes Screening [facility] Start: 1980 HEPATITIS C SCREENING HEPATITIS C [facility] Start: 1980 Hepatitis C screening Hepatitis C [facility] Start: 1980 HIV SCREENING HIV SCREENING [facility] Start: 1980 HIV screening HIV Screening [facility] Start: 1974 Adult depression screening assessment DEPRESSION SCREENING [facility] Start: 1968 PNEUMOCOCCAL (1 - PCV) PNEUMOCOCCAL (1 - PCV) [facility] Start: 1968 Pneumococcal vaccination [facility] Start: 1968 Pneumococcal Vaccine : Pediatrics (0 to 5 Years) and At-Risk Patients (6 to 64 Years) (1 of 2 - PCV) Pneumococcal Vaccine: Pediatrics (0 to 5 Years) and At-Risk Patients (6 to 64 Years) (1 of 2 - PCV) [facility] Start: 1963 MMR Vaccines (1 of 1 - Standard series) MMR Vaccines (1 of 1 - Standard series) [facility] Start: 1962 COVID-19 VACCINE (#1) COVID-19 VACCI NE (#1) [facility] Start: 1962 HIV screening HIV Screening [facility] Start: 1962 Lipid panel Lipid Panel [facility] Start: 1962 Screening for malign ant neoplasm of colon [facility] End: 08-28-2025 DBT Breast - bilateral screening JUSTINA SCREENING W TEA Radiology Routine Encounter for screening mammogram for breast cancer 1 Occurrences starting 07/29/2024 until 08/28/2025 [facility] Work Phone: Comment on above: 1 Occurrences starti ng 07/29/2024 until 08/28/2025 Hepatitis A antibody , total Hepatitis A antibody, total Lab Routine Chronic hepatitis C without hepatic coma (CMS/HCC) (HCC) Gastroesophageal reflux disease without esophagitis Focal epilepsy (CMS/HCC) (HCC) 07/26/2023 2:41 PM [facility]T [facility] Hepatitis B core antibody, total Hepatitis B core antibody, total Lab Routine Chronic hepatitis C without hepatic coma (CMS/HCC) (HCC) Gastroesophageal reflux disease without esophagitis Focal epilepsy (CMS/HCC) (HCC) 07/26/2023 2:41 PM EDT [facility] Hepatitis C virus RN A panel (viral load) in Serum or Plasma by YUMIKO with probe detection Hepatitis C viral load Lab Routine Chronic hepatitis C without hepatic coma (CMS/HCC) (HCC) Gastroesophageal reflux disease without esophagitis 11/15/2023 3:14 PM EDT [facility] Work Phone: End: 06-26-2024 MG Breast Screening JUSTINA SCREENING Radiology Routine Encounter for screening mammogram for malignant neoplasm of breast 1 Occurrences starting 05/28/2023 until 06/26/2024 [facility] Work Phone: Comment on above: 1 Occurrences starti ng 05/28/2023 until 06/26/2024 MG Breast Screening JUSTINA SCREENIN G Radiology Routine Encounter for screening mammogram for malignant neoplasm of breast 06/06/2023 2:25 PM EDT [facility] Work Phone: Patient Education Bruises (Contusions) [facility] Work Phone: Patient referral [facility] Work Phone: Troponin T.cardiac [Mass/volume] in Serum or Plasma by High sensitivity method [facility] End: 07-09-2024 US Abdomen RUQ US ABD RIGHT UPPER QUADRANT Radiology Routine Elevated liver enzymes 1 Occurrences starting 06/10/2023 until 07/09/2024 [facility] Work Phone: Comment on above: 1 Occurrences starti ng 06/10/2023 until 07/09/2024 US Abdomen RUQ US ABD RIGHT UPP ER QUADRANT Radiology Routine Elevated liver enzymes 06/28/2023 9:05 AM EDT [facility] Work Phone: [facility] Immunizations Immunization Date Immunization Notes Care Provider [facility] 12-06-2020 influenza nasal, unspecified formulation Jose Michael MD Work Phone: [facility] 12-06-2020 influenza virus vacc ine, unspecified formulation Jose Michael MD Work Phone: [facility] Payers Date Payer Category Payer Self-pay [id number] 2022 Private Health Insurance [id number] 2019 Unknown [id number] 2016 Unknown [id number] Unknown [id number] Unknown [id number] Unknown [id number] 2.16.8 [id number] Unknown [id number] 2.16.8 40.1.088010.3.579.2.462 Unknown [id number] 2.16.8 40.1.193389.3.579.2.462 Unknown [id number] 2.16.8 40.1.064054.3.579.2.462 Unknown [id number] 2.16.8 40.1.536212.3.579.2.462 Unknown [id number] 2.16.8 40.1.138901.3.579.2.462 Unknown [id number] 2.16.8 40.1.212675.3.579.2.462 Unknown [id number] 2.16.8 40.1.689946.3.579.2.462 Unknown [id number] 2.16.8 40.1.313754.3.579.2.462 Unknown [id number] 2.16.8 40.1.438706.3.579.2.462 Unknown [id number] 2.16.8 40.1.520106.3.579.2.462 Unknown [id number] 2.16.8 40.1.040571.3.579.2.462 Unknown [id number] 2.16.8 40.1.479428.3.579.2.462 Unknown [id number] 2.16.8 40.1.187911.3.579.2.462 Unknown [id number] 2.16.8 40.1.641036.3.579.2.462 Unknown [id number] 2.16.8 40.1.346530.3.579.2.462 Unknown [id number] 2.16.8 40.1.413537.3.579.2.462 Unknown [id number] 2.16.8 40.1.162581.3.579.2.462 Social History Date Type Detail Facility Start: 12-02-2020 End: 02-11-2023 Tobacco smoking status MSIS Unknown if ever smoked [facility] Start: 1960 Sex Assigned At Female [facility] Start: 04-03-2019 End: 11-27-2022 Tobacco smoking status MSIS Smokes tobacco daily [facility] History of tobacco use Cigarette Smoker C [facility] Start: 04-03-2019 End: 11-27-2022 Tobacco use and exposure Smokeless tobacco non-user [facility] Start: 04-03-2019 End: 05-28-2023 Alcohol intake Current drinker of alcohol (finding) [facility] Start: 04-03-2019 End: 02-24-2020 Alcohol intake [facility] Start: 04-03-2019 History SDOH Alcohol Frequency 5 [facility] Start: 04-03-2019 History SDOH Alcohol Std Drinks 1 [facility] Start: 1960 Sex Assigned At Not on file [facility] Start: 04-03-2019 End: 02-24-2020 Alcohol Use Disorder Identification Test - Consumption [AUDIT-C] [facility] How often to you hav e a drink containing alcohol? 4 or more times a week [facility] How many standard dr inks containing alcohol do you have on a typical day? 1 or 2 [facility] How often do you hav e 6 or more drinks on 1 occasion? Never [facility] National Score (1-10 0), lower number is lower risk Not on file [facility] Has the [employer], or [employer] threatened to shut off services in your home in past 12Mo No [facility] Do you belong to any clubs or organizations such as orthodoxy groups, unions, fraternal or athletic groups, or school groups? Yes [facility] Are you now , , , , never or living with a partner? [facility] Do you feel stress - tense, restless, nervous, or anxious, or unable to sleep at night because your mind is troubled all the time - these days [OSQ] To some extent [facility] (I/We) worried whedayron er (my/our) food would run out before (I/we) got money to buy more. Never true [facility] Start: 07-26-2023 Alcohol Comment 2 glasses/will not drink while on treatment [facility] Start: 07-08-2024 Sex Female (finding) [facility] Goals Date Patient Goal Desired Activity /State Functional Status Date Assessment Result Facility 07-11-2024 Functional status [facility] Work Phone: Mental Status Date Assessment Result Facility 07-11-2024 Cognitive function Voice[facility]Name [facility] Work Phone: 07-08-2024 Cognitive function Voice[facility]Name [facility] Work Phone: Clinical Notes 10-25-2021 to 09-12-2024 Telephone Encounter - Dl Frey LPN - 09/12/2024 8:22 AM EDTTelephone Encounter - Dl Frey LPN - 09/12/2024 8:22 AM EDT Note Date & Type Note Facility 09-12-2024 Telephone encounter Note Last Office Visit: 05/28/23 Next visit: none [facility] 09-12-2024 Miscellaneous Notes Last Office Visit: 05/28/23 Next visit: none documented in this encounter [facility] 07-29-2024 Note Patient Outreach (FA MMAS) CIERRA FUENTES ([id number]) 1960 F Date Time Provider Department 07/29/24 JOSE MICHAEL During your visit today, we recorded the following information about you: Allergies As of Date: 07/29/2024 (No Known Allergies) Date Reviewed: 05/28/2023 Reviewed by: Diana Gong LPN - Fully Assessed Visit Diagnosis:Encounter for screening mammogram for breast cancer [Z12.31] Order(s):[facility] SCREENING W TEA [[id number]] Order #: [id number] FUTURE Prescriptions as of 08/29/2024 - omeprazole (PRILOSEC) 20 mg capsule take 1 capsule by mouth once daily. - acyclovir (ZOVIRAX) 400 mg tablet take 1 tablet by mouth once daily. - NYAMYC powder Apply 1 Application to affected area two times a day. - lamoTRIgine ER (LAMICTAL XR) 300 mg 24 hr tablet Take 1 tablet by mouth every afternoon. - levETIRAcetam XR (KEPPRA XR) 500 mg 24 hr tablet Take 1,500 mg by mouth once daily. Problem List As Of Date 07/29/2024 Noted Resolved Epileptic seizures (HCC) [G40.909] 02/06/2019 Diagnosed: 11/27/2022 Gastroesophageal reflux disease [K21.9] 12/05/2016 Diagnosed: 11/27/2022 Finding of above normal blood pressure [R03.0] 11/27/2022 Diagnosed: 11/27/2022 Essential tremor [G25.0] 08/29/2022 Diagnosed: 11/27/2022 Encounter Status:Closed by EPIC, PRODUSER on 08/29/24 [facility] 07-11-2024 Note [facility] Medical Records Department [address] [place] [address] Discharge Summary 07/11/24 1525 MR#: [id number] Acct: [id number] Name: CIERRA FUENTES Rep #: [id number] : 1960 64 From: Nilesh Davenport DO PCP: Dr. Alysa Mckee MD Status:DIS IN Location: ICU ICU04-1 Providers Date of Admission: 07/09/24 Date of Discharge: 07/11/24 Primary Care Physician: Alysa Mckee MD Consultations 07/09/24 14:55 Consult: Ski Molder / Pulmonary Medicine Routine Consulting Provider: Pulmonary Medicine [facility] Reason for Consult: Acute Ischemic Stroke/TIA EMERGENT Consult: Yes Notified: Yes Date Notified: 07/09/24 Time Notified: 14:35 Method of Notification: Verbal Consult: Tele-Neurology Routine Consulting Provider: [facility] Reason for Consult: Acute Ischemic Stroke/TIA EMERGENT Consult: Yes Notified: Yes Date Notified: 07/09/24 Time Notified: 14:35 Method of Notification: Verbal Nursing Unit Staff Notify [facility] of Tele-Neurology Consult: Yes Reason For Visit: CHEST PAIN Diagnosis Discharge Diagnosis (1) Occipital stroke: Status: Acute Code(s): I63.9 - Cerebral infarction, unspecified Plan 1. Acute occipital stroke-patient will continue on a statin, she will be placed on 81 mg aspirin daily starting tomorrow. Patient will be seen by PT OT and speech therapy. #2 uncontrolled hypertension-I placed the patient on an LARS inhibitor and Norvasc today, she remains on a Cardene drip at this time which can probably be weaned off if her blood pressure response to oral meds. #3 seizure disorder-patient will remain on her present medications #4 right knee pain secondary to osteoarthritis-patient is receiving Oxy IR for pain #5 musculoskeletal chest pain Total clinical time spent by myself addressing the patient's medical issues, reviewing all of her data, and collaborating with patient's care team: 35 minutes Medications at Discharge Home Medications acyclovir 400 mg tablet 400 mg PO DAILY 04/18/23 lamotrigine 300 mg tablet,extended release 24 hr 300 mg PO DAILY 04/18/23 omeprazole 20 mg capsule,delayed release 20 mg PO DAILY 04/18/23 levetiracetam 500 mg tablet,extended release 24 hr 1,500 mg PO DAILY 07/08/24 amlodipine 5 mg tablet 5 mg PO DAILY #30 tabs 07/11/24 aspirin 81 mg tablet,delayed release 81 mg PO BREAKFAST #0 tabs 07/11/24 atorvastatin 40 mg tablet 40 mg PO QHS #30 tabs 07/11/24 lisinopril 20 mg tablet 20 mg PO DAILY #30 tabs 07/11/24 prednisone 20 mg tablet 40 mg (2 x 20 mg) PO DAILY #13 tabs 07/11/24 Hospital Course Operations None Procedures 2-D Echocardiogram and Stress test Summary of Care Provided Minutes Spent on Discharge: 32 Hospital Course: This 64-year-old white female was seen in the emergency room at [facility] with complaints of pain which started in the right neck area and radiated to the upper chest and across the upper chest. Patient denied any shortness of breath. Workup in the emergency room including an EKG and cardiac enzymes were unremarkable. Chest x-ray did not show any abnormality. Patient had a CTA of the chest that showed no pulmonary embolism, there was evidence of lung emphysema with dependent atelectasis and scarring. Patient was admitted to PCU, she underwent an echocardiogram which showed normal EF and no significant valvular heart disease, she also underwent a nuclear stress test that did not show any evidence of reversible ischemia. At approximately 12:30 PM on 07/09/2024, patient started to have problems with her vision in her right eye, she stated she could not see laterally from her right eye. A stroke team was called and teleneurology examined the patient and tenecteplase was given to the patient and she was transferred to ICU. Patient's blood pressure elevated and this was a problem, she was given as needed labetalol. MRI was obtained that showed an acute/subacute infarct to the left medial occipital area. Patient was placed on blood pressure medication and her pressure improved. On 07/11/2024, patient was seen and examined: On examination she appeared in good health and spirits, she does not appear to be in any distress. Vital signs as documented. Skin warm and dry and without overt rashes. Neck without JVD, thyroid appears normal, trachea is midline, neck is supple. Lungs clear, normal air movement was noted. Heart exam notable for regular rhythm, normal sounds and absence of murmurs, rubs or gallops. Abdomen unremarkable and without evidence of organomegaly, masses, or abdominal aortic enlargement, bowel sounds are present in all 4 quadrants, no abdominal tenderness was noted. Extremities nonedematous, no cyanosis was noted, no clubbing was noted. Neuro: Cranial nerves II through XII are grossly intact, no focal motor deficits were noted, sensation to light touch and pinprick (more content not included)... [facility] 07-09-2024 Evaluation note Diagnosis Onset Date Resolution Chest pain inactive July 09 4:11pm Family history of coronary artery disease inactive July 09, 2024 4:11pm Occipital stroke inactive July 092024 4:11pm Tobacco dependence inactive July 09, 2024 4:11pm [facility] Work Phone: 1(281) 317-146104-22-2025 Radiology Diagnostic study note [facility] Imaging Services [address], [place] [address] CTA Chest W/WO Contrast MR#: [id number] Acct: [id number] Name: CIERRA FUENTES Rep #: [id number] : 1960 F 64 From: Gabriella Aranda MD PCP: Dr. Alysa Mckee MD Status: REG ER Study:CTA Chest W/WO Contrast Date of Exam: 07/08/24 Exam# [id number] Ordering Dr: Yaron Aranda DO EXAM: CT Angiography Chest Without and With Intravenous Contrast CLINICAL INDICATION: PAIN TECHNIQUE: Axial computed tomographic angiography images of the chest without and with intravenous contrast. This CT exam was performed using one or more of the following dose reduction techniques: automated exposure control,adjustment of the mA and/or kV according to patient size, and/or use of iterative reconstruction technique. MIP reconstructed images were created and reviewed. COMPARISON: No relevant prior studies available. FINDINGS: LIMITATIONS: Suboptimal opacification of the pulmonary arteries. PULMONARY ARTERIES: No pulmonary embolism is identified. Some of the distal pulmonary arteries cannot be evaluated due to suboptimal opacification. AORTA: No acute findings. No thoracic aortic aneurysm. LUNGS AND PLEURAL SPACES: Lung emphysema/COPD with dependent atelectasis/scarring. No mass. No significant effusion. No pneumothorax. HEART: Unremarkable. No cardiomegaly. No significant pericardial effusion. No evidence of RV dysfunction. BONES/JOINTS: No acute fracture. No dislocation. SOFT TISSUES: Unremarkable. LYMPH NODES: Unremarkable. No enlarged lymph nodes. CT/CTA Chest W/WO Contrast IMPRESSION: 1. No pulmonary embolism is identified. Some of the distal pulmonary arteries cannot be evaluated due to suboptimal opacification. 2. Lung emphysema/COPD with dependent atelectasis/scarring. Reading Location: [facility] CC: Dr. Alysa Mckee MD; Dr. Yaron Aranda, ~ Director Of Hemophilia: Signed [facility]04-22-2025 Radiology Diagnostic study note [facility] Imaging Services [address] [place] [address] [id number] Chest 1 View (Portable) MR#: [id number] Acct: [id number] Name: CIERRA FUENTES Rep #: [id number] : 1960 F 64 From: Gabriella Aranda MD PCP: Dr. Alysa Mckee MD Status: PRE ER Study:Chest 1 View (Portable) Date of Exam: 07/08/24 Exam# [id number] Ordering Dr: Yaron Aranda DO EXAM: XR Chest, 1 View CLINICAL INDICATION: CHEST PAIN TECHNIQUE: Frontal view of the chest. COMPARISON: No relevant prior studies available. FINDINGS: LUNGS AND PLEURAL SPACES: Unremarkable. No consolidation. No pneumothorax. HEART: Unremarkable. No cardiomegaly. MEDIASTINUM: Unremarkable. Normal mediastinal contour. BONES/JOINTS: Unremarkable. No acute fracture. RAD/Chest 1 View (Portable) IMPRESSION: No acute cardiopulmonary process. Reading Location: [facility] CC: Dr. Alysa Mckee MD; Dr. Yaron Aranda, DO ~ Director Of Hemophilia: Signed [facility]03-26-2025 History of Present illness Narrative* Madeline Miller RPh - 06/11/2024 2:05 PM EDT Chart review reveals a recent lab test performed at [facility]. Unexpected results found as part of testing for Hepatitis C (HCV) HCV RNA Date Value Ref Range Status 06/11/2023 HCV RNA detected by PCR. (A) HCV RNA not detected by PCR. Final HCV RNA (IU/mL) Date Value Ref Range Status 06/11/2023 3,080,000 (H) IU/mL Final Lab result shows patient has Chronic Hepatitis C B18.2 Prior Treatment: not known Allergies: No Known Allergies GT needs to be determined Computed FIB-4 Calculation unavailable. One or more values for this score either were not found within the given timeframe or did not fit some other criterion. HBV status has been reviewed - recommend universal vaccination if not yet initiated HIV screen recommended HCV Treatment plan: Patient has complexities or coexisting conditions which take precedent over HCV treatment Not eligible for this program at this time. If patient condition or situation changes and HCV treatment is sought, pharmacy will be happy to assist. Madeline Miller RPh [facility] NoteHNO ID: [id number] Author: MADELINE MILLER RPh Service: ? Author Type: Pharmacist Type: Progress Notes Filed: 06/11/2024 14:07 Note Text: Chart review reveals a recent lab test performed at [facility]. Unexpected results found as part of testing for Hepatitis C (HCV) HCV RNA Date Value Ref Range Status 06/11/2023 HCV RNA detected by PCR. (A) HCV RNA not detected by PCR. Final HCV RNA (IU/mL) Date Value Ref Range Status 06/11/2023 3,080,000 (H) IU/mL Final Lab result shows patient has Chronic Hepatitis C B18.2 Prior Treatment: not known Allergies: No Known Allergies GT needs to be determined Computed FIB-4 Calculation unavailable. One or more values for this score either were not found within the given timeframe or did not fit some other criterion. HBV status has been reviewed - recommend universal vaccination if not yet initiated HIV screen recommended HCV Treatment plan: Patient has complexities or coexisting conditions which take precedent over HCV treatment Not eligible for this program at this time. If patient condition or situation changes and HCV treatment is sought, pharmacy will be happy to assist. Madeline Miller [facility]09-04-2024 Telephone encounter Note* Telephone Encounter - Diana Gong LPN - 11/21/2023 10:46 AM EDT Last Office Visit: 06-26-2023 Next Scheduled Office Visit: None scheduled Requested Prescriptions Pending Prescriptions Disp Refills omeprazole (PRILOSEC) 20 mg capsule [Pharmacy Med Name: omeprazole 20 mg capsule,delayed release] 90 capsule 3 Sig: take 1 capsule by mouth once daily. acyclovir (ZOVIRAX) 400 mg tablet [Pharmacy Med Name: acyclovir 400 mg tablet] 90 tablet 3 Sig: take 1 tablet by mouth once daily. Diana Gong LPN November 21, 2023 10:46 AM [facility]09-04-2024 Miscellaneous Notes* Telephone Encounter - Diana Gong LPN - 11/21/2023 10:46 AM EDT Last Office Visit: 06-26-2023 Next Scheduled Office Visit: None scheduled Requested Prescriptions Pending Prescriptions Disp Refills omeprazole (PRILOSEC) 20 mg capsule [Pharmacy Med Name: omeprazole 20 mg capsule,delayed release] 90 capsule 3 Sig: take 1 capsule by mouth once daily. acyclovir (ZOVIRAX) 400 mg tablet [Pharmacy Med Name: acyclovir 400 mg tablet] 90 tablet 3 Sig: take 1 tablet by mouth once daily. Diana Gong LPN November 21, 2023 10:46 AM [facility] History of Present illness Narrative* Dustin Castellanos MD - 11/15/2023 2:30 PM EDT Images from the original note were not included. [facility] Infectious Diseases Attending Outpatient Note Chief Complaint Patient presents with Hepatitis C Follow-up Completed 12/12 weeks treatment Subjective: Patient returns for end of treatment with 12 wks of Epclusa - Missed only one dose of 3 mos of Epclusa, took it properly with distance from her heartburn medicine. Side effects was very severe fatigue and brain fog for only a couple days about 5 d into medication. The rest of the time she felt normal energy and appetite and noted no GARCIA. She had documented UD VL at 6 wks of therapy, with normalized LFT.s that were >3 x nl pretreatment. 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 She acknowledges remote IDU but has not used in at least 3 decades. She assumed that at some point she was checked for Hepatitis viruses and did not specifically ask for testing. She has been well and very active, though admits to having severe obesity in the recent past but isnow down to BMI of 25. Is in a social ladies wine club, and drinks about 2 glasses of wine per day-with diner after working extensive hours. She does not feel that she is addicted or dependent but is very reluctant to quit. She had routine screening for HCV by her PCP and it was discovered that she was Ab positive, so further viral load showed 1.2 mil copies, with genotype 1 virus. A US of the liver showed mild increased echogenicity but no masses. She denies any secondary extra-hepatic symptoms of Hep C such as arthritis, skin rashes or vasculitis. She has not had mental status changes such as problems with cognition or memory and has no tremors.Note that she does have epilepsy. Fibroscan showed F1/2 with no steatosis. Past Medical History: Diagnosis Date Alcohol dependence, daily use (HCC) 07/26/2023 Chronic hepatitis C without hepatic coma (CMS/HCC) (HCC) 07/26/2023 completed treatment History of morbid obesity 07/26/2023 Seizures (HCC) History reviewed. No pertinent surgical history. Current Outpatient Medications Medication Sig Dispense Refill acyclovir (Zovirax) 400 MG tablet Take 1 tablet by mouth daily. lamoTRIgine (LaMICtal XR) 300 mg tablet sustained-release 24 hour 24 hr tablet Take 1 tablet by mouth daily. levETIRAcetam XR (Keppra XR) 500 MG 24 hr tablet Take 3 tablets by mouth daily. nystatin (Mycostatin) 745262 UNIT/GM powder Apply topically 3 times daily. omeprazole (PriLOSEC) [address] capsule Take 20 mg by mouth in the morning. No current facility-administered medications for this visit. No Known Allergies Social History Socioeconomic History Marital status: Spouse name: Not on file Number of children: Not on file Years of education: Not on file Highest education level: Not on file Occupational History Not on file Tobacco Use Smoking status: Every Day Current packs/day: 1.00 Types: Cigarettes Smokeless tobacco: Never Substance and Sexual Activity Alcohol use: Yes Comment: 2 glasses/will not drink while on treatment Drug use: Not Currently Comment: IVDU/SRIRAM-cocaine mostly-none since 2004 Sexual activity: Yes Partners: Male Other Topics Concern Not on file Social History Narrative Not on file Social Determinants of Health Financial Resource Strain: Patient Unable To Answer (05/28/2023) Received from [facility] Overall Financial Resource Strain (CARDIA) Difficulty of Paying Living Expenses: Patient unable to answer Food Insecurity: No Food Insecurity (05/28/2023) Received from [facility] Hunger Vital Sign Worried About Running Out of Food in the Last Year: Never true Ran Out of Food in the Last Year: Never true Transportation Needs: No Transportation Needs (05/28/2023) Received from [facility] PRAPARE - Transportation Lack of Transportation (Medical): No Lack of Transportation (Non-Medical): No Physical Activity: Insufficiently Active (05/28/2023) Received from [facility] Exercise Vital Sign Days of Exercise per Week: 1 day Minutes of Exercise per Session: 30 min Stress: Stress Concern Present (05/28/2023) Received from [facility] [employer] [place] [facility] [employer] [facility] - Occupational Stress Questionnaire Feeling of Stress : To some extent Social Connections: Moderately Integrated (05/28/2023) Received from [facility] Social Connection and Isolation Panel [NHANES] Frequency of Communication with Friends and Family: Patient unable to answer Frequency of Social Gatherings with Friends and Family: Patient unable to answer Attends Sikh Services: Never Active Member of Clubs or Organizations: Yes Attends Club or Organization Meetings: More than 4 times per year Marital Status: Intimate Partner Violence: Not on file Housing Stability: Low Risk (05/28/2023) Received from [facility] Housing Stability Vital Sign Unable to Pay for Housing in the Last Year: No Number of Places Lived in the Last Year: 1 Unstable Housing in the Last Year: No Family History Problem Relation Name Age of Onset Arthritis Mother Cancer Mother brain Heart disease Father Review of Systems Constitutional: Negative. Negative for activity change, appetite change, chills, diaphoresis, fatigue, fever and unexpected weight change. HENT: Negative. Negative for congestion, dental problem, drooling, ear discharge, ear pain, facial swelling, hearing loss, mouth sores, nosebleeds, postnasal drip, rhinorrhea, sinus pressure, sinus pain, sneezing, sore throat, tinnitus, trouble swallowing and voice change. Eyes: Positive for visual disturbance (corrected with glasses). Negative for photophobia, pain, discharge, redness and itching. Respiratory: Negative. Negative for apnea, cough, choking, chest tightness, shortness of breath, wheezing and stridor. Cardiovascular: Negative. Negative for chest pain, palpitations and leg swelling. Gastrointestinal: Negative. Negative for abdominal distention, abdominal pain, anal bleeding, bloodin stool, constipation, diarrhea, nausea, rectal pain and vomiting. Endocrine: Negative for cold intolerance, heat intolerance, polydipsia, polyphagia and polyuria. Genitourinary: Negative for difficulty urinating, enuresis, flank pain, frequency and urgency. Musculoskeletal: Negative. Negative for arthralgias, back pain, gait problem, joint swelling, myalgias, neck pain and neck stiffness. Skin: Negative. Negative for color change, pallor, rash and wound. Allergic/Immunologic: Negative. Negative for environmental allergies, food allergies and immunocompromised state. Neurological: Negative. Negative for dizziness, tremors, seizures, syncope, facial asymmetry, speech difficulty, weakness, light-headedness, numbness and headaches. Hematological: Negative. Negative for adenopathy. Does not bruise/bleed easily. Psychiatric/Behavioral: Negative. Negative for agitation, behavioral problems, confusion, decreasedconcentration, dysphoric mood, hallucinations, self-injury, sleep disturbance and suicidal ideas. The patient is not nervous/anxious and is not hyperactive. Vitals: 11/15/23 1433 BP: 132/76 BP Location: Right arm Patient Position: Sitting BP Cuff Size: Adult Pulse: 76 Temp: 36 C (96.8 F) TempSrc: Temporal Weight: 64.9 kg (143 lb) Height: 1.626 m (5' 4) Physical Exam Vitals and nursing note reviewed. Constitutional: General: She is not in acute distress. Appearance: Normal appearance. She is normal weight. She is not ill-appearing, toxic-appearing or diaphoretic. HENT: Head: Normocephalic and atraumatic. Nose: Nose normal. No congestion or rhinorrhea. Mouth/Throat: Mouth: Mucous membranes are moist. Pharynx: No oropharyngeal exudate or posterior oropharyngeal erythema. Eyes: General: No scleral icterus. Extraocular Movements: Extraocular movements intact. Conjunctiva/sclera: Conjunctivae normal. Cardiovascular: Rate and Rhythm: Normal rate and regular rhythm. Heart sounds: Normal heart sounds. No murmur heard. Pulmonary: Effort: Pulmonary effort is normal. No respiratory distress. Breath sounds: Normal breath sounds. No wheezing or rhonchi. Abdominal: General: Bowel sounds are normal. There is no distension. Palpations: Abdomen is soft. There is no mass. Tenderness: There is no abdominal tenderness. Musculoskeletal: General: No tenderness or deformity. Normal range of motion. Cervical back: Normal range of motion. No rigidity. Right lower leg: No edema. Left lower leg: No edema. Skin: General: Skin is warm and dry. Coloration: Skin is not jaundiced. Findings: No bruising, erythema or lesion. Comments: Healed track [facility] [facility] [employer] Neurological: General: No focal deficit present. Mental Status: She is alert and oriented to person, place, and time. Motor: No weakness. Coordination: Coordination normal. Gait: Gait normal. Psychiatric: Mood and Affect: Mood normal. Behavior: Behavior normal. Thought Content: Thought content normal. Judgment: Judgment normal. No visits with results within 1 Week(s) from this visit. Latest known visit with results is: Clinical Support on 10/04/2023 Component Date Value Ref Range Status SODIUM 10/04/2023 139 135 - 145 mmol/L Final POTASSIUM 10/04/2023 3.7 3.5 - 5.1 mmol/L Final CHLORIDE 10/04/2023 103 98 - 107 mmol/L Final CARBON DIOXIDE 10/04/2023 28 22 - 30 mmol/L Final ANION GAP 10/04/2023 9 3 - 13 mmol/L Final UREA NITROGEN 10/04/2023 14 7 - 17 mg/dL Final CREATININE 10/04/2023 0.66 0.52 - 1.04 mg/dL Final GLUCOSE 10/04/2023 88 70 - 100 mg/dL Final CALCIUM 10/04/2023 9.9 8.4 - 10.4 mg/dL Final AST (SGOT) 10/04/2023 25 15 - 46 U/L Final ALT 10/04/2023 14 0 - 34 U/L Final ALKALINE PHOSPHATASE 10/04/2023 97 38 - 126 U/L Final ALBUMIN 10/04/2023 4.1 3.5 - 5.0 g/dL Final BILIRUBIN, TOTAL 10/04/2023 0.3 0.2 - 1.3 mg/dL Final TOTAL PROTEIN 10/04/2023 7.0 6.3 - 8.2 g/dL Final eGFR 10/04/2023 >90.0 >60.0 mL/min/1.73m*2 Final Auto WBC 10/04/2023 7.5 3.6 - 10.7 10*3/uL Final RBC 10/04/2023 4.33 3.80 - 5.20 10*6/uL Final Hemoglobin 10/04/2023 14.1 11.7 - 16.0 g/dL Final Hematocrit 10/04/2023 42.0 35.0 - 47.0 % Final MCV 10/04/2023 97.0 77.0 - 99.0 fL Final MCH 10/04/2023 32.6 26.0 - 34.0 pg Final MCHC 10/04/2023 33.6 30.5 - 36.0 % Final RDW 10/04/2023 11.3 (L) 11.5 - 15.0 % Final Platelets 10/04/2023 293 140 - 440 10*3/uL Final MPV 10/04/2023 12.4 9.0 - 12.7 fL Final nRBC 10/04/2023 0.0 0.0 - 2.0 /100 WBCs Final Neutrophils Relative 10/04/2023 57.3 38.0 - 82.0 % Final Lymphocytes Relative 10/04/2023 30.6 15.0 - 45.0 % Final Monocytes Relative 10/04/2023 8.6 5.0 - 13.0 % Final Eosinophils Relative 10/04/2023 2.9 0.0 - 6.0 % Final Basophils Relative 10/04/2023 0.5 0.0 - 2.0 % Final Immature Grans % 10/04/2023 0.1 0.0 - 2.0 % Final Neutrophils Absolute 10/04/2023 4.3 1.8 - 7.5 10*3/uL Final Lymphocytes Absolute 10/04/2023 2.3 1.0 - 4.3 10*3/uL Final Monocytes Absolute 10/04/2023 0.7 0.0 - 0.9 10*3/uL Final Eosinophils Absolute 10/04/2023 0.2 0.0 - 0.5 10*3/uL Final Basophils Absolute 10/04/2023 0.0 0.0 - 0.2 10*3/uL Final Immature Grans Absolute 10/04/2023 0.0 <0.1 10*3/uL Final HCV RNA QUANT 10/04/2023 None Detected <15 IU/ml Final HCV RNA QUANT (LOG) 10/04/2023 None Detected <1.18 Log_IU Final ASSESSMENT/PLAN 1. Chronic hepatitis C without hepatic coma (CMS/HCC) (HCC) genotype 1 with starting VL of 3 mil that was UD after 6/12 weeks of Epclusa. Now done with 12 wks of therapy with minimal SE and excellentcompliance Labs drawn today - Comprehensive metabolic panel - CBC auto differential - Hepatitis C viral load If VL is still UD, she will have lab drawn in 3 mos for test of Cure and was provided a lab slip with date to get labs as she lives [place] away in [place] Did not want immunization for Hep B 2. Gastroesophageal reflux disease without esophagitis Total time 35 minutes on this day of visit includes lab review, discussion of lab results , furthereducation on Hep C ab persistence, risk for reinfection even with same genotype if she resumes any risk factors, and exam as well as record and documentation review before and after visit including documentation and time not explicitly included on EMR time stamp for accounting for open encounter. documented in this [facility]05-09-2024 History of Present illness Narrative* Dustin Castellanos MD - 07/26/2023 1:00 PM EDT Images from the original note were not included. 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 She acknowledges remote IDU but has not used in at least 3 decades. She assumed that at some point she was checked for Hepatitis viruses and did not specifically ask for testing. She has been well and very active, though admits to having severe obesity in the recent past but isnow down to BMI of 25. Is in a social [employer] wine club, and drinks about 2 glasses of wine per day-with diner after working extensive hours. She does not feel that she is addicted or dependent but is very reluctant to quit. She had routine screening for HCV by her PCP and it was discovered that she was Ab positive, so further viral load showed 1.2 mil copies, with genotype 1 virus. A US of the liver showed mild increased echogenicity but no masses. She denies any secondary extra-hepatic symptoms of Hep C such as arthritis, skin rashes or vasculitis. She has not had mental status changes such as problems with cognition or memory and has no tremors.Note that she does have epilepsy. Discussion, in detail, addressed: Hep C disease and its effects not only on the liver but extra-hepatic manifestations, as well in promotion of other organ disease including heart disease, the modes of transmission and how to avoid spreading Hep C, medications used for treatment and their possible side effects, the treatment protocols, liver evaluation for tumors and size and shape by Ultrasound,and the staging of liver disease by Fibroscan. The patient is made aware of the critical importance of medication compliance as well as obtaining labs midway into treatment and at end of therapy as well as follow up for test of cure at 3 mos after the end of therapy, ad were agreeable with the plan I explained that after complete blood tests to update labs an obtain the US and Fibroscan, we will submit a prior authorization packet to their insurance company for medication approval. Questions were entertained and answered. Patient verbalized understanding. My findings and recommendations will be communicated back to the referring physician(s) by means ofshared electronic medical records. Past Medical History: Diagnosis Date Alcohol dependence, daily use (HCC) 07/26/2023 Chronic hepatitis C without hepatic coma (CMS/HCC) (HCC) 07/26/2023 History of morbid obesity 07/26/2023 Seizures (HCC) History reviewed. No pertinent surgical history. Current Outpatient Medications Medication Sig Dispense Refill acyclovir (Zovirax) 400 MG tablet Take 1 tablet by mouth daily. lamoTRIgine (LaMICtal XR) 300 mg tablet sustained-release 24 hour 24 hr tablet Take 1 tablet by mouth daily. levETIRAcetam XR (Keppra XR) 500 MG 24 hr tablet Take 3 tablets by mouth daily. nystatin (Mycostatin) 378871 UNIT/GM powder Apply topically 3 times daily. omeprazole (PriLOSEC) [address] capsule Take 20 mg by mouth in the morning. No current facility-administered medications for this visit. No Known Allergies Social History Socioeconomic History Marital status: Spouse name: Not on file Number of children: Not on file Years of education: Not on file Highest education level: Not on file Occupational History Not on file Tobacco Use Smoking status: Every Day Packs/day: 1 Types: Cigarettes Smokeless tobacco: Never Substance and Sexual Activity Alcohol use: Yes Comment: 2 glasses/will not drink while on treatment Drug use: Not Currently Comment: IVDU/SRIRAM-cocaine mostly-none since 2004 Sexual activity: Yes Partners: Male Other Topics Concern Not on file Social History Narrative Not on file Social Determinants of Health Financial Resource Strain: Not on file Food Insecurity: Not on file Transportation Needs: Not on file Physical Activity: Not on file Stress: Not on file Social Connections: Not on file Intimate Partner Violence: Not on file Housing Stability: Not on file Family History Problem Relation Name Age of Onset Arthritis Mother Cancer Mother brain Heart disease Father Review of Systems Constitutional: Negative. Negative for activity change, appetite change, chills, diaphoresis, fatigue, fever and unexpected weight change. HENT: Positive for congestion (seasonal). Negative for dental problem, drooling, ear discharge, earpain, facial swelling, hearing loss, mouth sores, nosebleeds, postnasal drip, rhinorrhea, sinus pressure, sinus pain, sneezing, sore throat, tinnitus, trouble swallowing and voice change. Eyes: Positive for visual disturbance (corrected with glasses). Negative for photophobia, pain, discharge, redness and itching. Respiratory: Negative. Negative for apnea, cough, choking, chest tightness, shortness of breath, wheezing and stridor. Cardiovascular: Negative. Negative for chest pain, palpitations and leg swelling. Gastrointestinal: Negative. Negative for abdominal distention, abdominal pain, anal bleeding, bloodin stool, constipation, diarrhea, nausea, rectal pain and vomiting. Heartburn controlled with omeprazole Endocrine: Negative. Negative for cold intolerance, heat intolerance, polydipsia, polyphagia and polyuria. Genitourinary: Negative. Negative for decreased urine volume, difficulty urinating, enuresis, flankpain and frequency. Musculoskeletal: Positive for neck pain (minor) and neck stiffness. Negative for arthralgias, back pain, gait problem, joint swelling and myalgias. Skin: Negative. Negative for color change, pallor, rash and wound. Allergic/Immunologic: Positive for environmental allergies (seasonal). Negative for food allergies and immunocompromised state. Neurological: Positive for seizures (none since 2021) and headaches (occasional/minor). Negative for dizziness, tremors, syncope, facial asymmetry, speech difficulty, weakness, light-headedness and numbness. Hematological: Negative. Negative for adenopathy. Does not bruise/bleed easily. Psychiatric/Behavioral: Negative. Negative for agitation, behavioral problems, confusion, decreasedconcentration, dysphoric mood, hallucinations, self-injury, sleep disturbance and suicidal ideas. The patient is not nervous/anxious and is not hyperactive. Vitals: 07/26/23 1316 BP: (!) 148/82 BP Location: Left arm Patient Position: Sitting BP Cuff Size: Adult Pulse: 84 Temp: 36.2 C (97.2 F) TempSrc: Temporal Weight: 66.7 kg (147 lb) Height: 1.626 m (5' 4) Physical Exam Vitals and nursing note reviewed. Constitutional: General: She is not in acute distress. Appearance: Normal appearance. She is normal weight. She is not ill-appearing, toxic-appearing or diaphoretic. Comments: Very well kept and pleasant appearing 63 y/o woman Who is a good and reliable historian Appears to comprehend the information provided, and asks appropriate questions She is in NAD and appears healthy HENT: Head: Normocephalic and atraumatic. Nose: Nose normal. No congestion or rhinorrhea. Mouth/Throat: Mouth: Mucous membranes are moist. Pharynx: No oropharyngeal exudate or posterior oropharyngeal erythema. Comments: Good dentition No erythema Eyes: General: No scleral icterus. Right eye: No discharge. Left eye: No discharge. Extraocular Movements: Extraocular movements intact. Conjunctiva/sclera: Conjunctivae normal. Cardiovascular: Rate and Rhythm: Normal rate and regular rhythm. Pulses: Normal pulses. Heart sounds: Normal heart sounds. No murmur heard. Pulmonary: Effort: Pulmonary effort is normal. No respiratory distress. Breath sounds: Normal breath sounds. No wheezing or rhonchi. Abdominal: General: Bowel sounds are normal. There is no distension. Palpations: Abdomen is soft. There is no mass. Tenderness: There is no abdominal tenderness. Comments: No organomegaly Musculoskeletal: General: No swelling, tenderness or deformity. Normal range of motion. Cervical back: Normal range of motion and neck supple. No tenderness. Right lower leg: No edema. Left lower leg: No edema. Lymphadenopathy: Cervical: No cervical adenopathy. Skin: General: Skin is warm and dry. Coloration: Skin is not jaundiced. Findings: No erythema, lesion or rash. Neurological: General: No focal deficit present. Mental Status: She is alert and oriented to person, place, and time. Motor: No weakness. Coordination: Coordination normal. Gait: Gait normal. Psychiatric: Mood and Affect: Mood normal. Behavior: Behavior normal. Thought Content: Thought content normal. Judgment: Judgment normal. Office Visit on 07/26/2023 Component Date Value Ref Range Status SODIUM 07/26/2023 134 (L) 135 - 145 mmol/L Final POTASSIUM 07/26/2023 3.8 3.5 - 5.1 mmol/L Final CHLORIDE 07/26/2023 103 98 - 107 mmol/L Final CARBON DIOXIDE 07/26/2023 23 22 - 30 mmol/L Final ANION GAP 07/26/2023 8 3 - 13 mmol/L Final UREA NITROGEN 07/26/2023 16 7 - 17 mg/dL Final CREATININE 07/26/2023 0.63 0.52 - 1.04 mg/dL Final GLUCOSE 07/26/2023 86 70 - 100 mg/dL Final CALCIUM 07/26/2023 9.8 8.4 - 10.4 mg/dL Final AST (SGOT) 07/26/2023 78 (H) 15 - 46 U/L Final ALT 07/26/2023 106 (H) 0 - 34 U/L Final ALKALINE PHOSPHATASE 07/26/2023 140 (H) 38 - 126 U/L Final ALBUMIN 07/26/2023 3.9 3.5 - 5.0 g/dL Final BILIRUBIN, TOTAL 07/26/2023 0.6 0.2 - 1.3 mg/dL Final TOTAL PROTEIN 07/26/2023 7.2 6.3 - 8.2 g/dL Final eGFR 07/26/2023 >90.0 >60.0 mL/min/1.73m*2 Final Auto WBC 07/26/2023 5.8 3.6 - 10.7 10*3/uL Final RBC 07/26/2023 4.39 3.80 - 5.20 10*6/uL Final Hemoglobin 07/26/2023 14.6 11.7 - 16.0 g/dL Final Hematocrit 07/26/2023 42.7 35.0 - 47.0 % Final MCV 07/26/2023 97.3 77.0 - 99.0 fL Final MCH 07/26/2023 33.3 26.0 - 34.0 pg Final MCHC 07/26/2023 34.2 30.5 - 36.0 % Final RDW 07/26/2023 12.1 11.5 - 15.0 % Final Platelets 07/26/2023 237 140 - 440 10*3/uL Final MPV 07/26/2023 12.4 9.0 - 12.7 fL Final nRBC 07/26/2023 0.0 0.0 - 2.0 /100 WBCs Final Neutrophils Relative 07/26/2023 59.9 38.0 - 82.0 % Final Lymphocytes Relative 07/26/2023 28.5 15.0 - 45.0 % Final Monocytes Relative 07/26/2023 9.3 5.0 - 13.0 % Final Eosinophils Relative 07/26/2023 1.2 0.0 - 6.0 % Final Basophils Relative 07/26/2023 0.9 0.0 - 2.0 % Final Immature Grans % 07/26/2023 0.2 0.0 - 2.0 % Final Neutrophils Absolute 07/26/2023 3.5 1.8 - 7.5 10*3/uL Final Lymphocytes Absolute 07/26/2023 1.7 1.0 - 4.3 10*3/uL Final Monocytes Absolute 07/26/2023 0.5 0.0 - 0.9 10*3/uL Final Eosinophils Absolute 07/26/2023 0.1 0.0 - 0.5 10*3/uL Final Basophils Absolute 07/26/2023 0.1 0.0 - 0.2 10*3/uL Final Immature Grans Absolute 07/26/2023 0.0 <0.1 10*3/uL Final PROTHROMBIN TIME 07/26/2023 10.3 9.0 - 12.0 s Final INR 07/26/2023 0.9 0.9 - 1.1 Final HEPATITIS B VIRUS SURFACE AB 07/26/2023 <8.0 mIU/mL Final ASSESSMENT/PLAN 1. Chronic hepatitis C without hepatic coma (CMS/HCC) (HCC) genotype 1, with VL of 1.2 mil, likely present for several decades since no risk factors for about 40 yrs Plan for appointments for Fibroscan and Ultrasound, After initiation of medication, blood work will be done by appointment here at the ID office after 1 mos of therapy and the end of treatment to check the viral load 3 mos after then end therapy, blood work will be done for the test of cure, called the Sustained Viral Response (SVR). Assessment & Plan: Dx on routine screening Orders: - Comprehensive metabolic panel - CBC auto differential - Protime-INR - Hepatitis A antibody, total - Hepatitis B core antibody, total - Hepatitis B surface antibody - Fibroscan 2. Gastroesophageal reflux disease without esophagitis 3. Focal epilepsy (CMS/HCC) (HCC) 4. Alcohol dependence, daily use (HCC) 2 glasses of wine per night - discussed cutting back and notdrinking daily and not always having 2 glasses given her small size this is alot 5. History of morbid obesity - weight now normal Total time 60 minutes on this day of visit includes extensive education, review of record and documentation before and after visit including documentation and time not explicitly included on EMR timestamp for accounting for open encounter. documented in this [facility]05-09-2024 Instructions* Patient Instructions* Ольга Cruz RN - 07/26/2023 1:00 PM EDT Discussed the liver and Hep C in detail, as well as transmission, prevention and how medications work. Instructed in detail the testing regarding the work up for Hep C, fibrosis scoring, U/S, Fibroscan, labs and immunizations. Also discussed abstinence from alcohol, illicit drugs and the untoward effects that can occur while on treatment. Instructed and signed agreement with treatment plan, understanding with the first fill will receive additional teaching specific to the medication, lab monitoring every 4 weeks and as needed, follow up appointments as scheduled and call office with any problems, questions and/or new medications. Given the opportunity for questions and verbalized understandi ng of all information discussed. There is no indication of life expectancy less than 12 months documented in this [facility]05-09-2024 Evaluation + Plan note* Assessment & Plan Note - Dustin Castellanos MD - 07/26/2023 12:55 PM EDT Associated Problem(s): Chronic hepatitis C without hepatic coma (CMS/HCC) (HCC) [facility]x [id number] Miscellaneous Notes* Assessment & Plan Note - Dustin Castellanos MD - 07/26/2023 12:55 PM EDTAssociated Problem(s): Chronic hepatitis C without hepatic coma (CMS/HCC) (HCC) Dx on routine screening documented in this [facility]04-11-2024 History of Present illness Narrative* Donna Garrison RDMS - 06/28/2023 8:30 AM EDT Radiology Service Progress Note PATIENT NAME: Cierra Fuentes DATE OF SERVICE: June 28, 2023 TIME: 1:42 PM PATIENT IDENTITY VERIFICATION COMPLETED USING TWO (2) IDENTIFIERS: Name and Date of confirmedby patient verbally. FALL SCREENING: Has the patient had 2 falls in the last year or 1 fall with injury or currently using an Ambulatory Assistive Device (Walker, Cane, Wheelchair, Crutches, etc.)? No PATIENT GENDER DATA: Female. status: : No status: NO. PATIENT RELEVANT IMPLANT DATA REVIEWED: Not Applicable PATIENT PRESENTS WITH AN IMPLANTABLE OR ATTACHED BOOKSTORE MANAGER: No RADIOLOGY DEPARTMENT: Ultrasound PERIPHERAL IV DATA: Not applicable SIGNED BY: Donna Garrison RDMS [facility] June 28, 2023 1:42 PM [facility] NoteHNO ID: [id number] Author: DONNA GARRISON RDMS Service: ? Author Type: Java Developer Architect Type: Progress Notes Filed: 06/28/2023 13:42 Note Text: Radiology Service Progress Note PATIENT NAME: Cierra Fuentes DATE OF SERVICE: June 28, 2023 TIME: 1:42 PM PATIENT IDENTITY VERIFICATION COMPLETED USING TWO (2) IDENTIFIERS: Name and Date of confirmed by patient verbally. FALL SCREENING: Has the patient had 2 falls in the last year or 1 fall with injury or currently using an Ambulatory Assistive Device (Walker, Cane, Wheelchair, Crutches, etc.)? No PATIENT GENDER DATA: Female. status: : No status: NO. PATIENT RELEVANT IMPLANT DATA REVIEWED: Not Applicable PATIENT PRESENTS WITH AN IMPLANTABLE OR ATTACHED BOOKSTORE MANAGER: No RADIOLOGY DEPARTMENT: Ultrasound PERIPHERAL IV DATA: Not applicable SIGNED BY: Donna Garrison RDMS [facility] June 28, 2023 1:42 [facility]04-10-2024 Miscellaneous Notes* Telephone Encounter - Jody Aggarwal LPN - 06/27/2023 1:26 PM EDT 06/21/23 Hep C Genotype lab report faxed to infectious disease per their request #[phone] fax#[phone]. Jody Aggarwal LPN June 27, 2023 1:33 PM [facility] Miscellaneous Notes* Telephone Encounter - Diana Gong LPN - 06/26/2023 3:03 PM EDT Results faxed to [phone] Confirmation received Diana Gong LPN June 26, 2023 3:26 PM * Telephone Encounter - Diana Gong LPN - 06/26/2023 2:54 PM EDT ----- Message from Jose Michael MD sent at 06/26/2023 2:37 PM EDT ----- Copy to dr. Castellanos, infectious disease. Martín [facility] Miscellaneous Notes* Telephone Encounter - Jody Aggarwal LPN - 06/21/2023 3:19 PM EDT I attempted to call patient back as she called the office asking why she needs another test. I called her work ph#[phone] ext [phone]. No answer. I left a voice mail message for patient to return call to office. Jody Aggarwal LPN June 21, 2023 3:20 PM * Telephone Encounter - Jody Aggarwal LPN - 06/21/2023 8:51 AM EDT Order entered. Jody Aggarwal LPN June 21, 2023 8:52 AM * Telephone Encounter - Jose Michael MD - 06/21/2023 8:19 AM EDT Did the patient request [facility]? Because I sent her to [facility]. Okay to enter order for hep C genotype. * Telephone Encounter - Jody Aggarwal LPN - 06/20/2023 3:53 PM EDT Received a call from Marla yu [facility] Infectious Disease / Dr. Stafford Signs office asking for patient's Hep C genotype lab report. Patient must have this done prior to seeing infectious disease. #[phone] fax#[phone]. Jody Aggarwal LPN June 20, 2023 3:56 PM documented in this encounterBu[facility]04-04-2024 Miscellaneous Notes* Telephone Encounter - Angelique Ga MA - 06/21/2023 9:25 AM EDT Items addressed in this encounter: MyChart Encounter Infectious disease referral info Able to close encounter. Angelique Ga MA June 21, 2023 9:25 AM 9:25 AM documented in this encounterBu[facility]04-03-2024 Miscellaneous Notes* Telephone Encounter - Angelique Ga MA - 06/20/2023 1:21 PM EDT Items addressed in this encounter: Fax/Forms Infectious Diseases referral faxed to Dustin Castellanos MD Able to close encounter. Angelique Ga MA June 20, 2023 1:21 PM 1:21 PM documented in this encounterBu[facility]rus [facility]03-25-2024 Miscellaneous Notes* Telephone Encounter - Jody Aggarwal LPN - 06/11/2023 10:55 AM EDT I called and spoke with patient Cierra and told her that Dr Michael wants her to get more lab tests and a liver ultrasound because her liver enzymes are elevated. Cierra voiced understanding and is agreeable. Jody Aggarwal LPN June 11, 2023 10:56 AM documented in this encounterBucyrus [facility] Hospital03-25-2024 Miscellaneous Notes* Telephone Encounter - Jody Aggarwal LPN - 06/11/2023 10:[address] Micheal regarding patient's recent test results: Liver enzymes elevated. Obtain hepatitis panel, ultrasound of liver. Orders placed I spoke with patient Cierra and advised her of all information and instructions per Dr Michael's note. Patient did voice understanding and is agreeable. She will contact [facility] in [place] to schedule the ultrasound and I told her to go to the [facility] lab on [facility] [address] [facility]. Cierra said she will do so. Jody Aggarwal LPN June 11, 2023 10:52 AM documented in this encounterBucyrus Community Hospital03-21-2024 Miscellaneous Notes* Letter - [facility] - 06/07/2023 10:23 PM EDT June 08, 2023 PID: [id number] Cierra Fuentes [address] [place] [address] Dear Ms. Fuentes, We are pleased to inform you that the results of your recent breast imaging exam on 06/06/2023 are normal. Early detection of cancer is very important. We also understand recommendations regarding breast cancer screening are controversial. Please discuss with your primary care provider which strategy is best for you and whether a mammogram is right for you. Your imaging studies and report will be kept on file at [facility] as part of your permanent medical record and are available for your continuing care. Thank you for allowing us to help in meeting your health care needs. Sincerely, Dr. Metcalf Interpreting Radiologist [facility] (Normal over 40) documented in this encounterBucyrus Community Hospital03-20-2024 History of Present illness Narrative* Radhika Mckeon Mammo Tech - 06/06/2023 2:20 PM EDT Radiology Service Progress Note PATIENT NAME: Cierra Fuentes DATE OF SERVICE: June 06, 2023 TIME: 2:25 PM PATIENT IDENTITY VERIFICATION COMPLETED USING TWO (2) IDENTIFIERS: Name and Date of confirmedby patient verbally. FALL SCREENING: Has the patient had 2 falls in the last year or 1 fall with injury or currently using an Ambulatory Assistive Device (Walker, Cane, Wheelchair, Crutches, etc.)? No PATIENT GENDER DATA: Female. status: : No status: NO. PATIENT RELEVANT IMPLANT DATA REVIEWED: Not Applicable PATIENT PRESENTS WITH AN IMPLANTABLE OR ATTACHED BOOKSTORE MANAGER: No RADIOLOGY DEPARTMENT: Mammography PERIPHERAL IV DATA: Not applicable SIGNED BY: Guera Pepper June 06, 2023 2:25 PM documented in this encounterBucyrus Community Hospital03-11-2024 History of Present illness Narrative* Jose Michael MD - 05/28/2023 5:40 PM EDT Subjective Cierra Fuentes is a 63 year old female. Cierra presents today for for her annual wellness visit. Additionally she follows up for multiple medical problems. See list. Her chronic medical problems are stable. Her blood pressure is under good control. Epilepsy is well-controlled on current regimen.Reflux symptoms are improved with Prilosec. Review of Systems Constitutional: Negative. HENT: Negative. Eyes: Negative. Respiratory: Negative. Cardiovascular: Negative. Gastrointestinal: Negative. Endocrine: Negative. Genitourinary: Negative. Musculoskeletal: Negative. Skin: Negative. Allergic/Immunologic: Negative. Neurological: Negative. Hematological: Negative. Psychiatric/Behavioral: Negative. History reviewed. No pertinent surgical history. History reviewed. No pertinent past medical history. History reviewed. No pertinent family history. Social History Tobacco Use Smoking status: Every Day Types: Cigarettes Smokeless tobacco: Never Vaping Use Vaping Use: Never used Substance Use Topics Alcohol use: Yes Alcohol/week: 14.0 standard drinks of alcohol Types: 14 Glasses of Wine (5oz) per week Drug use: Not Currently Types: Cocaine ALLERGIES No Known Allergies MEDICATIONS: NYAMYC powder Apply 1 Application to affected area two times a day. lamoTRIgine ER (LAMICTAL XR) 300 mg 24 hr tablet Take 1 tablet by mouth every afternoon. acyclovir (ZOVIRAX) 400 mg tablet Take 1 tablet by mouth once daily. omeprazole (PRILOSEC) 20 mg capsule Take 1 capsule by mouth once daily. levETIRAcetam XR (KEPPRA XR) 500 mg 24 hr tablet Take 1,500 mg by mouth once daily. Allergies, past surgical history, family history and past medical history were reviewed per this encounter. Medications were reviewed and verified. Objective BP 138/70 (BP Site: Left Arm, BP Position: Sitting, BP Cuff Size: Regular Adult) Pulse 70 Temp 36.6 C (97.8 F) (Temporal) Resp 19 Ht 162.6 cm (5' 4) Wt 69.9 kg (154 lb) SpO2 97% BMI 26.43 kg/m Physical Exam Vitals reviewed. Constitutional: Appearance: Normal appearance. HENT: Head: Normocephalic and atraumatic. Nose: Nose normal. Eyes: Extraocular Movements: Extraocular movements intact. Pupils: Pupils are equal, round, and reactive to light. Cardiovascular: Rate and Rhythm: Normal rate and regular rhythm. Pulmonary: Effort: Pulmonary effort is normal. Breath sounds: Normal breath sounds. Abdominal: General: Bowel sounds are normal. Palpations: Abdomen is soft. Musculoskeletal: General: Normal range of motion. Cervical back: Normal range of motion and neck supple. Skin: General: Skin is warm and dry. Capillary Refill: Capillary refill takes less than 2 seconds. Neurological: General: No focal deficit present. Mental Status: She is alert and oriented to person, place, and time. Mental status is at baseline. Psychiatric: Mood and Affect: Mood normal. Behavior: Behavior normal. Assessment and Plan Encounter Diagnosis ICD-10-CM 1. Encounter for screening for depression Z13.31 DEPRESSION SCREENING/ASSESSMENT 2. Wellness examination Z00.00 COMP METABOLIC PANEL 3. Lipid screening Z13.220 LIPID PANEL BASIC 4. Screening for deficiency anemia Z13.0 CBC + DIFF 5. Vitamin D deficiency E55.9 VITAMIN D 25 HYDROXY 6. Encounter for screening mammogram for malignant neoplasm of breast Z12.31 JUSTINA SCREENING 7. Gastroesophageal reflux disease without esophagitis K21.9 8. Nonintractable epilepsy without status epilepticus, unspecified epilepsy type (HCC) G40.909 All open preventative health maintenance topics discussed with patient in detail. This includes risks and benefits regarding vaccines, cancer screening, healthy life style, and diet. Continue present medications. Check labs as above. Monitor blood pressure regularly. Exercise as tolerated. Maintain good diet. Follow-up in 6 months. Jose Michael MD * Diana Gong LPN - 05/28/2023 4:15 PM EDT DUE HEALTH MAINTENANCE Pneumococcal Vaccine(1 of 2 - PCV) Drug Kulm Nav[facility]et Hepatitis C Screening declined HIV Screening declined DTaP,Tdap,Td Vaccine(1 - Tdap) declined Pap Testing declined HPV Testing declined Lipid Screening Diabetes Screening Colorectal Cancer Screening patient states she is not due Shingrix Vaccine(1 of 2) Drug Peter Toth RSV Vaccine(1 - 1-dose 60+ series) Mammogram Screening due on 10/26/2022 ordered today Influenza Vaccine(1) Drug Peter Toth Covid-19 Vaccine( season) Drug Peter Toth No refills needed Diana Gong LPN May 28, 2023 4:24 PM documented in this encounterBucyrus Community Hospital09-12-2023 History of Present illness Narrative* Jose Michael MD - 11/28/2022 11:38 AM EDT This note was created using [employer]. Subjective Cierra Fuentes is a 62 year old female. Cierra presents today for follow-up for multiple medical problems. See list. Her chronic medical problems been stable. Reflux symptoms are improved with Prilosec. She has new complaint today of rash under both breasts. She has been treated before with nystatinpowder. She is asking for refill. Review of Systems Constitutional: Negative. HENT: Negative. Eyes: Negative. Respiratory: Negative. Cardiovascular: Negative. Gastrointestinal: Negative. Endocrine: Negative. Genitourinary: Negative. Musculoskeletal: Negative. Skin: Negative. Allergic/Immunologic: Negative. Neurological: Negative. Hematological: Negative. Psychiatric/Behavioral: Negative. Objective BP 134/88 (BP Site: Left Arm, BP Position: Sitting, BP Cuff Size: Regular Adult) Pulse 78 Temp 36.4 C (97.6 F) (Temporal) Resp 18 Ht 162.6 cm (5' 4) Wt 73.2 kg (161 lb 6.4 oz) SpO2 98% BMI 27.70 kg/m Physical Exam Vitals reviewed. Constitutional: Appearance: Normal appearance. HENT: Head: Normocephalic and atraumatic. Nose: Nose normal. Eyes: Extraocular Movements: Extraocular movements intact. Pupils: Pupils are equal, round, and reactive to light. Cardiovascular: Rate and Rhythm: Normal rate and regular rhythm. Pulmonary: Effort: Pulmonary effort is normal. Breath sounds: Normal breath sounds. Abdominal: General: Bowel sounds are normal. Palpations: Abdomen is soft. Musculoskeletal: General: Normal range of motion. Cervical back: Normal range of motion and neck supple. Skin: General: Skin is warm and dry. Capillary Refill: Capillary refill takes less than 2 seconds. Neurological: General: No focal deficit present. Mental Status: She is alert and oriented to person, place, and time. Mental status is at baseline. Psychiatric: Mood and Affect: Mood normal. Behavior: Behavior normal. Assessment and Plan Encounter Diagnosis ICD-10-CM 1. Gastroesophageal reflux disease without esophagitis K21.9 2. Nonintractable epilepsy without status epilepticus, unspecified epilepsy type (HCC) G40.909 3. Intertrigo L30.4 Treat fungal rash with nystatin powder. Keep skin dry. Avoid none cotton clothing and undergarments. Labs as above. Continue present medications. Jose Michael MD * Diana Gong LPN - 11/27/2022 4:53 PM EDT Patient is in office for a follow up for chronic medical conditions. Patient is experiencing swelling of her left ankle, denies pain today. Patient denies injury Diana Gong LPN November 27, 2022 5:09 PM documented in this encounterBucyrus Community Hospital09-11-2023 Miscellaneous Notes* Telephone Encounter - Diana Gong LPN - 11/27/2022 12:32 PM EDT Patient has appointment today. Will clarify medication refills needed Diana Gong LPN November 27, 2022 12:33 PM documented in this encounterBucyrus Community Hospital06-21-2023 Miscellaneous Notes* Telephone Encounter - Millie Garcia LPN - 09/06/2022 8:45 AM EDT Pharmacy faxed request for the following refill(s): DRUG PETER MAURICIO 06/07/21 NOV none Requested Prescriptions Pending Prescriptions Disp Refills omeprazole (PRILOSEC) 20 mg capsule [Pharmacy Med Name: omeprazole 20 mg capsule,delayed release] 30 capsule 0 Sig: Take 1 capsule by mouth once a day Millie Garcia LPN September 06, 2022 9:01 AM documented in this encounterBucyrus Community Hospital08-09-2022 Miscellaneous Notes* Telephone Encounter - Diana Gong LPN - 10/25/2021 8:54 AM EDT Pending Prescriptions Disp Refills ACYCLOVIR 400 MG TABLET 90 tablet 3 Sig: TAKE 1 TABLET BY MOUTH EVERY DAY JODIE: Yes Diana Gong LPN October 25, 2021 8:54 AM [facility]Del[facility] noteNo assessment information availableWOhioHealth Work Phone: Evaluation note* Diagnosis Gastroesophageal reflux disease without esophagitis- Primary Esophageal reflux Nonintractable epilepsy without status epilepticus, unspecified epilepsy type (HCC) Intertrigo Other specified erythematous condition documented in this encounter [facility] note* Diagnosis Encounter for screening for depression- Primary Wellness examination Lipid screening Screening for lipoid disorders Screening for deficiency anemia Screening for other and unspecified deficiency anemia Vitamin D deficiency Unspecified vitamin D deficiency Encounter for screening mammogram for malignant neoplasm of breast Other screening mammogram Gastroesophageal reflux disease without esophagitis Esophageal reflux Nonintractable epilepsy without status epilepticus, unspecified epilepsy type (HCC) documented in this encounter [facility] note* Diagnosis Encounter for screening mammogram for malignant neoplasm of breast Other screening mammogram documented in this encounter [facility] note* Diagnosis Elevated liver enzymes- Primary Other nonspecific abnormal serum enzyme levels documented in this encounter [facility] note* Diagnosis Hepatitis C virus infection without hepatic coma, unspecified chronicity- Primary documented in this encounter [facility] note* Diagnosis Elevated liver enzymes Other nonspecific abnormal serum enzyme levels documented in this encounter [facility] note* Diagnosis Chronic hepatitis C without hepatic coma (CMS/HCC) (HCC)- Primary Gastroesophageal reflux disease without esophagitis Esophageal reflux Focal epilepsy (CMS/HCC) (HCC) Alcohol dependence, daily use (HCC) History of morbid obesity Alcohol abuse, daily use- Primary Chronic hepatitis C without hepatic coma (CMS/HCC) (HCC) Gastroesophageal reflux disease without esophagitis Esophageal reflux Focal epilepsy (CMS/HCC) (HCC) [facility]* Diagnosis Chronic hepatitis C without hepatic coma (CMS/HCC) (HCC) Gastroesophageal reflux disease without esophagitis Esophageal reflux [facility]* Diagnosis Onset Date Resolution Status Admit Date Chest pain acute July 08 12:26pm Family history of coronary artery disease acute July 08, 2024 12:26pm Tobacco dependence acute July 08, 2024 12:26pm [facility] Work Phone: Evaluation note* Diagnosis Encounter for screening mammogram for breast cancer documented in this encounter [facility] Discharge instructions Additional Instructions Ice and take Tylenol or Motrin as needed.[facility] Work Phone: Reason for referral (narrative)* Diagnostic Procedure Only (Routine) - Authorized Specialty Diagnoses / Procedures Referred By Aida tabares Referred To Contact [facility] Diagnoses Encounter for screening mammogram for malignant neoplasm of breast Procedures JUSTINA SCREENING SCREENING MAMMOGRAPHY BI 2-VIEW BREAST INC CAD Jose Michael MD [address] [place] [address] [facility] [address] [place] [address] Referral ID Status Reason Start Date Expiration Date Visits Requested Visits Authorized [id number] Authorized Auto-Generat ed Referral 05/28/2023 06/26/2024 1 1 [facility] for referral (narrative)* Diagnostic Procedure Only (Routine) - Pending Review Specialty Diagnoses / Procedures Referred By Aida tabares Referred To Contact [facility] Diagnoses Elevated liver enzymes Procedures US ABD RIGHT UPPER QUADRANT US ABDOMINAL REAL TIME W/IMAGE LIMITED Jose Michael MD [address] [place] [address] [facility] [place] [address] Referral ID Status Reason Start Date Expiration Date Visits Requested Visits Authorized [id number] Pending Review Auto-Generat ed Referral 06/10/2023 07/09/2024 1 1 [facility] (narrative)No reason for referral information availableWOhioHealth Work Phone: Reason for visit Narrative* Diagnostic Procedure Only (Routine) - Closed Specialty Diagnoses / Procedures Referred By Contac t Referred To Contact [facility] Diagnoses Encounter for screening mammogram for malignant neoplasm of breast Procedures JUSTINA SCREENING SCREENING MAMMOGRAPHY BI 2-VIEW BREAST INC CAD Jose Michael MD [address] [place] [address] [facility] [address] [place] [address] Referral ID Status Reason Start Date Expiration Date V isits Requested Visits Authorized [id number] Closed Auto-Generate d Referral 05/28/2023 06/26/2024 1 1 [facility] Summary Purpose Family History No Family History Records Found Relationship Condition Age at Onset Recorded Date/T chai Not Specified Myocardial infarction Unknown Malignant neoplasm Unknown Cerebrovascular accident (CVA) Unknown Relationship Condition Age at Onset Recorded Date/T chai Not Specified Myocardial infarction Unknown mother Arthritis Unknown Malignant neoplasm Unknown sister Arthritis Unknown father Arthritis Unknown Cerebrovascular accident (CVA) Unknown Relationship Condition Age at Onset Recorded Date/T chai mother Arthritis Unknown Malignant neoplasm Unknown Hypertension Unknown sister Arthritis Unknown Diabetes mellitus Unknown Malignant neoplasm of breast Unknown father Arthritis Unknown Cerebrovascular accident (CVA) Unknown Advance Directives No Advanced Directives Records Found Advance Directive Response Recorded Date/ Time Living Will No December 02, 2020 10:24am Power of Razor Grinder No November 10:24am Advance Directive Response Recorded Date/ Time Living Will No December 02, 2020 9:24am Power of Razor Grinder No November 9:24am Advance Directive Response Recorded Date/ Time Living Will No February 11 12:33pm Power of Razor Grinder No February 11, 2023 12:33pm Advance Directive Response Recorded Date/ Time Living Will No July 08, 2024 8:29am Do you have a Healthcare Power of Razor Grinder? No July 08, 2024 8:29am Advance Directive Response Recorded Date/ Time Living Will No July 08, 2024 8:29am Do you have a Healthcare Power of Razor Grinder? No July 08, 2024 2:03pm Chief Complaint and Reason for Visit Chief Complaint SCREENING Chief Complaint FALL Chief Complaint Admit Date CHEST CONGESTION July 08, 2024 10: 06am CHEST PAIN July 08, 2024 12: 26pm Reason for Visit Admit Date Chest pain July 08, 2024 12: 26pm Family history of coronary artery diseas e July 08, 2024 12:26pm Tobacco dependence July 08, 2024 12: 26pm Chief Complaint Admit Date CHEST CONGESTION July 08, 2024 10: 06am CHEST PAIN July 08, 2024 6:3 2pm CHEST PAIN July 09, 2024 4:1 1pm CHEST PAIN July 09, 2024 5:1 7pm CHEST PAIN July 10, 2024 5:0 6pm CHEST PAIN July 11, 2024 3:2 5pm STROKE July 20, 2024 1:51pm Reason for Visit Admit Date Chest pain July 09, 2024 4:1 1pm Family history of coronary artery diseas e July 09, 2024 4:11pm Occipital stroke July 09, 2024 4:1 1pm Tobacco dependence July 09, 2024 4:1 1pm Chief Complaint Admit Date CHEST CONGESTION July 08, 2024 10: 06am CHEST PAIN July 08, 2024 6:3 2pm CHEST PAIN July 09, 2024 4:1 1pm CHEST PAIN July 09, 2024 5:1 7pm CHEST PAIN July 10, 2024 5:0 6pm CHEST PAIN July 11, 2024 3:2 5pm STROKE July 20, 2024 1:51pm SCREENING August 20, 2024 3:41p m Chief Complaint Admit Date CHEST CONGESTION July 08, 2024 10: 06am CHEST PAIN July 08, 2024 6:3 2pm CHEST PAIN July 09, 2024 4:1 1pm CHEST PAIN July 09, 2024 5:1 7pm CHEST PAIN July 10, 2024 5:0 6pm CHEST PAIN July 11, 2024 3:2 5pm 30 DAY HOLTER July 20, 2024 9:00am STROKE July 20, 2024 1:51pm SCREENING August 20, 2024 3:41p m COLONOSCOPY September 03, 2024 1:46 pm Additional Source Comments INFORMATION SOURCE (unrecogn ized section and content) DATE CREATED AUTHOR 10/11/2018 [facility] DATE CREATED AUTHOR AUTHOR'S ORGANIZ ATION 02/15/2024 [facility] DATE CREATED AUTHOR AUTHOR'S ORGANIZ ATION 06/12/2024 [facility] DATE CREATED AUTHOR AUTHOR'S ORGANIZ ATION 08/31/2024 [facility] DATE CREATED AUTHOR AUTHOR'S ORGANIZ ATION 11/11/2024 [facility] Goals (unrecognized section and content) Goals may be documented in a n alternate sectionGoals may be documented in an alternate sectionGoals may be documented in an alternate sectionGoals may be documented in an alternate sectionGoals may be documented in an alternate section Source Comments (unrecognize d section and content) In the event this informatio n is protected by the Federal Confidentiality of Alcohol and Drug Abuse Patient Records regulations: The Federal rules restrict any use of the information to criminally investigate or prosecute any alcohol or drug abuse patient.[facility] the event this information is protected by the Federal Confidentiality of Alcohol and Drug Abuse Patient Records regulations: The Federal rules restrict any use of the information to criminally investigate or prosecute any alcohol or drug abuse patient.[facility] HospitalIn the event this information is protected by the Federal Confidentiality of Alcohol and Drug Abuse Patient Records regulations: The Federal rules restrict any use of the information to criminally investigate or prosecute any alcohol or drug abuse patient.[facility] HospitalIn the event this information is protected by the Federal Confidentiality of Alcohol and Drug Abuse Patient Records regulations: The Federal rules restrict any use of the information to criminally investigate or prosecute any alcohol or drug abuse patient.[facility] HospitalIn the event this information is protected by the Federal Confidentiality of Alcohol and Drug Abuse Patient Records regulations: The Federal rules restrict any use of the information to criminally investigate or prosecute any alcohol or drug abuse patient.[facility] HospitalIn the event this information is protected by the Federal Confidentiality of Alcohol and Drug Abuse Patient Records regulations: The Federal rules restrict any use of the information to criminally investigate or prosecute any alcohol or drug abuse patient.[facility] HospitalIn the event this information is protected by the Federal Confidentiality of Alcohol and Drug Abuse Patient Records regulations: The Federal rules restrict any use of the information to criminally investigate or prosecute any alcohol or drug abuse patient.[facility] HospitalIn the event this information is protected by the Federal Confidentiality of Alcohol and Drug Abuse Patient Records regulations: The Federal rules restrict any use of the information to criminally investigate or prosecute any alcohol or drug abuse patient.[facility] HospitalIn the event this information is protected by the Federal Confidentiality of Alcohol and Drug Abuse Patient Records regulations: The Federal rules restrict any use of the information to criminally investigate or prosecute any alcohol or drug abuse patient.[facility] HospitalIn the event this information is protected by the Federal Confidentiality of Alcohol and Drug Abuse Patient Records regulations: The Federal rules restrict any use of the information to criminally investigate or prosecute any alcohol or drug abuse patient.[facility] HospitalIn the event this information is protected by the Federal Confidentiality of Alcohol and Drug Abuse Patient Records regulations: The Federal rules restrict any use of the information to criminally investigate or prosecute any alcohol or drug abuse patient.[facility] HospitalIn the event this information is protected by the Federal Confidentiality of Alcohol and Drug Abuse Patient Records regulations: The Federal rules restrict any use of the information to criminally investigate or prosecute any alcohol or drug abuse patient.[facility] the event this information is protected by the Federal Confidentiality of Alcohol and Drug Abuse Patient Records regulations: The Federal rules restrict any use of the information to criminally investigate or prosecute any alcohol or drug abuse patient.[facility] the event this information is protected by the Federal Confidentiality of Alcohol and Drug Abuse Patient Records regulations: The Federal rules restrict any use of the information to criminally investigate or prosecute any alcohol or drug abuse patient.[facility] the event this information is protected by the Federal Confidentiality of Alcohol and Drug Abuse Patient Records regulations: The Federal rules restrict any use of the information to criminally investigate or prosecute any alcohol or drug abuse patient.[facility] the event this information is protected by the Federal Confidentiality of Alcohol and Drug Abuse Patient Records regulations: The Federal rules restrict any use of the information to criminally investigate or prosecute any alcohol or drug abuse patient.[facility] the event this information is protected by the Federal Confidentiality of Alcohol and Drug Abuse Patient Records regulations: The Federal rules restrict any use of the information to criminally investigate or prosecute any alcohol or drug abuse patient.[facility] the event this information is protected by the Federal Confidentiality of Alcohol and Drug Abuse Patient Records regulations: The Federal rules restrict any use of the information to criminally investigate or prosecute any alcohol or drug abuse patient.[facility] the event this information is protected by the Federal Confidentiality of Alcohol and Drug Abuse Patient Records regulations: The Federal rules restrict any use of the information to criminally investigate or prosecute any alcohol or drug abuse patient.[facility] the event this information is protected by the Federal Confidentiality of Alcohol and Drug Abuse Patient Records regulations: The Federal rules restrict any use of the information to criminally investigate or prosecute any alcohol or drug abuse patient.[facility] the event this information is protected by the Federal Confidentiality of Alcohol and Drug Abuse Patient Records regulations: The Federal rules restrict any use of the information to criminally investigate or prosecute any alcohol or drug abuse patient.[facility] the event this information is protected by the Federal Confidentiality of Alcohol and Drug Abuse Patient Records regulations: The Federal rules restrict any use of the information to criminally investigate or prosecute any alcohol or drug abuse patient.[facility] the event this information is protected by the Federal Confidentiality of Alcohol and Drug Abuse Patient Records regulations: The Federal rules restrict any use of the information to criminally investigate or prosecute any alcohol or drug abuse patient.[facility] the event this information is protected by the Federal Confidentiality of Alcohol and Drug Abuse Patient Records regulations: The Federal rules restrict any use of the information to criminally investigate or prosecute any alcohol or drug abuse patient.[facility] the event this information is protected by the Federal Confidentiality of Alcohol and Drug Abuse Patient Records regulations: The Federal rules restrict any use of the information to criminally investigate or prosecute any alcohol or drug abuse patient.[facility] the event this information is protected by the Federal Confidentiality of Alcohol and Drug Abuse Patient Records regulations: The Federal rules restrict any use of the information to criminally investigate or prosecute any alcohol or drug abuse patient.[facility] the event this information is protected by the Federal Confidentiality of Alcohol and Drug Abuse Patient Records regulations: The Federal rules restrict any use of the information to criminally investigate or prosecute any alcohol or drug abuse patient.[facility] the event this information is protected by the Federal Confidentiality of Alcohol and Drug Abuse Patient Records regulations: The Federal rules restrict any use of the information to criminally investigate or prosecute any alcohol or drug abuse patient.[facility] Reason for Visit (unrecogniz ed section and content) Reason Comments Refill Request Reason Onset Date Comments Refill Request 10/30/2022 Reason Comments Follow Up Reason Comments Wellness Reason Comments Results Reason Comments Infectious Diseases referral faxed to Rogers MD Reason Comments Orders Reason Comments Director Of Medical Staff Services - Other Reason Comments Radiology US Specialty Diagnoses / Procedures Referred By Contac t Referred To Contact US IMAGING Diagnoses Elevated liver enzymes Procedures US ABD RIGHT UPPER QUADRANT US ABDOMINAL REAL TIME W/IMAGE LIMITED Jose Michael MD [address] [place] [address] [place] [address] Referral ID Status Reason Start Date Expiration Date V isits Requested Visits Authorized [id number] Closed Auto-Generate d Referral 06/10/2023 07/09/2024 1 1 Reason Comments Hepatitis C New Patient HCV GT 1a/work up fo r treatment Reason Comments Hepatitis C Follow-up Completed 12 week s treatment Reason Onset Date Comments SPP Hepatology - Follow-up 06/11/2024 HCV+ note Care Teams (unrecognized sec tion and content) Chief Chemist Relationship Specialty Start Date End Date Jose Michael MD [address] [place] [address] PCP - General Family Practice 04/03/19 Chief Chemist Relationship Specialty Start Date End Date Jose Michael MD [address] [place] [address] PCP - General Family Practice 04/03/19 Chief Chemist Relationship Specialty Start Date End Date Jose Michael MD [address] [place] [address] PCP - General Family Medicine 04/03/19 Chief Chemist Relationship Specialty Start Date End Date Jose Michael MD [address] [place] [address] PCP - General Family Medicine 04/03/19 Chief Chemist Relationship Specialty Start Date End Date Jose Michael MD [address] [place] [address] PCP - General Family Medicine 04/03/19 Chief Chemist Relationship Specialty Start Date End Date Jose Michael MD [address] [place] [address] PCP - General Family Medicine 04/03/19 Enrique Barnes MD [address] [place] [address] [phone] Neurology 05/23/22 Chief Chemist Relationship Specialty Start Date End Date Jose Michael MD [address] [place] [address] PCP - General Family Medicine 04/03/19 Enrique Barnes MD [address] [place] [address] [phone] Neurology 05/23/22 Team Status: Active Member Role Status Dates Dr. Jose Michael MD Family Provider Active Dr. Jose Michael MD Primary Care Provider Active Team Status: Inactive Member Role Status Dates Dr. Jose Michael MD Primary Care Provider Active Dr. Jb Delaney DO Emergency Provider Active Chief Chemist Relationship Specialty Start Date End Date Jose Michael MD [address] [place] [address] PCP - General Family Medicine 04/03/19 Enrique Barnes MD [address] [place] [address] [phone] Neurology 05/23/22 Chief Chemist Relationship Specialty Start Date End Date Jose Michael MD [address] [place] [address] PCP - General Family Medicine 04/03/19 Enrique Barnes MD [address] [place] [address] [phone] Neurology 05/23/22 Chief Chemist Relationship Specialty Start Date End Date Jose Michael MD [address] [place] [address] PCP - General Family Medicine 04/03/19 Enrique Barnes MD [address] [place] [phone] Neurology 05/23/22 Chief Chemist Relationship Specialty Start Date End Date Jose Michael MD [address] [place] [address] PCP - General Family Medicine 04/03/19 Enrique Barnes MD [address] [place] [phone] Neurology 05/23/22 Chief Chemist Relationship Specialty Start Date End Date Jose Michael MD [address] [place] [address] PCP - General Family Medicine 04/03/19 Enrique Barnes MD [address] [place] [address] [phone] Neurology 05/23/22 Chief Chemist Relationship Specialty Start Date End Date Jose Michael MD [address] [place] [address] PCP - General Family Medicine 04/03/19 Enrique Barnes MD [address] [place] [address] [phone] Neurology 05/23/22 Chief Chemist Relationship Specialty Start Date End Date Jose Michael MD [address] [place] [address] PCP - General Family Medicine 04/03/19 Enrique Barnes MD [address] [place] [phone] Neurology 05/23/22 Chief Chemist Relationship Specialty Start Date End Date Jose Michael MD [address] [place] [address] PCP - General Family Medicine 04/03/19 Enrique Barnes MD [address] [place] [phone] Neurology 05/23/22 Chief Chemist Relationship Specialty Start Date End Date Jose Michael MD [address] [place] [address] PCP - General Family Medicine 04/03/19 Enrique Barnes MD [address] [place] [address] [phone] Neurology 05/23/22 Chief Chemist Relationship Specialty Start Date End Date Jose Michael MD [address] [place] [address] PCP - General Family Medicine 04/03/19 Enrique Barnes MD [address] [place] [address] [phone] Neurology 05/23/22 Chief Chemist Relationship Specialty Start Date End Date Jose Michael MD [address] [place] [address] PCP - General Family Medicine 04/03/19 Enrique Barnes MD [address] [place] [phone] Neurology 05/23/22 Team Status: Active Member Role Status Robert Mckee MD Primary Care Provider Active Team Status: Inactive Member Role Status Robert Mckee MD Primary Care Provider Active St art: July 08, 2024 End: July 08, 2024 Alysa Mckee MD Referring Provider Active Start : July 08, 2024 End: July 08, 2024 Sage Augustin PA, PA Attending Provider Active Start: July 08, 2024 End: July 08, 2024 Team Status: Active Member Role Status Robert Mckee MD Primary Care Provider Active St art: July 08, 2024 Dr. Yaron Aranda DO Emergency Provider Active Start : July 08, 2024 Dr. Nilesh Davenport DO Admit Provider Active S tart: July 08, 2024 Dr. Nilesh Davenport DO Attending Provider Active Start: July 08, 2024 Team Status: Active Member Role Status Robert Mckee MD Primary Care Provider Active St art: July 08, 2024 Dr. Fan Bains MD Attending Provider Active S tart: July 08, 2024 Team Status: Active Member Role Status Robert Mckee MD Primary Care Provider Active St art: July 08, 2024 Dr. Yaron Aranda DO Emergency Provider Active Start : July 08, 2024 Dr. Nilesh Davenport DO Admit Provider Active S tart: July 08, 2024 Dr. Nilesh Davenport DO Attending Provider Active Start: July 08, 2024 Dr. Nilesh Davenport , Other Provider Active S tart: July 08, 2024 Team Status: Inactive Member Role Status Robert Mckee MD Primary Care Provider Active St art: July 09, 2024 End: July 11, 2024 Dr. Yaron Aranda DO Emergency Provider Active Start : July 09, 2024 End: July 11, 2024 Dr. Nilesh Davenport DO Admit Provider Active S tart: July 09, 2024 End: July 11, 2024 Dr. Nilesh Davenport DO Attending Provider Active Start: July 09, 2024 End: July 11, 2024 Jaswinder Osorio MD Other Provider Active Start: 2024 End: July 11, 2024 Dr. Cony Silva MD Other Provider Active Start: July 09, 2024 End: July 11, 2024 Shannon Jhaveri MD Other Provider Active Start : July 09, 2024 End: July 11, 2024 Dr. Jocelyne Flores DO Other Provider Active St art: July 09, 2024 End: July 11, 2024 Dr. Pamella La MD Other Provider Active Start: July 09, 2024 End: July 11, 2024 Dr. Jonah Abbott MD Other Provider Active Sta rt: July 09, 2024 End: July 11, 2024 Dr. Debbie Carlin MD Other Provider Active Start : July 09, 2024 End: July 11, 2024 Dr. Maximino Beckman MD Other Provider Active Start: July 09, 2024 End: July 11, 2024 Dr. Hal Zapien MD Other Provider Active Start : July 09, 2024 End: July 11, 2024 Dr. Antonino Pfeiffer MD Other Provider Active Sta rt: July 09, 2024 End: July 11, 2024 Mari Cartagena MD Other Provider Active Start : July 09, 2024 End: July 11, 2024 Dr. Henry Pan MD Other Provider Active St art: July 09, 2024 End: July 11, 2024 Dr. Suri Aburto MD Other Provider Active Start : July 09, 2024 End: July 11, 2024 Dr. Eden Pedro MD Other Provider Active Sta rt: July 09, 2024 End: July 11, 2024 Dr. Sanford Jeter MD Other Provider Active Start: July 09, 2024 End: July 11, 2024 Dr. Tutu Mayberry MD Other Provider Active St art: July 09, 2024 End: July 11, 2024 Dr. Edilberto Hannah MD Other Provider Active Star t: July 09, 2024 End: July 11, 2024 Dr. Sander Hendrix MD Other Provider Active St art: July 09, 2024 End: July 11, 2024 Dr. Josee Hernandez MD Other Provider Active Start: July 09, 2024 End: July 11, 2024 Atif Scales MD Other Provider Active Start: July 09, 2024 End: July 11, 2024 Dr. Thony Thornton MD Other Provider Active St art: July 09, 2024 Dr. Jose Monreal DO Other Provider Active Start: July 09, 2024 Dr. Beau Light MD Other Provider Active Start: July 09, 2024 Dr. Graeme Palma MD Other Provider Active Star t: July 09, 2024 Dr. Herbert Arrington MD Other Provider Active Sta rt: July 09, 2024 Shruthi Cohen NP, PILE DRIVER-C Other Provider Active Start: July 09, 2024 Diana Lujan PILE DRIVER-C Other Provider Active St art: July 09, 2024 Jaswinder Osorio MD Other Provider Active Start: 2024 Dr. Cony Silva MD Other Provider Active Start: July 09, 2024 Shannon Jhaveri MD Other Provider Active Start : July 09, 2024 Dr. Jocelyne Flores DO Other Provider Active St art: July 09, 2024 Dr. Pamella La MD Other Provider Active Start: July 09, 2024 Dr. Jonah Abbott MD Other Provider Active Sta rt: July 09, 2024 Dr. Debbie Carlin MD Other Provider Active Start : July 09, 2024 Dr. Maximino Beckman MD Other Provider Active Start: July 09, 2024 Dr. aHl Zapien MD Other Provider Active Start : July 09, 2024 Dr. Antonino Pfeiffer MD Other Provider Active Sta rt: July 09, 2024 Mari Cartagena MD Other Provider Active Start : July 09, 2024 Dr. Henry Pan MD Other Provider Active St art: July 09, 2024 Dr. Suri Aburto MD Other Provider Active Start : July 09, 2024 Dr. Eden Pedro MD Other Provider Active Sta rt: July 09, 2024 Dr. Sanford Jeter MD Other Provider Active Start: July 09, 2024 Dr. Tutu Mayberry MD Other Provider Active St art: July 09, 2024 Dr. Edilberto Hannah MD Other Provider Active Star t: July 09, 2024 Dr. Sander Hendrix MD Other Provider Active St art: July 09, 2024 Dr. Josee Hernandez MD Other Provider Active Start: July 09, 2024 Atif Scales MD Other Provider Active Start: July 09, 2024 Team Status: Active Member Role Status Dates Alysa Mckee MD Primary Care Provider Active St art: July 09, 2024 Dr. Yaron Aranda DO Emergency Provider Active Start : July 09, 2024 Dr. Nilesh Davenport , Admit Provider Active S tart: July 09, 2024 Dr. Nilesh Davenport DO Other Provider Active S tart: July 09, 2024 Dr. Gibran Leonard MD Other Provider Active Start: July 09, 2024 Dr. Fran Callaway MD Other Provider Active Start: July 09, 2024 Dr. Leonard Dickerson MD Other Provider Active Star t: July 09, 2024 Dr. Derik Ruiz DO Other Provider Active Start : July 09, 2024 Dr. Eduar Garcia MD Other Provider Active Sta rt: July 09, 2024 Dr. Hema Gross MD Other Provider Active St art: July 09, 2024 Dr. John Delarosa MD Other Provider Active S tart: July 09, 2024 Dr. Randa Murray MD Other Provider Active Start: July 09, 2024 Dr. Kapil Wolff MD Other Provider Active Start : July 09, 2024 Dr. Douglas Salinas MD Other Provider Active Start: July 09, 2024 Dr. Jayesh Ricks MD Other Provider Active Start : July 09, 2024 Dr. Delma Eden MD Other Provider Active Star t: July 09, 2024 Dr. Steve Guerra MD Other Provider Active Sta rt: July 09, 2024 Dr. Debbie Griffin MD Other Provider Active Sta rt: July 09, 2024 Dr. Selwyn Pederson MD Other Provider Active Star t: July 09, 2024 Dr. Rogelio Meeks MD Other Provider Active St art: July 09, 2024 Dr. Beto Valencia MD Other Provider Active Star t: July 09, 2024 Dr. David Rodriguez , Other Provider Active St art: July 09, 2024 Dr. Johny Rocha MD Other Provider Active Start: July 09, 2024 Dr. Thony Thornton MD Other Provider Active St art: July 09, 2024 Dr. Jose Monreal , Other Provider Active Start: July 09, 2024 Dr. Beau Light MD Other Provider Active Start: July 09, 2024 Dr. Graeme Palma MD Other Provider Active Star t: July 09, 2024 Dr. Herbert Arrington MD Other Provider Active Sta rt: July 09, 2024 Shruthi Cohen NP, PILE DRIVER-C Other Provider Active Start: July 09, 2024 Diana Lujan , PILE DRIVER-C Other Provider Active St art: July 09, 2024 Jaswinder Osorio MD Other Provider Active Start: 2024 Dr. Cony Silva MD Other Provider Active Start: July 09, 2024 Shannon Jhaveri MD Other Provider Active Start : July 09, 2024 Dr. Jocelyne Flores DO Other Provider Active St art: July 09, 2024 Dr. Pamella La MD Other Provider Active Start: July 09, 2024 Dr. Jonah Abbott MD Other Provider Active Sta rt: July 09, 2024 Dr. Debbie Carlin MD Other Provider Active Start : July 09, 2024 Dr. Maximino Beckman MD Other Provider Active Start: July 09, 2024 Dr. Hal Zapien MD Other Provider Active Start : July 09, 2024 Dr. Antonino Pfeiffer MD Other Provider Active Sta rt: July 09, 2024 Mari Cartagena MD Other Provider Active Start : July 09, 2024 Dr. Henry Pan MD Other Provider Active St art: July 09, 2024 Dr. Suri Aburto MD Other Provider Active Start : July 09, 2024 Dr. Eden Pedro MD Other Provider Active Sta rt: July 09, 2024 Dr. Sanford Jeter MD Other Provider Active Start: July 09, 2024 Dr. Tutu Mayberry MD Other Provider Active St art: July 09, 2024 Dr. Edilberto Hannah MD Other Provider Active Star t: July 09, 2024 Dr. Sander Hendrix MD Other Provider Active St art: July 09, 2024 Dr. Josee Hernandez MD Other Provider Active Start: July 09, 2024 Atif Scales MD Other Provider Active Start: July 09, 2024 Dr. Fan Bains MD Attending Provider Active S tart: July 09, 2024 Team Status: Active Member Role Status Dates Alysa cMkee MD Primary Care Provider Active St art: July 10, 2024 Dr. Fan Bains MD Attending Provider Active S tart: July 10, 2024 Team Status: Active Member Role Status Dates Alysa Mckee MD Primary Care Provider Active St art: July 10, 2024 Dr. Yaron Aranda DO Emergency Provider Active Start : July 10, 2024 Dr. Nilesh Davenport DO Admit Provider Active S tart: July 10, 2024 Dr. Nilesh Davenport DO Attending Provider Active Start: July 10, 2024 Dr. Nilesh Davenport DO Other Provider Active S tart: July 10, 2024 Jaswinder Osorio MD Other Provider Active Start: Ap 2024 Dr. Cony Silva MD Other Provider Active Start: July 10, 2024 Shannon Jhaveri MD Other Provider Active Start : July 10, 2024 Dr. Jocelyne Flores DO Other Provider Active St art: July 10, 2024 Dr. Pamella La MD Other Provider Active Start: July 10, 2024 Dr. Jonah Abbott MD Other Provider Active Sta rt: July 10, 2024 Dr. Debbie Carlin MD Other Provider Active Start : July 10, 2024 Dr. Maximino Beckman MD Other Provider Active Start: July 10, 2024 Dr. Hal Zapien MD Other Provider Active Start : July 10, 2024 Dr. Antonino Pfeiffer MD Other Provider Active Sta rt: July 10, 2024 Mari Cartagena MD Other Provider Active Start : July 10, 2024 Dr. Henry Pan MD Other Provider Active St art: July 10, 2024 Dr. Suri Aburto MD Other Provider Active Start : July 10, 2024 Dr. Eden Pedro MD Other Provider Active Sta rt: July 10, 2024 Dr. Sanford Jeter MD Other Provider Active Start: July 10, 2024 Dr. Tutu Mayberry MD Other Provider Active St art: July 10, 2024 Dr. Edilberto Hannah MD Other Provider Active Star t: July 10, 2024 Dr. Sander Hendrix MD Other Provider Active St art: July 10, 2024 Dr. Josee Hernandez MD Other Provider Active Start: July 10, 2024 Atif Scales MD Other Provider Active Start: July 10, 2024 Team Status: Active Member Role Status Dates Alysa Mckee MD Primary Care Provider Active St art: July 11, 2024 Dr. Yaron Aranda DO Emergency Provider Active Start : July 11, 2024 Dr. Nilesh Davenport DO Admit Provider Active S tart: July 11, 2024 Dr. Nilesh Davenport DO Attending Provider Active Start: July 11, 2024 Dr. Nilesh Davenport DO Other Provider Active S tart: July 11, 2024 Jaswinder Osorio MD Other Provider Active Start: 2024 Dr. Cony Silva MD Other Provider Active Start: July 11, 2024 Shannon Jhaveri MD Other Provider Active Start : July 11, 2024 Dr. Jocelyne Flores DO Other Provider Active St art: July 11, 2024 Dr. Pamella La MD Other Provider Active Start: July 11, 2024 Dr. Jonah Abbott MD Other Provider Active Sta rt: July 11, 2024 Dr. Debbie Carlin MD Other Provider Active Start : July 11, 2024 Dr. Maximino Beckman MD Other Provider Active Start: July 11, 2024 Dr. Hal Zapien MD Other Provider Active Start : July 11, 2024 Dr. Antonino Pfeiffer MD Other Provider Active Sta rt: July 11, 2024 Mari Cartagena MD Other Provider Active Start : July 11, 2024 Dr. Henry Pan MD Other Provider Active St art: July 11, 2024 Dr. Suri Aburto MD Other Provider Active Start : July 11, 2024 Dr. Eden Pedro MD Other Provider Active Sta rt: July 11, 2024 Dr. Sanford Jeter MD Other Provider Active Start: July 11, 2024 Dr. Tutu Mayberry MD Other Provider Active St art: July 11, 2024 Dr. Edilberto Hannah MD Other Provider Active Star t: July 11, 2024 Dr. Sander Hendrix MD Other Provider Active St art: July 11, 2024 Dr. Josee Hernandez MD Other Provider Active Start: July 11, 2024 Atif Scales MD Other Provider Active Start: July 11, 2024 Team Status: Active Member Role Status Robert Mckee MD Primary Care Provider Active St art: July 20, 2024 Dr. Nilesh Davenport DO Attending Provider Active Start: July 20, 2024 Dr. Nilesh Davenport DO Referring Provider Active Start: July 20, 2024 Team Status: Inactive Member Role Status Robert Mckee MD Primary Care Provider Active St art: August 06, 2024 End: August 06, 2024 Alysa Mckee MD Attending Provider Active Start : August 06, 2024 End: August 06, 2024 Alysa Mckee MD Referring Provider Active Start : August 06, 2024 End: August 06, 2024 Team Status: Inactive Member Role Status Robert Mckee MD Primary Care Provider Active St art: August 13, 2024 End: August 13, 2024 Adolfo Ojeda PILE DRIVER, PILE DRIVER-C Attending Provider Active Start: August 13, 2024 End: August 13, 2024 Adolfo Ojeda PILE DRIVER, PILE DRIVER-C Referring Provider Active Start: August 13, 2024 End: August 13, 2024 Team Status: Inactive Member Role Status Robert Mckee MD Primary Care Provider Active St art: August 20, 2024 End: August 20, 2024 Alysa Mckee MD Attending Provider Active Start : August 20, 2024 End: August 20, 2024 Alysa Mckee MD Referring Provider Active Start : August 20, 2024 End: August 20, 2024 Team Status: Active Member Role Status Robert Mckee MD Primary Care Provider Active St art: July 20, 2024 Dr. Aristides Morrell MD Attending Provider Active Start: July 20, 2024 Dr. Nilesh Davenport DO Referring Provider Active Start: July 20, 2024 Team Status: Inactive Member Role Status Dates Alysa Mckee MD Primary Care Provider Active St art: September 03, 2024 End: September 03, 2024 Alysa Mckee MD Referring Provider Active Start : September 03, 2024 End: September 03, 2024 Dr. Abby Magaña MD Attending Provider Active Start: September 03, 2024 End: September 03, 2024 FOR RECORDS PERTAINING TO PATIENTS WHO ARE OR HAVE BEEN ENROLLED IN A CHEMICAL DEPENDENCY/SUBSTANCEABUSE PROGRAM, SOME INFORMATION MAY BE OMITTED. This clinical summary was aggregated from multiple sources. Caution should be exercised in using it in the provision of clinical care. This summary normalizes information from multiple sources, and as a consequence, information in this document may materially change the coding, format and clinical context of patient data. In addition, data may be omitted in some cases. CLINICAL DECISIONS SHOULD BE BASED ON THE PRIMARY CLINICAL RECORDS. [facility] [employer] provides no warranty or guarantee of the accuracy or completeness of information in this document.
[2024-11-12] MEDS: Lactated Ringers 1,000 ML 15 ML IV (06:56)
--- NOTE | 2024-11-12 07:14 | PCM.PRE.AN2 ---
ASA Classification* ASA Classification ASA Classification: 3 Assessment & Plan Anesthesia* Anesthesia Assessment Anesthesia Assessment: Discussed sedation and/or anesthesia options, risks, benefits, and alternatives with patient/parents/legal guardian/POA. Questions invited. The patient/parents/legal guardian/POA seems to understand and agrees to proceed with anesthesia plan. Reviewed the physical assessment, medical history, allergy history and patient home medications list prior to surgery/procedure/anesthetic and documented any changes. Performed airway and anesthesia risk assessments. Anesthesia Type Anesthesia Type: MAC History Source History Obtained from:: Patient and Chart Anesthesia Focused Assessment* Temperature: 97.6 F Pulse Rate: 76 Blood Pressure: 135/74 Respiratory Rate: 16 Pulse Ox: 97 Oxygen Delivery Method: Room Air Airway Assessment Mouth opens: 2 cm Mallampati Score: II Teeth Condition: Intact Neck Range of motion (ROM): Full ROM Labs Anesthesia Preop lab: CBC WBC 10.8 K/mm3 (4.4-11.0) 07/09/24 05:10 07/09/24 RBC 3.90 M/mm3 (4.2-5.4) L 07/09/24 05:10 07/09/24 Hgb 13.0 g/dL (12.0-15.0) 07/09/24 05:10 07/09/24 Hct 38.6 % (37-47) 07/09/24 05:10 07/09/24 Plt Count 232 K/mm3 (150-450) 07/09/24 05:10 07/09/24 CHEMISTRY Potassium 3.5 mmol/L (3.3-5.1) 07/09/24 05:10 07/09/24 Sodium 138 mmol/L (133-145) 07/09/24 05:10 07/09/24 Magnesium 1.9 mg/dL (1.5-2.2) 08/06/24 08:17 08/06/24 BUN 9 mg/dL (4-19) 07/09/24 05:10 07/09/24 Creatinine 0.65 mg/dL (0.70-1.20) L 07/09/24 05:10 07/09/24 Glucose 110 mg/dL (70-99) H 07/09/24 05:10 07/09/24 POC Glucose 154 mg/dL (74-106) H 07/09/24 13:54 07/09/24 TSH 2.330 uIU/mL (0.300-4.200) 08/06/24 08:17 08/06/24 COAG PT 12.0 SECONDS (11.7-14.9) 06/30/14 14:23 06/30/14 Pre-Assessment Diagnosis/Proposed Procedure Planned Operative Procedure(s): COLONOSCOPY, EGD Anesthesia History 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 When Was Last Pacemaker Check QUESTION #4 FULL TEXT: You/Your Family Experience fever (hyperthermia) with Anesthesia Last Oral Intake Last Oral intake: Last Oral Intake NPO since 21:00 11/12/24 06:45 Meds taken in AM with sips of water? 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 Female Yes 11/10/24 14:00 HX of Motion Sickness No 11/10/24 14:00 HX of N/V After Surgery No 11/10/24 14:00 Non-Smoker No 11/10/24 14:00 Duration of Surgery greater No 11/10/24 14:00 than 60 minutes Number of Risk Factors 1 11/10/24 14:00 PONV Score Low Risk 11/10/24 14:00 Height & Weight Height & Weight: Anesthesia: Height & Weight Height 5 ft 4 in 11/12/24 06:45 Weight: 69 kg 11/12/24 06:45 Body Mass Index (BMI) 26.1 11/12/24 06:45 Respiratory Assessment Respiratory Assessment - hearing impaired teacher: Respiratory Tract Infection Hx - hearing 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 Has anyone observed you stop No 11/10/24 14:00 breathing during sleep? STOP Results Negative 11/10/24 14:00 QUESTION #5 FULL TEXT : Do you snore loudly (louder than talking or can be heard through closed doors)? 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 Specify any problems Hx of Preganancy in last 3 No 11/10/24 14:00 Months Nurse Filling Out Transfusion JZOLLINGE 11/10/24 14:00 & Questions: Date: 11/10/24 11/10/24 14:00 Time: 14:02 11/10/24 14:00 Patient unable to answer at this time (ie. confused, unrespo /Reproduction History /Reproductive History - hearing impaired teacher: /Reproductive Hx- hearing impaired teacher Hx Now Gestational Age (in weeks): EDC: Hx Hx Para Hx Section SAB No 11/10/24 14:00 Active Medications Active Medications: Current Medications Generic Name Dose Route Start Last Admin Trade Name Freq PRN Reason Stop Dose Admin Lactated Ringer's 1,000 mls @ 15 mls/hr 11/12/24 06:30 11/12/24 06:56 IV 15 mls/hr .Q48H OXANA Administration PFS Medical History (Updated 11/10/24 @ 14:00 by Michelle Medina) Wears glasses Alcohol use Smoker HTN (hypertension) Occipital stroke Family history of coronary artery disease Tobacco dependence Chest pain Seizures GERD (gastroesophageal reflux disease) History of seizures Knee pain Home Medications ?Medication ?Instructions ?Recorded ?Last Taken ?Type acyclovir 400 mg tablet 400 mg PO DAILY 04/18/23 11/12/24 History lamotrigine 300 mg tablet,extended 300 mg PO DAILY 04/18/23 11/12/24 History release 24 hr omeprazole 20 mg capsule,delayed 20 mg PO DAILY 04/18/23 11/12/24 History release levetiracetam 500 mg 1,500 mg PO DAILY 07/08/24 11/12/24 History tablet,extended release 24 hr amlodipine 5 mg tablet 5 mg PO DAILY #30 tabs 07/11/24 11/12/24 Rx aspirin 81 mg tablet,delayed 81 mg PO BREAKFAST #0 tabs 07/11/24 11/11/24 Rx release atorvastatin 40 mg tablet 40 mg PO QHS #30 tabs 07/11/24 11/12/24 Rx lisinopril 20 mg tablet 20 mg PO DAILY #30 tabs 07/11/24 11/11/24 Rx multivitamin with minerals (Daily 1 tab PO QDAY 09/03/24 11/11/24 History Multivitamin-Minerals tablet) Allergy/AdvReac Type Severity Reaction Status Date / Time No Known Allergies Allergy Verified 11/12/24 06:44 Family History (Updated 09/03/24 @ 14:19 by Darcy Marshall) Mother Arthritis Cancer Hypertension Sister Arthritis Diabetes Breast cancer Father Arthritis CVA (cerebral vascular accident) Hypertension Surgical History No history of previous surgery Social History (Updated 09/03/24 @ 14:19 by Darcy Marshall) Smoking Status: Current every day smoker tobacco type: cigarettes how long ago did patient quit smoking: pack a day quit status: considering quitting alcohol intake: current alcohol intake frequency: 0-2 drinks per day Alcohol type: wine details: daily substance use type: does not use additional social history: pt denies vaping, denies marijuana use, denies edibles, denies aspirin use Uses ibuprofen as needed smokes a pack a day, daily consumption alcohol Review of Systems (Anesthesia) ROS Narrative System reviewed and no additional complaints, except as documented.
--- NOTE | 2024-11-12 07:20 | H&P.OPEN ---
HPI - General General Date of Service: 11/12/24 HPI Narrative FAROOQ FUENTES, is a 64 F who presents for screening colonoscopy. Patient is on aspirin 81 mg due to recent occipital stroke with some residual right peripheral vision loss. Patient denies any other changes since office visit. ======= 09/03/2024 HPI HPI: 64-year-old female presents for screening colonoscopy. Patient last colonoscopy was greater than 11 years ago in [place] negative per patient. Patient denies any abdominal pain/nausea/vomiting. Patient has bowel movements daily denies any blood. Patient denies any family history of colon cancer. Patient states she has been on omeprazole for greater than 5 years does not have any symptoms of reflux with this. But never had an EGD. 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 Patient is on aspirin 81 mg. Patient does have a history of seizure disorder last seizure was about 2 years ago. Patient does see neurology in [place] Dr. Barnes. [facility] Medical History (Updated 11/10/24 @ 14:00 by Michelle Medina) Wears glasses Alcohol use Smoker HTN (hypertension) Occipital stroke Family history of coronary artery disease Tobacco dependence Chest pain Seizures GERD (gastroesophageal reflux disease) History of seizures Knee pain Home Medications ?Medication ?Instructions ?Recorded ?Last Taken ?Type acyclovir 400 mg tablet 400 mg PO DAILY 04/18/23 11/12/24 History lamotrigine 300 mg tablet,extended 300 mg PO DAILY 04/18/23 11/12/24 History release 24 hr omeprazole 20 mg capsule,delayed 20 mg PO DAILY 04/18/23 11/12/24 History release levetiracetam 500 mg 1,500 mg PO DAILY 07/08/24 11/12/24 History tablet,extended release 24 hr amlodipine 5 mg tablet 5 mg PO DAILY #30 tabs 07/11/24 11/12/24 Rx aspirin 81 mg tablet,delayed 81 mg PO BREAKFAST #0 tabs 07/11/24 11/11/24 Rx release atorvastatin 40 mg tablet 40 mg PO QHS #30 tabs 07/11/24 11/12/24 Rx lisinopril 20 mg tablet 20 mg PO DAILY #30 tabs 07/11/24 11/11/24 Rx multivitamin with minerals (Daily 1 tab PO QDAY 09/03/24 11/11/24 History Multivitamin-Minerals tablet) Allergy/AdvReac Type Severity Reaction Status Date / Time No Known Allergies Allergy Verified 11/12/24 06:44 Family History (Updated 09/03/24 @ 14:19 by Darcy Marshall) Mother Arthritis Cancer Hypertension Sister Arthritis Diabetes Breast cancer Father Arthritis CVA (cerebral vascular accident) Hypertension Surgical History No history of previous surgery Social History (Updated 09/03/24 @ 14:19 by Darcy Marshall) Smoking Status: Current every day smoker tobacco type: cigarettes how long ago did patient quit smoking: pack a day quit status: considering quitting alcohol intake: current alcohol intake frequency: 0-2 drinks per day Alcohol type: wine details: daily substance use type: does not use additional social history: pt denies vaping, denies marijuana use, denies edibles, denies aspirin use Uses ibuprofen as needed smokes a pack a day, daily consumption alcohol Past Medical/Surgical History Planned Operation Planned Operative Procedure(s): COLONOSCOPY, EGD Previous Hospitalizations/Surgeries HX Hospitalizations: Yes (07-09-24 STROKE) Any Problems With Anesthesia: No You/Your Family Experience Fever (Hyperthermia) With Anes: No Cholinesterase deficiency: No Cardiovascular Hx of Irregular Heartbeat and/or Afib: No Hx Hypertension: Yes (ON MEDS) Respiratory Hx Sleep Apnea: No Hx Respiratory Tract Infection/Cold (presently): No Do You Snore Loudly (louder than talking or can be heard): No Do You Often Feel Tired/ Fatigued/ Sleepy Dring Daytime?: No Has Anyone Observed You Stop Breathing During Sleep?: No Result (for STOP score): Negative Hx Smoking: Yes Smoking Status: Current every day smoker Neurological Hx Transient Ischemic Attacks (TIA): No Does patient have nerve stimulator: No Blood Disorder Hx Deep Vein Thrombosis: No Musculoskeletal Hx Arthritis: Yes (ISSUES BASELINE) Endocrine Hx Diabetes: No Miscellaneous Recent Exposure to Contagious Disease: No Allergies No Known Allergies Allergy (Verified 11/12/24 06:44) Discharge Is Pt Admitted From a Long Term, or a Fpc: No After D/C, Where Do you Plan to Go: Return Home From the PAT History Number of Risk Factors: 1 Vital Signs Vital Signs Vital Signs: 11/12/24 06:45 11/12/24 06:45 11/12/24 07:14 Temperature 97.6 F L 97.6 F L Temperature Source Temporal Pulse Rate 76 76 Respiratory Rate 16 16 Respiratory Pattern Normal Blood Pressure 135/74 H 135/74 H Blood Pressure Mean 94 Blood Pressure Source Monitor Blood Pressure Position Semi-Fowlers Blood Pressure Location Right Arm Pulse Ox 97 97 Oxygen Delivery Method Room Air Room Air Weight Weight: 152 lb 1.903 oz Body Mass Index (BMI) 26.1 Physical Exam Const alert, oriented x3 and no apparent distress HEENT normocephalic and head/scalp atraumatic Resp normal respiratory effort Cardio regular rate GI soft to palpation and non-tender; Negative for non-distended Palpation: Negative for guarding Extremity no clubbing, cyanosis or edema Skin no rashes or lesions noted Neuro moves all extremities Psych mental status grossly normal Assessment & Plan Assessment/Plan (1) Encounter for screening for malignant neoplasm of colon: Surgery Risks - Colonoscopy I discussed with the patient the risks of the procedure: Yes Risks Include but are not Limited To: Risks include but are not limited to: Bleeding, perforation requiring further surgery, inability to complete colonoscopy requiring barium enema.
--- NOTE | 2024-11-12 07:46 | OP.COLON_ITS ---
Patient Name: Cierra Chaparro Procedure Date: 11/12/2024 7:09 AM Date of : 1960 Age: 64 Procedure: Colonoscopy Indications: Screening for colorectal malignant neoplasm Providers: Abby Magaña MD Referring MD: Alysa Staples Md Medicines: Monitored Anesthesia Care Patient Profile: Last Colonoscopy: more than 10 years ago. This is a 64 year old female. Complications: No immediate complications. Procedure: Pre-Anesthesia Assessment: - Prior to the procedure, a History and Physical was performed, and patient medications and allergies were reviewed. The patient's tolerance of previous anesthesia was also reviewed. The risks and benefits of the procedure and the sedation options and risks were discussed with the patient. All questions were answered, and informed consent was obtained. Prior Anticoagulants: The patient has taken no anticoagulant or antiplatelet agents except for aspirin. ASA Grade Assessment: Per anesthesia. After reviewing the risks and benefits, the patient was deemed in satisfactory condition to undergo the procedure. After I obtained informed consent, the scope was passed under direct vision. Throughout the procedure, the patient's blood pressure, pulse, and oxygen saturations were monitored continuously. The Colonoscope was introduced through the anus and advanced to the cecum, identified by the appendiceal orifice, ileocecal valve and palpation. The colonoscopy was performed without difficulty. The patient tolerated the procedure well. The quality of the bowel preparation was good. Scope In: 7:31:16 AM Scope Withdrawal Time 0 hours 6 minutes 35 seconds Scope Out: 7:41:34 AM Total Procedure Duration Time 0 hours 10 minutes 18 seconds Findings: Hemorrhoids were found on perianal exam. Non-bleeding internal hemorrhoids were found. The hemorrhoids were Grade I (internal hemorrhoids that do not prolapse). A few small-mouthed diverticula were found in the sigmoid colon and transverse colon. The exam was otherwise without abnormality. Impression: - Hemorrhoids found on perianal exam. - Non-bleeding internal hemorrhoids. - Diverticulosis in the sigmoid colon and in the transverse colon. - The examination was otherwise normal. - No specimens collected. Recommendation: - Discharge patient to home. - High fiber diet. - Continue present medications. - Repeat colonoscopy in 10 years for screening purposes. Procedure Code(s): --- Professional --- G0121, PT, Colorectal cancer screening; colonoscopy on individual not meeting criteria for high risk Diagnosis Code(s): --- Professional --- Z12.11, Encounter for screening for malignant neoplasm of colon K64.0, First degree hemorrhoids K57.30, Diverticulosis of large intestine without perforation or abscess without bleeding CPT copyright 2021 [employer]. All rights reserved. The codes documented in this report are preliminary and upon wholesale parts salesperson review may be revised to meet current compliance requirements. MD Abby Ritchie MD 11/12/2024 7:46:32 AM This report has been signed electronically. Number of Addenda: 0 Note Initiated On: 11/12/2024 7:09 AM
--- NOTE | 2024-11-12 07:47 | OP.PROVAT_ITS ---
11/12/2024 Alysa Staples Md Re : Colonoscopy procedure for Cierra Delong Bel This procedure was performed on Tuesday, November 12, 2024. My impressions and recommendations are as follows: Impressions : - Hemorrhoids found on perianal exam. - Non-bleeding internal hemorrhoids. - Diverticulosis in the sigmoid colon and in the transverse colon. - The examination was otherwise normal. - No specimens collected. Recommendations : - Discharge patient to home. - High fiber diet. - Continue present medications. - Repeat colonoscopy in 10 years for screening purposes. My findings are described in the full procedure note, which is enclosed. If I can be of further assistance, please feel free to contact me at Doctor phone number(s): , Work: . Sincerely, MD Abby Ritchie MD 11/12/2024 7:46:32 AM This report has been signed electronically.
--- NOTE | 2024-11-12 07:50 | PCM.POST.ANE ---
Anesthesia: Postop Eval I Current Vital Signs Temperature: 98 F Pulse Rate: 78 Blood Pressure: 119/78 Respiratory Rate: 16 Pulse Ox: 97 Oxygen Delivery Method: Room Air Assessment Airway patent: Yes Spontaneous unlabored respirations: Yes Mental status: Awake and Calm nausea: No Vomiting: No Anesthesia Complication: No Fluid Hydration Crystalloid volume administer (ml): 400 Total IV fluid infused: 400 Progress Note Anesthesia document: Postop Eval 1 completed: Yes
--- NOTE | 2024-11-12 08:33 | POSTOPAN2_ITS ---
Anesthesia Postop Eval I Sum Postop Eval Completion status Anesthesia document: Postop Eval 1 completed: Yes Anesthesia Postop Eval I Summary Anesthesia Postop Eval I Summary: Anesthesia Postop Eval I: Assessment Summary Airway patent Yes 11/12/24 07:50 [employer] [email or web address] Spontaneous unlabored Yes 11/12/24 07:50 [employer] CONTRACTOR.[email or web address] respirations Mental status Awake,Calm 11/12/24 07:50 [employer] CONTRACTOR.[email or web address] nausea No 11/12/24 07:50 [employer] CONTRACTOR.[email or web address] Vomiting No 11/12/24 07:50 [employer] CONTRACTOR.ANGELA Anesthesia Postop Eval I: Fluid Summary Crystalloid volume administer 400 11/12/24 07:50 [email or web address] CONTRACTOR.[email or web address] (ml) Colloids volume administered ( ml) Blood Product volume administered (ml) Total IV fluid infused 400 11/12/24 07:50 [employer]OD CONTRACTOR.ANGELA Anesthesia Postop Eval I: Summary Notes Anesthesia Complication No 11/12/24 07:50 P[employer]OD CONTRACTOR.ANGELA Anesthesia Complication Comment: Post-operative progress note Anesthesia: Postop Eval II Evaluation Mental status: Awake Pain Level: 0 nausea: No Vomiting: No Complications Anesthesia Complication: No
--- NOTE | 2024-11-12 08:33 | PCM.POSTANE2 ---
Anesthesia Postop Eval I Sum Postop Eval Completion status Anesthesia document: Postop Eval 1 completed: Yes Anesthesia Postop Eval I Summary Anesthesia Postop Eval I Summary: Anesthesia Postop Eval I: Assessment Summary Airway patent Yes 11/12/24 07:50 GEAR [email or web address] Spontaneous unlabored Yes 11/12/24 07:50 GEAR SETTER.[email or web address] respirations Mental status Awake,Calm 11/12/24 07:50 GEAR SETTER.[email or web address] nausea No 11/12/24 07:50 GEAR SETTER.[email or web address] Vomiting No 11/12/24 07:50 GEAR SETTER.[email or web address] Anesthesia Postop Eval I: Fluid Summary Crystalloid volume administer 400 11/12/24 07:50 GEAR SETTER.[email or web address] (ml) Colloids volume administered ( ml) Blood Product volume administered (ml) Total IV fluid infused 400 11/12/24 07:50 GEAR SETTER.ANGELA Anesthesia Postop Eval I: Summary Notes Anesthesia Complication No 11/12/24 07:50 GEAR SETTER.ANGELA Anesthesia Complication Comment: Post-operative progress note Anesthesia: Postop Eval II Evaluation Mental status: Awake Pain Level: 0 nausea: No Vomiting: No Complications Anesthesia Complication: No
== END 2024-11-12 08:40 | disposition home or self-care (01) ==
LOC: EN 06:18 → AC 06:19
PROVIDERS: PCP Family Medicine; Referring Provider Family Medicine; Visit Provider Surgery
PROC: 0DJD8ZZ Inspection of Lower Intestinal Tract, Via Natural or Artificial Opening Endoscopic (ICD-10-PCS; CPT 45378; principal; 2024-11-12 07:25)
DX: Z12.11 Encounter for screening for malignant neoplasm of colon (principal); G40.909 Epilepsy, unspecified, not intractable, without status epilepticus; Z79.82 Long term (current) use of aspirin; K57.30 Diverticulosis of large intestine without perforation or abscess without bleeding; K64.0 First degree hemorrhoids; F17.210 Nicotine dependence, cigarettes, uncomplicated; I10 Essential (primary) hypertension; Z79.899 Other long term (current) drug therapy; K21.9 Gastro-esophageal reflux disease without esophagitis; K64.4 Residual hemorrhoidal skin tags
CPT/HCPCS: 45378; J2405

== ENCOUNTER → 2024-12-01 | Outpatient (CLI) | payer OTHER, SELFPAY ==
[2024-12-03 13:08] LABS: Dilute Russell Viper Venom 31.4 sec (0.0-47.0); Hexagonal Phase Phospholipid 2 14 sec (0-11); Interpretation Comment: (.); PTT-LA 54.0 sec (0.0-43.5)
== END | disposition home or self-care (01) ==
PROVIDERS: PCP Family Medicine; Referring Provider Physician Assistant; Visit Provider Physician Assistant
DX: R89.9 Unspecified abnormal finding in specimens from other organs, systems and tissues (principal)
CPT/HCPCS: 36415